=== PATIENT | male | born 1960 | race Caucasian/White ===

== ENCOUNTER 2025-04-06 17:45 | Inpatient (IN) | payer OTHER ==
--- OUTSIDE RECORDS SUMMARY | 2025-04-06 18:11 | XMS REPORT | Continuity of Care Document ---
Author Name Unknown Address [address] [facility] [address] [place] [address] [facility] Address [address] [facility] [address] [place] [address] Care Team Providers Care Inspector Wreath Name Role Phone Juan Manuel Novoa MD Primary Care Physician [phone] Corey Patterson Attending Clinician Unavailable BENNETT OSEI Attending Clinician Unavailable TOMMY PHAM Attending Clinician UnavailBennett Dozier Attending Clinician [phone] Juan Manuel Novoa MD Attending Clinician [phone] Doctor Unassigned, [place] Attending Clinician U Ilda Chi MD Attending Clinician [phone] ILDA BERNARD Attending Clinician Unavailable Lab, Lcc Attending Clinician Unavailable 2, Adc Lab Attending Clinician Unavailable Lab, Ang - Db Attending Clinician Unavailable HOLGER DOSS Attending Clinician Unavailable Leisa Gandhi RN A Attending Clinician UnaCRISTHIAN Dhillon Attending Clinician Unavailable Camacho Ayoub MD Attending Clinician + [phone] Presley ROBLES, Camacho Attending Clinician [phone] Emmy ROBLES, Patricia Saha Attending Clinician + [phone] Ruy Helms MD Attending Clinician [phone] Cristhian Chavez MD Attending Clinician [phone] RHODA GEIGER Attending Clinician Unavailab RHODA Marie Attending Clinician Unavailab Rhoda Marie DO Attending Clinician [phone] Debi ROBLES, Mohinder Attending Clinician [phone] Vero ROBLES, Tommy K.H. Attending Clinician [phone] MOHINDER JARRETT Attending Clinician Unavailable JUAN MANUEL NOVOA Attending Clinician Unavailable EMMA FITZGERALD Attending Clinician Unavailable MICHAEL RUIZ Attending Clinician UnavailMichaela Gar Attending Clinician [phone] Sue Thapa Attending Clinician Unavailable SANTO VALDIVIA Attending Clinician Unavabeulah glynn Radiology Attending Clinician Unavailable RADIOLOGY Attending Clinician Unavailable Santo Valdivia MD Attending Clinician [phone] Vero ROBLES, Tommy K.H. Attending Clinician [phone] Juan Manuel Novoa MD Attending Clinician [phone] Brian Rincon MD Attending Clinician [phone] LINNEA DORMAN Attending Clinician UnaLiss Liu Attending Clinician [phone] Michael Ruiz MD Attending Clinician [phone] Lab, Ang - Db Attending Clinician Unavailable Linnea Dorman DPM Attending Clinician Bennett Cox Attending Clinician [phone] Doctor Unassigned, [place] Attending Clinician U fabricio Jarrett MD, Mohinder Attending Clinician [phone] Celia Christian RN Attending Clinician Unavailable Tyra Barragan Attending Clinician [phone] TYRA ROBERTO Attending Clinician Unavailab Adenike Mon MD Attending Clinician LISS CHIANG Attending Clinician Unavailable ELSA VASQUEZ Attending Clinician Unavailable ELSA VASQUEZ Attending Clinician Unavailable ADENIKE SWARTZ Attending Clinician Tasha kaylailaLigia Chavez MD Attending Clinician [phone] LIGIA NGUYEN Attending Clinician Unavailabl LINO Ruelas Attending Clinician Unavailable Call, [facility] Phone Attending Clinician Unavail able THIERRY RUST Attending Clinician Unavailable THIERRY RUST Attending Clinician Unavailable RUBY JONES Attending Clinician Unavailabl RUBY Velasquez Attending Clinician Unavailabl e Heather PT, Ireniroxa Robert Attending Clinician Unavailable Ruby Jones MD Attending Clinician [phone] Emma Diop Attending Clinician [phone] Lab, [facility] Attending Clinician Unavailable 2, Adc Lab Attending Clinician Unavailable Bijal Cho Attending Clinician [phone] BIJAL GENTILE Attending Clinician Unavailable Ton Martínez R Attending Clinician [phone] TIM GUY Attending Clinician Unavailable Tim Guy DO Attending Clinician [phone] Joelle Vilchis NP Attending Clinician [phone] JOSE MARTIN STOKES Attending Clinician Unavaila Kylah Marquez Attending Clinician [phone] Peter Barakat MD Attending Clinician [phone] [facility] Lab Main Attending Clinician UnavailKYLAH Banuelos Attending Clinician Unavailable RO LOPEZ Attending Clinician Unavailable Ro Wilde Attending Clinician + [phone] PETER BARAKAT Attending Clinician Unavailable Andrei Ervin MD Attending Clinician [phone] DAWOOD LEMUS Attending Clinician Unavailable DAWOOD LEMUS Attending Clinician Unavailable NEVAEH_Ginny Attending Clinician UnavailSue Horowitz Attending Clinician [phone] Michele Munoz MD Attending Clinician Unavaila KRISTEN Porras Attending Clinician Unavailab le Only, Ang Db Test Attending Clinician Unavailsalma Rosas HEAVY DUTY DIESEL MECHANIC, Jonn Attending Clinician [phone] JONN ROSAS Attending Clinician Unavailsalma Mujica PHD, Kristen De La Torre Attending Clinician BRIAN RINCON Attending Clinician Unavailable Dory Londono Attending Clinician +[phone] , [facility] Surg Spec Procedure Attending Clinician Unavailable MICHELE MUNOZ Attending Clinician Unavailable Nolvia Flynn DO Attending Clinician [phone] TAVO KRAMER Attending Clinician Unavail able Nurse, [facility] Pob Immunization Attending Clinician Unavailable Tavo Kramer DO Attending Clinician [phone] NOLVIA FLYNN Attending Clinician Unavailable NOLVIA FLYNN Attending Clinician Unavailable Gramm HEAVY DUTY DIESEL MECHANIC, Aretha A Attending Clinician [phone] GRAMM, ARETHA A Attending Clinician Unavailable Lab, Adc Fam Pob I Attending Clinician Unavailab JAMARI Schaeffer Attending Clinician Unavailable Ren Pride MD Attending Clinician [phone] Tomi Hung MD Attending Clinician [phone] Gabriela Marion MD Attending Clinician [phone] Viri Snyder S Attending Clinician [phone] ARCHANA JOHN Attending Clinician Unavailab Michaela Bailey Attending Clinician [phone] Archana John MD Attending Clinician [phone] TATY DELGADO Attending Clinician Unavailable TATY DELGADO Attending Clinician Unavailable [facility] Sleep Lab Attending Clinician Unavaila Darci Streeter MD Attending Clinician + [phone] DARCI RAMIREZ Attending Clinician Unavaila DARCI Streeter Attending Clinician Unavaila leida Rowe, Polly Test Attending Clinician Unavailable Charlie Castillo MD Attending Clinician [phone] Juan Manuel Rodriguez MD Attending Clinician [phone] Timi Burleson MD Attending Clinician [phone] TIMI BURLESON Attending Clinician Unavailab Juan Manuel Lara Admitting Clinician UnavailILDA Candelaria Admitting Clinician Unavailable CRISTHIAN CHAVEZ Admitting Clinician Unavailable Cristhian Chavez MD Admitting Clinician [phone] Sue Thapa Admitting Clinician Unavailable JUAN MANUEL NOVOA Admitting Clinician Unavailable BENNETT OSEI Admitting Clinician Unavailable MOHINDER JARRETT Admitting Clinician Unavailable Mohinder Jarrett MD Admitting Clinician [phone] Ligia Nguyen MD Admitting Clinician [phone] LIGIA NGUYEN Admitting Clinician UnavailLINO Herrera Admitting Clinician Unavailable MARV HUSTON Admitting Clinician Unavailable TOMMY PHAM.HOrquidea Admitting Clinician Unavaila leida HERRING_Mary Anne_Sue_ Admitting Clinician Unavailabl e UNKNOWN Admitting Clinician Unavailable Doni ROBLES, Gabriela Admitting Clinician [phone] Payers Payer Name Policy Type Policy Number Effective Date Expirati on Date Source [facility] [id number] 00:00:00 [facility] P[facility] [id number] 2021 00:00:00 Problems Condition Name Condition Details Condition Category Status Onset Date Resolution Date Last Treatment Date Treating Clinician Comments Source Abdominal pain, unspecifie d abdominal location Abdominal pain, unspecifie d abdominal location Disease Active - 00:00: 00 [facility] Rectal bleeding Rectal bleeding Disease Active 8-11 00:00: 00 [facility] Submandibu lar abscess Submandibu lar abscess Disease Active 5-06 00:00: 00 [facility] Bariatric surgery status Bariatric surgery status Disease Active 3-11 00:00: 00 [facility] [place] (obstructi ve sleep apnea) [place] (obstructi ve sleep apnea) Disease Active 1-15 00:00: 00 [facility] NAFLD (nonalcoho lic fatty liver disease) NAFLD (nonalcoho lic fatty liver disease) Disease Active 15 00:00: 00 [facility] Gastroesop hageal reflux disease, unspecifie d whether esophagiti s present Gastroesop hageal reflux disease, unspecifie d whether esophagiti s present Disease Active 2022-07 018 00:00: 00 [facility] Type 2 diabetes mellitus with hyperglyce maria esther, without long-term current use of insulin Type 2 diabetes mellitus with hyperglyce maria esther, without long-term current use of insulin Disease Active 01-03 00:00: 00 [facility] Hypothyroi dism, unspecifie d type Hypothyroi dism, unspecifie d type Disease Active 01-03 00:00: 00 [facility] Type 2 diabetes mellitus with hyperglyce maria esther, without long-term current use of insulin Type 2 diabetes mellitus with hyperglyce maria esther, without long-term current use of insulin Disease Active 01-03 00:00: 00 [facility] Varicose veins of right lower extremity with pain Varicose veins of right lower extremity with pain Disease Active 07-27 00:00: 00 Overview: Formattin g of this note might be different from the original. 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 Interverte bral Disc Disorder of Cervical Region with Myelopathy Problem Active 2020-07 00:00: 00 [facility] Neck pain Neck Pain Problem Active 2020-07 00:00: 00 [facility] Cervical radiculopa thy Cervical Radiculopa thy Problem Active 2020-07 00:00: 00 [facility] Low back pain Low Back Pain Problem Active 2020-07 00:00: 00 [facility] Lumbar radiculopa thy Lumbar Radiculopa thy Problem Active 2020-07 00:00: 00 [facility] Accidental fall Accidental Fall Problem Active 2020-07 00:00: 00 [facility] Evaluation procedure Evaluation Procedure Problem Active 2020-07 00:00: 00 [facility] Right foot drop Right Foot Drop Problem Active 2020-07 00:00: 00 [facility] Cervical myelopathy Cervical Myelopathy Problem Active 2020-07 00:00: 00 [facility] Syncope and collapse Syncope and collapse Disease Active 10-26 00:00: 00 [facility] Morbid obesity with body mass index of 40.0-49.9 Morbid obesity with body mass index of 40.0-49.9 Disease Active 10-26 00:00: 00 [facility] Pre-diabet es Pre-diabet es Disease Active 10-10 00:00: 00 [facility] Lumbar sprain Lumbar sprain Disease Active 2017-07 00:00: 00 [facility] Bilateral carotid bruits Bilateral carotid bruits Disease Active 10-08 00:00: 00 [facility] Polycythem ia Polycythem ia Disease Active 10-08 00:00: 00 [facility] Elevated BP Elevated BP Disease Active 10-08 00:00: 00 [facility] Insomnia Insomnia Disease Active 08-04 00:00: 00 [facility] Hyperlipid emia with target LDL less than 100 Hyperlipid emia with target LDL less than 100 Disease Active 08-04 00:00: 00 [facility] Allergies, Adverse Reactions, Alerts Allergy Name Allergy Type Status Severity Reaction(s) Onset Date Inactive Date Treating Clinician Comments Source hydrocod one DA Active SV NAUSEA VOMITING 09-27 00:00: 00 [facility] [place] No Known Allergie s DA Active U 04-15 00:00: 00 [facility] [place] No Known Allergie s DA Active U 04-15 00:00: 00 [facility] [place] Benadryl Allergy Deconges tant Propensi ty to adverse reaction s Active Unknown - See comments 02-25 00:00: 00 1 isolated incident several years ago [facility] Hydrocod one Propensi ty to adverse reaction s Active Nausea and/or Vomiting 02-25 00:00: 00 [facility] BENADRYL ALLERGY DECONGES TANT DRUG Active Unknown-Cmnt 02-25 00:00: 00 [facility] HYDROCOD ONE DRUG INGREDI Active N/V 02-25 00:00: 00 [facility] DIPHENHY DRAMINE DRUG INGREDI Active Other-Cmnt 02-25 00:00: 00 [facility] Diphenhy dramine Propensi ty to adverse reaction s Active Other - See comments 02-25 00:00: 00 1 isolated incident several years ago [facility] Social History Social Habit Start Date Stop Date Quantity Comments Source History SDOH Alcohol Frequency [facility] History SDOH Alcohol Std Drinks [facility] History SDOH Alcohol Binge [facility] Gender identity [facility] Alcoholic beverage intake 2025-03-29 00:00:00 2025-03-29 00:00:00 Ex-drinker (finding) [facility] Tobacco use and exposure 2025-03-01 00:00:00 2025-03-01 00:00:00 Former smokeless tobacco user [facility] History of Social function 2024-10-29 00:00:00 2024-10-29 00:00:00 [facility] Alcohol intake 2023-10-17 00:00:00 2023-10-17 00:00:00 Current drinker of alcohol (finding) [facility] Exposure to SARS-CoV-2 (event) 2022-12-17 00:00:00 2022-12-27 16:18:00 Not sure [facility] History of tobacco use 2022-12-12 00:00:00 Snuff User [facility] Alcohol Comment 2016-05-31 00:00:00 2016-05-31 00:00:00 seldom [facility] Sex assigned at 1960 00:00:00 1960 00:00:00 [facility] Smoking Status Start Date Stop Date Source Occasional tobacco smoker 2025-03-01 00:00:00 [facility] Never smoked tobacco [facility] Medications Ordered Medication Name Filled Medication Name Start Date Stop Date Current Medication? Ordering Clinician Indication Dosage Frequency Signature (SIG) Comments Components Source tiZANidine 6 mg capsule 04-06 00:00: 00 Yes [id number] TAKE 1 CAPSULE BY MOUTH THREE TIMES DAILY NEEDED FOR MUSCLE SPASM [facility] Vitamin A Palmitate 3,000 mcg (10,000 unit) Tab 04-06 00:00: 00 Yes [id number] Take 10,000 units by mouth in the morning. [facility] iopamidol (ISOVUE 370-500 mL) injection 85 mL 03-12 21:30: 00 03-12 21:39 :00 No [id number] 85mL 85 mL, Intravenou s, ONCE, 1 dose, On Sat03/12/25 at 1645, Routine [facility] simethicone (GAS RELIEF (SIMETHICON E)) 40 mg/0.6 mL drops 03-09 14:46: 00 03-09 16:00 :52 No PRN, Starting on Sat03/09/25 at 0946, Until Sat03/09/25 at 1100, Routine, Intra-op [facility] lactated ringers IV infusion 1,000 mL 03-09 13:45: 00 03-09 13:58 :00 No 1000mL at 42 mL/hr, 1,000 mL, IV Infusion, ONCE, 1 dose, On Sat03/09/25 at 0845, Routine, DSU Pre-op [facility] TIZANIDINE 6 mg capsule 8-11 00:00: 00 04-06 00:00 :00 No [id number] TAKE 1 CAPSULE BY MOUTH THREE TIMES DAILY NEEDED FOR MUSCLE SPASM [facility] sodium,pota ssium,mag sulfates 17.5-3.13-1 .6 gram 8-11 00:00: 00 03-02 04:59 :00 No [id number] 177mL Take 177 mL by mouth once now for 1 dose. Please follow directions given in office [facility] clotrimazol e-betametha sone cream 8-06 00:00: 00 03-09 00:00 :00 No [id number] Apply to area(s) 2 times daily. [facility] TIZANIDINE 6 mg capsule 7-07 00:00: 00 03-01 00:00 :00 No [id number] TAKE 1 CAPSULE BY MOUTH THREE TIMES DAILY NEEDED FOR MUSCLE SPASM [facility] TIZANIDINE 6 mg capsule 6-04 00:00: 00 01-25 00:00 :00 No [id number] TAKE 1 CAPSULE BY MOUTH THREE TIMES DAILY NEEDED FOR MUSCLE SPASM [facility] amoxicillin -pot clavulanate (AUGMENTIN) 875-125 mg per tablet 1 tablet amoxicillin -pot clavulanate (AUGMENTIN) 875-125 mg per tablet 1 tablet 5-08 14:45: 00 12-04 14:44 :00 No 1{tbl} 1 tablet, Oral, Q12H ABX, 16 doses, First dose on Sat11/26/24 at 0945, Last dose on Sat12/03/24 at 2145, Routine, Reason for Anti-Infec tive: Documented Infection, Documented Infection Site: HEENT, Duration of therapy: 7 days [facility] acetaminoph en-codeine (TYLENOL #3) 300-30 mg tablet 1 tablet 11-26 14:06: 41 11-26 21:48 :57 No 1{tbl} 1 tablet, Oral, Q4HPRN, Starting on Sat11/26/24 at 0906, Until Sat11/26/24 at 1648, Routine, Pain (scale 4-6) [facility] morpHINE injection 4 mg morpHINE injection 4 mg 11-26 02:08: 55 11-26 21:48 :57 No 4mg 4 mg, Slow IV Push, Q6HPRN, Starting on Sat11/25/24 at 2108, Until Sat11/26/24 at 1648, Routine, Pain (scale 7-10) [facility] amoxicillin -pot clavulanate 875-125 mg per tablet amoxicillin -pot clavulanate 875-125 mg per tablet 11-26 00:00: 00 12-05 04:59 :00 No [id number] 1{tbl} Take 1 tablet by mouth in the morning and 1 tablet in the evening. Do all this for 8 days. [facility] polyethylen e glycol 3350 powder 17 g polyethylen e glycol 3350 powder 17 g 11-25 14:00: 00 11-26 21:48 :57 No 17g 17 g, Oral, DAILY, First dose on Sat11/25/24 at 0900, Until Discontinu ed, Routine [facility] sennosides (SENOKOT) tablet 8.6 mg sennosides (SENOKOT) tablet 8.6 mg 11-25 14:00: 00 11-26 21:48 :57 No 8.6mg 8.6 mg, Oral, DAILY, First dose on Sat11/25/24 at 0900, Until Discontinu ed, Routine [facility] enoxaparin (LOVENOX) injection 40 mg enoxaparin (LOVENOX) injection 40 mg 11-25 14:00: 00 11-26 21:48 :57 No 40mg 40 mg, Subcutaneo us, DAILY, First dose on Sat11/25/24 at 0900, Until Discontinu ed, Routine [facility] ampicillin- sulbactam (UNASYN) 3 g in NaCl 0.9% (NS) 100 mL MINI-BAG ampicillin- sulbactam (UNASYN) 3 g in NaCl 0.9% (NS) 100 mL MINI-BAG 11-25 03:00: 00 11-26 13:35 :36 No 3g 3 g, IV Piggyback, Q6H ABX, 20 doses, First dose on Sat11/24/24 at 2200, Last dose on Sat11/29/24 at 1600, Administer over 30 Minutes, 100 mL, Reason for Anti-Infec tive: Empiric Therapy for Suspected Infection, Empiric Therapy Site: Skin / Soft tissue, Duration of therapy: As Defined in Treatment / Therapy Plan [facility] divalproex (DEPAKOTE) delayed release tablet 1,000 mg divalproex (DEPAKOTE) delayed release tablet 1,000 mg 11-25 02:00: 00 11-26 21:48 :57 No 1000mg 1,000 mg, Oral, QHS, First dose on Sat11/24/24 at 2100, Until Discontinu ed, Routine [facility] morpHINE injection 4 mg morpHINE injection 4 mg 11-25 01:45: 09 11-26 01:44 :09 No 4mg 4 mg, Slow IV Push, Q4HPRN, Starting on Sat11/24/24 at 2044, Until Sat11/25/24 at 2043, Routine, Pain (scale 7-10) [facility] acetaminoph en (TYLENOL) tablet 650 mg 11-25 01:45: 01 11-26 21:48 :57 No 650mg [facility] clonazePAM (KLONOPIN) tablet 1 mg 11-25 01:40: 32 11-26 21:48 :57 No 1mg [facility] TIZANIDINE 6 mg capsule 11-25 00:00: 00 12-23 00:00 :00 No [id number] TAKE 1 CAPSULE BY MOUTH THREE TIMES DAILY NEEDED FOR MUSCLE SPASM [facility] ampicillin- sulbactam (UNASYN) 3 g in NaCl 0.9% (NS) 100 mL MINI-BAG ampicillin- sulbactam (UNASYN) 3 g in NaCl 0.9% (NS) 100 mL MINI-BAG 11-24 23:15: 00 11-25 00:08 :00 No 3g 3 g, IV Piggyback, ONCE, 1 dose, On Sat11/24/24 at 1815, Administer over 30 Minutes, 100 mL, Reason for Anti-Infec tive: Documented Infection, Documented Infection Site: HEENT, Duration of therapy: Once (ED) [facility] FENTanyl (PF) (SUBLIMAZE) injection 50 mcg FENTanyl (PF) (SUBLIMAZE) injection 50 mcg 11-24 20:30: 00 11-24 22:00 :00 No 50ug 50 mcg, Slow IV Push, ONCE, 1 dose, On Sat11/24/24 at 1530, Routine [facility] iopamidol (ISOVUE 370-500 mL) injection 85 mL 11-24 17:15: 00 11-24 17:15 :00 No [id number] 85mL 85 mL, Intravenou s, ONCE, 1 dose, On Sat11/24/24 at 1215, Routine [facility] FENTanyl (PF) (SUBLIMAZE) injection 50 mcg 11-24 16:45: 00 11-24 16:53 :00 No 50ug 50 mcg, Slow IV Push, ONCE, 1 dose, On Sat11/24/24 at 1145, Routine [facility] clindamycin in 5 % dextrose (CLEOCIN) 900 mg/50 mL IV piggyback RTU 900 mg 11-24 16:45: 00 11-24 17:27 :00 No 900mg 900 mg, IV Piggyback, ONCE, 1 dose, On Sat11/24/24 at 1145, Administer over 30 Minutes, 50 mL, Reason for Anti-Infec tive: Documented Infection, Documented Infection Site: HEENT, Duration of therapy: Once (ED), Restricted use approved by: After Hours (for ADC, CLC, LCC ONLY) [facility] TIZAN[facility]INE 6 mg capsule 4-07 00:00: 00 11-25 00:00 :00 No [id number] TAKE 1 CAPSULE BY MOUTH THREE TIMES DAILY NEEDED FOR MUSCLE SPASM [facility] TIZANIDINE 6 mg capsule 3-03 00:00: 00 10-26 00:00 :00 No [id number] TAKE 1 CAPSULE BY MOUTH THREE TIMES DAILY NEEDED FOR MUSCLE SPASM [facility] TIZANIDINE 6 mg capsule - 00:00: 00 09-21 00:00 :00 No [id number] TAKE 1 CAPSULE BY MOUTH THREE TIMES DAILY NEEDED FOR MUSCLE SPASM [facility] TIZANIDINE 6 mg capsule 1- 00:00: 00 08-21 00:00 :00 No [id number] TAKE 1 CAPSULE BY MOUTH THREE TIMES DAILY NEEDED FOR MUSCLE SPASM [facility] TIZANIDINE 6 mg capsule 2023-07 2-05 00:00: 00 07-27 00:00 :00 No [id number] TAKE 1 CAPSULE BY MOUTH THREE TIMES DAILY NEEDED FOR MUSCLE SPASM [facility] TIZANIDINE 6 mg capsule 2023-07 1- 00:00: 00 06-25 00:00 :00 No [id number] TAKE 1 CAPSULE BY MOUTH THREE TIMES DAILY NEEDED FOR MUSCLE SPASM [facility] sildenafiL (VIAGRA) 100 mg tablet 04-20 00:00: 00 03-09 00:00 :00 No [id number] 100mg Take 1 tablet by mouth once daily as needed for Other (Sexual activity). [facility] tiZANidine 6 mg capsule 04-20 00:00: 00 05-25 00:00 :00 No [id number] TAKE 1 CAPSULE BY MOUTH THREE TIMES DAILY NEEDED FOR MUSCLE SPASM [facility] furosemide 20 mg tablet 04-09 00:00: 11-24 00:00 :00 No [id number] 20mg Take 1 tablet by mouth as needed (Leg edema). [facility] TIZANIDINE 6 mg capsule 9-11 00:00: 00 04-20 00:00 :00 No [id number] TAKE 1 CAPSULE BY MOUTH THREE TIMES DAILY NEEDED FOR MUSCLE SPASM [facility] triamcinolo ne acetonide 0.1 % cream 02-19 00:00: 00 Yes [id number] Apply to area(s) 2 (two) times daily. [facility] methylPREDN ISolone (MEDROL, MEY,) 4 mg tablets 02-19 00:00: 00 11-24 00:00 :00 No [id number] Take by mouth SEE-INSTRU CTIONS. follow package directions [facility] POTASSIUM CHLORIDE 10 mEq CR tablet 617 00:00: 00 11-24 00:00 :00 No [id number] 10meq TAKE 1 TABLET BY MOUTH IN THE MORNING [facility] clonazePAM 1 mg tablet 11-18 00:00: 00 Yes [id number] 1mg Take 1 tablet by mouth 3 (three) times daily as needed for Other (anxiety). [facility] atorvastati n 20 mg tablet 11-18 00:00: 00 11-24 00:00 :00 No [id number] 20mg Take 1 tablet by mouth at bedtime. [facility] sildenafiL (VIAGRA) 100 mg tablet 11-18 00:00: 04-20 00:00 :00 No [id number] 100mg Take 1 tablet by mouth once daily as needed for Other (Sexual activity). [facility] tiZANidine 6 mg capsule 30 00:00: 00 04-01 00:00 :00 No [id number] TAKE 1 CAPSULE BY MOUTH THREE TIMES DAILY NEEDED FOR MUSCLE SPASM [facility] tiZANidine 6 mg capsule 4-15 00:00: 00 11-18 00:00 :00 No [id number] TAKE 1 CAPSULE BY MOUTH THREE TIMES DAILY NEEDED FOR MUSCLE SPASM [facility] levothyroxi ne 75 mcg tablet 4-10 00:00: 00 11-24 00:00 :00 No [id number] 75ug TAKE 1 TABLET BY MOUTH ONCE DAILY IN THE MORNING [facility] clotrimazol e-betametha sone cream 10-16 00:00: 00 02-19 00:00 :00 No [id number] Apply to area(s) 2 (two) times daily. [facility] TIZANIDINE 6 mg capsule 10-03 00:00: 00 11-03 00:00 :00 No [id number] TAKE 1 CAPSULE BY MOUTH THREE TIMES DAILY NEEDED FOR MUSCLE SPASM [facility] methocarbam oL 500 mg tablet - 00:00: 00 10-29 00:00 :00 No [id number] 500mg Take 1 tablet by mouth 4 (four) times daily. [facility] furosemide 20 mg tablet 09-29 00:00: 00 04-09 00:00 :00 No [id number] 20mg Take 1 tablet by mouth in the morning. [facility] potassium chloride 10 mEq CR tablet 09-29 00:00: 00 01-05 00:00 :00 No [id number] 10meq Take 1 tablet by mouth in the morning. [facility] atorvastati n 20 mg tablet 10:00: 57 Yes 20mg Take 1 tablet by mouth at bedtime. [facility] divalproex 500 mg EC tablet 10:00: 57 Yes TAKE 2 TABLETS BY MOUTH EVERY DAY AT BEDTIME [facility] iopamidol (ISOVUE 370-500 mL) injection 85 mL 09-10 19:00: 00 09-10 18:13 :00 No [id number] 85mL 85 mL, Intravenou s, ONCE, 1 dose, On Sat09/10/23 at 1300, Routine [facility] furosemide 20 mg tablet 09-10 00:00: 00 09-29 00:00 :00 No [id number] 20mg Take 1 tablet by mouth in the morning. [facility] AMMONIUM LACTATE 12 % lotion 09-09 00:00: 00 11-24 00:00 :00 No [id number] APPLY LOTION TOPICALLY TO AFFECTED AREA NEEDED FOR DRY SKIN [facility] cyclobenzap rine 10 mg tablet 09-09 00:00: 00 10-09 04:59 :00 No [id number] 10mg Take 1 tablet by mouth every 12 (twelve) hours for 30 days. [facility] TIZANIDINE 6 mg capsule 09-09 00:00: 00 10-03 00:00 :00 No [id number] TAKE 1 CAPSULE BY MOUTH THREE TIMES DAILY NEEDED FOR MUSCLE SPASM [facility] divalproex 500 mg EC tablet 09-05 14:14: 04 Yes TAKE 2 TABLETS BY MOUTH EVERY DAY AT BEDTIME [facility] atorvastati n 20 mg tablet 09-05 14:14: 04 Yes 20mg Take 1 tablet by mouth at bedtime. [facility] methocarbam oL 500 mg tablet 09-05 00:00: 00 09-29 00:00 :00 No [id number] 500mg Take 1 tablet by mouth 4 (four) times daily. [facility] ketorolac (TORADOL) injection 15 mg 09-04 13:45: 00 09-04 14:49 :00 No 15mg 15 mg, Slow IV Push, ONCE, 1 dose, On Sat09/04/23 at 0745, Routine [facility] methocarbam oL (ROBAXIN) injection 500 mg 09-04 04:00: 00 Yes 500mg 500 mg, Slow IV Push, Q8H, First dose (after last modificati on) on Sat09/03/23 at 2200, Until Discontinu ed, Administer over 3-5 Minutes [facility] enoxaparin (LOVENOX) injection 40 mg 09-03 23:15: 00 Yes 40mg 40 mg, Subcutaneo us, Q24H, First dose on Sat09/03/23 at 1715, Until Discontinu ed, Routine [facility] divalproex (DEPAKOTE) EC tablet 1,000 mg 09-03 23:00: 00 Yes 1000mg 1,000 mg, Oral, QPM, First dose on Sat09/03/23 at 1700, Until Discontinu ed, Routine [facility] alum-mag hydroxide-s imeth (MAG-AL PLUS) 200-200-20 mg/5 mL suspension 15 mL 09-03 22:30: 00 09-03 21:53 :00 No 15mL 15 mL, Oral, ONCE, 1 dose, On Sat09/03/23 at 1630, Routine [facility] NaCl 0.9% (NS) IV infusion 1,000 mL 09-03 16:30: 00 Yes 1000mL at 100 mL/hr, IV Infusion, CONTINUOUS , Starting on Sat09/03/23 at 1030, Until Discontinu ed, Routine [facility] fosaprepita nt (EMEND (FOSAPREPIT ANT)) 150 mg in NaCl 0.9% (NS) 150 mL IV piggyback 09-03 16:15: 00 09-03 18:59 :00 No 150mg 150 mg, IV Piggyback, ONCE, 1 dose, On Sat09/03/23 at 1015, Administer over 30 Minutes, 150 mL
Inpa tient indication ? Post-opera tive nausea/vom iting (PONV)
Has another antiemetic medication been administer ed? Yes
Dillon s the patient have 3 or more risk factors for postoperat keri nausea/vom iting (PONV)? No
This medication should NOT be administer ed. override - Per Dr. 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 [facility] pantoprazol e (PROTONIX) injection 40 mg 09-03 15:00: 00 Yes 40mg 40 mg, Slow IV Push, DAILY, First dose on Sat09/03/23 at 0900, Until Discontinu ed [facility] methocarbam oL (ROBAXIN) tablet 500 mg 09-03 14:00: 00 Yes 500mg 500 mg, Oral, QID, First dose on Sat09/03/23 at 0800, Until Discontinu ed, Routine [facility] Lidocaine (LIDOCARE) 4 % patch 1 Patch 09-03 13:45: 00 09-04 06:12 :00 No 1{patch } 1 Patch, Topical, Administer over 12 Hours, ONCE, 1 dose, On Sat09/03/23 at 0745, Routine [facility] levothyroxi ne (SYNTHROID) tablet 75 mcg 09-03 12:00: 00 Yes 75ug 75 mcg, Oral, QAM-0600, First dose on Sat09/03/23 at 0600, Until Discontinu ed, Routine [facility] acetaminoph en (TYLENOL) 160 mg/5 mL oral liquid 975 mg 09-03 04:00: 00 Yes 975mg 975 mg, Oral, Q8H, First dose on Sat09/02/23 at 2200, Until Discontinu ed, Routine [facility] Sliding Scale Insulin-Reg ular 09-03 02:00: 00 Yes Subcutaneo us, Q6HA, First dose on Sat09/02/23 at 2000, Until Discontinu ed, Routine [facility] metoclopram maggie HCl (REGLAN) injection 10 mg 09-03 00:00: 00 Yes 10mg 10 mg, Slow IV Push, Q6H, First dose on Sat09/02/23 at 1800, Until Discontinu ed, [facility] M-P[facility] 160 mg/5 mL liquid 09-03 00:00: 00 11-24 00:00 :00 No TAKE 30.5 ML BY MOUTH EVERY 8 HOURS FOR 3 DAYS [facility] lactated ringers IV infusion 1,000 mL 09-02 23:45: 00 09-03 15:21 :49 No 1000mL at 125 mL/hr, 1,000 mL, IV Infusion, CONTINUOUS , Starting on Sat09/02/23 at 1745, Until Sat09/03/23 at 0921, Routine [facility] HYDROmorpho ne (DILAUDID) injection 0.2 mg 09-02 22:46: 33 09-03 02:37 :06 No .2mg 0.2 mg, Slow IV Push, Q5MIN PRN, 10 doses, Starting on Sat09/02/23 at 1646, Until Sat09/02/23 at 203, Routine, Pain (scale 7-10), PACU
Us e approved by (Faculty): PACU USE -ANESTHESI A SERVICE-HY DROMORPHON E INJECTIONS [facility] oxyCODONE (ROXYCONE) 5 mg/5 mL solution 5 mg 09-02 22:39: 10 Yes 5mg 5 mg, Oral, Q6HPRN, Starting on Sat09/02/23 at 1639, Until Discontinu ed, Routine, Pain (scale 7-10)
F aculty member approving Restricted medication : MOHINDER JARRETT [facility] ondansetron (ZOFRAN (PF)) injection 4 mg 09-02 22:39: 10 Yes 4mg 4 mg, Slow IV Push, Q6HPRN, Starting on Sat09/02/23 at 1639, Until Discontinu ed, Routine, Nausea and Vomiting (N/V) [facility] glucagon (GLUCAGEN DIAGNOSTIC KIT) injection 1 mg 09-02 22:38: 36 Yes 1mg 1 mg, Intramuscu lar, PRN, Starting on Sat09/02/23 at 1638, Until Discontinu ed, GAURAV, Blood Glucose < or = 70 mg/dL and patient is NPO, unable to swallow or has mental changes. [facility] dextrose 50 % in water (D50W) injection 25 mL 09-02 22:38: 36 Yes 25mL 25 mL, Slow IV Push, PRN, Starting on Sat09/02/23 at 1638, Until Discontinu ed, GAURAV, Blood Glucose < or = 70 mg/dL and patient is NPO, unable to swallow or has mental status changes. [facility] bupivacaine (preserv free) (SENSORCAIN E MPF) 0.25 % (2.5 mg/mL) 30 mL, lidocaine 0.5% 5 mg/mL (0.5 %) 20 mL 09-02 19:43: 00 09-02 23:04 :29 No PRN, Starting on Sat09/02/23 at 1343, Intra-op [facility] divalproex 500 mg EC tablet 09-02 16:49: 39 Yes TAKE 2 TABLETS BY MOUTH EVERY DAY AT BEDTIME [facility] atorvastati n 20 mg tablet 09-02 16:49: 39 Yes 20mg Take 1 tablet by mouth at bedtime. [facility] clonazePAM 1 mg tablet 09-02 16:42: 44 09-02 00:00 :00 No [facility] tadalafiL 5 mg tablet 09-02 16:42: 44 09-02 00:00 :00 No 5mg Take 1 tablet by mouth in the morning. [facility] heparin (porcine) injection 5,000 Units 09-02 15:00: 00 09-02 16:43 :00 No [id number] 5,000 Units, Subcutaneo us, ONCE, 1 dose, On Sat09/02/23 at 0900, Routine [facility] traMADoL 50 mg tablet 09-02 00:00: 00 Yes [id number] 50mg Take 1 tablet by mouth every 6 (six) hours as needed for Pain (scale 7-10). Indication s: acute pain [facility] ondansetron 4 mg disintegrat ing tablet 09-02 00:00: 00 03-09 00:00 :00 No [id number] 4mg Take 1 tablet by mouth every 8 (eight) hours as needed for Nausea and Vomiting (N/V). [facility] acetaminoph en 160 mg/5 mL oral liquid 2-12 00:00: 00 09-06 05:59 :00 No [id number] 975mg Take 30.5 mL by mouth every 8 (eight) hours for 3 days. [facility] clonazePAM 1 mg tablet 08-26 10:28: 33 Yes [facility] tadalafiL 5 mg tablet 08-26 10:28: 33 Yes 5mg Take 1 tablet by mouth in the morning. [facility] TIZANIDINE 6 mg capsule 08-01 00:00: 00 09-09 00:00 :00 No [id number] TAKE 1 CAPSULE BY MOUTH THREE TIMES DAILY NEEDED FOR MUSCLE SPASM [facility] levothyroxi ne (EUTHYROX) 50 mcg tablet 07-31 17:20: 22 07-31 00:00 :00 No 50ug Take 1 tablet by mouth every morning. [facility] furosemide (LASIX) 20 mg tablet 07-31 00:00: 00 Yes [id number] 20mg Take 1 tablet by mouth in the morning. [facility] mupirocin 2 % ointment 07-31 00:00: 00 03-09 00:00 :00 No [id number] Apply to area(s) 3 (three) times daily. [facility] levothyroxi ne 75 mcg tablet 07-31 00:00: 00 10-29 00:00 :00 No [id number] 75ug Take 1 tablet by mouth every morning. [facility] ammonium lactate 12 % lotion 07-31 00:00: 00 09-09 00:00 :00 No [id number] Apply to area(s) as needed for Dry skin. [facility] levothyroxi ne 75 mcg tablet 07-25 09:39: 45 07-25 00:00 :00 No 75ug Take 1 tablet by mouth every morning. [facility] escitalopra m oxalate 10 mg tablet 07-25 09:39: 36 07-25 00:00 :00 No 10mg Take 1 tablet by mouth in the morning. [facility] tiZANidine 4 mg capsule 07-25 09:38: 45 07-25 00:00 :00 No Take 1 tablet by mouth every eight hours as needed As needed for muscle spasms [facility] Testosteron e (ANDRODERM) 4 mg/24 hr patch 07-25 09:38: 26 07-25 00:00 :00 No APPLY 1 PATCH TOPICALLY TO SKIN ONCE DAILY [facility] semaglutide (OZEMPIC) 1 mg/dose (4 mg/3 mL) Ij 07-25 09:38: 13 07-25 00:00 :00 No INJECT 1 MG SUBCUTANEO USLY ONCE A WEEK [facility] semaglutide (OZEMPIC) 0.25 mg or 0.5 mg(2 mg/1.5 mL) [facility] 07-25 09:38: 04 07-25 00:00 :00 No INJECT 1/2 (ONE HALF) MG SUBCUTANEO USLY ONCE A WEEK [facility] QUEtiapine 300 mg tablet 07-25 09:37: 48 07-25 00:00 :00 No 300mg Take 1 tablet by mouth at bedtime. [facility] QUEtiapine (SEROQUEL) 100 mg tablet 07-25 09:37: 39 07-25 00:00 :00 No [facility] losartan-hy drochloroth iazide 100-25 mg per tablet 07-25 09:37: 03 07-25 00:00 :00 No TAKE 1 TABLET BY MOUTH ONCE DAILY FOR 30 DAYS [facility] losartan 50 mg tablet 07-25 09:36: 57 07-25 00:00 :00 No 50mg Take 1 tablet by mouth in the morning. [facility] LORazepam 1 mg tablet 07-25 09:36: 31 07-25 00:00 :00 No 1mg Take 1 tablet by mouth 3 (three) times daily as needed. [facility] levothyroxi ne (EUTHYROX) 100 mcg tablet 07-25 09:36: 09 07-25 00:00 :00 No 100ug Take 1 tablet by mouth every morning. [facility] KCL 20 mEq tablet 07-25 09:35: 46 07-25 00:00 :00 No [facility] gabapentin 600 mg tablet 07-25 09:35: 37 07-25 00:00 :00 No Take by mouth 3 (three) times daily. [facility] furosemide 40 mg tablet 07-25 09:35: 31 07-25 00:00 :00 No 40mg Take 1 tablet by mouth every morning and evening. [facility] FLUoxetine 20 mg tablet 07-25 09:35: 16 07-25 00:00 :00 No [facility] FLUoxetine 20 mg capsule 07-25 09:35: 06 07-25 00:00 :00 No TAKE 3 CAPSULES BY MOUTH ONCE DAILY [facility] cyclobenzap rine 10 mg tablet 07-25 09:34: 41 07-25 00:00 :00 No 10mg Take 1 tablet by mouth every 12 (twelve) hours as needed. [facility] divalproex 500 mg EC tablet 07-25 09:12: 23 Yes TAKE 2 TABLETS BY MOUTH EVERY DAY AT BEDTIME [facility] tadalafiL 5 mg tablet 07-25 09:12: 23 Yes 5mg Take 1 tablet by mouth in the morning. [facility] clonazePAM 1 mg tablet 2022-07 09:53: 38 Yes [facility] FLUoxetine 20 mg tablet 2022-07 09:53: 38 Yes [facility] FLUoxetine 20 mg capsule 2022-07 09:53: 38 Yes TAKE 3 CAPSULES BY MOUTH ONCE DAILY [facility] gabapentin 600 mg tablet 2022-07 09:53: 38 Yes Take by mouth 3 (three) times daily. [facility] furosemide 40 mg tablet 2022-07 09:53: 38 Yes 40mg Take 1 tablet by mouth every morning and evening. [facility] losartan 50 mg tablet 2022-07 09:53: 38 Yes 50mg Take 1 tablet by mouth in the morning. [facility] losartan-hy drochloroth iazide 100-25 mg per tablet 2022-07 09:53: 38 Yes TAKE 1 TABLET BY MOUTH ONCE DAILY FOR 30 DAYS [facility] KCL 20 mEq tablet 2022-07 09:53: 38 Yes [facility] semaglutide (OZEMPIC) 0.25 mg or 0.5 mg(2 mg/1.5 mL) [facility] 2022-07 09:53: 38 Yes INJECT 1/2 (ONE HALF) MG SUBCUTANEO USLY ONCE A WEEK [facility] semaglutide (OZEMPIC) 1 mg/dose (4 mg/3 mL) [facility] 2022-07 09:53: 38 Yes INJECT 1 MG SUBCUTANEO USLY ONCE A WEEK [facility] Testosteron e (ANDRODERM) 4 mg/24 hr patch 2022-07 09:53: 38 Yes APPLY 1 PATCH TOPICALLY TO SKIN ONCE DAILY [facility] tadalafiL 5 mg tablet 2022-07 09:53: 38 Yes 5mg Take 1 tablet by mouth in the morning. [facility] levothyroxi ne (EUTHYROX) 100 mcg tablet 2022-07 09:53: 38 Yes 100ug Take 1 tablet by mouth every morning. [facility] levothyroxi ne (EUTHYROX) 50 mcg tablet 2022-07 09:53: 38 Yes 50ug Take 1 tablet by mouth every morning. [facility] levothyroxi ne 75 mcg tablet 2022-07 09:53: 38 Yes 75ug Take 1 tablet by mouth every morning. [facility] LORazepam 1 mg tablet 2022-07 09:53: 38 Yes 1mg Take 1 tablet by mouth 3 (three) times daily as needed. [facility] QUEtiapine 300 mg tablet 2022-07 09:53: 38 Yes 300mg Take 1 tablet by mouth at bedtime. [facility] atorvastati n 20 mg tablet 2022-07 09:53: 38 11-18 00:00 :00 No 20mg Take 1 tablet by mouth at bedtime. [facility] QUEtiapine (SEROQUEL) 100 mg tablet 2022-07 09:45: 47 Yes [facility] divalproex 500 mg EC tablet 2022-07 09:45: 46 Yes TAKE 2 TABLETS BY MOUTH EVERY DAY AT BEDTIME [facility] escitalopra m oxalate 10 mg tablet 2022-07 09:45: 46 Yes 10mg Take 1 tablet by mouth in the morning. [facility] diclofenac 75 mg EC tablet 2022-07 14:58: 26 05-09 00:00 :00 No diclofenac sodium 75 mg tablet,del ayed release [facility] diclofenac 75 mg EC tablet 2022-07 13:23: 14 Yes diclofenac sodium 75 mg tablet,del ayed release [facility] prazosin (MINIPRESS) 5 mg capsule 2022-07 13:22: 22 05-07 00:00 :00 No BEDTIME. [facility] tiZANidine 6 mg capsule 2022-07 00:00: 00 08-01 00:00 :00 No [id number] 6mg Take 1 capsule by mouth 3 (three) times daily as needed for Muscle Spasms. [facility] empaglifloz in (JARDIANCE) 10 mg 2022-07 00:00: 00 05-09 00:00 :00 No [id number] 10mg Take 1 tablet by mouth in the morning. [facility] doxycycline hyclate 100 mg tablet 2022-07 00:00: 00 05-09 00:00 :00 No [id number] 100mg Take 1 tablet by mouth in the morning and 1 tablet in the evening. Do all this for 7 days. [facility] prazosin (MINIPRESS) 5 mg capsule 04-02 14:08: 36 Yes BEDTIME. [facility] diclofenac 75 mg EC tablet 04-02 14:08: 35 Yes diclofenac sodium 75 mg tablet,del ayed release [facility] tirzepatide (MOUNJARO) 12.5 mg/0.5 mL PnIj 04-02 00:00: 00 04-14 00:00 :00 No [id number] 12.5mg inject 12.5 mg under the skin weekly. [facility] barium sulfate (E-Z-HD BARIUM) 98 % oral suspension 135 mL 03-18 21:00: 00 03-18 20:20 :00 No [id number] 135mL 135 mL, Oral, ONCE, 1 dose, On Sat03/18/23 at 1600, Routine [facility] barium sulfate (LIQUID E-Z PAQUE) 60 % (w/v) oral suspension 355 mL 03-18 21:00: 00 03-18 20:20 :00 No [id number] 355mL 355 mL, Oral, ONCE, 1 dose, On Sat03/18/23 at 1600, Routine [facility] sod bicarb-citr ic ac-simeth (E-Z-GAS II) 2.21-1.53 gram/4 gram packet 1 Packet 03-18 21:00: 00 03-18 20:20 :00 No [id number] 1{packe t} 1 Packet, Oral, ONCE, 1 dose, On Sat03/18/23 at 1600, Routine [facility] QUEtiapine (SEROQUEL) 300 mg tablet 03-08 09:27: 23 03-08 00:00 :00 No BEDTIME. [facility] QUEtiapine (SEROQUEL) 25 mg tablet 03-08 09:27: 17 03-08 00:00 :00 No TWICE DAILY. as needed for ANXIETY [facility] divalproex 500 mg EC tablet 03-08 09:26: 45 03-08 00:00 :00 No 1000mg Take 2 tablets by mouth in the morning. [facility] ALPRAZolam 1 mg tablet 03-08 09:25: 53 03-08 00:00 :00 No [facility] diclofenac 75 mg EC tablet 03-08 09:23: 52 03-08 00:00 :[address] 75 mg tbec [facility] atorvastati n (LIPITOR) 20 mg tablet 03-08 09:23: 30 03-08 00:00 :00 No DAILY. [facility] diclofenac 75 mg EC tablet 03-08 09:12: 00 Yes diclofenac sodium 75 mg tablet,del ayed release [facility] prazosin (MINIPRESS) 5 mg capsule 03-08 09:12: 00 Yes BEDTIME. [facility] levothyroxi ne (SYNTHROID) 50 mcg tablet 03-08 09:12: 00 Yes DAILY. [facility] levothyroxi ne 88 mcg tablet 03-08 00:00: 00 04-04 00:00 :00 No [id number] 88ug Take 1 tablet by mouth every morning. [facility] triamcinolo ne acetonide (KENALOG) injection 40 mg 03-07 21:30: 00 03-07 20:40 :36 No [id number] 40mg [facility] lidocaine 1% (XYLOCAINE) 10 mg/mL (1 %) injection 4 mL 03-07 21:30: 00 02-25 20:37 :00 No [id number] 4mL [facility] FLUoxetine 20 mg capsule 02-28 00:00: 00 03-08 00:00 :00 No [facility] lidocaine 1% (XYLOCAINE) 10 mg/mL (1 %) injection 4 mL 02-25 22:45: 00 02-26 10:44 :00 No [id number] 4mL [facility] triamcinolo ne acetonide (KENALOG) injection 40 mg 02-25 22:45: 00 02-25 18:23 :00 No [id number] 40mg 40 mg, Intramuscu lar, ONCE, 1 dose, On Sat02/25/23 at 1745, Routine [facility] methylPREDN ISolone (MEDROL, MEY,) 4 mg tablets 02-21 00:00: 00 03-08 00:00 :00 No [id number] 84mg Take 21 tablets by mouth SEE-INSTRU CTIONS. follow package directions [facility] tiZANidine 6 mg capsule 02-04 00:00: 00 05-07 00:00 :00 No [id number] 6mg Take 1 capsule by mouth 3 (three) times daily as needed for Muscle Spasms. [facility] tirzepatide (MOUNJARO) 10 mg/0.5 mL PnIj 02-04 00:00: 00 04-02 00:00 :00 No [id number] 10mg inject 10 mg under the skin weekly. [facility] tirzepatide (MOUNJARO) 7.5 mg/0.5 mL PnIj 01-23 00:00: 00 02-04 00:00 :00 No [id number] 7.5mg inject 7.5 mg under the skin weekly. [facility] testosteron e cypionate 200 mg/mL injection 6-14 00:00: 00 11-24 00:00 :00 No [id number] 100mg 0.5 mL by Intramuscu lar route weekly. [facility] atorvastati n 10 mg tablet 10 00:00: 00 07-25 00:00 :00 No [id number] 10mg Take 1 tablet by mouth at bedtime. [facility] divalproex 500 mg EC tablet 12-28 09:45: 51 Yes 1000mg Take 1,000 mg by mouth in the morning. [facility] lancets (ONE TOUCH DELICA) 33 gauge [facility] [place]-28 00:00: 00 Yes [id number] Use to check blood sugar 1X daily. DX:E11.65 [facility] lancets (ONE TOUCH DELICA) 33 gauge [facility] [place]-28 00:00: 00 11-24 00:00 :00 No [id number] Use to check blood sugar 1X daily. DX:E11.65 [facility] blood sugar diagnostic (ONETOUCH VERIO TEST STRIPS) strip 12-28 00:00: 00 05-09 00:00 :00 No [id number] Use to check blood sugar 1X daily. DX:E11.65 [facility] levothyroxi ne 100 mcg tablet 12-28 00:00: 00 03-08 00:00 :00 No [id number] 100ug Take 1 tablet by mouth every morning. [facility] tirzepatide (MOUNJARO) 5 mg/0.5 mL PnIj 12-28 00:00: 00 01-23 00:00 :00 No [id number] 5mg inject 5 mg under the skin weekly. [facility] ondansetron (ZOFRAN (PF)) injection 4 mg 12-13 04:45: 00 12-13 03:51 :00 No 4mg 4 mg, Slow IV Push, ONCE, 1 dose, On Sat12/12/22 at 2345, Routine [facility] morpHINE (4 mg/mL) injection 4 mg 12-13 04:45: 00 12-13 03:52 :00 No 4mg 4 mg, Slow IV Push, ONCE, 1 dose, On Sat12/12/22 at 2345, STAT [facility] furosemide (LASIX) injection 40 mg 12-13 03:45: 00 12-13 03:48 :00 No 40mg 40 mg, IV Push, ONCE, 1 dose, On Sat12/12/22 at 2245, GAURAV [facility] cefTRIAXone (ROCEPHIN) 1,000 mg in NaCl 0.9% (NS) 100 mL MINI-BAG 12-12 21:30: 00 12-12 22:29 :00 No 1000mg 1,000 mg, IV Piggyback, ONCE, 1 dose, On Sat12/12/22 at 1630, Administer over 30 Minutes, 100 mL
Reas on for Anti-Infec tive: Documented Infection< br>Documen alexis Infection Site: Skin / Soft Tissue
Duration of Therapy: Other (see Comments) [facility] morpHINE (4 mg/mL) injection 4 mg 12-12 20:15: 00 12-12 20:15 :00 No 4mg 4 mg, Slow IV Push, ONCE, 1 dose, On Sat12/12/22 at 1515, STAT [facility] cephALEXin 500 mg capsule 12-12 00:00: 00 12-20 04:59 :00 No [id number] 500mg Take 1 capsule by mouth 4 (four) times daily for 7 days. [facility] LORazepam 1 mg tablet 11-29 00:00: 00 11-18 00:00 :00 No 1mg Take 1 tablet by mouth 3 (three) times daily as needed. [facility] tadalafiL (CIALIS) 20 mg tablet 11-22 00:00: 00 Yes [id number] 20mg Take 1 tablet by mouth as needed for Erectile dysfunctio n. [facility] hydrocortis one 2.5 % cream 11-22 00:00: 00 05-09 00:00 :00 No [id number] Apply to area(s) 2 (two) times daily. [facility] tiZANidine 4 mg tablet 11-22 00:00: 00 02-04 00:00 :00 No [id number] 4mg Take 1 tablet by mouth every 8 (eight) hours as needed for Pain (scale 4-6). [facility] testosteron e cypionate 200 mg/mL injection 11-22 00:00: 00 01-02 00:00 :00 No [id number] 100mg 0.5 mL by Intramuscu lar route once every month. [facility] semaglutide (OZEMPIC) 2 mg/dose (8 mg/3 mL) PnIj 11-22 00:00: 00 12-28 00:00 :00 No [id number] 2mg inject 2 mg under the skin weekly. [facility] empaglifloz in (JARDIANCE) 25 mg Tab 08-22 00:00: 00 Yes [id number] 25mg Take 1 tablet by mouth in the morning. [facility] levothyroxi ne 100 mcg tablet 08-22 00:00: 00 12-28 00:00 :00 No [id number] 100ug Take 1 tablet by mouth every morning. [facility] atorvastati n 20 mg tablet 08-09 00:00: 00 12-29 00:00 :00 No [id number] 20mg Take 1 tablet by mouth at bedtime. [facility] tiZANidine 4 mg tablet 08-09 00:00: 00 11-22 00:00 :00 No [id number] 4mg Take 1 tablet by mouth every 8 (eight) hours as needed for Pain (scale 4-6). [facility] varenicline (CHANTIX STARTING MONTH BOX) 0.5 mg (11)- 1 mg (42) tablet 08-09 00:00: 00 09-06 00:00 :00 No [id number] Take one 0.5mg tab by mouth once daily for 3 days, then one 0.5mg tab twice daily for 4 days, then one 1mg tab twice daily. [facility] divalproex 500 mg EC tablet 08-07 21:18: 30 Yes 1000mg Take 1,000 mg by mouth in the morning. [facility] acetaminoph en-codeine (TYLENOL #3) 300-30 mg tablet 1 tablet 08-07 17:43: 37 Yes 1{tbl} 1 tablet, Oral, PRN, 1 dose, Starting on Sat08/07/22 at 1143, Until Discontinu ed, Routine, Pain (scale 1-3), PACU [facility] HYDROmorphO ne (DILAUDID) injection 0.2 mg 08-07 16:53: 56 Yes .2mg 0.2 mg, Slow IV Push, Q5MIN PRN, 10 doses, Starting on Sat08/07/22 at 1053, Until Discontinu ed, Routine, Pain (scale 7-10), PACU
Us e approved by (Faculty): PACU USE -ANESTHESI A SERVICE-HY DROMORPHON E INJECTIONS [facility] ondansetron (ZOFRAN (PF)) injection 4 mg 08-07 16:53: 56 Yes 4mg 4 mg, Slow IV Push, PRN, 1 dose, Starting on Sat08/07/22 at 1053, Until Discontinu ed, Routine, Nausea and Vomiting (N/V), PACU [facility] acetaminoph en ADULT (OFIRMEV) injection 1,000 mg 08-07 16:53: 56 08-08 16:52 :56 No 1000mg 1,000 mg, IV Infusion, at 400 mL/hr Administer over 15 Minutes, PRN, Starting on Sat08/07/22 at 1053, Until Sat08/08/22 at 1052, Routine, Pain (scale 1-3), PACU
In dication: Perioperat keri Patient [facility] FENTanyl PF (SUBLIMAZE (PF)) injection 25 mcg 08-07 16:53: 56 08-07 18:15 :00 No 25ug 25 mcg, Slow IV Push, Q5MIN PRN, 4 doses, Starting on Sat08/07/22 at 1053, Until Discontinu ed, Routine, Pain (scale 4-6), PACU [facility] heparin 10,000 units in NS 1000 mL for vascular 08-07 16:01: 00 08-07 17:42 :45 No PRN, Starting on Sat08/07/22 at 1001, Intra-op [facility] EPINEPHrine 1:1,000 (1 mg/mL) (ADRENALIN) 2 mL, lidocaine 2% (XYLOCAINE) 40 mL, sodium bicarbonate 1 mEq/mL (8.4 %) 10 mL in NaCl 0.9% (NS) 1,000 mL OR irrigation 08-07 16:00: 00 08-07 17:42 :45 No PRN, Starting on Sat08/07/22 at 1000, Intra-op [facility] testosteron e cypionate 200 mg/mL injection 08-05 00:00: 00 11-22 00:00 :00 No [id number] 100mg 0.5 mL by Intramuscu lar route once every month. [facility] divalproex 500 mg EC tablet 08-03 09:48: 45 Yes 1000mg Take 1,000 mg by mouth in the morning. [facility] divalproex 500 mg EC tablet 07-31 11:53: 56 Yes 1000mg Take 1,000 mg by mouth in the morning. [facility] spironolact one 25 mg tablet 07-24 00:00: 00 03-08 00:00 :00 No [id number] 25mg Take 1 tablet by mouth in the morning. [facility] bumetanide 1 mg tablet 07-24 00:00: 00 03-08 00:00 :00 No [id number] 3mg Take 3 tablets by mouth every morning and evening. [facility] iopamidol (ISOVUE 370-500 mL) injection 100 mL 07-22 21:55: 00 07-22 22:00 :00 No [id number] 100mL 100 mL, Intravenou s, ONCE, 1 dose, On Sat07/22/22 at 1615, Routine [facility] testosteron e cypionate 200 mg/mL injection 2022-1 2-06 00:00: 00 08-05 00:00 :00 No [id number] 100mg 0.5 mL by Intramuscu lar route weekly. [facility] spironolact one (ALDACTONE) 25 mg tablet 2021-07 00:00: 00 07-21 05:59 :00 No [id number] 02 25mg Take 1 tablet by mouth in the morning for 30 days. Please do labs in 10 days [facility] semaglutide (OZEMPIC) 2 mg/dose (8 mg/3 mL) Ij 2021-07 00:00: 00 11-22 00:00 :00 No [id number] 2mg inject 2 mg under the skin weekly. [facility] tiZANidine 4 mg tablet 2021-07 00:00: 00 08-09 00:00 :00 No [id number] 4mg Take 1 tablet by mouth every 8 (eight) hours as needed for Pain (scale 4-6). [facility] semaglutide (OZEMPIC) 1 mg/dose (4 mg/3 mL) Ij 2021-07 0-24 00:00: 00 08-07 00:00 :00 No [id number] 1mg inject 1 mg under the skin weekly. [facility] KCL 20 mEq tablet 2021-07 011 00:00: 00 03-08 00:00 :00 No [id number] 02 20meq Take 1 tablet by mouth in the morning. [facility] furosemide 40 mg tablet 2021-07 0-11 00:00: 00 07-24 00:00 :00 No [id number] 02 80mg Take 2 tablets by mouth every morning and evening. [facility] furosemide 40 mg tablet 04-12 00:00: 00 05-01 00:00 :00 No [id number] 40mg Take 1 tablet by mouth every morning and evening. [facility] furosemide (LASIX) injection 40 mg 04-05 17:30: 00 04-05 18:47 :00 No 40mg 40 mg, IV Push, ONCE, 1 dose, On Le[place] 04/05/22 at 1230, GAURAV [facility] iopamidol (ISOVUE 370-500 mL) injection 89 mL 04-05 15:30: 00 04-05 14:41 :00 No [id number] 89mL 89 mL, Intravenou s, ONCE, 1 dose, On [place] 04/05/22 at 1030, Routine [facility] divalproex 500 mg EC tablet 03-22 16:05: 25 Yes 1000mg Take 1,000 mg by mouth in the morning. [facility] KCL 20 mEq tablet 03-22 00:00: 00 04-22 04:59 :00 No [id number] 20meq Take 1 tablet by mouth in the morning for 30 days. [facility] furosemide 40 mg tablet 03-22 00:00: 00 04-12 00:00 :00 No [id number] 40mg Take 1 tablet by mouth in the morning for 30 days. [facility] QUEtiapine 400 mg tablet 03-15 00:00: 00 03-08 00:00 :00 No 500mg Take 500 mg by mouth. [facility] tiZANidine 4 mg tablet 03-12 00:00: 00 03-08 00:00 :00 No 4mg Take 1 tablet by mouth. [facility] levothyroxi ne (EUTHYROX) 100 mcg tablet 02-09 00:00: 00 Yes 100ug Take 1 tablet by mouth. [facility] Syringe with Needle, Disp, (SYRINGE 3CC/21GX1") 3 mL 21 gauge x 1" Syrg 01-15 00:00: 00 Yes [id number] Use as directed [facility] Syringe with Needle, Disp, (SYRINGE 3CC/21GX1") 3 mL 21 gauge x 1" Syrg 27 00:00: 00 11-24 00:00 :00 No [id number] Use as directed [facility] testosteron e cypionate 200 mg/mL injection 6-27 00:00: 00 06-26 00:00 :00 No [id number] 100mg 0.5 mL by Intramuscu lar route every 2 (two) weeks. [facility] levothyroxi ne 100 mcg tablet 5-31 00:00: 00 08-22 00:00 :00 No [id number] 100ug Take 1 tablet by mouth every morning. [facility] atorvastati n 20 mg tablet 5-25 00:00: 00 08-09 00:00 :00 No [id number] 20mg Take 1 tablet by mouth at bedtime. [facility] semaglutide (OZEMPIC) 1 mg/dose (4 mg/3 mL) PnIj 2020-07 1-22 00:00: 00 11-22 00:00 :00 No [id number] 1mg inject 1 mg under the skin weekly. [facility] escitalopra m oxalate (LEXAPRO) 10 mg tablet 7-14 00:00: 00 05-14 00:00 :00 No [id number] 10mg Take 1 tablet by mouth daily. [facility] lancets (ONE TOUCH DELICA) 33 gauge [facility] [place] 00:00: 00 12-28 00:00 :00 No Use to check blood sugar 1X daily. DX:E11.65 [facility] Blood-Gluco se Meter (ONETOUCH VERIO FLEX METER) [facility] [place]07 00:00: 00 Yes Use to check blood sugar 1X daily. DX:E11.65 [facility] Blood-Gluco se Meter (ONETOUCH VERIO FLEX METER) [facility] [place] 00:00: 00 05-09 00:00 :00 No Use to check blood sugar 1X daily. DX:E11.65 [facility] blood sugar diagnostic (ONETOUCH VERIO TEST STRIPS) strip 12-07 00:00: 00 12-28 00:00 :00 No Use to check blood sugar 1X daily. DX:E11.65 [facility] Mobic 15 mg tablet Take 1 Tab PO QD PRN Pain Work Comp Mobic 15 mg tablet Take 1 Tab PO QD PRN Pain Work Comp 5-03 00:00: 00 No Mobic 15 mg tablet Take 1 Tab PO QD PRN Pain Work Comp [facility] Insulin [place], Disposable, (BD DELIA 2ND GEN PEN NEEDLE) 32 gauge x 5/32" Ndle 2019-07 009 00:00: 00 05-14 00:00 :00 No Use to inject Saxenda daily. [facility] Blood Pressure Monitor Kit 8 00:00: 00 Yes Use Daily. Dx E66.01 [facility] Blood Pressure Monitor Kit 03-09 00:00: 00 05-09 00:00 :00 No Use Daily. Dx E66.01 [facility] prazosin 2 mg capsule 01-05 00:00: 00 Yes TAKE 3 CAPSULES BY MOUTH AT BEDTIME FOR NIGHT TERRORS [facility] QUEtiapine 300 mg tablet 01-05 00:00: 00 11-24 00:00 :00 No TAKE 1 TABLET BY MOUTH EVERY DAY AT BEDTIME [facility] cyclobenzap rine 5 mg tablet Take 1 tablet every 8 hours by oral route. cyclobenzap rine 5 mg tablet Take 1 tablet every 8 hours by oral route. No 1 Q8H cyclobenza sera 5 mg tablet Take 1 tablet every 8 hours by oral route. [facility] Euthyrox 100 mcg tablet TAKE 1 TABLET BY MOUTH ONCE DAILY IN THE MORNING Euthyrox 100 mcg tablet TAKE 1 TABLET BY MOUTH ONCE DAILY IN THE MORNING No Euthyrox 100 mcg tablet TAKE 1 TABLET BY MOUTH ONCE DAILY IN THE MORNING [facility] Euthyrox 50 mcg tablet TAKE 1 TABLET BY MOUTH ONCE DAILY IN THE MORNING Euthyrox 50 mcg tablet TAKE 1 TABLET BY MOUTH ONCE DAILY IN THE MORNING No Euthyrox 50 mcg tablet TAKE 1 TABLET BY MOUTH ONCE DAILY IN THE MORNING [facility] OneTouch Delica Plus Lancet 33 gauge USE A LANCET TO CHECK GLUCOSE ONCE DAILY OneTouch Delica Plus Lancet 33 gauge USE A LANCET TO CHECK GLUCOSE ONCE DAILY No OneTouch Delica Plus Lancet 33 gauge USE A LANCET TO CHECK GLUCOSE ONCE DAILY [facility] OneTouch Verio Flex Meter USE DIRECTED TO CHECK BLOOD SUGAR ONCE DAILY OneTouch Verio Flex Meter USE DIRECTED TO CHECK BLOOD SUGAR ONCE DAILY No OneTouch Verio Flex Meter USE DIRECTED TO CHECK BLOOD SUGAR ONCE DAILY [facility] OneTouch Verio test strips USE ONE STRIP TO TEST BLOOD SUGAR ONCE A DAY OneTouch Verio test strips USE ONE STRIP TO TEST BLOOD SUGAR ONCE A DAY No OneTouch Verio test strips USE ONE STRIP TO TEST BLOOD SUGAR ONCE A DAY [facility] Seroquel 100 mg tablet Seroquel 100 mg tablet No Seroquel 100 mg tablet [facility] clonazepam 1 mg disintegrat ing tablet DISSOLVE 1 TABLET IN MOUTH THREE TIMES DAILY NEEDED FOR ANXIETY AND PANIC clonazepam 1 mg disintegrat ing tablet DISSOLVE 1 TABLET IN MOUTH THREE TIMES DAILY NEEDED FOR ANXIETY AND PANIC No clonazepam 1 mg disintegra ting tablet DISSOLVE 1 TABLET IN MOUTH THREE TIMES DAILY NEEDED FOR ANXIETY AND PANIC [facility] levothyroxi ne 112 mcg tablet TAKE 1 TABLET BY MOUTH ONCE DAILY IN THE MORNING levothyroxi ne 112 mcg tablet TAKE 1 TABLET BY MOUTH ONCE DAILY IN THE MORNING No levothyrox ine 112 mcg tablet TAKE 1 TABLET BY MOUTH ONCE DAILY IN THE MORNING [facility] methylpredn isolone 4 mg tablets in a dose pack TAKE BY MOUTH DIRECTED ON INSIDE OF PACKAGE methylpredn isolone 4 mg tablets in a dose pack TAKE BY MOUTH DIRECTED ON INSIDE OF PACKAGE No methylpred nisolone 4 mg tablets in a dose pack TAKE BY MOUTH DIRECTED ON INSIDE OF PACKAGE [facility] olanzapine 10 mg disintegrat ing tablet DISSOLVE 1 TABLET ON TONGUE AT BEDTIME olanzapine 10 mg disintegrat ing tablet DISSOLVE 1 TABLET ON TONGUE AT BEDTIME No olanzapine 10 mg disintegra ting tablet DISSOLVE 1 TABLET ON TONGUE AT BEDTIME [facility] omeprazole 40 mg capsule,del ayed release TAKE 1 CAPSULE BY MOUTH IN THE MORNING omeprazole 40 mg capsule,del ayed release TAKE 1 CAPSULE BY MOUTH IN THE MORNING No omeprazole 40 mg capsule,de layed release TAKE 1 CAPSULE BY MOUTH IN THE MORNING [facility] oxycodone 5 mg tablet TAKE 1 TABLET BY MOUTH EVERY 6 HOURS NEEDED FOR PAIN oxycodone 5 mg tablet TAKE 1 TABLET BY MOUTH EVERY 6 HOURS NEEDED FOR PAIN No oxycodone 5 mg tablet TAKE 1 TABLET BY MOUTH EVERY 6 HOURS NEEDED FOR PAIN [facility] sulfamethox azole 800 mg-trimetho prim 160 mg tablet TAKE 1 TABLET BY MOUTH IN THE MORNING AND 1 IN THE EVENING FOR 5 DAYS sulfamethox azole 800 mg-trimetho prim 160 mg tablet TAKE 1 TABLET BY MOUTH IN THE MORNING AND 1 IN THE EVENING FOR 5 DAYS No sulfametho xazole 800 mg-trimeth oprim 160 mg tablet TAKE 1 TABLET BY MOUTH IN THE MORNING AND 1 IN THE EVENING FOR 5 DAYS [facility] varenicline 1 mg tablet TAKE 1 TABLET BY MOUTH IN THE MORNING AND 1 IN THE EVENING varenicline 1 mg tablet TAKE 1 TABLET BY MOUTH IN THE MORNING AND 1 IN THE EVENING No vareniclin e 1 mg tablet TAKE 1 TABLET BY MOUTH IN THE MORNING AND 1 IN THE EVENING [facility] docusate sodium 100 mg capsule Take 1 capsule by mouth twice a day docusate sodium 100 mg capsule Take 1 capsule by mouth twice a day No docusate sodium 100 mg capsule Take 1 capsule by mouth twice a day [facility] oxycodone-a cetaminophe n 10 mg-325 mg tablet Take 1 tablet by mouth every 6-8 hours oxycodone-a cetaminophe n 10 mg-325 mg tablet Take 1 tablet by mouth every 6-8 hours No oxycodone- acetaminop hen 10 mg-325 mg tablet Take 1 tablet by mouth every 6-8 hours [facility] BinaxNOW COVID-19 Ag Self Test kit TEST DIRECTED TODAY BinaxNOW COVID-19 Ag Self Test kit TEST DIRECTED TODAY No BinaxNOW COVID-19 Ag Self Test kit TEST DIRECTED TODAY [facility] Immunizations Ordered Immunization Name Filled Immunization Name Date Status Comments Source Influenza Virus Vaccine Quad IM, Preserv and ABX Free 6 MO-64 YRS (FLUCELVAX) 2024-04-06 00:00:00 Completed [facility] Influenza Virus Vaccine Quad IM, Preserv and ABX Free 6 MO-64 YRS (FLUCELVAX) 2024-04-06 00:00:00 Completed [facility] Influenza Virus Vaccine Quad IM, Preserv and ABX Free 6 MO-64 YRS (FLUCELVAX) 2024-04-06 00:00:00 Completed [facility] Influenza Virus Vaccine Quad IM, Preserv and ABX Free 6 MO-64 YRS (FLUCELVAX) 2022-05-01 00:00:00 Completed [facility] Influenza Virus Vaccine Quad IM, Preserv and ABX Free 6 MO-64 YRS (FLUCELVAX) 2022-05-01 00:00:00 Completed [facility] Influenza Virus Vaccine Quad IM, Preserv and ABX Free 6 MO-64 YRS (FLUCELVAX) 2022-05-01 00:00:00 Completed [facility] Influenza Virus Vaccine Quad IM, Preserv and ABX Free 6 MO-64 YRS 2022-05-01 00:00:00 Completed [facility] Influenza Virus Vaccine Quad IM, Preserv and ABX Free 6 MO-64 YRS 2022-05-01 00:00:00 Completed [facility] Influenza Virus Vaccine Quad IM, Preserv and ABX Free 6 MO-64 YRS 2022-05-01 00:00:00 Completed [facility] Influenza Virus Vaccine Quad IM, Preserv and ABX Free 6 MO-64 YRS 2022-05-01 00:00:00 Completed [facility] Influenza Virus Vaccine Quad IM, Preserv and ABX Free 6 MO-64 YRS 2022-05-01 00:00:00 Completed [facility] Influenza Virus Vaccine Quad IM, Preserv and ABX Free 6 MO-64 YRS 2022-05-01 00:00:00 Completed [facility] Influenza Virus Vaccine Quad IM, Preserv and ABX Free 6 MO-64 YRS 2022-05-01 00:00:00 Completed [facility] Influenza Virus Vaccine Quad IM, Preserv and ABX Free 6 MO-64 YRS 2022-05-01 00:00:00 Completed [facility] Influenza Virus Vaccine Quad IM, Preserv and ABX Free 6 MO-64 YRS 2022-05-01 00:00:00 Completed [facility] Influenza Virus Vaccine Quad IM, Preserv and ABX Free 6 MO-64 YRS 2022-05-01 00:00:00 Completed [facility] Influenza Virus Vaccine Quad IM, Preserv and ABX Free 6 MO-64 YRS 2022-05-01 00:00:00 Completed [facility] Influenza Virus Vaccine Quad IM, Preserv and ABX Free 6 MO-64 YRS 2022-05-01 00:00:00 Completed [facility] Influenza Virus Vaccine Quad IM, Preserv and ABX Free 6 MO-64 YRS 2022-05-01 00:00:00 Completed [facility] Influenza Virus Vaccine Quad IM, Preserv and ABX Free 6 MO-64 YRS 2022-05-01 00:00:00 Completed [facility] Influenza Virus Vaccine Quad IM, Preserv and ABX Free 6 MO-64 YRS 2022-05-01 00:00:00 Completed [facility] Influenza Virus Vaccine Quad IM, Preserv and ABX Free 6 MO-64 YRS 2022-05-01 00:00:00 Completed [facility] Influenza Virus Vaccine Quad IM, Preserv and ABX Free 6 MO-64 YRS 2022-05-01 00:00:00 Completed [facility] Influenza Virus Vaccine Quad IM, Preserv and ABX Free 6 MO-64 YRS 2022-05-01 00:00:00 Completed [facility] Influenza Virus Vaccine Quad IM, Preserv and ABX Free 6 MO-64 YRS 2022-05-01 00:00:00 Completed [facility] Influenza Virus Vaccine Quad IM, Preserv and ABX Free 6 MO-64 YRS 2022-05-01 00:00:00 Completed [facility] Influenza Virus Vaccine Quad IM, Preserv and ABX Free 6 MO-64 YRS 2022-05-01 00:00:00 Completed [facility] Influenza Virus Vaccine Quad IM, Preserv and ABX Free 6 MO-64 YRS 2022-05-01 00:00:00 Completed [facility] Influenza Virus Vaccine Quad IM, Preserv and ABX Free 6 MO-64 YRS 2022-05-01 00:00:00 Completed [facility] Influenza Virus Vaccine Quad IM, Preserv and ABX Free 6 MO-64 YRS 2022-05-01 00:00:00 Completed [facility] Influenza Virus Vaccine Quad IM, Preserv and ABX Free 6 MO-64 YRS 2022-05-01 00:00:00 Completed [facility] Influenza Virus Vaccine Quad IM, Preserv and ABX Free 6 MO-64 YRS 2022-05-01 00:00:00 Completed [facility] Influenza Virus Vaccine Quad IM, Preserv and ABX Free 6 MO-64 YRS 2022-05-01 00:00:00 Completed [facility] Influenza Virus Vaccine Quad IM, Preserv and ABX Free 6 MO-64 YRS 2022-05-01 00:00:00 Completed [facility] Influenza Virus Vaccine Quad IM, Preserv and ABX Free 6 MO-64 YRS 2022-05-01 00:00:00 Completed [facility] Influenza Virus Vaccine Quad IM, Preserv and ABX Free 6 MO-64 YRS 2022-05-01 00:00:00 Completed [facility] Influenza Virus Vaccine Quad IM, Preserv and ABX Free 6 MO-64 YRS 2022-05-01 00:00:00 Completed [facility] Influenza Virus Vaccine Quad IM, Preserv and ABX Free 6 MO-64 YRS 2022-05-01 00:00:00 Completed [facility] Influenza Virus Vaccine Quad IM, Preserv and ABX Free 6 MO-64 YRS 2022-05-01 00:00:00 Completed [facility] Influenza Virus Vaccine Quad IM, Preserv and ABX Free 6 MO-64 YRS 2022-05-01 00:00:00 Completed [facility] Influenza Virus Vaccine Quad IM, Preserv and ABX Free 6 MO-64 YRS 2022-05-01 00:00:00 Completed [facility] Influenza Virus Vaccine Quad IM, Preserv and ABX Free 6 MO-64 YRS 2022-05-01 00:00:00 Completed [facility] Influenza Virus Vaccine Quad IM, Preserv and ABX Free 6 MO-64 YRS 2022-05-01 00:00:00 Completed [facility] Influenza Virus Vaccine Quad IM, Preserv and ABX Free 6 MO-64 YRS 2022-05-01 00:00:00 Completed [facility] Influenza Virus Vaccine Quad IM, Preserv and ABX Free 6 MO-64 YRS 2022-05-01 00:00:00 Completed [facility] Influenza Virus Vaccine Quad IM, Preserv and ABX Free 6 MO-64 YRS 2022-05-01 00:00:00 Completed [facility] Influenza Virus Vaccine Quad IM, Preserv and ABX Free 6 MO-64 YRS 2022-05-01 00:00:00 Completed [facility] Influenza Virus Vaccine Quad IM, Preserv and ABX Free 6 MO-64 YRS 2022-05-01 00:00:00 Completed [facility] Influenza Virus Vaccine Quad IM, Preserv and ABX Free 6 MO-64 YRS 2022-05-01 00:00:00 Completed [facility] Influenza Virus Vaccine Quad IM, Preserv and ABX Free 6 MO-64 YRS 2022-05-01 00:00:00 Completed [facility] Influenza Virus Vaccine Quad IM, Preserv and ABX Free 6 MO-64 YRS 2022-05-01 00:00:00 Completed [facility] Influenza Virus Vaccine Quad IM, Preserv and ABX Free 6 MO-64 YRS 2022-05-01 00:00:00 Completed [facility] Influenza Virus Vaccine Quad IM, Preserv and ABX Free 6 MO-64 YRS 2022-05-01 00:00:00 Completed [facility] Influenza Virus Vaccine Quad IM, Preserv and ABX Free 6 MO-64 YRS 2022-05-01 00:00:00 Completed [facility] Influenza Virus Vaccine Quad IM, Preserv and ABX Free 6 MO-64 YRS 2022-05-01 00:00:00 Completed [facility] Influenza Virus Vaccine Quad IM, Preserv and ABX Free 6 MO-64 YRS 2022-05-01 00:00:00 Completed [facility] Influenza Virus Vaccine Quad IM, Preserv and ABX Free 6 MO-64 YRS 2022-05-01 00:00:00 Completed [facility] Influenza Virus Vaccine Quad IM, Preserv and ABX Free 6 MO-64 YRS 2022-05-01 00:00:00 Completed [facility] Influenza Virus Vaccine Quad IM, Preserv and ABX Free 6 MO-64 YRS 2022-05-01 00:00:00 Completed [facility] Influenza Virus Vaccine Quad IM, Preserv and ABX Free 6 MO-64 YRS 2022-05-01 00:00:00 Completed [facility] Influenza Virus Vaccine Quad IM, Preserv and ABX Free 6 MO-64 YRS 2022-05-01 00:00:00 Completed [facility] Influenza Virus Vaccine Quad IM, Preserv and ABX Free 6 MO-64 YRS 2022-05-01 00:00:00 Completed [facility] Influenza Virus Vaccine Quad IM, Preserv and ABX Free 6 MO-64 YRS 2022-05-01 00:00:00 Completed [facility] Influenza Virus Vaccine Quad IM, Preserv and ABX Free 6 MO-64 YRS 2022-05-01 00:00:00 Completed [facility] Influenza Virus Vaccine Quad IM, Preserv and ABX Free 6 MO-64 YRS 2022-05-01 00:00:00 Completed [facility] Influenza Virus Vaccine Quad IM, Preserv and ABX Free 6 MO-64 YRS 2022-05-01 00:00:00 Completed [facility] Influenza Virus Vaccine Quad IM, Preserv and ABX Free 6 MO-64 YRS 2022-05-01 00:00:00 Completed [facility] Influenza Virus Vaccine Quad IM, Preserv and ABX Free 6 MO-64 YRS 2022-05-01 00:00:00 Completed [facility] Influenza Virus Vaccine Quad IM, Preserv and ABX Free 6 MO-64 YRS (FLUCELVAX) 2022-05-01 00:00:00 Completed [facility] Influenza Virus Vaccine Quad IM, Preserv and ABX Free 6 MO-64 YRS (FLUCELVAX) 2022-05-01 00:00:00 Completed [facility] TDAP 2021-12-02 00:00:00 Completed [facility] 2021-12-02 00:00:00 Completed [facility] 2021-12-02 00:00:00 Completed [facility] 2021-12-02 00:00:00 Completed [facility] TDAP 2021-12-02 00:00:00 Completed [facility] TDAP 2021-12-02 00:00:00 Completed [facility] TDAP 2021-12-02 00:00:00 Completed [facility] TDAP 2021-12-02 00:00:00 Completed [facility]AP 2021-12-02 00:00:00 Completed [facility] TDAP 2021-12-02 00:00:00 Completed [facility]AP 2021-12-02 00:00:00 Completed [facility]AP 2021-12-02 00:00:00 Completed [facility]AP 2021-12-02 00:00:00 Completed [facility]AP 2021-12-02 00:00:00 Completed [facility]AP 2021-12-02 00:00:00 Completed [facility]AP 2021-12-02 00:00:00 Completed [facility]AP 2021-12-02 00:00:00 Completed [facility]AP 2021-12-02 00:00:00 Completed [facility]AP 2021-12-02 00:00:00 Completed [facility]AP 2021-12-02 00:00:00 Completed [facility]AP 2021-12-02 00:00:00 Completed [facility] TDAP 2021-12-02 00:00:00 Completed [facility] TDAP 2021-12-02 00:00:00 Completed [facility] TDAP 2021-12-02 00:00:00 Completed [facility] TDAP 2021-12-02 00:00:00 Completed [facility] TDAP 2021-12-02 00:00:00 Completed [facility] TDAP 2021-12-02 00:00:00 Completed [facility] TDAP 2021-12-02 00:00:00 Completed [facility] TDAP 2021-12-02 00:00:00 Completed [facility] TDAP 2021-12-02 00:00:00 Completed [facility] TDAP 2021-12-02 00:00:00 Completed [facility] TDAP 2021-12-02 00:00:00 Completed [facility]AP 2021-12-02 00:00:00 Completed [facility] TDAP 2021-12-02 00:00:00 Completed [facility] TDAP 2021-12-02 00:00:00 Completed [facility] TDAP 2021-12-02 00:00:00 Completed [facility] TDAP 2021-12-02 00:00:00 Completed [facility] TDAP 2021-12-02 00:00:00 Completed [facility] TDAP 2021-12-02 00:00:00 Completed [facility] TDAP 2021-12-02 00:00:00 Completed [facility] TDAP 2021-12-02 00:00:00 Completed [facility] Influenza Virus Vaccine Quad IM, Preserv and ABX Free 6 MO-64 YRS (FLUCELVAX) 2021-07-25 00:00:00 Completed [facility] TDAP 2021-07-25 00:00:00 Completed Influenza Virus Vaccine Quad IM, Preserv and ABX Free 6 MO-64 YRS (FLUCELVAX) 2021-07-25 00:00:00 Completed [facility] TDAP 2021-07-25 00:00:00 Completed Influenza Virus Vaccine Quad IM, Preserv and ABX Free 6 MO-64 YRS (FLUCELVAX) 2021-07-25 00:00:00 Completed [facility] TDAP 2021-07-25 00:00:00 Completed Influenza Virus Vaccine Quad IM, Preserv and ABX Free 6 MO-64 YRS 2021-07-25 00:00:00 Completed [facility] TDAP 2021-07-25 00:00:00 Completed [facility] Influenza Virus Vaccine Quad IM, Preserv and ABX Free 6 MO-64 YRS 2021-07-25 00:00:00 Completed [facility] TDAP 2021-07-25 00:00:00 [facility] [facility] Virus Vaccine Quad IM, Preserv and ABX Free 6 MO-64 YRS 2021-07-25 00:00:00 Completed [facility] TDAP 2021-07-25 00:00:00 Completed [facility] Influenza Virus Vaccine Quad IM, Preserv and ABX Free 6 MO-64 YRS 2021-07-25 00:00:00 Completed [facility] TDAP 2021-07-25 00:00:00 Completed [facility] Influenza Virus Vaccine Quad IM, Preserv and ABX Free 6 MO-64 YRS 2021-07-25 00:00:00 Completed [facility] TDAP 2021-07-25 00:00:00 Completed [facility] Influenza Virus Vaccine Quad IM, Preserv and ABX Free 6 MO-64 YRS 2021-07-25 00:00:00 Completed [facility] TDAP 2021-07-25 00:00:00 Completed [facility] Influenza Virus Vaccine Quad IM, Preserv and ABX Free 6 MO-64 YRS 2021-07-25 00:00:00 Completed [facility] TDAP 2021-07-25 00:00:00 Completed [facility] Influenza Virus Vaccine Quad IM, Preserv and ABX Free 6 MO-64 YRS 2021-07-25 00:00:00 Completed [facility] TDAP 2021-07-25 00:00:00 Completed [facility] Influenza Virus Vaccine Quad IM, Preserv and ABX Free 6 MO-64 YRS 2021-07-25 00:00:00 Completed [facility] TDAP 2021-07-25 00:00:00 Completed [facility] Influenza Virus Vaccine Quad IM, Preserv and ABX Free 6 MO-64 YRS 2021-07-25 00:00:00 Completed [facility] TDAP 2021-07-25 00:00:00 Completed [facility] Influenza Virus Vaccine Quad IM, Preserv and ABX Free 6 MO-64 YRS 2021-07-25 00:00:00 Completed [facility] TDAP 2021-07-25 00:00:00 Completed [facility] Influenza Virus Vaccine Quad IM, Preserv and ABX Free 6 MO-64 YRS 2021-07-25 00:00:00 Completed [facility] TDAP 2021-07-25 00:00:00 Completed [facility] Influenza Virus Vaccine Quad IM, Preserv and ABX Free 6 MO-64 YRS 2021-07-25 00:00:00 Completed [facility] TDAP 2021-07-25 00:00:00 Completed [facility] Influenza Virus Vaccine Quad IM, Preserv and ABX Free 6 MO-64 YRS 2021-07-25 00:00:00 Completed [facility] TDAP 2021-07-25 00:00:00 Completed [facility] Influenza Virus Vaccine Quad IM, Preserv and ABX Free 6 MO-64 YRS 2021-07-25 00:00:00 Completed [facility] TDAP 2021-07-25 00:00:00 Completed [facility] Influenza Virus Vaccine Quad IM, Preserv and ABX Free 6 MO-64 YRS 2021-07-25 00:00:00 Completed [facility] TDAP 2021-07-25 00:00:00 Completed [facility] Influenza Virus Vaccine Quad IM, Preserv and ABX Free 6 MO-64 YRS 2021-07-25 00:00:00 Completed [facility] TDAP 2021-07-25 00:00:00 Completed [facility] Influenza Virus Vaccine Quad IM, Preserv and ABX Free 6 MO-64 YRS 2021-07-25 00:00:00 Completed [facility] TDAP 2021-07-25 00:00:00 Completed [facility] Influenza Virus Vaccine Quad IM, Preserv and ABX Free 6 MO-64 YRS 2021-07-25 00:00:00 Completed [facility] TDAP 2021-07-25 00:00:00 Completed [facility] Influenza Virus Vaccine Quad IM, Preserv and ABX Free 6 MO-64 YRS 2021-07-25 00:00:00 Completed [facility] TDAP 2021-07-25 00:00:00 Completed [facility] Influenza Virus Vaccine Quad IM, Preserv and ABX Free 6 MO-64 YRS 2021-07-25 00:00:00 Completed [facility] TDAP 2021-07-25 00:00:00 Completed [facility] Influenza Virus Vaccine Quad IM, Preserv and ABX Free 6 MO-64 YRS 2021-07-25 00:00:00 Completed [facility] TDAP 2021-07-25 00:00:00 Completed [facility] Influenza Virus Vaccine Quad IM, Preserv and ABX Free 6 MO-64 YRS 2021-07-25 00:00:00 Completed [facility] TDAP 2021-07-25 00:00:00 Completed [facility] Influenza Virus Vaccine Quad IM, Preserv and ABX Free 6 MO-64 YRS 2021-07-25 00:00:00 Completed [facility] TDAP 2021-07-25 00:00:00 Completed [facility] Influenza Virus Vaccine Quad IM, Preserv and ABX Free 6 MO-64 YRS 2021-07-25 00:00:00 Completed [facility] TDAP 2021-07-25 00:00:00 Completed [facility] Influenza Virus Vaccine Quad IM, Preserv and ABX Free 6 MO-64 YRS 2021-07-25 00:00:00 Completed [facility] TDAP 2021-07-25 00:00:00 Completed [facility] Influenza Virus Vaccine Quad IM, Preserv and ABX Free 6 MO-64 YRS 2021-07-25 00:00:00 Completed [facility] TDAP 2021-07-25 00:00:00 Completed [facility] Influenza Virus Vaccine Quad IM, Preserv and ABX Free 6 MO-64 YRS 2021-07-25 00:00:00 Completed [facility] TDAP 2021-07-25 00:00:00 Completed [facility] Influenza Virus Vaccine Quad IM, Preserv and ABX Free 6 MO-64 YRS 2021-07-25 00:00:00 Completed [facility] TDAP 2021-07-25 00:00:00 Completed [facility] Influenza Virus Vaccine Quad IM, Preserv and ABX Free 6 MO-64 YRS 2021-07-25 00:00:00 Completed [facility] TDAP 2021-07-25 00:00:00 Completed [facility] Influenza Virus Vaccine Quad IM, Preserv and ABX Free 6 MO-64 YRS 2021-07-25 00:00:00 Completed [facility] TDAP 2021-07-25 00:00:00 Completed [facility] Influenza Virus Vaccine Quad IM, Preserv and ABX Free 6 MO-64 YRS 2021-07-25 00:00:00 Completed [facility] TDAP 2021-07-25 00:00:00 Completed [facility] Influenza Virus Vaccine Quad IM, Preserv and ABX Free 6 MO-64 YRS 2021-07-25 00:00:00 Completed [facility] TDAP 2021-07-25 00:00:00 Completed [facility] Influenza Virus Vaccine Quad IM, Preserv and ABX Free 6 MO-64 YRS 2021-07-25 00:00:00 Completed [facility] TDAP 2021-07-25 00:00:00 Completed [facility] Influenza Virus Vaccine Quad IM, Preserv and ABX Free 6 MO-64 YRS 2021-07-25 00:00:00 Completed [facility] TDAP 2021-07-25 00:00:00 Completed [facility] Influenza Virus Vaccine Quad IM, Preserv and ABX Free 6 MO-64 YRS 2021-07-25 00:00:00 Completed [facility] TDAP 2021-07-25 00:00:00 Completed [facility] Influenza Virus Vaccine Quad IM, Preserv and ABX Free 6 MO-64 YRS 2021-07-25 00:00:00 Completed [facility] TDAP 2021-07-25 00:00:00 Completed [facility] Influenza Virus Vaccine Quad IM, Preserv and ABX Free 6 MO-64 YRS 2021-07-25 00:00:00 Completed [facility] TDAP 2021-07-25 00:00:00 Completed [facility] Influenza Virus Vaccine Quad IM, Preserv and ABX Free 6 MO-64 YRS 2021-07-25 00:00:00 Completed [facility] TDAP 2021-07-25 00:00:00 Completed [facility] Influenza Virus Vaccine Quad IM, Preserv and ABX Free 6 MO-64 YRS 2021-07-25 00:00:00 Completed [facility] TDAP 2021-07-25 00:00:00 Completed [facility] Influenza Virus Vaccine Quad IM, Preserv and ABX Free 6 MO-64 2021-07-04 00:00:00 Completed [facility] TDAP 2021-07-25 00:00:00 Completed [facility] Influenza Virus Vaccine Quad IM, Preserv and ABX Free 6 MO-64 YRS 2021-07-25 00:00:00 Completed [facility] TDAP 2021-07-25 00:00:00 Completed [facility] Influenza Virus Vaccine Quad IM, Preserv and ABX Free 6 MO-64 YRS 2021-07-25 00:00:00 Completed [facility] TDAP 2021-07-25 00:00:00 Completed [facility] Influenza Virus Vaccine Quad IM, Preserv and ABX Free 6 MO-64 YRS 2021-07-25 00:00:00 Completed [facility] TDAP 2021-07-25 00:00:00 Completed [facility] Influenza Virus Vaccine Quad IM, Preserv and ABX Free 6 MO-64 YRS 2021-07-25 00:00:00 Completed [facility] TDAP 2021-07-25 00:00:00 Completed [facility] Influenza Virus Vaccine Quad IM, Preserv and ABX Free 6 MO-64 YRS 2021-07-25 00:00:00 Completed [facility] TDAP 2021-07-25 00:00:00 Completed [facility] Influenza Virus Vaccine Quad IM, Preserv and ABX Free 6 MO-64 YRS 2021-07-25 00:00:00 Completed [facility] TDAP 2021-07-25 00:00:00 Completed [facility] Influenza Virus Vaccine Quad IM, Preserv and ABX Free 6 MO-64 YRS 2021-07-25 00:00:00 Completed [facility] TDAP 2021-07-25 00:00:00 Completed [facility] Influenza Virus Vaccine Quad IM, Preserv and ABX Free 6 MO-64 YRS 2021-07-25 00:00:00 Completed [facility] TDAP 2021-07-25 00:00:00 Completed [facility] Influenza Virus Vaccine Quad IM, Preserv and ABX Free 6 MO-64 YRS 2021-07-25 00:00:00 Completed [facility] TDAP 2021-07-25 00:00:00 Completed [facility] Influenza Virus Vaccine Quad IM, Preserv and ABX Free 6 MO-64 YRS 2021-07-25 00:00:00 Completed [facility] TDAP 2021-07-25 00:00:00 Completed [facility] Influenza Virus Vaccine Quad IM, Preserv and ABX Free 6 MO-64 YRS 2021-07-25 00:00:00 Completed [facility] TDAP 2021-07-25 00:00:00 Completed [facility] Influenza Virus Vaccine Quad IM, Preserv and ABX Free 6 MO-64 YRS 2021-07-25 00:00:00 Completed [facility] TDAP 2021-07-25 00:00:00 Completed [facility] Influenza Virus Vaccine Quad IM, Preserv and ABX Free 6 MO-64 YRS 2021-07-25 00:00:00 Completed [facility] TDAP 2021-07-25 00:00:00 Completed [facility] Influenza Virus Vaccine Quad IM, Preserv and ABX Free 6 MO-64 YRS 2021-07-25 00:00:00 Completed [facility] TDAP 2021-07-25 00:00:00 Completed [facility] Influenza Virus Vaccine Quad IM, Preserv and ABX Free 6 MO-64 YRS 2021-07-25 00:00:00 Completed [facility] TDAP 2021-07-25 00:00:00 Completed [facility] Influenza Virus Vaccine Quad IM, Preserv and ABX Free 6 MO-64 YRS 2021-07-25 00:00:00 Completed [facility] TDAP 2021-07-25 00:00:00 Completed [facility] Influenza Virus Vaccine Quad IM, Preserv and ABX Free 6 MO-64 YRS 2021-07-25 00:00:00 Completed [facility] TDAP 2021-07-25 00:00:00 Completed [facility] Influenza Virus Vaccine Quad IM, Preserv and ABX Free 6 MO-64 YRS 2021-07-25 00:00:00 Completed [facility] TDAP 2021-07-25 00:00:00 Completed [facility] Influenza Virus Vaccine Quad IM, Preserv and ABX Free 6 MO-64 YRS 2021-07-25 00:00:00 Completed [facility] TDAP 2021-07-25 00:00:00 Completed [facility] Influenza Virus Vaccine Quad IM, Preserv and ABX Free 6 MO-64 YRS 2021-07-25 00:00:00 Completed [facility] TDAP 2021-07-25 00:00:00 Completed [facility] Influenza Virus Vaccine Quad IM, Preserv and ABX Free 6 MO-64 YRS 2021-07-25 00:00:00 Completed [facility] TDAP 2021-07-25 00:00:00 Completed [facility] Influenza Virus Vaccine Quad IM, Preserv and ABX Free 6 MO-64 YRS 2021-07-25 00:00:00 Completed [facility] TDAP 2021-07-25 00:00:00 Completed [facility] Influenza Virus Vaccine Quad IM, Preserv and ABX Free 6 MO-64 YRS 2021-07-25 00:00:00 Completed [facility] TDAP 2021-07-25 00:00:00 Completed [facility] Influenza Virus Vaccine Quad IM, Preserv and ABX Free 6 MO-64 YRS 2021-07-25 00:00:00 Completed [facility] TDAP 2021-07-25 00:00:00 Completed [facility] Influenza Virus Vaccine Quad IM, Preserv and ABX Free 6 MO-64 YRS 2021-07-25 00:00:00 Completed [facility] TDAP 2021-07-25 00:00:00 Completed [facility] Influenza Virus Vaccine Quad IM, Preserv and ABX Free 6 MO-64 YRS 2021-07-25 00:00:00 Completed [facility] TDAP 2021-07-25 00:00:00 Completed [facility] Influenza Virus Vaccine Quad IM, Preserv and ABX Free 6 MO-64 YRS 2021-07-25 00:00:00 Completed [facility] TDAP 2021-07-25 00:00:00 Completed [facility] Influenza Virus Vaccine Quad IM, Preserv and ABX Free 6 MO-64 YRS 2021-07-25 00:00:00 Completed [facility] TDAP 2021-07-25 00:00:00 Completed [facility] Influenza Virus Vaccine Quad IM, Preserv and ABX Free 6 MO-64 YRS 2021-07-25 00:00:00 Completed [facility] TDAP 2021-07-25 00:00:00 Completed [facility] Influenza Virus Vaccine Quad IM, Preserv and ABX Free 6 MO-64 YRS 2021-07-25 00:00:00 Completed [facility] TDAP 2021-07-25 00:00:00 Completed [facility] Influenza Virus Vaccine Quad IM, Preserv and ABX Free 6 MO-64 YRS (FLUCELVAX) 2021-07-25 00:00:00 Completed [facility] TDAP 2021-07-25 00:00:00 Completed [facility] Influenza Virus Vaccine Quad IM, Preserv and ABX Free 6 MO-64 YRS (FLUCELVAX) 2021-07-25 00:00:00 Completed [facility] TDAP 2021-07-25 00:00:00 Completed [facility] SARS-COV-2 COVID-19 PFIZER VACCINE 2021-05-05 00:00:00 Completed [facility] SARS-COV-2 COVID-19 PFIZER VACCINE 2021-05-05 00:00:00 Completed [facility] SARS-COV-2 COVID-19 PFIZER VACCINE 2021-05-05 00:00:00 Completed [facility] SARS-COV-2 COVID-19 PFIZER VACCINE 2021-05-05 00:00:00 Completed [facility] SARS-COV-2 COVID-19 PFIZER VACCINE 2021-05-05 00:00:00 Completed [facility] SARS-COV-2 COVID-19 PFIZER VACCINE 2021-05-05 00:00:00 Completed [facility] SARS-COV-2 COVID-19 PFIZER VACCINE 2021-05-05 00:00:00 Completed [facility] SARS-COV-2 COVID-19 PFIZER VACCINE 2021-05-05 00:00:00 Completed [facility] SARS-COV-2 COVID-19 PFIZER VACCINE 2021-05-05 00:00:00 Completed [facility] SARS-COV-2 COVID-19 PFIZER VACCINE 2021-05-05 00:00:00 Completed [facility] SARS-COV-2 COVID-19 PFIZER VACCINE 2021-05-05 00:00:00 Completed [facility] SARS-COV-2 COVID-19 PFIZER VACCINE 2021-05-05 00:00:00 Completed [facility] SARS-COV-2 COVID-19 PFIZER VACCINE 2021-05-05 00:00:00 Completed [facility] SARS-COV-2 COVID-19 PFIZER VACCINE 2021-05-05 00:00:00 Completed [facility] SARS-COV-2 COVID-19 PFIZER VACCINE 2021-05-05 00:00:00 Completed [facility] SARS-COV-2 COVID-19 PFIZER VACCINE 2021-05-05 00:00:00 Completed [facility] SARS-COV-2 COVID-19 PFIZER VACCINE 2021-05-05 00:00:00 Completed [facility] SARS-COV-2 COVID-19 PFIZER VACCINE 2021-05-05 00:00:00 Completed [facility] SARS-COV-2 COVID-19 PFIZER VACCINE 2021-05-05 00:00:00 Completed [facility] SARS-COV-2 COVID-19 PFIZER VACCINE 2021-05-05 00:00:00 Completed [facility] SARS-COV-2 COVID-19 PFIZER VACCINE 2021-05-05 00:00:00 Completed [facility] SARS-COV-2 COVID-19 PFIZER VACCINE 2021-05-05 00:00:00 Completed [facility] SARS-COV-2 COVID-19 PFIZER VACCINE 2021-05-05 00:00:00 Completed [facility] SARS-COV-2 COVID-19 PFIZER VACCINE 2021-05-05 00:00:00 Completed [facility] SARS-COV-2 COVID-19 PFIZER VACCINE 2021-05-05 00:00:00 Completed [facility] SARS-COV-2 COVID-19 PFIZER VACCINE 2021-05-05 00:00:00 Completed [facility] SARS-COV-2 COVID-19 PFIZER VACCINE 2021-05-05 00:00:00 Completed [facility] SARS-COV-2 COVID-19 PFIZER VACCINE 2021-05-05 00:00:00 Completed [facility] SARS-COV-2 COVID-19 PFIZER VACCINE 2021-05-05 00:00:00 Completed [facility] SARS-COV-2 COVID-19 PFIZER VACCINE 2021-05-05 00:00:00 Completed [facility] SARS-COV-2 COVID-19 PFIZER VACCINE 2021-05-05 00:00:00 Completed [facility] SARS-COV-2 COVID-19 PFIZER VACCINE 2021-05-05 00:00:00 Completed [facility] SARS-COV-2 COVID-19 PFIZER VACCINE 2021-05-05 00:00:00 Completed [facility] SARS-COV-2 COVID-19 PFIZER VACCINE 2021-05-05 00:00:00 Completed [facility] SARS-COV-2 COVID-19 PFIZER VACCINE 2021-05-05 00:00:00 Completed [facility] SARS-COV-2 COVID-19 PFIZER VACCINE 2021-05-05 00:00:00 Completed [facility] SARS-COV-2 COVID-19 PFIZER VACCINE 2021-05-05 00:00:00 Completed [facility] SARS-COV-2 COVID-19 PFIZER VACCINE 2021-05-05 00:00:00 Completed [facility] SARS-COV-2 COVID-19 PFIZER VACCINE 2021-05-05 00:00:00 Completed [facility] SARS-COV-2 COVID-19 PFIZER VACCINE 2021-05-05 00:00:00 Completed [facility] SARS-COV-2 COVID-19 PFIZER VACCINE 2021-05-05 00:00:00 Completed [facility] SARS-COV-2 COVID-19 PFIZER VACCINE 2021-05-05 00:00:00 Completed [facility] SARS-COV-2 COVID-19 PFIZER VACCINE 2021-05-05 00:00:00 Completed [facility] SARS-COV-2 COVID-19 PFIZER VACCINE 2021-05-05 00:00:00 Completed [facility] SARS-COV-2 COVID-19 PFIZER VACCINE 2021-05-05 00:00:00 Completed [facility] SARS-COV-2 COVID-19 PFIZER VACCINE 2021-05-05 00:00:00 Completed [facility] SARS-COV-2 COVID-19 PFIZER VACCINE 2021-05-05 00:00:00 Completed [facility] SARS-COV-2 COVID-19 PFIZER VACCINE 2021-05-05 00:00:00 Completed [facility] SARS-COV-2 COVID-19 PFIZER VACCINE 2021-05-05 00:00:00 Completed [facility] SARS-COV-2 COVID-19 PFIZER VACCINE 2021-05-05 00:00:00 Completed [facility] SARS-COV-2 COVID-19 PFIZER VACCINE 2021-05-05 00:00:00 Completed [facility] SARS-COV-2 COVID-19 PFIZER VACCINE 2021-05-05 00:00:00 Completed [facility] SARS-COV-2 COVID-19 PFIZER VACCINE 2021-05-05 00:00:00 Completed [facility] SARS-COV-2 COVID-19 PFIZER VACCINE 2021-05-05 00:00:00 Completed [facility] SARS-COV-2 COVID-19 PFIZER VACCINE 2021-05-05 00:00:00 Completed [facility] SARS-COV-2 COVID-19 PFIZER VACCINE 2021-05-05 00:00:00 Completed [facility] SARS-COV-2 COVID-19 PFIZER VACCINE 2021-05-05 00:00:00 Completed [facility] SARS-COV-2 COVID-19 PFIZER VACCINE 2021-05-05 00:00:00 Completed [facility] SARS-COV-2 COVID-19 PFIZER VACCINE 2021-05-05 00:00:00 Completed [facility] SARS-COV-2 COVID-19 PFIZER VACCINE 2021-05-05 00:00:00 Completed [facility] SARS-COV-2 COVID-19 PFIZER VACCINE 2021-05-05 00:00:00 Completed [facility] SARS-COV-2 COVID-19 PFIZER VACCINE 2021-05-05 00:00:00 Completed [facility] SARS-COV-2 COVID-19 PFIZER VACCINE 2021-05-05 00:00:00 Completed [facility] SARS-COV-2 COVID-19 PFIZER VACCINE 2021-05-05 00:00:00 Completed [facility] SARS-COV-2 COVID-19 PFIZER VACCINE 2021-05-05 00:00:00 Completed [facility] SARS-COV-2 COVID-19 PFIZER VACCINE 2021-05-05 00:00:00 Completed [facility] SARS-COV-2 COVID-19 PFIZER VACCINE 2021-05-05 00:00:00 Completed [facility] SARS-COV-2 COVID-19 PFIZER VACCINE 2021-05-05 00:00:00 Completed [facility] SARS-COV-2 COVID-19 PFIZER VACCINE 2021-05-05 00:00:00 Completed [facility] SARS-COV-2 COVID-19 PFIZER VACCINE 2021-05-05 00:00:00 Completed [facility] SARS-COV-2 COVID-19 PFIZER VACCINE 2021-05-05 00:00:00 Completed [facility] SARS-COV-2 COVID-19 PFIZER VACCINE 2021-05-05 00:00:00 Completed [facility] SARS-COV-2 COVID-19 PFIZER VACCINE 2021-05-05 00:00:00 Completed [facility] SARS-COV-2 COVID-19 PFIZER VACCINE 2021-05-05 00:00:00 Completed [facility] SARS-COV-2 COVID-19 PFIZER VACCINE 2021-05-05 00:00:00 Completed [facility] SARS-COV-2 COVID-19 PFIZER VACCINE 2021-05-05 00:00:00 Completed [facility] SARS-COV-2 COVID-19 PFIZER VACCINE 2020-11-01 00:00:00 Completed SARS-COV-2 COVID-19 PFIZER VACCINE 2020-11-01 00:00:00 Completed SARS-COV-2 COVID-19 PFIZER VACCINE 2020-11-01 00:00:00 Completed SARS-COV-2 COVID-19 PFIZER VACCINE 2020-11-01 00:00:00 Completed [facility] SARS-COV-2 COVID-19 PFIZER VACCINE 2020-11-01 00:00:00 Completed [facility] SARS-COV-2 COVID-19 PFIZER VACCINE 2020-11-01 00:00:00 Completed [facility] SARS-COV-2 COVID-19 PFIZER VACCINE 2020-11-01 00:00:00 Completed [facility] SARS-COV-2 COVID-19 PFIZER VACCINE 2020-11-01 00:00:00 Completed [facility] SARS-COV-2 COVID-19 PFIZER VACCINE 2020-11-01 00:00:00 Completed [facility] SARS-COV-2 COVID-19 PFIZER VACCINE 2020-11-01 00:00:00 Completed [facility] SARS-COV-2 COVID-19 PFIZER VACCINE 2020-11-01 00:00:00 Completed [facility] SARS-COV-2 COVID-19 PFIZER VACCINE 2020-11-01 00:00:00 Completed [facility] SARS-COV-2 COVID-19 PFIZER VACCINE 2020-11-01 00:00:00 Completed [facility] SARS-COV-2 COVID-19 PFIZER VACCINE 2020-11-01 00:00:00 Completed [facility] SARS-COV-2 COVID-19 PFIZER VACCINE 2020-11-01 00:00:00 Completed [facility] SARS-COV-2 COVID-19 PFIZER VACCINE 2020-11-01 00:00:00 Completed [facility] SARS-COV-2 COVID-19 PFIZER VACCINE 2020-11-01 00:00:00 Completed [facility] SARS-COV-2 COVID-19 PFIZER VACCINE 2020-11-01 00:00:00 Completed [facility] SARS-COV-2 COVID-19 PFIZER VACCINE 2020-11-01 00:00:00 Completed [facility] SARS-COV-2 COVID-19 PFIZER VACCINE 2020-11-01 00:00:00 Completed [facility] SARS-COV-2 COVID-19 PFIZER VACCINE 2020-11-01 00:00:00 Completed [facility] SARS-COV-2 COVID-19 PFIZER VACCINE 2020-11-01 00:00:00 Completed [facility] SARS-COV-2 COVID-19 PFIZER VACCINE 2020-11-01 00:00:00 Completed [facility] SARS-COV-2 COVID-19 PFIZER VACCINE 2020-11-01 00:00:00 Completed [facility] SARS-COV-2 COVID-19 PFIZER VACCINE 2020-11-01 00:00:00 Completed [facility] SARS-COV-2 COVID-19 PFIZER VACCINE 2020-11-01 00:00:00 Completed [facility] SARS-COV-2 COVID-19 PFIZER VACCINE 2020-11-01 00:00:00 Completed [facility] SARS-COV-2 COVID-19 PFIZER VACCINE 2020-11-01 00:00:00 Completed [facility] SARS-COV-2 COVID-19 PFIZER VACCINE 2020-11-01 00:00:00 Completed [facility] SARS-COV-2 COVID-19 PFIZER VACCINE 2020-11-01 00:00:00 Completed [facility] SARS-COV-2 COVID-19 PFIZER VACCINE 2020-11-01 00:00:00 Completed [facility] SARS-COV-2 COVID-19 PFIZER VACCINE 2020-11-01 00:00:00 Completed [facility] SARS-COV-2 COVID-19 PFIZER VACCINE 2020-11-01 00:00:00 Completed [facility] SARS-COV-2 COVID-19 PFIZER VACCINE 2020-11-01 00:00:00 Completed [facility] SARS-COV-2 COVID-19 PFIZER VACCINE 2020-11-01 00:00:00 Completed [facility] SARS-COV-2 COVID-19 PFIZER VACCINE 2020-11-01 00:00:00 Completed [facility] SARS-COV-2 COVID-19 PFIZER VACCINE 2020-11-01 00:00:00 Completed [facility] SARS-COV-2 COVID-19 PFIZER VACCINE 2020-11-01 00:00:00 Completed [facility] SARS-COV-2 COVID-19 PFIZER VACCINE 2020-11-01 00:00:00 Completed [facility] SARS-COV-2 COVID-19 PFIZER VACCINE 2020-11-01 00:00:00 Completed [facility] SARS-COV-2 COVID-19 PFIZER VACCINE 2020-11-01 00:00:00 Completed [facility] SARS-COV-2 COVID-19 PFIZER VACCINE 2020-11-01 00:00:00 Completed [facility] SARS-COV-2 COVID-19 PFIZER VACCINE 2020-11-01 00:00:00 Completed [facility] SARS-COV-2 COVID-19 PFIZER VACCINE 2020-11-01 00:00:00 Completed [facility] SARS-COV-2 COVID-19 PFIZER VACCINE 2020-11-01 00:00:00 Completed [facility] SARS-COV-2 COVID-19 PFIZER VACCINE 2020-11-01 00:00:00 Completed [facility] SARS-COV-2 COVID-19 PFIZER VACCINE 2020-11-01 00:00:00 Completed [facility] SARS-COV-2 COVID-19 PFIZER VACCINE 2020-11-01 00:00:00 Completed [facility] SARS-COV-2 COVID-19 PFIZER VACCINE 2020-11-01 00:00:00 Completed [facility] SARS-COV-2 COVID-19 PFIZER VACCINE 2020-11-01 00:00:00 Completed [facility] SARS-COV-2 COVID-19 PFIZER VACCINE 2020-11-01 00:00:00 Completed [facility] SARS-COV-2 COVID-19 PFIZER VACCINE 2020-11-01 00:00:00 Completed [facility] SARS-COV-2 COVID-19 PFIZER VACCINE 2020-11-01 00:00:00 Completed [facility] SARS-COV-2 COVID-19 PFIZER VACCINE 2020-11-01 00:00:00 Completed [facility] SARS-COV-2 COVID-19 PFIZER VACCINE 2020-11-01 00:00:00 Completed [facility] SARS-COV-2 COVID-19 PFIZER VACCINE 2020-11-01 00:00:00 Completed [facility] SARS-COV-2 COVID-19 PFIZER VACCINE 2020-11-01 00:00:00 Completed [facility] SARS-COV-2 COVID-19 PFIZER VACCINE 2020-11-01 00:00:00 Completed [facility] SARS-COV-2 COVID-19 PFIZER VACCINE 2020-11-01 00:00:00 Completed [facility] SARS-COV-2 COVID-19 PFIZER VACCINE 2020-11-01 00:00:00 Completed [facility] SARS-COV-2 COVID-19 PFIZER VACCINE 2020-11-01 00:00:00 Completed [facility] SARS-COV-2 COVID-19 PFIZER VACCINE 2020-11-01 00:00:00 Completed [facility] SARS-COV-2 COVID-19 PFIZER VACCINE 2020-11-01 00:00:00 Completed [facility] SARS-COV-2 COVID-19 PFIZER VACCINE 2020-11-01 00:00:00 Completed [facility] SARS-COV-2 COVID-19 PFIZER VACCINE 2020-11-01 00:00:00 Completed [facility] SARS-COV-2 COVID-19 PFIZER VACCINE 2020-11-01 00:00:00 Completed [facility] SARS-COV-2 COVID-19 PFIZER VACCINE 2020-11-01 00:00:00 Completed [facility] SARS-COV-2 COVID-19 PFIZER VACCINE 2020-11-01 00:00:00 Completed [facility] SARS-COV-2 COVID-19 PFIZER VACCINE 2020-11-01 00:00:00 Completed [facility] SARS-COV-2 COVID-19 PFIZER VACCINE 2020-11-01 00:00:00 Completed [facility] SARS-COV-2 COVID-19 PFIZER VACCINE 2020-11-01 00:00:00 Completed [facility] SARS-COV-2 COVID-19 PFIZER VACCINE 2020-11-01 00:00:00 Completed [facility] SARS-COV-2 COVID-19 PFIZER VACCINE 2020-11-01 00:00:00 Completed [facility] SARS-COV-2 COVID-19 PFIZER VACCINE 2020-11-01 00:00:00 Completed [facility] SARS-COV-2 COVID-19 PFIZER VACCINE 2020-11-01 00:00:00 Completed [facility] SARS-COV-2 COVID-19 PFIZER VACCINE 2020-11-01 00:00:00 Completed [facility] SARS-COV-2 COVID-19 PFIZER VACCINE 2020-10-11 00:00:00 Completed [facility] SARS-COV-2 COVID-19 PFIZER VACCINE 2020-10-11 00:00:00 Completed [facility] SARS-COV-2 COVID-19 PFIZER VACCINE 2020-10-11 00:00:00 Completed [facility] SARS-COV-2 COVID-19 PFIZER VACCINE 2020-10-11 00:00:00 Completed [facility] SARS-COV-2 COVID-19 PFIZER VACCINE 2020-10-11 00:00:00 Completed [facility] SARS-COV-2 COVID-19 PFIZER VACCINE 2020-10-11 00:00:00 Completed [facility] SARS-COV-2 COVID-19 PFIZER VACCINE 2020-10-11 00:00:00 Completed [facility] SARS-COV-2 COVID-19 PFIZER VACCINE 2020-10-11 00:00:00 Completed [facility] SARS-COV-2 COVID-19 PFIZER VACCINE 2020-10-11 00:00:00 Completed [facility] SARS-COV-2 COVID-19 PFIZER VACCINE 2020-10-11 00:00:00 Completed [facility] SARS-COV-2 COVID-19 PFIZER VACCINE 2020-10-11 00:00:00 Completed [facility] SARS-COV-2 COVID-19 PFIZER VACCINE 2020-10-11 00:00:00 Completed [facility] SARS-COV-2 COVID-19 PFIZER VACCINE 2020-10-11 00:00:00 Completed [facility] SARS-COV-2 COVID-19 PFIZER VACCINE 2020-10-11 00:00:00 Completed [facility] SARS-COV-2 COVID-19 PFIZER VACCINE 2020-10-11 00:00:00 Completed [facility] SARS-COV-2 COVID-19 PFIZER VACCINE 2020-10-11 00:00:00 Completed [facility] SARS-COV-2 COVID-19 PFIZER VACCINE 2020-10-11 00:00:00 Completed [facility] SARS-COV-2 COVID-19 PFIZER VACCINE 2020-10-11 00:00:00 Completed [facility] SARS-COV-2 COVID-19 PFIZER VACCINE 2020-10-11 00:00:00 Completed [facility] SARS-COV-2 COVID-19 PFIZER VACCINE 2020-10-11 00:00:00 Completed [facility] SARS-COV-2 COVID-19 PFIZER VACCINE 2020-10-11 00:00:00 Completed [facility] SARS-COV-2 COVID-19 PFIZER VACCINE 2020-10-11 00:00:00 Completed [facility] SARS-COV-2 COVID-19 PFIZER VACCINE 2020-10-11 00:00:00 Completed [facility] SARS-COV-2 COVID-19 PFIZER VACCINE 2020-10-11 00:00:00 Completed [facility] SARS-COV-2 COVID-19 PFIZER VACCINE 2020-10-11 00:00:00 Completed [facility] SARS-COV-2 COVID-19 PFIZER VACCINE 2020-10-11 00:00:00 Completed [facility] SARS-COV-2 COVID-19 PFIZER VACCINE 2020-10-11 00:00:00 Completed [facility] SARS-COV-2 COVID-19 PFIZER VACCINE 2020-10-11 00:00:00 Completed [facility] SARS-COV-2 COVID-19 PFIZER VACCINE 2020-10-11 00:00:00 Completed [facility] SARS-COV-2 COVID-19 PFIZER VACCINE 2020-10-11 00:00:00 Completed [facility] SARS-COV-2 COVID-19 PFIZER VACCINE 2020-10-11 00:00:00 Completed [facility] SARS-COV-2 COVID-19 PFIZER VACCINE 2020-10-11 00:00:00 Completed [facility] SARS-COV-2 COVID-19 PFIZER VACCINE 2020-10-11 00:00:00 Completed [facility] SARS-COV-2 COVID-19 PFIZER VACCINE 2020-10-11 00:00:00 Completed [facility] SARS-COV-2 COVID-19 PFIZER VACCINE 2020-10-11 00:00:00 Completed [facility] SARS-COV-2 COVID-19 PFIZER VACCINE 2020-10-11 00:00:00 Completed [facility] SARS-COV-2 COVID-19 PFIZER VACCINE 2020-10-11 00:00:00 Completed [facility] SARS-COV-2 COVID-19 PFIZER VACCINE 2020-10-11 00:00:00 Completed [facility] SARS-COV-2 COVID-19 PFIZER VACCINE 2020-10-11 00:00:00 Completed [facility] SARS-COV-2 COVID-19 PFIZER VACCINE 2020-10-11 00:00:00 Completed [facility] SARS-COV-2 COVID-19 PFIZER VACCINE 2020-10-11 00:00:00 Completed [facility] SARS-COV-2 COVID-19 PFIZER VACCINE 2020-10-11 00:00:00 Completed [facility] SARS-COV-2 COVID-19 PFIZER VACCINE 2020-10-11 00:00:00 Completed [facility] SARS-COV-2 COVID-19 PFIZER VACCINE 2020-10-11 00:00:00 Completed [facility] SARS-COV-2 COVID-19 PFIZER VACCINE 2020-10-11 00:00:00 Completed [facility] SARS-COV-2 COVID-19 PFIZER VACCINE 2020-10-11 00:00:00 Completed [facility] SARS-COV-2 COVID-19 PFIZER VACCINE 2020-10-11 00:00:00 Completed [facility] SARS-COV-2 COVID-19 PFIZER VACCINE 2020-10-11 00:00:00 Completed [facility] SARS-COV-2 COVID-19 PFIZER VACCINE 2020-10-11 00:00:00 Completed [facility] SARS-COV-2 COVID-19 PFIZER VACCINE 2020-10-11 00:00:00 Completed [facility] SARS-COV-2 COVID-19 PFIZER VACCINE 2020-10-11 00:00:00 Completed [facility] SARS-COV-2 COVID-19 PFIZER VACCINE 2020-10-11 00:00:00 Completed [facility] SARS-COV-2 COVID-19 PFIZER VACCINE 2020-10-11 00:00:00 Completed [facility] SARS-COV-2 COVID-19 PFIZER VACCINE 2020-10-11 00:00:00 Completed [facility] SARS-COV-2 COVID-19 PFIZER VACCINE 2020-10-11 00:00:00 Completed [facility] SARS-COV-2 COVID-19 PFIZER VACCINE 2020-10-11 00:00:00 Completed [facility] SARS-COV-2 COVID-19 PFIZER VACCINE 2020-10-11 00:00:00 Completed [facility] SARS-COV-2 COVID-19 PFIZER VACCINE 2020-10-11 00:00:00 Completed [facility] SARS-COV-2 COVID-19 PFIZER VACCINE 2020-10-11 00:00:00 Completed [facility] SARS-COV-2 COVID-19 PFIZER VACCINE 2020-10-11 00:00:00 Completed [facility] SARS-COV-2 COVID-19 PFIZER VACCINE 2020-10-11 00:00:00 Completed [facility] SARS-COV-2 COVID-19 PFIZER VACCINE 2020-10-11 00:00:00 Completed [facility] SARS-COV-2 COVID-19 PFIZER VACCINE 2020-10-11 00:00:00 Completed [facility] SARS-COV-2 COVID-19 PFIZER VACCINE 2020-10-11 00:00:00 Completed [facility] SARS-COV-2 COVID-19 PFIZER VACCINE 2020-10-11 00:00:00 Completed [facility] SARS-COV-2 COVID-19 PFIZER VACCINE 2020-10-11 00:00:00 Completed [facility] SARS-COV-2 COVID-19 PFIZER VACCINE 2020-10-11 00:00:00 Completed [facility] SARS-COV-2 COVID-19 PFIZER VACCINE 2020-10-11 00:00:00 Completed [facility] SARS-COV-2 COVID-19 PFIZER VACCINE 2020-10-11 00:00:00 Completed [facility] SARS-COV-2 COVID-19 PFIZER VACCINE 2020-10-11 00:00:00 Completed [facility] SARS-COV-2 COVID-19 PFIZER VACCINE 2020-10-11 00:00:00 Completed [facility] SARS-COV-2 COVID-19 PFIZER VACCINE 2020-10-11 00:00:00 Completed [facility] SARS-COV-2 COVID-19 PFIZER VACCINE 2020-10-11 00:00:00 Completed [facility] SARS-COV-2 COVID-19 PFIZER VACCINE 2020-10-11 00:00:00 Completed [facility] SARS-COV-2 COVID-19 PFIZER VACCINE 2020-10-11 00:00:00 Completed [facility] SARS-COV-2 COVID-19 PFIZER VACCINE 2020-10-11 00:00:00 Completed [facility] Influenza Virus Vaccine Quad .5 mL IM 6+ MO (FLUZONE/FLULAVAL/F LUARIX) 2020-06-06 00:00:00 Completed [facility] Influenza Virus Vaccine Quad .5 mL IM 6+ MO (FLUZONE/FLULAVAL/F LUARIX) 2020-06-06 00:00:00 Completed [facility] Influenza Virus Vaccine Quad .5 mL IM 6+ MO (FLUZONE/FLULAVAL/F LUARIX) 2020-06-06 00:00:00 Completed [facility] Influenza Virus Vaccine Quad .5 mL IM 6+ MO 2020-06-06 00:00:00 Completed [facility] Influenza Virus Vaccine Quad .5 mL IM 6+ MO 2020-06-06 00:00:00 Completed [facility] Influenza Virus Vaccine Quad .5 mL IM 6+ MO 2020-06-06 00:00:00 Completed [facility] Influenza Virus Vaccine Quad .5 mL IM 6+ MO 2020-06-06 00:00:00 Completed [facility] Influenza Virus Vaccine Quad .5 mL IM 6+ MO 2020-06-06 00:00:00 Completed [facility] Influenza Virus Vaccine Quad .5 mL IM 6+ MO 2020-06-06 00:00:00 Completed [facility] Influenza Virus Vaccine Quad .5 mL IM 6+ MO 2020-06-06 00:00:00 Completed [facility] Influenza Virus Vaccine Quad .5 mL IM 6+ MO 2020-06-06 00:00:00 Completed [facility] Influenza Virus Vaccine Quad .5 mL IM 6+ MO 2020-06-06 00:00:00 Completed [facility] Influenza Virus Vaccine Quad .5 mL IM 6+ MO 2020-06-06 00:00:00 Completed [facility] Influenza Virus Vaccine Quad .5 mL IM 6+ MO 2020-06-06 00:00:00 Completed [facility] Influenza Virus Vaccine Quad .5 mL IM 6+ MO 2020-06-06 00:00:00 Completed [facility] Influenza Virus Vaccine Quad .5 mL IM 6+ MO 2020-06-06 00:00:00 Completed [facility] Influenza Virus Vaccine Quad .5 mL IM 6+ MO 2020-06-06 00:00:00 Completed [facility] Influenza Virus Vaccine Quad .5 mL IM 6+ MO 2020-06-06 00:00:00 Completed [facility] Influenza Virus Vaccine Quad .5 mL IM 6+ MO 2020-06-06 00:00:00 Completed [facility] Influenza Virus Vaccine Quad .5 mL IM 6+ MO 2020-06-06 00:00:00 Completed [facility] Influenza Virus Vaccine Quad .5 mL IM 6+ MO 2020-06-06 00:00:00 Completed [facility] Influenza Virus Vaccine Quad .5 mL IM 6+ MO 2020-06-06 00:00:00 Completed [facility] Influenza Virus Vaccine Quad .5 mL IM 6+ MO 2020-06-06 00:00:00 Completed [facility] Influenza Virus Vaccine Quad .5 mL IM 6+ MO 2020-06-06 00:00:00 Completed [facility] Influenza Virus Vaccine Quad .5 mL IM 6+ MO 2020-06-06 00:00:00 Completed [facility] Influenza Virus Vaccine Quad .5 mL IM 6+ MO 2020-06-06 00:00:00 Completed [facility] Influenza Virus Vaccine Quad .5 mL IM 6+ MO 2020-06-06 00:00:00 Completed [facility] Influenza Virus Vaccine Quad .5 mL IM 6+ MO 2020-06-06 00:00:00 Completed [facility] Influenza Virus Vaccine Quad .5 mL IM 6+ MO 2020-06-06 00:00:00 Completed [facility] Influenza Virus Vaccine Quad .5 mL IM 6+ MO 2020-06-06 00:00:00 Completed [facility] Influenza Virus Vaccine Quad .5 mL IM 6+ MO 2020-06-06 00:00:00 Completed [facility] Influenza Virus Vaccine Quad .5 mL IM 6+ MO 2020-06-06 00:00:00 Completed [facility] Influenza Virus Vaccine Quad .5 mL IM 6+ MO 2020-06-06 00:00:00 Completed [facility] Influenza Virus Vaccine Quad .5 mL IM 6+ MO 2020-06-06 00:00:00 Completed [facility] Influenza Virus Vaccine Quad .5 mL IM 6+ MO 2020-06-06 00:00:00 Completed [facility] Influenza Virus Vaccine Quad .5 mL IM 6+ MO 2020-06-06 00:00:00 Completed [facility] Influenza Virus Vaccine Quad .5 mL IM 6+ MO 2020-06-06 00:00:00 Completed [facility] Influenza Virus Vaccine Quad .5 mL IM 6+ MO 2020-06-06 00:00:00 Completed [facility] Influenza Virus Vaccine Quad .5 mL IM 6+ MO 2020-06-06 00:00:00 Completed [facility] Influenza Virus Vaccine Quad .5 mL IM 6+ MO 2020-06-06 00:00:00 Completed [facility] Influenza Virus Vaccine Quad .5 mL IM 6+ MO 2020-06-06 00:00:00 Completed [facility] Influenza Virus Vaccine Quad .5 mL IM 6+ MO 2020-06-06 00:00:00 Completed [facility] Influenza Virus Vaccine Quad .5 mL IM 6+ MO 2020-06-06 00:00:00 Completed [facility] Influenza Virus Vaccine Quad .5 mL IM 6+ MO 2020-06-06 00:00:00 Completed [facility] Influenza Virus Vaccine Quad .5 mL IM 6+ MO 2020-06-06 00:00:00 Completed [facility] Influenza Virus Vaccine Quad .5 mL IM 6+ MO 2020-06-06 00:00:00 Completed [facility] Influenza Virus Vaccine Quad .5 mL IM 6+ MO 2020-06-06 00:00:00 Completed [facility] Influenza Virus Vaccine Quad .5 mL IM 6+ MO 2020-06-06 00:00:00 Completed [facility] Influenza Virus Vaccine Quad .5 mL IM 6+ MO 2020-06-06 00:00:00 Completed [facility] Influenza Virus Vaccine Quad .5 mL IM 6+ MO 2020-06-06 00:00:00 Completed [facility] Influenza Virus Vaccine Quad .5 mL IM 6+ MO 2020-06-06 00:00:00 Completed [facility] Influenza Virus Vaccine Quad .5 mL IM 6+ MO 2020-06-06 00:00:00 Completed [facility] Influenza Virus Vaccine Quad .5 mL IM 6+ MO 2020-06-06 00:00:00 Completed [facility] Influenza Virus Vaccine Quad .5 mL IM 6+ MO 2020-06-06 00:00:00 Completed [facility] Influenza Virus Vaccine Quad .5 mL IM 6+ MO 2020-06-06 00:00:00 Completed [facility] Influenza Virus Vaccine Quad .5 mL IM 6+ MO 2020-06-06 00:00:00 Completed [facility] Influenza Virus Vaccine Quad .5 mL IM 6+ MO 2020-06-06 00:00:00 Completed [facility] Influenza Virus Vaccine Quad .5 mL IM 6+ MO 2020-06-06 00:00:00 Completed [facility] Influenza Virus Vaccine Quad .5 mL IM 6+ MO 2020-06-06 00:00:00 Completed [facility] Influenza Virus Vaccine Quad .5 mL IM 6+ MO 2020-06-06 00:00:00 Completed [facility] Influenza Virus Vaccine Quad .5 mL IM 6+ MO 2020-06-06 00:00:00 Completed [facility] Influenza Virus Vaccine Quad .5 mL IM 6+ MO 2020-06-06 00:00:00 Completed [facility] Influenza Virus Vaccine Quad .5 mL IM 6+ MO 2020-06-06 00:00:00 Completed [facility] Influenza Virus Vaccine Quad .5 mL IM 6+ MO 2020-06-06 00:00:00 Completed [facility] Influenza Virus Vaccine Quad .5 mL IM 6+ MO 2020-06-06 00:00:00 Completed [facility] Influenza Virus Vaccine Quad .5 mL IM 6+ MO 2020-06-06 00:00:00 Completed [facility] Influenza Virus Vaccine Quad .5 mL IM 6+ MO 2020-06-06 00:00:00 Completed [facility] Influenza Virus Vaccine Quad .5 mL IM 6+ MO 2020-06-06 00:00:00 Completed [facility] Influenza Virus Vaccine Quad .5 mL IM 6+ MO 2020-06-06 00:00:00 Completed [facility] Influenza Virus Vaccine Quad .5 mL IM 6+ MO 2020-06-06 00:00:00 Completed [facility] Influenza Virus Vaccine Quad .5 mL IM 6+ MO 2020-06-06 00:00:00 Completed [facility] Influenza Virus Vaccine Quad .5 mL IM 6+ MO 2020-06-06 00:00:00 Completed [facility] Influenza Virus Vaccine Quad .5 mL IM 6+ MO 2020-06-06 00:00:00 Completed [facility] Influenza Virus Vaccine Quad .5 mL IM 6+ MO 2020-06-06 00:00:00 Completed [facility] Influenza Virus Vaccine Quad .5 mL IM 6+ MO (FLUZONE/FLULAVAL/F LUARIX) 2020-06-06 00:00:00 Completed [facility] Influenza Virus Vaccine Quad .5 mL IM 6+ MO (FLUZONE/FLULAVAL/F LUARIX) 2020-06-06 00:00:00 Completed [facility] Hep B, Adol or Pedi Dosage 2017-12-06 00:00:00 Completed [facility] Polio (IPV/OPV) 2017-12-06 00:00:00 Completed Hep B, Adol or Pedi Dosage 2017-12-06 00:00:00 Completed [facility] Polio (IPV/OPV) 2017-12-06 00:00:00 Completed Hep B, Adol or Pedi Dosage 2017-12-06 00:00:00 Completed [facility] Polio (IPV/OPV) 2017-12-06 00:00:00 Completed Hep B, Adol or Pedi Dosage 2017-12-06 00:00:00 Completed [facility] Polio (IPV/OPV) 2017-12-06 00:00:00 Completed [facility] Hep B, Adol or Pedi Dosage 2017-12-06 00:00:00 Completed [facility] Polio (IPV/OPV) 2017-12-06 00:00:00 Completed [facility] Hep B, Adol or Pedi Dosage 2017-12-06 00:00:00 Completed [facility] Polio (IPV/OPV) 2017-12-06 00:00:00 Completed [facility] Hep B, Adol or Pedi Dosage 2017-12-06 00:00:00 Completed [facility] Polio (IPV/OPV) 2017-12-06 00:00:00 Completed [facility] Hep B, Adol or Pedi Dosage 2017-12-06 00:00:00 Completed [facility] Polio (IPV/OPV) 2017-12-06 00:00:00 Completed [facility] Hep B, Adol or Pedi Dosage 2017-12-06 00:00:00 Completed [facility] Polio (IPV/OPV) 2017-12-06 00:00:00 Completed [facility] Hep B, Adol or Pedi Dosage 2017-12-06 00:00:00 Completed [facility] Polio (IPV/OPV) 2017-12-06 00:00:00 Completed [facility] Hep B, Adol or Pedi Dosage 2017-12-06 00:00:00 Completed [facility] Polio (IPV/OPV) 2017-12-06 00:00:00 Completed [facility] Hep B, Adol or Pedi Dosage 2017-12-06 00:00:00 Completed [facility] Polio (IPV/OPV) 2017-12-06 00:00:00 Completed [facility] Hep B, Adol or Pedi Dosage 2017-12-06 00:00:00 Completed [facility] Polio (IPV/OPV) 2017-12-06 00:00:00 Completed [facility] Hep B, Adol or Pedi Dosage 2017-12-06 00:00:00 Completed [facility] Polio (IPV/OPV) 2017-12-06 00:00:00 Completed [facility] Hep B, Adol or Pedi Dosage 2017-12-06 00:00:00 Completed [facility] Polio (IPV/OPV) 2017-12-06 00:00:00 Completed [facility] Hep B, Adol or Pedi Dosage 2017-12-06 00:00:00 Completed [facility] Polio (IPV/OPV) 2017-12-06 00:00:00 Completed [facility] Hep B, Adol or Pedi Dosage 2017-12-06 00:00:00 Completed [facility] Polio (IPV/OPV) 2017-12-06 00:00:00 Completed [facility] Hep B, Adol or Pedi Dosage 2017-12-06 00:00:00 Completed [facility] Polio (IPV/OPV) 2017-12-06 00:00:00 Completed [facility] Hep B, Adol or Pedi Dosage 2017-12-06 00:00:00 Completed [facility] Polio (IPV/OPV) 2017-12-06 00:00:00 Completed [facility] Hep B, Adol or Pedi Dosage 2017-12-06 00:00:00 Completed [facility] Polio (IPV/OPV) 2017-12-06 00:00:00 Completed [facility] Hep B, Adol or Pedi Dosage 2017-12-06 00:00:00 Completed [facility] Polio (IPV/OPV) 2017-12-06 00:00:00 Completed [facility] Hep B, Adol or Pedi Dosage 2017-12-06 00:00:00 Completed [facility] Polio (IPV/OPV) 2017-12-06 00:00:00 Completed [facility] Hep B, Adol or Pedi Dosage 2017-12-06 00:00:00 Completed [facility] Polio (IPV/OPV) 2017-12-06 00:00:00 Completed [facility] Hep B, Adol or Pedi Dosage 2017-12-06 00:00:00 Completed [facility] Polio (IPV/OPV) 2017-12-06 00:00:00 Completed [facility] Hep B, Adol or Pedi Dosage 2017-12-06 00:00:00 Completed [facility] Polio (IPV/OPV) 2017-12-06 00:00:00 Completed [facility] Hep B, Adol or Pedi Dosage 2017-12-06 00:00:00 Completed [facility] Polio (IPV/OPV) 2017-12-06 00:00:00 Completed [facility] Hep B, Adol or Pedi Dosage 2017-12-06 00:00:00 Completed [facility] Polio (IPV/OPV) 2017-12-06 00:00:00 Completed [facility] Hep B, Adol or Pedi Dosage 2017-12-06 00:00:00 Completed [facility] Polio (IPV/OPV) 2017-12-06 00:00:00 Completed [facility] Hep B, Adol or Pedi Dosage 2017-12-06 00:00:00 Completed [facility] Polio (IPV/OPV) 2017-12-06 00:00:00 Completed [facility] Hep B, Adol or Pedi Dosage 2017-12-06 00:00:00 Completed [facility] Polio (IPV/OPV) 2017-12-06 00:00:00 Completed [facility] Hep B, Adol or Pedi Dosage 2017-12-06 00:00:00 Completed [facility] Polio (IPV/OPV) 2017-12-06 00:00:00 Completed [facility] Hep B, Adol or Pedi Dosage 2017-12-06 00:00:00 Completed [facility] Polio (IPV/OPV) 2017-12-06 00:00:00 Completed [facility] Hep B, Adol or Pedi Dosage 2017-12-06 00:00:00 Completed [facility] Polio (IPV/OPV) 2017-12-06 00:00:00 Completed [facility] Hep B, Adol or Pedi Dosage 2017-12-06 00:00:00 Completed [facility] Polio (IPV/OPV) 2017-12-06 00:00:00 Completed [facility] Hep B, Adol or Pedi Dosage 2017-12-06 00:00:00 Completed [facility] Polio (IPV/OPV) 2017-12-06 00:00:00 Completed [facility] Hep B, Adol or Pedi Dosage 2017-12-06 00:00:00 Completed [facility] Polio (IPV/OPV) 2017-12-06 00:00:00 Completed [facility] Hep B, Adol or Pedi Dosage 2017-12-06 00:00:00 Completed [facility] Polio (IPV/OPV) 2017-12-06 00:00:00 Completed [facility] Hep B, Adol or Pedi Dosage 2017-12-06 00:00:00 Completed [facility] Polio (IPV/OPV) 2017-12-06 00:00:00 Completed [facility] Hep B, Adol or Pedi Dosage 2017-12-06 00:00:00 Completed [facility] Polio (IPV/OPV) 2017-12-06 00:00:00 Completed [facility] Hep B, Adol or Pedi Dosage 2017-12-06 00:00:00 [facility] [facility] ([facility]/OPV) 2017-12-06 00:00:00 Completed [facility] Hep B, Adol or Pedi Dosage 2017-12-06 00:00:00 Completed [facility] Polio (IPV/OPV) 2017-12-06 00:00:00 Completed [facility] Hep B, Adol or Pedi Dosage 2017-12-06 00:00:00 Completed [facility] Polio (IPV/OPV) 2017-12-06 00:00:00 Completed [facility] Hep B, Adol or Pedi Dosage 2017-12-06 00:00:00 Completed [facility] Polio (IPV/OPV) 2017-12-06 00:00:00 Completed [facility] Hep B, Adol or Pedi Dosage 2017-12-06 00:00:00 Completed [facility] Polio (IPV/OPV) 2017-12-06 00:00:00 Completed [facility] Hep B, Adol or Pedi Dosage 2017-12-06 00:00:00 Completed [facility] Polio (IPV/OPV) 2017-12-06 00:00:00 Completed [facility] Hep B, Adol or Pedi Dosage 2017-12-06 00:00:00 Completed [facility] Polio (IPV/OPV) 2017-12-06 00:00:00 Completed [facility] Hep B, Adol or Pedi Dosage 2017-12-06 00:00:00 Completed [facility] Polio (IPV/OPV) 2017-12-06 00:00:00 Completed [facility] Hep B, Adol or Pedi Dosage 2017-12-06 00:00:00 Completed [facility] Polio (IPV/OPV) 2017-12-06 00:00:00 Completed [facility] Hep B, Adol or Pedi Dosage 2017-12-06 00:00:00 Completed [facility] Polio (IPV/OPV) 2017-12-06 00:00:00 Completed [facility] Hep B, Adol or Pedi Dosage 2017-12-06 00:00:00 Completed [facility] Polio (IPV/OPV) 2017-12-06 00:00:00 Completed [facility] Hep B, Adol or Pedi Dosage 2017-12-06 00:00:00 Completed [facility] Polio (IPV/OPV) 2017-12-06 00:00:00 Completed [facility] Hep B, Adol or Pedi Dosage 2017-12-06 00:00:00 Completed [facility] Polio (IPV/OPV) 2017-12-06 00:00:00 Completed [facility] Hep B, Adol or Pedi Dosage 2017-12-06 00:00:00 Completed [facility] Polio (IPV/OPV) 2017-12-06 00:00:00 Completed [facility] Hep B, Adol or Pedi Dosage 2017-12-06 00:00:00 Completed [facility] Polio (IPV/OPV) 2017-12-06 00:00:00 Completed [facility] Hep B, Adol or Pedi Dosage 2017-12-06 00:00:00 Completed [facility] Polio (IPV/OPV) 2017-12-06 00:00:00 Completed [facility] Hep B, Adol or Pedi Dosage 2017-12-06 00:00:00 Completed [facility] Polio (IPV/OPV) 2017-12-06 00:00:00 Completed [facility] Hep B, Adol or Pedi Dosage 2017-12-06 00:00:00 Completed [facility] Polio (IPV/OPV) 2017-12-06 00:00:00 Completed [facility] Hep B, Adol or Pedi Dosage 2017-12-06 00:00:00 Completed [facility] Polio (IPV/OPV) 2017-12-06 00:00:00 Completed [facility] Hep B, Adol or Pedi Dosage 2017-12-06 00:00:00 Completed [facility] Polio (IPV/OPV) 2017-12-06 00:00:00 Completed [facility] Hep B, Adol or Pedi Dosage 2017-12-06 00:00:00 Completed [facility] Polio (IPV/OPV) 2017-12-06 00:00:00 Completed [facility] Hep B, Adol or Pedi Dosage 2017-12-06 00:00:00 Completed [facility] Polio (IPV/OPV) 2017-12-06 00:00:00 Completed [facility] Hep B, Adol or Pedi Dosage 2017-12-06 00:00:00 Completed [facility] Polio (IPV/OPV) 2017-12-06 00:00:00 Completed [facility] Hep B, Adol or Pedi Dosage 2017-12-06 00:00:00 Completed [facility] Polio (IPV/OPV) 2017-12-06 00:00:00 Completed [facility] Hep B, Adol or Pedi Dosage 2017-12-06 00:00:00 Completed [facility] Polio (IPV/OPV) 2017-12-06 00:00:00 Completed [facility] Hep B, Adol or Pedi Dosage 2017-12-06 00:00:00 Completed [facility] Polio (IPV/OPV) 2017-12-06 00:00:00 Completed [facility] Hep B, Adol or Pedi Dosage 2017-12-06 00:00:00 Completed [facility] Polio (IPV/OPV) 2017-12-06 00:00:00 Completed [facility] Hep B, Adol or Pedi Dosage 2017-12-06 00:00:00 Completed [facility] Polio (IPV/OPV) 2017-12-06 00:00:00 Completed [facility] Hep B, Adol or Pedi Dosage 2017-12-06 00:00:00 Completed [facility] Polio (IPV/OPV) 2017-12-06 00:00:00 Completed [facility] Hep B, Adol or Pedi Dosage 2017-12-06 00:00:00 Completed [facility] Polio (IPV/OPV) 2017-12-06 00:00:00 Completed [facility] Hep B, Adol or Pedi Dosage 2017-12-06 00:00:00 Completed [facility] Polio (IPV/OPV) 2017-12-06 00:00:00 Completed [facility] Hep B, Adol or Pedi Dosage 2017-12-06 00:00:00 Completed [facility] Polio (IPV/OPV) 2017-12-06 00:00:00 Completed [facility] Hep B, Adol or Pedi Dosage 2017-12-06 00:00:00 Completed [facility] Polio (IPV/OPV) 2017-12-06 00:00:00 Completed [facility] Hep B, Adol or Pedi Dosage 2017-12-06 00:00:00 Completed [facility] Polio (IPV/OPV) 2017-12-06 00:00:00 Completed [facility] Hep B, Adol or Pedi Dosage 2017-12-06 00:00:00 Completed [facility] Polio (IPV/OPV) 2017-12-06 00:00:00 Completed [facility] Hep B, Adol or Pedi Dosage 2017-12-06 00:00:00 Completed [facility] Polio (IPV/OPV) 2017-12-06 00:00:00 Completed [facility] Hep B, Adol or Pedi Dosage 2017-12-06 00:00:00 Completed [facility] Polio (IPV/OPV) 2017-12-06 00:00:00 Completed [facility] PPD (TB) 2017-12-02 00:00:00 Completed Typhoid, Unspecified Formulation 2017-12-02 00:00:00 Completed PPD (TB) 2017-12-02 00:00:00 Completed Typhoid, Unspecified Formulation 2017-12-02 00:00:00 Completed PPD (TB) 2017-12-02 00:00:00 Completed Typhoid, Unspecified Formulation 2017-12-02 00:00:00 Completed PPD (TB) 2017-12-02 00:00:00 Completed [facility] Typhoid, Unspecified Formulation 2017-12-02 00:00:00 Completed [facility] PPD (TB) 2017-12-02 00:00:00 Completed [facility] Typhoid, Unspecified Formulation 2017-12-02 00:00:00 Completed [facility] PPD (TB) 2017-12-02 00:00:00 Completed [facility] Typhoid, Unspecified Formulation 2017-12-02 00:00:00 Completed [facility] PPD (TB) 2017-12-02 00:00:00 Completed [facility] Typhoid, Unspecified Formulation 2017-12-02 00:00:00 Completed [facility] PPD (TB) 2017-12-02 00:00:00 Completed [facility] Typhoid, Unspecified Formulation 2017-12-02 00:00:00 Completed [facility] PPD (TB) 2017-12-02 00:00:00 Completed [facility] Typhoid, Unspecified Formulation 2017-12-02 00:00:00 Completed [facility] PPD (TB) 2017-12-02 00:00:00 Completed [facility] Typhoid, Unspecified Formulation 2017-12-02 00:00:00 Completed [facility] PPD (TB) 2017-12-02 00:00:00 Completed [facility] Typhoid, Unspecified Formulation 2017-12-02 00:00:00 Completed [facility] PPD (TB) 2017-12-02 00:00:00 Completed [facility] Typhoid, Unspecified Formulation 2017-12-02 00:00:00 Completed [facility] PPD (TB) 2017-12-02 00:00:00 Completed [facility] Typhoid, Unspecified Formulation 2017-12-02 00:00:00 Completed [facility] PPD (TB) 2017-12-02 00:00:00 Completed [facility] Typhoid, Unspecified Formulation 2017-12-02 00:00:00 Completed [facility] PPD (TB) 2017-12-02 00:00:00 Completed [facility] Typhoid, Unspecified Formulation 2017-12-02 00:00:00 Completed [facility] PPD (TB) 2017-12-02 00:00:00 Completed [facility] Typhoid, Unspecified Formulation 2017-12-02 00:00:00 Completed [facility] PPD (TB) 2017-12-02 00:00:00 Completed [facility] Typhoid, Unspecified Formulation 2017-12-02 00:00:00 Completed [facility] PPD (TB) 2017-12-02 00:00:00 Completed [facility] Typhoid, Unspecified Formulation 2017-12-02 00:00:00 Completed [facility] PPD (TB) 2017-12-02 00:00:00 Completed [facility] Typhoid, Unspecified Formulation 2017-12-02 00:00:00 Completed [facility] PPD (TB) 2017-12-02 00:00:00 Completed [facility] Typhoid, Unspecified Formulation 2017-12-02 00:00:00 Completed [facility] PPD (TB) 2017-12-02 00:00:00 Completed [facility] Typhoid, Unspecified Formulation 2017-12-02 00:00:00 Completed [facility] PPD (TB) 2017-12-02 00:00:00 Completed [facility] Typhoid, Unspecified Formulation 2017-12-02 00:00:00 Completed [facility] PPD (TB) 2017-12-02 00:00:00 Completed [facility] Typhoid, Unspecified Formulation 2017-12-02 00:00:00 Completed [facility] PPD (TB) 2017-12-02 00:00:00 Completed [facility] Typhoid, Unspecified Formulation 2017-12-02 00:00:00 Completed [facility] PPD (TB) 2017-12-02 00:00:00 Completed [facility] Typhoid, Unspecified Formulation 2017-12-02 00:00:00 Completed [facility] PPD (TB) 2017-12-02 00:00:00 Completed [facility] Typhoid, Unspecified Formulation 2017-12-02 00:00:00 Completed [facility] PPD (TB) 2017-12-02 00:00:00 Completed [facility] Typhoid, Unspecified Formulation 2017-12-02 00:00:00 Completed [facility] PPD (TB) 2017-12-02 00:00:00 Completed [facility] Typhoid, Unspecified Formulation 2017-12-02 00:00:00 Completed [facility] PPD (TB) 2017-12-02 00:00:00 Completed [facility] Typhoid, Unspecified Formulation 2017-12-02 00:00:00 Completed [facility] PPD (TB) 2017-12-02 00:00:00 Completed [facility] Typhoid, Unspecified Formulation 2017-12-02 00:00:00 Completed [facility] PPD (TB) 2017-12-02 00:00:00 Completed [facility] Typhoid, Unspecified Formulation 2017-12-02 00:00:00 Completed [facility] PPD (TB) 2017-12-02 00:00:00 Completed [facility] Typhoid, Unspecified Formulation 2017-12-02 00:00:00 Completed [facility] PPD (TB) 2017-12-02 00:00:00 Completed [facility] Typhoid, Unspecified Formulation 2017-12-02 00:00:00 Completed [facility] PPD (TB) 2017-12-02 00:00:00 Completed [facility] Typhoid, Unspecified Formulation 2017-12-02 00:00:00 Completed [facility] PPD (TB) 2017-12-02 00:00:00 Completed [facility] Typhoid, Unspecified Formulation 2017-12-02 00:00:00 Completed [facility] PPD (TB) 2017-12-02 00:00:00 Completed [facility] Typhoid, Unspecified Formulation 2017-12-02 00:00:00 Completed [facility] PPD (TB) 2017-12-02 00:00:00 Completed [facility] Typhoid, Unspecified Formulation 2017-12-02 00:00:00 Completed [facility] PPD (TB) 2017-12-02 00:00:00 Completed [facility] Typhoid, Unspecified Formulation 2017-12-02 00:00:00 Completed [facility] PPD (TB) 2017-12-02 00:00:00 Completed [facility] Typhoid, Unspecified Formulation 2017-12-02 00:00:00 Completed [facility] PPD (TB) 2017-12-02 00:00:00 Completed [facility] Typhoid, Unspecified Formulation 2017-12-02 00:00:00 Completed [facility] PPD (TB) 2017-12-02 00:00:00 Completed [facility] Typhoid, Unspecified Formulation 2017-12-02 00:00:00 Completed [facility] PPD (TB) 2017-12-02 00:00:00 Completed [facility] Typhoid, Unspecified Formulation 2017-12-02 00:00:00 Completed [facility] PPD (TB) 2017-12-02 00:00:00 Completed [facility] Typhoid, Unspecified Formulation 2017-12-02 00:00:00 Completed [facility] PPD (TB) 2017-12-02 00:00:00 Completed [facility] Typhoid, Unspecified Formulation 2017-12-02 00:00:00 Completed [facility] PPD (TB) 2017-12-02 00:00:00 Completed [facility] Typhoid, Unspecified Formulation 2017-12-02 00:00:00 Completed [facility] PPD (TB) 2017-12-02 00:00:00 Completed [facility] Typhoid, Unspecified Formulation 2017-12-02 00:00:00 Completed [facility] PPD (TB) 2017-12-02 00:00:00 Completed [facility] Typhoid, Unspecified Formulation 2017-12-02 00:00:00 Completed [facility] PPD (TB) 2017-12-02 00:00:00 Completed [facility] Typhoid, Unspecified Formulation 2017-12-02 00:00:00 Completed [facility] PPD (TB) 2017-12-02 00:00:00 Completed [facility] Typhoid, Unspecified Formulation 2017-12-02 00:00:00 Completed [facility] PPD (TB) 2017-12-02 00:00:00 Completed [facility] Typhoid, Unspecified Formulation 2017-12-02 00:00:00 Completed [facility] PPD (TB) 2017-12-02 00:00:00 Completed [facility] Typhoid, Unspecified Formulation 2017-12-02 00:00:00 Completed [facility] PPD (TB) 2017-12-02 00:00:00 Completed [facility] Typhoid, Unspecified Formulation 2017-12-02 00:00:00 Completed [facility] PPD (TB) 2017-12-02 00:00:00 Completed [facility] Typhoid, Unspecified Formulation 2017-12-02 00:00:00 Completed [facility] PPD (TB) 2017-12-02 00:00:00 Completed [facility] Typhoid, Unspecified Formulation 2017-12-02 00:00:00 Completed [facility] PPD (TB) 2017-12-02 00:00:00 Completed [facility] Typhoid, Unspecified Formulation 2017-12-02 00:00:00 Completed [facility] PPD (TB) 2017-12-02 00:00:00 Completed [facility] Typhoid, Unspecified Formulation 2017-12-02 00:00:00 Completed [facility] PPD (TB) 2017-12-02 00:00:00 Completed [facility] Typhoid, Unspecified Formulation 2017-12-02 00:00:00 Completed [facility] PPD (TB) 2017-12-02 00:00:00 Completed [facility] Typhoid, Unspecified Formulation 2017-12-02 00:00:00 Completed [facility] PPD (TB) 2017-12-02 00:00:00 Completed [facility] Typhoid, Unspecified Formulation 2017-12-02 00:00:00 Completed [facility] PPD (TB) 2017-12-02 00:00:00 Completed [facility] Typhoid, Unspecified Formulation 2017-12-02 00:00:00 Completed [facility] PPD (TB) 2017-12-02 00:00:00 Completed [facility] Typhoid, Unspecified Formulation 2017-12-02 00:00:00 Completed [facility] PPD (TB) 2017-12-02 00:00:00 Completed [facility] Typhoid, Unspecified Formulation 2017-12-02 00:00:00 Completed [facility] PPD (TB) 2017-12-02 00:00:00 Completed [facility] Typhoid, Unspecified Formulation 2017-12-02 00:00:00 Completed [facility] PPD (TB) 2017-12-02 00:00:00 Completed [facility] Typhoid, Unspecified Formulation 2017-12-02 00:00:00 Completed [facility] PPD (TB) 2017-12-02 00:00:00 Completed [facility] Typhoid, Unspecified Formulation 2017-12-02 00:00:00 Completed [facility] PPD (TB) 2017-12-02 00:00:00 Completed [facility] Typhoid, Unspecified Formulation 2017-12-02 00:00:00 Completed [facility] PPD (TB) 2017-12-02 00:00:00 Completed [facility] Typhoid, Unspecified Formulation 2017-12-02 00:00:00 Completed [facility] PPD (TB) 2017-12-02 00:00:00 Completed [facility] Typhoid, Unspecified Formulation 2017-12-02 00:00:00 Completed [facility] PPD (TB) 2017-12-02 00:00:00 Completed [facility] Typhoid, Unspecified Formulation 2017-12-02 00:00:00 Completed [facility] PPD (TB) 2017-12-02 00:00:00 Completed [facility] Typhoid, Unspecified Formulation 2017-12-02 00:00:00 Completed [facility] PPD (TB) 2017-12-02 00:00:00 Completed [facility] Typhoid, Unspecified Formulation 2017-12-02 00:00:00 Completed [facility] PPD (TB) 2017-12-02 00:00:00 Completed [facility] Typhoid, Unspecified Formulation 2017-12-02 00:00:00 Completed [facility] PPD (TB) 2017-12-02 00:00:00 Completed [facility] Typhoid, Unspecified Formulation 2017-12-02 00:00:00 Completed [facility] PPD (TB) 2017-12-02 00:00:00 Completed [facility] Typhoid, Unspecified Formulation 2017-12-02 00:00:00 Completed [facility] PPD (TB) 2017-12-02 00:00:00 Completed [facility] Typhoid, Unspecified Formulation 2017-12-02 00:00:00 Completed [facility] PPD (TB) 2017-12-02 00:00:00 Completed [facility] Typhoid, Unspecified Formulation 2017-12-02 00:00:00 Completed [facility] TDAP 2011-08-06 00:00:00 Completed TDAP 2011-08-06 00:00:00 Completed TDAP 2011-08-06 00:00:00 Completed TDAP 2011-08-06 00:00:00 Completed [facility] TDAP 2011-08-06 00:00:00 Completed [facility] TDAP 2011-08-06 00:00:00 Completed [facility] TDAP 2011-08-06 00:00:00 Completed [facility] TDAP 2011-08-06 00:00:00 Completed [facility] TDAP 2011-08-06 00:00:00 Completed [facility] TDAP 2011-08-06 00:00:00 Completed [facility] TDAP 2011-08-06 00:00:00 Completed [facility] TDAP 2011-08-06 00:00:00 Completed [facility] TDAP 2011-08-06 00:00:00 Completed [facility] TDAP 2011-08-06 00:00:00 Completed [facility] TDAP 2011-08-06 00:00:00 Completed [facility] TDAP 2011-08-06 00:00:00 Completed [facility] TDAP 2011-08-06 00:00:00 Completed [facility] TDAP 2011-08-06 00:00:00 Completed [facility] TDAP 2011-08-06 00:00:00 Completed [facility] TDAP 2011-08-06 00:00:00 Completed [facility] TDAP 2011-08-06 00:00:00 Completed [facility] TDAP 2011-08-06 00:00:00 Completed [facility] TDAP 2011-08-06 00:00:00 Completed [facility] TDAP 2011-08-06 00:00:00 Completed [facility] TDAP 2011-08-06 00:00:00 Completed [facility] TDAP 2011-08-06 00:00:00 Completed [facility] TDAP 2011-08-06 00:00:00 Completed [facility] TDAP 2011-08-06 00:00:00 Completed [facility] TDAP 2011-08-06 00:00:00 Completed [facility] TDAP 2011-08-06 00:00:00 Completed [facility] TDAP 2011-08-06 00:00:00 Completed [facility] TDAP 2011-08-06 00:00:00 Completed [facility] TDAP 2011-08-06 00:00:00 Completed [facility] TDAP 2011-08-06 00:00:00 Completed [facility] TDAP 2011-08-06 00:00:00 Completed [facility] TDAP 2011-08-06 00:00:00 Completed [facility] TDAP 2011-08-06 00:00:00 Completed [facility] TDAP 2011-08-06 00:00:00 Completed [facility] TDAP 2011-08-06 00:00:00 Completed [facility] TDAP 2011-08-06 00:00:00 Completed [facility] TDAP 2011-08-06 00:00:00 Completed [facility] TDAP 2011-08-06 00:00:00 Completed [facility] TDAP 2011-08-06 00:00:00 Completed [facility] TDAP 2011-08-06 00:00:00 Completed [facility] TDAP 2011-08-06 00:00:00 Completed [facility] TDAP 2011-08-06 00:00:00 Completed [facility] TDAP 2011-08-06 00:00:00 Completed [facility] TDAP 2011-08-06 00:00:00 Completed [facility] TDAP 2011-08-06 00:00:00 Completed [facility] TDAP 2011-08-06 00:00:00 Completed [facility] TDAP 2011-08-06 00:00:00 Completed [facility] TDAP 2011-08-06 00:00:00 Completed [facility] TDAP 2011-08-06 00:00:00 Completed [facility] TDAP 2011-08-06 00:00:00 Completed [facility] TDAP 2011-08-06 00:00:00 Completed [facility] TDAP 2011-08-06 00:00:00 Completed [facility] TDAP 2011-08-06 00:00:00 Completed [facility] TDAP 2011-08-06 00:00:00 Completed [facility] TDAP 2011-08-06 00:00:00 Completed [facility] TDAP 2011-08-06 00:00:00 Completed [facility] TDAP 2011-08-06 00:00:00 Completed [facility] TDAP 2011-08-06 00:00:00 Completed [facility] TDAP 2011-08-06 00:00:00 Completed [facility] TDAP 2011-08-06 00:00:00 Completed [facility] TDAP 2011-08-06 00:00:00 Completed [facility] TDAP 2011-08-06 00:00:00 Completed [facility] TDAP 2011-08-06 00:00:00 Completed [facility] TDAP 2011-08-06 00:00:00 Completed [facility] TDAP 2011-08-06 00:00:00 Completed [facility] TDAP 2011-08-06 00:00:00 Completed [facility] TDAP 2011-08-06 00:00:00 Completed [facility] TDAP 2011-08-06 00:00:00 Completed [facility] TDAP 2011-08-06 00:00:00 Completed [facility] TDAP 2011-08-06 00:00:00 Completed [facility] TDAP 2011-08-06 00:00:00 Completed [facility] TDAP 2011-08-06 00:00:00 Completed [facility] Hep B, Adol or Pedi Dosage Unknown Completed [facility] Polio (IPV/OPV) Unknown Completed [facility] PPD (TB) Unknown Completed [facility] TDAP Unknown Completed [facility] Typhoid, Unspecified Formulation Unknown Completed [facility] Influenza Virus Vaccine Quad .5 mL IM 6+ MO (FLUZONE/FLULAVAL/F LUARIX) Unknown Completed [facility] SARS-COV-2 COVID-19 PFIZER VACCINE Unknown Completed [facility] Influenza Virus Vaccine Quad IM, Preserv and ABX Free 6 MO-64 YRS (FLUCELVAX) Unknown Completed [facility] Hep B, Adol or Pedi Dosage Unknown Completed [facility] Polio (IPV/OPV) Unknown Completed [facility] PPD (TB) Unknown Completed [facility] TDAP Unknown Completed [facility] Typhoid, Unspecified Formulation Unknown Completed [facility] Influenza Virus Vaccine Quad .5 mL IM 6+ MO (FLUZONE/FLULAVAL/F LUARIX) Unknown Completed [facility] SARS-COV-2 COVID-19 PFIZER VACCINE Unknown Completed [facility] Influenza Virus Vaccine Quad IM, Preserv and ABX Free 6 MO-64 YRS (FLUCELVAX) Unknown Completed [facility] Hep B, Adol or Pedi Dosage Unknown Completed [facility] Polio (IPV/OPV) Unknown Completed [facility] PPD (TB) Unknown Completed [facility] TDAP Unknown Completed [facility] Typhoid, Unspecified Formulation Unknown Completed [facility] Influenza Virus Vaccine Quad .5 mL IM 6+ MO (FLUZONE/FLULAVAL/F LUARIX) Unknown Completed [facility] SARS-COV-2 COVID-19 PFIZER VACCINE Unknown Completed [facility] Influenza Virus Vaccine Quad IM, Preserv and ABX Free 6 MO-64 YRS (FLUCELVAX) Unknown Completed [facility] Hep B, Adol or Pedi Dosage Unknown Completed [facility] Polio (IPV/OPV) Unknown Completed [facility] PPD (TB) Unknown Completed [facility] TDAP Unknown Completed [facility] Typhoid, Unspecified Formulation Unknown Completed [facility] Influenza Virus Vaccine Quad .5 mL IM 6+ MO (FLUZONE/FLULAVAL/F LUARIX) Unknown Completed [facility] SARS-COV-2 COVID-19 PFIZER VACCINE Unknown Completed [facility] Influenza Virus Vaccine Quad IM, Preserv and ABX Free 6 MO-64 YRS (FLUCELVAX) Unknown Completed [facility] Hep B, Adol or Pedi Dosage Unknown Completed [facility] Polio (IPV/OPV) Unknown Completed [facility] PPD (TB) Unknown Completed [facility] TDAP Unknown Completed [facility] Typhoid, Unspecified Formulation Unknown Completed [facility] Influenza Virus Vaccine Quad .5 mL IM 6+ MO (FLUZONE/FLULAVAL/F LUARIX) Unknown Completed [facility] SARS-COV-2 COVID-19 PFIZER VACCINE Unknown Completed [facility] Influenza Virus Vaccine Quad IM, Preserv and ABX Free 6 MO-64 YRS (FLUCELVAX) Unknown Completed [facility] Hep B, Adol or Pedi Dosage Unknown Completed [facility] Polio (IPV/OPV) Unknown Completed [facility] PPD (TB) Unknown Completed [facility] TDAP Unknown Completed [facility] Typhoid, Unspecified Formulation Unknown Completed [facility] Influenza Virus Vaccine Quad .5 mL IM 6+ MO (FLUZONE/FLULAVAL/F LUARIX) Unknown Completed [facility] SARS-COV-2 COVID-19 PFIZER VACCINE Unknown Completed [facility] Influenza Virus Vaccine Quad IM, Preserv and ABX Free 6 MO-64 YRS (FLUCELVAX) Unknown Completed [facility] Hep B, Adol or Pedi Dosage Unknown Completed [facility] Polio (IPV/OPV) Unknown Completed [facility] PPD (TB) Unknown Completed [facility] TDAP Unknown Completed [facility] Typhoid, Unspecified Formulation Unknown Completed [facility] Influenza Virus Vaccine Quad .5 mL IM 6+ MO (FLUZONE/FLULAVAL/F LUARIX) Unknown Completed [facility] SARS-COV-2 COVID-19 PFIZER VACCINE Unknown Completed [facility] Influenza Virus Vaccine Quad IM, Preserv and ABX Free 6 MO-64 YRS (FLUCELVAX) Unknown Completed [facility] Hep B, Adol or Pedi Dosage Unknown Completed [facility] Polio (IPV/OPV) Unknown Completed [facility] PPD (TB) Unknown Completed [facility] TDAP Unknown Completed [facility] Typhoid, Unspecified Formulation Unknown Completed [facility] Influenza Virus Vaccine Quad .5 mL IM 6+ MO (FLUZONE/FLULAVAL/F LUARIX) Unknown Completed [facility] SARS-COV-2 COVID-19 PFIZER VACCINE Unknown Completed [facility] Influenza Virus Vaccine Quad IM, Preserv and ABX Free 6 MO-64 YRS (FLUCELVAX) Unknown Completed [facility] Hep B, Adol or Pedi Dosage Unknown Completed [facility] Polio (IPV/OPV) Unknown Completed [facility] PPD (TB) Unknown Completed [facility] TDAP Unknown Completed [facility] Typhoid, Unspecified Formulation Unknown Completed [facility] Influenza Virus Vaccine Quad .5 mL IM 6+ MO (FLUZONE/FLULAVAL/F LUARIX) Unknown Completed [facility] SARS-COV-2 COVID-19 PFIZER VACCINE Unknown Completed [facility] Influenza Virus Vaccine Quad IM, Preserv and ABX Free 6 MO-64 YRS (FLUCELVAX) Unknown Completed [facility] Hep B, Adol or Pedi Dosage Unknown Completed [facility] Polio (IPV/OPV) Unknown Completed [facility] PPD (TB) Unknown Completed [facility] TDAP Unknown Completed [facility] Typhoid, Unspecified Formulation Unknown Completed [facility] Influenza Virus Vaccine Quad .5 mL IM 6+ MO (FLUZONE/FLULAVAL/F LUARIX) Unknown Completed [facility] SARS-COV-2 COVID-19 PFIZER VACCINE Unknown Completed [facility] Influenza Virus Vaccine Quad IM, Preserv and ABX Free 6 MO-64 YRS (FLUCELVAX) Unknown Completed [facility] Hep B, Adol or Pedi Dosage Unknown Completed [facility] Polio (IPV/OPV) Unknown Completed [facility] PPD (TB) Unknown Completed [facility] Typhoid, Unspecified Formulation Unknown Completed [facility] Influenza Virus Vaccine Quad .5 mL IM 6+ MO (FLUZONE/FLULAVAL/F LUARIX) Unknown Completed [facility] TDAP Unknown Completed [facility] SARS-COV-2 COVID-19 PFIZER VACCINE Unknown Completed [facility] Influenza Virus Vaccine Quad IM, Preserv and ABX Free 6 MO-64 YRS (FLUCELVAX) Unknown Completed [facility] Hep B, Adol or Pedi Dosage Unknown Completed [facility] Polio (IPV/OPV) Unknown Completed [facility] PPD (TB) Unknown Completed [facility] TDAP Unknown Completed [facility] Typhoid, Unspecified Formulation Unknown Completed [facility] Influenza Virus Vaccine Quad .5 mL IM 6+ MO (FLUZONE/FLULAVAL/F LUARIX) Unknown Completed [facility] SARS-COV-2 COVID-19 PFIZER VACCINE Unknown Completed [facility] Influenza Virus Vaccine Quad IM, Preserv and ABX Free 6 MO-64 YRS (FLUCELVAX) Unknown Completed [facility] Hep B, Adol or Pedi Dosage Unknown Completed [facility] Polio (IPV/OPV) Unknown Completed [facility] PPD (TB) Unknown Completed [facility] TDAP Unknown Completed [facility] Typhoid, Unspecified Formulation Unknown Completed [facility] Influenza Virus Vaccine Quad .5 mL IM 6+ MO (FLUZONE/FLULAVAL/F LUARIX) Unknown Completed [facility] SARS-COV-2 COVID-19 PFIZER VACCINE Unknown Completed [facility] Influenza Virus Vaccine Quad IM, Preserv and ABX Free 6 MO-64 YRS (FLUCELVAX) Unknown Completed [facility] Hep B, Adol or Pedi Dosage Unknown Completed [facility] Polio (IPV/OPV) Unknown Completed [facility] PPD (TB) Unknown Completed [facility] TDAP Unknown Completed [facility] Typhoid, Unspecified Formulation Unknown Completed [facility] Influenza Virus Vaccine Quad .5 mL IM 6+ MO (FLUZONE/FLULAVAL/F LUARIX) Unknown Completed [facility] SARS-COV-2 COVID-19 PFIZER VACCINE Unknown Completed [facility] Influenza Virus Vaccine Quad IM, Preserv and ABX Free 6 MO-64 YRS (FLUCELVAX) Unknown Completed [facility] Hep B, Adol or Pedi Dosage Unknown Completed [facility] Polio (IPV/OPV) Unknown Completed [facility] PPD (TB) Unknown Completed [facility] Typhoid, Unspecified Formulation Unknown Completed [facility] Influenza Virus Vaccine Quad .5 mL IM 6+ MO (FLUZONE/FLULAVAL/F LUARIX) Unknown Completed [facility] TDAP Unknown Completed [facility] SARS-COV-2 COVID-19 PFIZER VACCINE Unknown Completed [facility] Influenza Virus Vaccine Quad IM, Preserv and ABX Free 6 MO-64 YRS (FLUCELVAX) Unknown Completed [facility] Hep B, Adol or Pedi Dosage Unknown Completed [facility] Polio (IPV/OPV) Unknown Completed [facility] PPD (TB) Unknown Completed [facility] TDAP Unknown Completed [facility] Typhoid, Unspecified Formulation Unknown Completed [facility] Influenza Virus Vaccine Quad .5 mL IM 6+ MO (FLUZONE/FLULAVAL/F LUARIX) Unknown Completed [facility] SARS-COV-2 COVID-19 PFIZER VACCINE Unknown Completed [facility] Influenza Virus Vaccine Quad IM, Preserv and ABX Free 6 MO-64 YRS (FLUCELVAX) Unknown Completed [facility] Hep B, Adol or Pedi Dosage Unknown Completed [facility] Polio (IPV/OPV) Unknown Completed [facility] PPD (TB) Unknown Completed [facility] TDAP Unknown Completed [facility] Typhoid, Unspecified Formulation Unknown Completed [facility] Influenza Virus Vaccine Quad .5 mL IM 6+ MO (FLUZONE/FLULAVAL/F LUARIX) Unknown Completed [facility] SARS-COV-2 COVID-19 PFIZER VACCINE Unknown Completed [facility] Influenza Virus Vaccine Quad IM, Preserv and ABX Free 6 MO-64 YRS (FLUCELVAX) Unknown Completed [facility] Hep B, Adol or Pedi Dosage Unknown Completed [facility] Polio (IPV/OPV) Unknown Completed [facility] PPD (TB) Unknown Completed [facility] Typhoid, Unspecified Formulation Unknown Completed [facility] Influenza Virus Vaccine Quad .5 mL IM 6+ MO (FLUZONE/FLULAVAL/F LUARIX) Unknown Completed [facility] TDAP Unknown Completed [facility] SARS-COV-2 COVID-19 PFIZER VACCINE Unknown Completed [facility] Influenza Virus Vaccine Quad IM, Preserv and ABX Free 6 MO-64 YRS (FLUCELVAX) Unknown Completed [facility] Hep B, Adol or Pedi Dosage Unknown Completed [facility] Polio (IPV/OPV) Unknown Completed [facility] PPD (TB) Unknown Completed [facility] TDAP Unknown Completed [facility] Typhoid, Unspecified Formulation Unknown Completed [facility] Influenza Virus Vaccine Quad .5 mL IM 6+ MO (FLUZONE/FLULAVAL/F LUARIX) Unknown Completed [facility] SARS-COV-2 COVID-19 PFIZER VACCINE Unknown Completed [facility] Influenza Virus Vaccine Quad IM, Preserv and ABX Free 6 MO-64 YRS (FLUCELVAX) Unknown Completed [facility] Hep B, Adol or Pedi Dosage Unknown Completed [facility] Polio (IPV/OPV) Unknown Completed [facility] PPD (TB) Unknown Completed [facility] TDAP Unknown Completed [facility] Typhoid, Unspecified Formulation Unknown Completed [facility] Influenza Virus Vaccine Quad .5 mL IM 6+ MO (FLUZONE/FLULAVAL/F LUARIX) Unknown Completed [facility] SARS-COV-2 COVID-19 PFIZER VACCINE Unknown Completed [facility] Influenza Virus Vaccine Quad IM, Preserv and ABX Free 6 MO-64 YRS (FLUCELVAX) Unknown Completed [facility] Hep B, Adol or Pedi Dosage Unknown Completed [facility] Polio (IPV/OPV) Unknown Completed [facility] PPD (TB) Unknown Completed [facility] TDAP Unknown Completed [facility] Typhoid, Unspecified Formulation Unknown Completed [facility] Influenza Virus Vaccine Quad .5 mL IM 6+ MO (FLUZONE/FLULAVAL/F LUARIX) Unknown Completed [facility] SARS-COV-2 COVID-19 PFIZER VACCINE Unknown Completed [facility] Influenza Virus Vaccine Quad IM, Preserv and ABX Free 6 MO-64 YRS (FLUCELVAX) Unknown Completed [facility] Hep B, Adol or Pedi Dosage Unknown Completed [facility] Polio (IPV/OPV) Unknown Completed [facility] PPD (TB) Unknown Completed [facility] Typhoid, Unspecified Formulation Unknown Completed [facility] Influenza Virus Vaccine Quad .5 mL IM 6+ MO (FLUZONE/FLULAVAL/F LUARIX) Unknown Completed [facility] TDAP Unknown Completed [facility] SARS-COV-2 COVID-19 PFIZER VACCINE Unknown Completed [facility] Influenza Virus Vaccine Quad IM, Preserv and ABX Free 6 MO-64 YRS (FLUCELVAX) Unknown Completed [facility] Hep B, Adol or Pedi Dosage Unknown Completed [facility] Polio (IPV/OPV) Unknown Completed [facility] PPD (TB) Unknown Completed [facility] TDAP Unknown Completed [facility] Typhoid, Unspecified Formulation Unknown Completed [facility] Influenza Virus Vaccine Quad .5 mL IM 6+ MO (FLUZONE/FLULAVAL/F LUARIX) Unknown Completed [facility] SARS-COV-2 COVID-19 PFIZER VACCINE Unknown Completed [facility] Influenza Virus Vaccine Quad IM, Preserv and ABX Free 6 MO-64 YRS (FLUCELVAX) Unknown Completed [facility] Hep B, Adol or Pedi Dosage Unknown Completed [facility] Polio (IPV/OPV) Unknown Completed [facility] PPD (TB) Unknown Completed [facility] TDAP Unknown Completed [facility] Typhoid, Unspecified Formulation Unknown Completed [facility] Influenza Virus Vaccine Quad .5 mL IM 6+ MO (FLUZONE/FLULAVAL/F LUARIX) Unknown Completed [facility] SARS-COV-2 COVID-19 PFIZER VACCINE Unknown Completed [facility] Influenza Virus Vaccine Quad IM, Preserv and ABX Free 6 MO-64 YRS (FLUCELVAX) Unknown Completed [facility] Hep B, Adol or Pedi Dosage Unknown Completed [facility] Polio (IPV/OPV) Unknown Completed [facility] PPD (TB) Unknown Completed [facility] TDAP Unknown Completed [facility] Typhoid, Unspecified Formulation Unknown Completed [facility] Influenza Virus Vaccine Quad .5 mL IM 6+ MO (FLUZONE/FLULAVAL/F LUARIX) Unknown Completed [facility] SARS-COV-2 COVID-19 PFIZER VACCINE Unknown Completed [facility] Influenza Virus Vaccine Quad IM, Preserv and ABX Free 6 MO-64 YRS (FLUCELVAX) Unknown Completed [facility] Hep B, Adol or Pedi Dosage Unknown Completed [facility] Polio (IPV/OPV) Unknown Completed [facility] PPD (TB) Unknown Completed [facility] TDAP Unknown Completed [facility] Typhoid, Unspecified Formulation Unknown Completed [facility] Influenza Virus Vaccine Quad .5 mL IM 6+ MO (FLUZONE/FLULAVAL/F LUARIX) Unknown Completed [facility] SARS-COV-2 COVID-19 PFIZER VACCINE Unknown Completed [facility] Influenza Virus Vaccine Quad IM, Preserv and ABX Free 6 MO-64 YRS (FLUCELVAX) Unknown Completed [facility] Hep B, Adol or Pedi Dosage Unknown Completed [facility] Polio (IPV/OPV) Unknown Completed [facility] PPD (TB) Unknown Completed [facility] TDAP Unknown Completed [facility] Typhoid, Unspecified Formulation Unknown Completed [facility] Influenza Virus Vaccine Quad .5 mL IM 6+ MO (FLUZONE/FLULAVAL/F LUARIX) Unknown Completed [facility] SARS-COV-2 COVID-19 PFIZER VACCINE Unknown Completed [facility] Influenza Virus Vaccine Quad IM, Preserv and ABX Free 6 MO-64 YRS (FLUCELVAX) Unknown Completed [facility] Hep B, Adol or Pedi Dosage Unknown Completed [facility] Polio (IPV/OPV) Unknown Completed [facility] PPD (TB) Unknown Completed [facility] Typhoid, Unspecified Formulation Unknown Completed [facility] Influenza Virus Vaccine Quad .5 mL IM 6+ MO (FLUZONE/FLULAVAL/F LUARIX) Unknown Completed [facility] Hep B, Adol or Pedi Dosage Unknown Completed [facility] Polio (IPV/OPV) Unknown Completed [facility] PPD (TB) Unknown Completed [facility] TDAP Unknown Completed [facility] Typhoid, Unspecified Formulation Unknown Completed [facility] Influenza Virus Vaccine Quad .5 mL IM 6+ MO (FLUZONE/FLULAVAL/F LUARIX) Unknown Completed [facility] SARS-COV-2 COVID-19 PFIZER VACCINE Unknown Completed [facility] Influenza Virus Vaccine Quad IM, Preserv and ABX Free 6 MO-64 YRS (FLUCELVAX) Unknown Completed [facility] TDAP Unknown Completed [facility] SARS-COV-2 COVID-19 PFIZER VACCINE Unknown Completed [facility] Influenza Virus Vaccine Quad IM, Preserv and ABX Free 6 MO-64 YRS (FLUCELVAX) Unknown Completed [facility] Hep B, Adol or Pedi Dosage Unknown Completed [facility] Polio (IPV/OPV) Unknown Completed [facility] PPD (TB) Unknown Completed [facility] TDAP Unknown Completed [facility] Typhoid, Unspecified Formulation Unknown Completed [facility] Influenza Virus Vaccine Quad .5 mL IM 6+ MO (FLUZONE/FLULAVAL/F LUARIX) Unknown Completed [facility] SARS-COV-2 COVID-19 PFIZER VACCINE Unknown Completed [facility] Influenza Virus Vaccine Quad IM, Preserv and ABX Free 6 MO-64 YRS (FLUCELVAX) Unknown Completed [facility] Hep B, Adol or Pedi Dosage Unknown Completed [facility] Polio (IPV/OPV) Unknown Completed [facility] PPD (TB) Unknown Completed [facility] TDAP Unknown Completed [facility] Typhoid, Unspecified Formulation Unknown Completed [facility] Influenza Virus Vaccine Quad .5 mL IM 6+ MO (FLUZONE/FLULAVAL/F LUARIX) Unknown Completed [facility] SARS-COV-2 COVID-19 PFIZER VACCINE Unknown Completed [facility] Influenza Virus Vaccine Quad IM, Preserv and ABX Free 6 MO-64 YRS (FLUCELVAX) Unknown Completed [facility] Hep B, Adol or Pedi Dosage Unknown Completed [facility] Polio (IPV/OPV) Unknown Completed [facility] PPD (TB) Unknown Completed [facility] TDAP Unknown Completed [facility] Typhoid, Unspecified Formulation Unknown Completed [facility] Influenza Virus Vaccine Quad .5 mL IM 6+ MO (FLUZONE/FLULAVAL/F LUARIX) Unknown Completed [facility] SARS-COV-2 COVID-19 PFIZER VACCINE Unknown Completed [facility] Influenza Virus Vaccine Quad IM, Preserv and ABX Free 6 MO-64 YRS (FLUCELVAX) Unknown Completed [facility] Hep B, Adol or Pedi Dosage Unknown Completed [facility] Polio (IPV/OPV) Unknown Completed [facility] PPD (TB) Unknown Completed [facility] Typhoid, Unspecified Formulation Unknown Completed [facility] Influenza Virus Vaccine Quad .5 mL IM 6+ MO (FLUZONE/FLULAVAL/F LUARIX) Unknown Completed [facility] TDAP Unknown Completed [facility] SARS-COV-2 COVID-19 PFIZER VACCINE Unknown Completed [facility] Influenza Virus Vaccine Quad IM, Preserv and ABX Free 6 MO-64 YRS (FLUCELVAX) Unknown Completed [facility] Hep B, Adol or Pedi Dosage Unknown Completed [facility] Polio (IPV/OPV) Unknown Completed [facility] PPD (TB) Unknown Completed [facility] TDAP Unknown Completed [facility] Typhoid, Unspecified Formulation Unknown Completed [facility] Influenza Virus Vaccine Quad .5 mL IM 6+ MO (FLUZONE/FLULAVAL/F LUARIX) Unknown Completed [facility] SARS-COV-2 COVID-19 PFIZER VACCINE Unknown Completed [facility] Influenza Virus Vaccine Quad IM, Preserv and ABX Free 6 MO-64 YRS (FLUCELVAX) Unknown Completed [facility] Hep B, Adol or Pedi Dosage Unknown Completed [facility] Polio (IPV/OPV) Unknown Completed [facility] PPD (TB) Unknown Completed [facility] TDAP Unknown Completed [facility] Typhoid, Unspecified Formulation Unknown Completed [facility] Influenza Virus Vaccine Quad .5 mL IM 6+ MO (FLUZONE/FLULAVAL/F LUARIX) Unknown Completed [facility] SARS-COV-2 COVID-19 PFIZER VACCINE Unknown Completed [facility] Influenza Virus Vaccine Quad IM, Preserv and ABX Free 6 MO-64 YRS (FLUCELVAX) Unknown Completed [facility] Hep B, Adol or Pedi Dosage Unknown Completed [facility] Polio (IPV/OPV) Unknown Completed [facility] PPD (TB) Unknown Completed [facility] TDAP Unknown Completed [facility] Typhoid, Unspecified Formulation Unknown Completed [facility] Influenza Virus Vaccine Quad .5 mL IM 6+ MO (FLUZONE/FLULAVAL/F LUARIX) Unknown Completed [facility] SARS-COV-2 COVID-19 PFIZER VACCINE Unknown Completed [facility] Influenza Virus Vaccine Quad IM, Preserv and ABX Free 6 MO-64 YRS (FLUCELVAX) Unknown Completed [facility] Hep B, Adol or Pedi Dosage Unknown Completed [facility] Polio (IPV/OPV) Unknown Completed [facility] PPD (TB) Unknown Completed [facility] Typhoid, Unspecified Formulation Unknown Completed [facility] Influenza Virus Vaccine Quad .5 mL IM 6+ MO (FLUZONE/FLULAVAL/F LUARIX) Unknown Completed [facility] TDAP Unknown Completed [facility] SARS-COV-2 COVID-19 PFIZER VACCINE Unknown Completed [facility] Influenza Virus Vaccine Quad IM, Preserv and ABX Free 6 MO-64 YRS (FLUCELVAX) Unknown Completed [facility] Hep B, Adol or Pedi Dosage Unknown Completed [facility] Polio (IPV/OPV) Unknown Completed [facility] PPD (TB) Unknown Completed [facility] TDAP Unknown Completed [facility] Typhoid, Unspecified Formulation Unknown Completed [facility] Influenza Virus Vaccine Quad .5 mL IM 6+ MO (FLUZONE/FLULAVAL/F LUARIX) Unknown Completed [facility] SARS-COV-2 COVID-19 PFIZER VACCINE Unknown Completed [facility] Influenza Virus Vaccine Quad IM, Preserv and ABX Free 6 MO-64 YRS (FLUCELVAX) Unknown Completed [facility] Hep B, Adol or Pedi Dosage Unknown Completed [facility] Polio (IPV/OPV) Unknown Completed [facility] PPD (TB) Unknown Completed [facility] TDAP Unknown Completed [facility] Typhoid, Unspecified Formulation Unknown Completed [facility] Influenza Virus Vaccine Quad .5 mL IM 6+ MO (FLUZONE/FLULAVAL/F LUARIX) Unknown Completed [facility] SARS-COV-2 COVID-19 PFIZER VACCINE Unknown Completed [facility] Influenza Virus Vaccine Quad IM, Preserv and ABX Free 6 MO-64 YRS (FLUCELVAX) Unknown Completed [facility] Hep B, Adol or Pedi Dosage Unknown Completed [facility] Polio (IPV/OPV) Unknown Completed [facility] PPD (TB) Unknown Completed [facility] TDAP Unknown Completed [facility] Typhoid, Unspecified Formulation Unknown Completed [facility] Influenza Virus Vaccine Quad .5 mL IM 6+ MO (FLUZONE/FLULAVAL/F LUARIX) Unknown Completed [facility] SARS-COV-2 COVID-19 PFIZER VACCINE Unknown Completed [facility] Influenza Virus Vaccine Quad IM, Preserv and ABX Free 6 MO-64 YRS (FLUCELVAX) Unknown Completed [facility] Hep B, Adol or Pedi Dosage Unknown Completed [facility] Polio (IPV/OPV) Unknown Completed [facility] PPD (TB) Unknown Completed [facility] Typhoid, Unspecified Formulation Unknown Completed [facility] Influenza Virus Vaccine Quad .5 mL IM 6+ MO (FLUZONE/FLULAVAL/F LUARIX) Unknown Completed [facility] TDAP Unknown Completed [facility] SARS-COV-2 COVID-19 PFIZER VACCINE Unknown Completed [facility] Influenza Virus Vaccine Quad IM, Preserv and ABX Free 6 MO-64 YRS (FLUCELVAX) Unknown Completed [facility] Hep B, Adol or Pedi Dosage Unknown Completed [facility] Polio (IPV/OPV) Unknown Completed [facility] PPD (TB) Unknown Completed [facility] Typhoid, Unspecified Formulation Unknown Completed [facility] Influenza Virus Vaccine Quad .5 mL IM 6+ MO (FLUZONE/FLULAVAL/F LUARIX) Unknown Completed [facility] TDAP Unknown Completed [facility] SARS-COV-2 COVID-19 PFIZER VACCINE Unknown Completed [facility] Influenza Virus Vaccine Quad IM, Preserv and ABX Free 6 MO-64 YRS (FLUCELVAX) Unknown Completed [facility] Hep B, Adol or Pedi Dosage Unknown Completed [facility] Polio (IPV/OPV) Unknown Completed [facility] PPD (TB) Unknown Completed [facility] TDAP Unknown Completed [facility] Typhoid, Unspecified Formulation Unknown Completed [facility] Influenza Virus Vaccine Quad .5 mL IM 6+ MO (FLUZONE/FLULAVAL/F LUARIX) Unknown Completed [facility] SARS-COV-2 COVID-19 PFIZER VACCINE Unknown Completed [facility] Influenza Virus Vaccine Quad IM, Preserv and ABX Free 6 MO-64 YRS (FLUCELVAX) Unknown Completed [facility] Hep B, Adol or Pedi Dosage Unknown Completed [facility] Polio (IPV/OPV) Unknown Completed [facility] PPD (TB) Unknown Completed [facility] Typhoid, Unspecified Formulation Unknown Completed [facility] Influenza Virus Vaccine Quad .5 mL IM 6+ MO (FLUZONE/FLULAVAL/F LUARIX) Unknown Completed [facility] TDAP Unknown Completed [facility] SARS-COV-2 COVID-19 PFIZER VACCINE Unknown Completed [facility] Influenza Virus Vaccine Quad IM, Preserv and ABX Free 6 MO-64 YRS (FLUCELVAX) Unknown Completed [facility] Hep B, Adol or Pedi Dosage Unknown Completed [facility] Polio (IPV/OPV) Unknown Completed [facility] PPD (TB) Unknown Completed [facility] TDAP Unknown Completed [facility] Typhoid, Unspecified Formulation Unknown Completed [facility] Influenza Virus Vaccine Quad .5 mL IM 6+ MO (FLUZONE/FLULAVAL/F LUARIX) Unknown Completed [facility] SARS-COV-2 COVID-19 PFIZER VACCINE Unknown Completed [facility] Influenza Virus Vaccine Quad IM, Preserv and ABX Free 6 MO-64 YRS (FLUCELVAX) Unknown Completed [facility] Hep B, Adol or Pedi Dosage Unknown Completed [facility] Polio (IPV/OPV) Unknown Completed [facility] PPD (TB) Unknown Completed [facility] TDAP Unknown Completed [facility] Typhoid, Unspecified Formulation Unknown Completed [facility] Influenza Virus Vaccine Quad .5 mL IM 6+ MO (FLUZONE/FLULAVAL/F LUARIX) Unknown Completed [facility] SARS-COV-2 COVID-19 PFIZER VACCINE Unknown Completed [facility] Influenza Virus Vaccine Quad IM, Preserv and ABX Free 6 MO-64 YRS (FLUCELVAX) Unknown Completed [facility] Hep B, Adol or Pedi Dosage Unknown Completed [facility] Polio (IPV/OPV) Unknown Completed [facility] PPD (TB) Unknown Completed [facility] TDAP Unknown Completed [facility] Typhoid, Unspecified Formulation Unknown Completed [facility] Influenza Virus Vaccine Quad .5 mL IM 6+ MO (FLUZONE/FLULAVAL/F LUARIX) Unknown Completed [facility] SARS-COV-2 COVID-19 PFIZER VACCINE Unknown Completed [facility] Influenza Virus Vaccine Quad IM, Preserv and ABX Free 6 MO-64 YRS (FLUCELVAX) Unknown Completed [facility] Hep B, Adol or Pedi Dosage Unknown Completed [facility] Polio (IPV/OPV) Unknown Completed [facility] PPD (TB) Unknown Completed [facility] TDAP Unknown Completed [facility] Typhoid, Unspecified Formulation Unknown Completed [facility] Influenza Virus Vaccine Quad .5 mL IM 6+ MO (FLUZONE/FLULAVAL/F LUARIX) Unknown Completed [facility] SARS-COV-2 COVID-19 PFIZER VACCINE Unknown Completed [facility] Influenza Virus Vaccine Quad IM, Preserv and ABX Free 6 MO-64 YRS (FLUCELVAX) Unknown Completed [facility] Hep B, Adol or Pedi Dosage Unknown Completed [facility] Polio (IPV/OPV) Unknown Completed [facility] PPD (TB) Unknown Completed [facility] Typhoid, Unspecified Formulation Unknown Completed [facility] Influenza Virus Vaccine Quad .5 mL IM 6+ MO (FLUZONE/FLULAVAL/F LUARIX) Unknown Completed [facility] TDAP Unknown Completed [facility] SARS-COV-2 COVID-19 PFIZER VACCINE Unknown Completed [facility] Influenza Virus Vaccine Quad IM, Preserv and ABX Free 6 MO-64 YRS (FLUCELVAX) Unknown Completed [facility] Hep B, Adol or Pedi Dosage Unknown Completed [facility] Polio (IPV/OPV) Unknown Completed [facility] PPD (TB) Unknown Completed [facility] TDAP Unknown Completed [facility] Typhoid, Unspecified Formulation Unknown Completed [facility] Influenza Virus Vaccine Quad .5 mL IM 6+ MO (FLUZONE/FLULAVAL/F LUARIX) Unknown Completed [facility] SARS-COV-2 COVID-19 PFIZER VACCINE Unknown Completed [facility] Influenza Virus Vaccine Quad IM, Preserv and ABX Free 6 MO-64 YRS (FLUCELVAX) Unknown Completed [facility] Hep B, Adol or Pedi Dosage Unknown Completed [facility] Polio (IPV/OPV) Unknown Completed [facility] PPD (TB) Unknown Completed [facility] TDAP Unknown Completed [facility] Typhoid, Unspecified Formulation Unknown Completed [facility] Influenza Virus Vaccine Quad .5 mL IM 6+ MO (FLUZONE/FLULAVAL/F LUARIX) Unknown Completed [facility] SARS-COV-2 COVID-19 PFIZER VACCINE Unknown Completed [facility] Influenza Virus Vaccine Quad IM, Preserv and ABX Free 6 MO-64 YRS (FLUCELVAX) Unknown Completed [facility] Hep B, Adol or Pedi Dosage Unknown Completed [facility] Polio (IPV/OPV) Unknown Completed [facility] PPD (TB) Unknown Completed [facility] TDAP Unknown Completed [facility] Typhoid, Unspecified Formulation Unknown Completed [facility] Influenza Virus Vaccine Quad .5 mL IM 6+ MO (FLUZONE/FLULAVAL/F LUARIX) Unknown Completed [facility] SARS-COV-2 COVID-19 PFIZER VACCINE Unknown Completed [facility] Influenza Virus Vaccine Quad IM, Preserv and ABX Free 6 MO-64 YRS (FLUCELVAX) Unknown Completed [facility] Hep B, Adol or Pedi Dosage Unknown Completed [facility] Polio (IPV/OPV) Unknown Completed [facility] PPD (TB) Unknown Completed [facility] TDAP Unknown Completed [facility] Typhoid, Unspecified Formulation Unknown Completed [facility] Influenza Virus Vaccine Quad .5 mL IM 6+ MO (FLUZONE/FLULAVAL/F LUARIX) Unknown Completed [facility] SARS-COV-2 COVID-19 PFIZER VACCINE Unknown Completed [facility] Influenza Virus Vaccine Quad IM, Preserv and ABX Free 6 MO-64 YRS (FLUCELVAX) Unknown Completed [facility] Hep B, Adol or Pedi Dosage Unknown Completed [facility] Polio (IPV/OPV) Unknown Completed [facility] PPD (TB) Unknown Completed [facility] Typhoid, Unspecified Formulation Unknown Completed [facility] Influenza Virus Vaccine Quad .5 mL IM 6+ MO (FLUZONE/FLULAVAL/F LUARIX) Unknown Completed [facility] TDAP Unknown Completed [facility] SARS-COV-2 COVID-19 PFIZER VACCINE Unknown Completed [facility] Influenza Virus Vaccine Quad IM, Preserv and ABX Free 6 MO-64 YRS (FLUCELVAX) Unknown Completed [facility] Hep B, Adol or Pedi Dosage Unknown Completed [facility] Polio (IPV/OPV) Unknown Completed [facility] PPD (TB) Unknown Completed [facility] TDAP Unknown Completed [facility] Typhoid, Unspecified Formulation Unknown Completed [facility] Influenza Virus Vaccine Quad .5 mL IM 6+ MO (FLUZONE/FLULAVAL/F LUARIX) Unknown Completed [facility] SARS-COV-2 COVID-19 PFIZER VACCINE Unknown Completed [facility] Influenza Virus Vaccine Quad IM, Preserv and ABX Free 6 MO-64 YRS (FLUCELVAX) Unknown Completed [facility] Hep B, Adol or Pedi Dosage Unknown Completed [facility] Polio (IPV/OPV) Unknown Completed [facility] PPD (TB) Unknown Completed [facility] TDAP Unknown Completed [facility] Typhoid, Unspecified Formulation Unknown Completed [facility] Influenza Virus Vaccine Quad .5 mL IM 6+ MO (FLUZONE/FLULAVAL/F LUARIX) Unknown Completed [facility] SARS-COV-2 COVID-19 PFIZER VACCINE Unknown Completed [facility] Influenza Virus Vaccine Quad IM, Preserv and ABX Free 6 MO-64 YRS (FLUCELVAX) Unknown Completed [facility] Hep B, Adol or Pedi Dosage Unknown Completed [facility] Polio (IPV/OPV) Unknown Completed [facility] PPD (TB) Unknown Completed [facility] TDAP Unknown Completed [facility] Typhoid, Unspecified Formulation Unknown Completed [facility] Influenza Virus Vaccine Quad .5 mL IM 6+ MO (FLUZONE/FLULAVAL/F LUARIX) Unknown Completed [facility] SARS-COV-2 COVID-19 PFIZER VACCINE Unknown Completed [facility] Influenza Virus Vaccine Quad IM, Preserv and ABX Free 6 MO-64 YRS (FLUCELVAX) Unknown Completed [facility] Hep B, Adol or Pedi Dosage Unknown Completed [facility] Polio (IPV/OPV) Unknown Completed [facility] PPD (TB) Unknown Completed [facility] TDAP Unknown Completed [facility] Typhoid, Unspecified Formulation Unknown Completed [facility] Influenza Virus Vaccine Quad .5 mL IM 6+ MO (FLUZONE/FLULAVAL/F LUARIX) Unknown Completed [facility] SARS-COV-2 COVID-19 PFIZER VACCINE Unknown Completed [facility] Influenza Virus Vaccine Quad IM, Preserv and ABX Free 6 MO-64 YRS (FLUCELVAX) Unknown Completed [facility] Hep B, Adol or Pedi Dosage Unknown Completed [facility] Polio (IPV/OPV) Unknown Completed [facility] PPD (TB) Unknown Completed [facility] TDAP Unknown Completed [facility] Typhoid, Unspecified Formulation Unknown Completed [facility] Influenza Virus Vaccine Quad .5 mL IM 6+ MO (FLUZONE/FLULAVAL/F LUARIX) Unknown Completed [facility] SARS-COV-2 COVID-19 PFIZER VACCINE Unknown Completed [facility] Influenza Virus Vaccine Quad IM, Preserv and ABX Free 6 MO-64 YRS (FLUCELVAX) Unknown Completed [facility] Hep B, Adol or Pedi Dosage Unknown Completed [facility] Polio (IPV/OPV) Unknown Completed [facility] PPD (TB) Unknown Completed [facility] TDAP Unknown Completed [facility] Typhoid, Unspecified Formulation Unknown Completed [facility] Influenza Virus Vaccine Quad .5 mL IM 6+ MO (FLUZONE/FLULAVAL/F LUARIX) Unknown Completed [facility] SARS-COV-2 COVID-19 PFIZER VACCINE Unknown Completed [facility] Influenza Virus Vaccine Quad IM, Preserv and ABX Free 6 MO-64 YRS (FLUCELVAX) Unknown Completed [facility] Hep B, Adol or Pedi Dosage Unknown Completed [facility] Polio (IPV/OPV) Unknown Completed [facility] PPD (TB) Unknown Completed [facility] TDAP Unknown Completed [facility] Typhoid, Unspecified Formulation Unknown Completed [facility] Influenza Virus Vaccine Quad .5 mL IM 6+ MO (FLUZONE/FLULAVAL/F LUARIX) Unknown Completed [facility] SARS-COV-2 COVID-19 PFIZER VACCINE Unknown Completed [facility] Influenza Virus Vaccine Quad IM, Preserv and ABX Free 6 MO-64 YRS (FLUCELVAX) Unknown Completed [facility] Hep B, Adol or Pedi Dosage Unknown Completed [facility] Polio (IPV/OPV) Unknown Completed [facility] PPD (TB) Unknown Completed [facility] TDAP Unknown Completed [facility] Typhoid, Unspecified Formulation Unknown Completed [facility] Influenza Virus Vaccine Quad .5 mL IM 6+ MO (FLUZONE/FLULAVAL/F LUARIX) Unknown Completed [facility] SARS-COV-2 COVID-19 PFIZER VACCINE Unknown Completed [facility] Influenza Virus Vaccine Quad IM, Preserv and ABX Free 6 MO-64 YRS (FLUCELVAX) Unknown Completed [facility] Hep B, Adol or Pedi Dosage Unknown Completed [facility] Polio (IPV/OPV) Unknown Completed [facility] PPD (TB) Unknown Completed [facility] TDAP Unknown Completed [facility] Typhoid, Unspecified Formulation Unknown Completed [facility] Influenza Virus Vaccine Quad .5 mL IM 6+ MO (FLUZONE/FLULAVAL/F LUARIX) Unknown Completed [facility] SARS-COV-2 COVID-19 PFIZER VACCINE Unknown Completed [facility] Influenza Virus Vaccine Quad IM, Preserv and ABX Free 6 MO-64 YRS (FLUCELVAX) Unknown Completed [facility] Hep B, Adol or Pedi Dosage Unknown Completed [facility] Polio (IPV/OPV) Unknown Completed [facility] PPD (TB) Unknown Completed [facility] TDAP Unknown Completed [facility] Typhoid, Unspecified Formulation Unknown Completed [facility] Influenza Virus Vaccine Quad .5 mL IM 6+ MO (FLUZONE/FLULAVAL/F LUARIX) Unknown Completed [facility] SARS-COV-2 COVID-19 PFIZER VACCINE Unknown Completed [facility] Influenza Virus Vaccine Quad IM, Preserv and ABX Free 6 MO-64 YRS (FLUCELVAX) Unknown Completed [facility] Hep B, Adol or Pedi Dosage Unknown Completed [facility] Polio (IPV/OPV) Unknown Completed [facility] PPD (TB) Unknown Completed [facility] TDAP Unknown Completed [facility] Typhoid, Unspecified Formulation Unknown Completed [facility] Influenza Virus Vaccine Quad .5 mL IM 6+ MO (FLUZONE/FLULAVAL/F LUARIX) Unknown Completed [facility] SARS-COV-2 COVID-19 PFIZER VACCINE Unknown Completed [facility] Influenza Virus Vaccine Quad IM, Preserv and ABX Free 6 MO-64 YRS (FLUCELVAX) Unknown Completed [facility] Hep B, Adol or Pedi Dosage Unknown Completed [facility] Polio (IPV/OPV) Unknown Completed [facility] PPD (TB) Unknown Completed [facility] TDAP Unknown Completed [facility] Typhoid, Unspecified Formulation Unknown Completed [facility] Influenza Virus Vaccine Quad .5 mL IM 6+ MO (FLUZONE/FLULAVAL/F LUARIX) Unknown Completed [facility] SARS-COV-2 COVID-19 PFIZER VACCINE Unknown Completed [facility] Influenza Virus Vaccine Quad IM, Preserv and ABX Free 6 MO-64 YRS (FLUCELVAX) Unknown Completed [facility] Hep B, Adol or Pedi Dosage Unknown Completed [facility] Polio (IPV/OPV) Unknown Completed [facility] PPD (TB) Unknown Completed [facility] TDAP Unknown Completed [facility] Typhoid, Unspecified Formulation Unknown Completed [facility] Influenza Virus Vaccine Quad .5 mL IM 6+ MO (FLUZONE/FLULAVAL/F LUARIX) Unknown Completed [facility] SARS-COV-2 COVID-19 PFIZER VACCINE Unknown Completed [facility] Influenza Virus Vaccine Quad IM, Preserv and ABX Free 6 MO-64 YRS (FLUCELVAX) Unknown Completed [facility] Hep B, Adol or Pedi Dosage Unknown Completed [facility] Polio (IPV/OPV) Unknown Completed [facility] PPD (TB) Unknown Completed [facility] TDAP Unknown Completed [facility] Typhoid, Unspecified Formulation Unknown Completed [facility] Influenza Virus Vaccine Quad .5 mL IM 6+ MO (FLUZONE/FLULAVAL/F LUARIX) Unknown Completed [facility] SARS-COV-2 COVID-19 PFIZER VACCINE Unknown Completed [facility] Influenza Virus Vaccine Quad IM, Preserv and ABX Free 6 MO-64 YRS (FLUCELVAX) Unknown Completed [facility] Hep B, Adol or Pedi Dosage Unknown Completed [facility] Polio (IPV/OPV) Unknown Completed [facility] PPD (TB) Unknown Completed [facility] TDAP Unknown Completed [facility] Typhoid, Unspecified Formulation Unknown Completed [facility] Influenza Virus Vaccine Quad .5 mL IM 6+ MO (FLUZONE/FLULAVAL/F LUARIX) Unknown Completed [facility] SARS-COV-2 COVID-19 PFIZER VACCINE Unknown Completed [facility] Influenza Virus Vaccine Quad IM, Preserv and ABX Free 6 MO-64 YRS (FLUCELVAX) Unknown Completed [facility] Hep B, Adol or Pedi Dosage Unknown Completed [facility] Polio (IPV/OPV) Unknown Completed [facility] PPD (TB) Unknown Completed [facility] TDAP Unknown Completed [facility] Typhoid, Unspecified Formulation Unknown Completed [facility] Influenza Virus Vaccine Quad .5 mL IM 6+ MO (FLUZONE/FLULAVAL/F LUARIX) Unknown Completed [facility] SARS-COV-2 COVID-19 PFIZER VACCINE Unknown Completed [facility] Influenza Virus Vaccine Quad IM, Preserv and ABX Free 6 MO-64 YRS (FLUCELVAX) Unknown Completed [facility] Hep B, Adol or Pedi Dosage Unknown Completed [facility] Polio (IPV/OPV) Unknown Completed [facility] PPD (TB) Unknown Completed [facility] TDAP Unknown Completed [facility] Typhoid, Unspecified Formulation Unknown Completed [facility] Influenza Virus Vaccine Quad .5 mL IM 6+ MO (FLUZONE/FLULAVAL/F LUARIX) Unknown Completed [facility] SARS-COV-2 COVID-19 PFIZER VACCINE Unknown Completed [facility] Influenza Virus Vaccine Quad IM, Preserv and ABX Free 6 MO-64 YRS (FLUCELVAX) Unknown Completed [facility] Hep B, Adol or Pedi Dosage Unknown Completed [facility] Polio (IPV/OPV) Unknown Completed [facility] PPD (TB) Unknown Completed [facility] TDAP Unknown Completed [facility] Typhoid, Unspecified Formulation Unknown Completed [facility] Influenza Virus Vaccine Quad .5 mL IM 6+ MO (FLUZONE/FLULAVAL/F LUARIX) Unknown Completed [facility] SARS-COV-2 COVID-19 PFIZER VACCINE Unknown Completed [facility] Influenza Virus Vaccine Quad IM, Preserv and ABX Free 6 MO-64 YRS (FLUCELVAX) Unknown Completed [facility] Hep B, Adol or Pedi Dosage Unknown Completed [facility] Polio (IPV/OPV) Unknown Completed [facility] PPD (TB) Unknown Completed [facility] TDAP Unknown Completed [facility] Typhoid, Unspecified Formulation Unknown Completed [facility] Influenza Virus Vaccine Quad .5 mL IM 6+ MO (FLUZONE/FLULAVAL/F LUARIX) Unknown Completed [facility] SARS-COV-2 COVID-19 PFIZER VACCINE Unknown Completed [facility] Influenza Virus Vaccine Quad IM, Preserv and ABX Free 6 MO-64 YRS (FLUCELVAX) Unknown Completed [facility] Hep B, Adol or Pedi Dosage Unknown Completed [facility] Polio (IPV/OPV) Unknown Completed [facility] PPD (TB) Unknown Completed [facility] TDAP Unknown Completed [facility] Typhoid, Unspecified Formulation Unknown Completed [facility] Influenza Virus Vaccine Quad .5 mL IM 6+ MO (FLUZONE/FLULAVAL/F LUARIX) Unknown Completed [facility] SARS-COV-2 COVID-19 PFIZER VACCINE Unknown Completed [facility] Influenza Virus Vaccine Quad IM, Preserv and ABX Free 6 MO-64 YRS (FLUCELVAX) Unknown Completed [facility] Vital Signs Vital Name Observation Time Observation Value Comments S ource Systolic blood pressure 2025-03-29 14:56:00 141 mm[Hg] [facility] Diastolic blood pressure 2025-03-29 14:56:00 75 mm[Hg] [facility] Heart rate 2025-03-29 14:56:00 59 /min [facility] Body temperature 2025-03-29 14:56:00 36.11 An [facility] Respiratory rate 2025-03-29 14:56:00 16 /min [facility] Body weight 2025-03-29 14:56:00 76.204 kg [facility] BMI 2025-03-29 14:56:00 24.81 kg/m2 [facility] Oxygen saturation in Arterial blood by Pulse oximetry 2025-03-29 14:56:00 97 /min [facility] Systolic blood pressure 2025-03-11 16:23:00 130 mm[Hg] [facility] Diastolic blood pressure 2025-03-11 16:23:00 71 mm[Hg] [facility] Heart rate 2025-03-11 16:21:00 65 /min [facility] Body temperature 2025-03-11 16:21:00 36.11 An [facility] Respiratory rate 2025-03-11 16:21:00 18 /min [facility] Body height 2025-03-11 16:21:00 175.3 cm [facility] Body weight 2025-03-11 16:21:00 74.571 kg [facility] BMI 2025-03-11 16:21:00 24.28 kg/m2 [facility] Oxygen saturation in Arterial blood by Pulse oximetry 2025-03-11 16:21:00 98 /min [facility] Systolic blood pressure 2025 16:55:00 122 mm[Hg] [facility] Diastolic blood pressure 2025 16:55:00 70 mm[Hg] [facility] Heart rate 2025 16:55:00 71 /min [facility] Oxygen saturation in Arterial blood by Pulse oximetry 2025 16:55:00 93 /min [facility] Respiratory rate 2025 16:50:00 19 /min [facility] Body temperature 2025 15:55:00 36.11 An [facility] Body height 2025 13:55:00 175.3 cm [facility] Body weight 2025 13:55:00 75.297 kg [facility] BMI 2025 13:55:00 24.51 kg/m2 [facility] Systolic blood pressure 2025 16:00:00 130 mm[Hg] [facility] Diastolic blood pressure 2025 16:00:00 75 mm[Hg] [facility] Heart rate 2025 16:00:00 81 /min [facility] Respiratory rate 2025 16:00:00 18 /min [facility] Oxygen saturation in Arterial blood by Pulse oximetry 2025 16:00:00 99 /min [facility] Body temperature 2025 15:55:00 36.11 An [facility] Body height 2025 13:55:00 175.3 cm [facility] Body weight 2025 13:55:00 75.297 kg [facility] BMI 2025 13:55:00 24.51 kg/m2 [facility] Systolic blood pressure 2025-03-01 14:23:00 133 mm[Hg] [facility] [facility] Di[facility] blood pressure 2025-03-01 14:23:00 74 mm[Hg] [facility] Heart rate 2025-03-01 14:23:00 78 /min [facility] Body temperature 2025-03-01 14:23:00 36.44 An [facility] Respiratory rate 2025-03-01 14:23:00 16 /min [facility] Body height 2025-03-01 14:23:00 175.3 cm [facility] Body weight 2025-03-01 14:23:00 75.615 kg [facility] BMI 2025-03-01 14:23:00 24.62 kg/m2 [facility] Oxygen saturation in Arterial blood by Pulse oximetry 2025-03-01 14:23:00 98 /min [facility] Systolic blood pressure 2025-02-24 19:50:00 137 mm[Hg] [facility] Diastolic blood pressure 2025-02-24 19:50:00 80 mm[Hg] [facility] Heart rate 2025-02-24 19:49:00 70 /min [facility] Body weight 2025-02-24 19:49:00 76.613 kg [facility] BMI 2025-02-24 19:49:00 24.94 kg/m2 [facility] Oxygen saturation in Arterial blood by Pulse oximetry 2025-02-24 19:49:00 98 /min [facility] Systolic blood pressure 2024-11-26 16:04:00 104 mm[Hg] [facility] Diastolic blood pressure 2024-11-26 16:04:00 62 mm[Hg] [facility] Heart rate 2024-11-26 16:04:00 65 /min [facility] Body temperature 2024-11-26 16:04:00 36.28 An [facility] Respiratory rate 2024-11-26 16:04:00 19 /min [facility] Oxygen saturation in Arterial blood by Pulse oximetry 2024-11-26 16:04:00 97 /min [facility] Body height 2024-11-25 05:11:00 175.3 cm [facility] Body weight 2024-11-25 05:11:00 78.019 kg [facility] BMI 2024-11-25 05:11:00 25.40 kg/m2 [facility] Systolic blood pressure 2024-11-24 17:39:00 152 mm[Hg] [facility] Diastolic blood pressure 2024-11-24 17:39:00 83 mm[Hg] [facility] Heart rate 2024-11-24 17:39:00 58 /min [facility] Body temperature 2024-11-24 17:39:00 36.78 An [facility] Respiratory rate 2024-11-24 17:39:00 14 /min [facility] Oxygen saturation in Arterial blood by Pulse oximetry 2024-11-24 17:39:00 95 /min [facility] Body height 2024-11-24 15:14:00 175.3 cm [facility] Body weight 2024-11-24 15:14:00 81.194 kg [facility] BMI 2024-11-24 15:14:00 26.43 kg/m2 [facility] Systolic blood pressure 2024-11-09 18:10:00 140 mm[Hg] [facility] Diastolic blood pressure 2024-11-09 18:10:00 77 mm[Hg] [facility] Heart rate 2024-11-09 18:10:00 67 /min [facility] Respiratory rate 2024-11-09 18:10:00 18 /min [facility] Body height 2024-11-09 18:10:00 175.3 cm [facility] Body weight 2024-11-09 18:10:00 81.557 kg [facility] BMI 2024-11-09 18:10:00 26.55 kg/m2 [facility] Oxygen saturation in Arterial blood by Pulse oximetry 2024-11-09 18:10:00 97 /min [facility] Systolic blood pressure 2024-10-29 15:07:00 161 mm[Hg] [facility] Diastolic blood pressure 2024-10-29 15:07:00 89 mm[Hg] [facility] Heart rate 2024-10-29 15:07:00 62 /min [facility] Body height 2024-10-29 15:07:00 175.3 cm [facility] Body weight 2024-10-29 15:07:00 79.878 kg [facility] BMI 2024-10-29 15:07:00 26.01 kg/m2 [facility] Oxygen saturation in Arterial blood by Pulse oximetry 2024-10-29 15:07:00 97 /min [facility] BMI (Body Mass Index) 2024-05-08 00:00:00 33.7 kg/m2 [facility] Height 2024-05-08 00:00:00 67 [in_i] [facility] Body Weight 2024-05-08 00:00:00 215 [lb_av] [facility] Systolic blood pressure 2024-04-20 18:54:00 118 mm[Hg] [facility] Diastolic blood pressure 2024-04-20 18:54:00 70 mm[Hg] [facility] Heart rate 2024-04-20 18:54:00 80 /min [facility] Body height 2024-04-20 18:54:00 170.2 cm [facility] Body weight 2024-04-20 18:54:00 91.627 kg [facility] BMI 2024-04-20 18:54:00 31.64 kg/m2 [facility] Oxygen saturation in Arterial blood by Pulse oximetry 2024-04-20 18:54:00 97 /min [facility] Systolic blood pressure 2024-04-14 13:44:00 150 mm[Hg] [facility] Diastolic blood pressure 2024-04-14 13:44:00 88 mm[Hg] [facility] Heart rate 2024-04-14 13:43:00 95 /min [facility] Body height 2024-04-14 13:43:00 175.3 cm [facility] Body weight 2024-04-14 13:43:00 92.942 kg [facility] BMI 2024-04-14 13:43:00 30.26 kg/m2 [facility] Oxygen saturation in Arterial blood by Pulse oximetry 2024-04-14 13:43:00 97 /min [facility] Systolic blood pressure 2024-04-09 15:23:00 139 mm[Hg] [facility] Diastolic blood pressure 2024-04-09 15:23:00 84 mm[Hg] [facility] Heart rate 2024-04-09 15:23:00 79 /min [facility] Respiratory rate 2024-04-09 15:23:00 18 /min [facility] Body height 2024-04-09 15:23:00 175.3 cm [facility] Body weight 2024-04-09 15:23:00 93.26 kg [facility] BMI 2024-04-09 15:23:00 30.36 kg/m2 [facility] Oxygen saturation in Arterial blood by Pulse oximetry 2024-04-09 15:23:00 97 /min [facility] BMI (Body Mass Index) 2024-04-06 00:00:00 33.7 kg/m2 [facility] Height 2024-04-06 00:00:00 67 [in_i] [facility] Body Weight 2024-04-06 00:00:00 215 [lb_av] [facility] BMI (Body Mass Index) 2024-03-18 00:00:00 33.7 kg/m2 [facility] Height 2024-03-18 00:00:00 67 [in_i] Mir[facility] Body Weight 2024-03-18 00:00:00 215 [lb_av] [facility] Systolic blood pressure 2024-02-20 16:27:00 159 mm[Hg] [facility] Diastolic blood pressure 2024-02-20 16:27:00 88 mm[Hg] [facility] Heart rate 2024-02-20 16:26:00 64 /min [facility] Body temperature 2024-02-20 16:26:00 36.5 An [facility] Body height 2024-02-20 16:26:00 175.3 cm [facility] Body weight 2024-02-20 16:26:00 101.606 kg [facility] BMI 2024-02-20 16:26:00 33.08 kg/m2 [facility] Systolic blood pressure 2024-01-06 18:04:00 135 mm[Hg] [facility] Diastolic blood pressure 2024-01-06 18:04:00 70 mm[Hg] [facility] Heart rate 2024-01-06 18:04:00 65 /min [facility] Body temperature 2024-01-06 18:04:00 36.39 An [facility] Body height 2024-01-06 18:04:00 175.3 cm [facility] Body weight 2024-01-06 18:04:00 101.016 kg [facility] BMI 2024-01-06 18:04:00 32.89 kg/m2 [facility] Oxygen saturation in Arterial blood by Pulse oximetry 2024-01-06 18:04:00 98 /min [facility] Systolic blood pressure 2023-11-19 15:34:00 132 mm[Hg] [facility] Diastolic blood pressure 2023-11-19 15:34:00 84 mm[Hg] [facility] Heart rate 2023-11-19 15:34:00 72 /min [facility] Body height 2023-11-19 15:34:00 175.3 cm [facility] Body weight 2023-11-19 15:34:00 104.872 kg [facility] BMI 2023-11-19 15:34:00 34.14 kg/m2 [facility] Oxygen saturation in Arterial blood by Pulse oximetry 2023-11-19 15:34:00 96 /min [facility] Systolic blood pressure 2023-10-25 15:05:00 138 mm[Hg] [facility] Diastolic blood pressure 2023-10-25 15:05:00 80 mm[Hg] [facility] Body weight 2023-10-25 15:05:00 108.047 kg [facility] BMI 2023-10-25 15:05:00 35.18 kg/m2 [facility] Body height 2023-10-17 19:50:00 175.3 cm [facility] Body weight 2023-10-17 19:50:00 110.678 kg [facility] BMI 2023-10-17 19:50:00 36.03 kg/m2 [facility] Systolic blood pressure 2023-10-17 16:59:00 129 mm[Hg] [facility] Diastolic blood pressure 2023-10-17 16:59:00 66 mm[Hg] [facility] Heart rate 2023-10-17 16:59:00 64 /min [facility] Body temperature 2023-10-17 16:59:00 36.06 An [facility] Respiratory rate 2023-10-17 16:59:00 18 /min [facility] Body height 2023-10-17 16:59:00 175.3 cm [facility] Body weight 2023-10-17 16:59:00 110.451 kg [facility] BMI 2023-10-17 16:59:00 35.96 kg/m2 [facility] Oxygen saturation in Arterial blood by Pulse oximetry 2023-10-17 16:59:00 96 /min [facility] Systolic blood pressure 2023-09-30 17:05:00 132 mm[Hg] [facility] Diastolic blood pressure 2023-09-30 17:05:00 82 mm[Hg] [facility] Heart rate 2023-09-30 17:05:00 69 /min [facility] Body height 2023-09-30 17:05:00 175.3 cm [facility] Body weight 2023-09-30 17:05:00 117.436 kg [facility] BMI 2023-09-30 17:05:00 [facility]23 [facility]terial blood by Pulse oximetry 2023-09-30 17:05:00 97 /min [facility] Systolic blood pressure 2023-09-19 15:57:00 128 mm[Hg] [facility] Diastolic blood pressure 2023-09-19 15:57:00 75 mm[Hg] [facility] Heart rate 2023-09-19 15:57:00 78 /min [facility] Body temperature 2023-09-19 15:57:00 35.5 An [facility] Body height 2023-09-19 15:57:00 175.3 cm [facility] Body weight 2023-09-19 15:57:00 119.568 kg [facility] BMI 2023-09-19 15:57:00 38.93 kg/m2 [facility] Oxygen saturation in Arterial blood by Pulse oximetry 2023-09-19 15:57:00 98 /min [facility] Systolic blood pressure 2023-09-09 17:10:00 149 mm[Hg] [facility] Diastolic blood pressure 2023-09-09 17:10:00 69 mm[Hg] [facility] Heart rate 2023-09-09 17:10:00 69 /min [facility] Body temperature 2023-09-09 17:10:00 37.11 An [facility] Body height 2023-09-09 17:10:00 175.3 cm [facility] Body weight 2023-09-09 17:10:00 135.489 kg [facility] BMI 2023-09-09 17:10:00 44.11 kg/m2 [facility] Oxygen saturation in Arterial blood by Pulse oximetry 2023-09-09 17:10:00 95 /min [facility] Systolic blood pressure 2023-09-05 14:21:00 137 mm[Hg] [facility] Diastolic blood pressure 2023-09-05 14:21:00 69 mm[Hg] [facility] Heart rate 2023-09-05 14:21:00 77 /min [facility] Body temperature 2023-09-05 14:21:00 36.11 [facility] Respiratory rate 2023-09-05 14:21:00 18 /min [facility] Oxygen saturation in Arterial blood by Pulse oximetry 2023-09-05 14:21:00 95 /min [facility] Body weight 2023-09-05 10:07:00 142.883 kg [facility] BMI 2023-09-05 10:07:00 46.52 kg/m2 [facility] Body height 2023-09-02 16:11:00 175.3 cm [facility] Systolic blood pressure 2023-09-02 16:11:00 159 mm[Hg] [facility] Diastolic blood pressure 2023-09-02 16:11:00 80 mm[Hg] [facility] Heart rate 2023-09-02 16:11:00 82 /min [facility] Body temperature 2023-09-02 16:11:00 36.56 An [facility] Respiratory rate 2023-09-02 16:11:00 16 /min [facility] Body height 2023-09-02 16:11:00 175.3 cm [facility] Body weight 2023-09-02 16:11:00 141.3 kg [facility] BMI 2023-09-02 16:11:00 46.00 kg/m2 [facility] Oxygen saturation in Arterial blood by Pulse oximetry 2023-09-02 16:11:00 96 /min [facility] Systolic blood pressure 2023-08-19 14:59:00 122 mm[Hg] [facility] Diastolic blood pressure 2023-08-19 14:59:00 63 mm[Hg] [facility] Heart rate 2023-08-19 14:59:00 85 /min [facility] Body temperature 2023-08-19 14:59:00 36.28 An [facility] Body height 2023-08-19 14:59:00 175.3 cm [facility] Body weight 2023-08-19 14:59:00 136.805 kg [facility] BMI 2023-08-19 14:59:00 44.54 kg/m2 [facility] Oxygen saturation in Arterial blood by Pulse oximetry 2023-08-19 14:59:00 94 /min [facility] Systolic blood pressure 2023-07-31 18:48:00 132 mm[Hg] [facility] Diastolic blood pressure 2023-07-31 18:48:00 86 mm[Hg] [facility] Heart rate 2023-07-31 18:47:00 78 /min [facility] Body temperature 2023-07-31 18:47:00 36.56 An [facility] Respiratory rate 2023-07-31 18:47:00 18 /min [facility] Body height 2023-07-31 18:47:00 175.3 cm [facility] Body weight 2023-07-31 18:47:00 137.168 kg [facility] BMI 2023-07-31 18:47:00 44.66 kg/m2 [facility] Oxygen saturation in Arterial blood by Pulse oximetry 2023-07-31 18:47:00 94 /min [facility] Systolic blood pressure 2023-07-25 15:04:00 101 mm[Hg] [facility] Diastolic blood pressure 2023-07-25 15:04:00 72 mm[Hg] [facility] Heart rate 2023-07-25 15:04:00 96 /min [facility] Body temperature 2023-07-25 15:04:00 36.33 An [facility] Respiratory rate 2023-07-25 15:04:00 18 /min [facility] Body height 2023-07-25 15:04:00 175.3 cm [facility] Body weight 2023-07-25 15:04:00 141.885 kg [facility] BMI 2023-07-25 15:04:00 46.19 kg/m2 [facility] Oxygen saturation in Arterial blood by Pulse oximetry 2023-07-25 15:04:00 93 /min [facility] Systolic blood pressure 2023-06-19 15:53:00 133 mm[Hg] [facility] Diastolic blood pressure 2023-06-19 15:53:00 71 mm[Hg] [facility] Heart rate 2023-06-19 15:53:00 100 /min [facility] Body temperature 2023-06-19 15:53:00 36.39 An [facility] Body height 2023-06-19 15:53:00 175.3 cm [facility] Body weight 2023-06-19 15:53:00 141.794 kg [facility] BMI 2023-06-19 15:53:00 46.16 kg/m2 [facility] Oxygen saturation in Arterial blood by Pulse oximetry 2023-06-19 15:53:00 94 /min [facility] Systolic blood pressure 2023-05-22 17:20:00 121 mm[Hg] [facility] Diastolic blood pressure 2023-05-22 17:20:00 69 mm[Hg] [facility] Heart rate 2023-05-22 17:20:00 88 /min [facility] Respiratory rate 2023-05-22 17:20:00 18 /min [facility] Body height 2023-05-22 17:20:00 175.3 cm [facility] Body weight 2023-05-22 17:20:00 138.075 kg [facility] BMI 2023-05-22 17:20:00 44.95 [facility] in Arterial blood by Pulse oximetry 2023-05-22 17:20:00 95 /min [facility] Heart rate 2023-05-16 13:37:00 76 /[facility] in Arterial blood by Pulse oximetry 2023-05-16 13:37:00 91 /min [facility] Systolic blood pressure 2023-05-16 13:11:00 139 mm[Hg] [facility] Diastolic blood pressure 2023-05-16 13:11:00 66 mm[Hg] [facility] Body temperature 2023-05-16 12:48:00 36.56 An [facility] Respiratory rate 2023-05-16 12:48:00 16 /min [facility] Body height 2023-05-16 11:43:00 175.3 cm [facility] Body weight 2023-05-16 11:43:00 137.7 kg [facility] BMI 2023-05-16 11:43:00 44.83 kg/m2 [facility] Systolic blood pressure 2023-05-16 11:43:00 151 mm[Hg] [facility] Diastolic blood pressure 2023-05-16 11:43:00 64 mm[Hg] [facility] Heart rate 2023-05-16 11:43:00 83 /min [facility] Body temperature 2023-05-16 11:43:00 36.28 An [facility] Respiratory rate 2023-05-16 11:43:00 18 /min [facility] Body height 2023-05-16 11:43:00 175.3 cm [facility] Body weight 2023-05-16 11:43:00 137.7 kg [facility] BMI 2023-05-16 11:43:00 44.83 kg/m2 [facility] Oxygen saturation in Arterial blood by Pulse oximetry 2023-05-16 11:43:00 94 /min [facility] Systolic blood pressure 2023-05-09 19:56:00 114 mm[Hg] [facility] Diastolic blood pressure 2023-05-09 19:56:00 65 mm[Hg] [facility] Heart rate 2023-05-09 19:56:00 87 /[facility] 2023-05-09 19:56:00 37 An [facility] Respiratory rate 2023-05-09 19:56:00 18 /min [facility] Body height 2023-05-09 19:56:00 175.3 cm [facility] Body weight 2023-05-09 19:56:00 136.079 kg [facility] BMI 2023-05-09 19:56:00 44.30 kg/m2 [facility] Oxygen saturation in Arterial blood by Pulse oximetry 2023-05-09 19:56:00 96 /min [facility] Body weight 2023-05-09 11:58:00 138.2 kg [facility] BMI 2023-05-09 11:58:00 44.99 kg/m2 [facility] Systolic blood pressure 2023-05-08 15:14:00 107 mm[Hg] [facility] Diastolic blood pressure 2023-05-08 15:14:00 66 mm[Hg] [facility] Heart rate 2023-05-08 15:14:00 73 /min [facility] Body [facility] 2023-05-08 15:14:00 36.17 An [facility] Body height 2023-05-08 15:14:00 175.3 cm [facility] Body weight 2023-05-08 15:14:00 138.166 [facility] BMI 2023-05-08 15:14:00 44.98 kg/m2 [facility] Oxygen saturation in Arterial blood by Pulse oximetry 2023-05-08 15:14:00 95 /min [facility] Systolic blood pressure 2023-05-07 18:13:00 131 mm[Hg] [facility] Diastolic blood pressure 2023-05-07 18:13:00 75 mm[Hg] [facility] Heart rate 2023-05-07 18:13:00 78 /min [facility] Respiratory rate 2023-05-07 18:13:00 20 /min [facility] Body height 2023-05-07 18:13:00 175.3 cm [facility] Body weight 2023-05-07 18:13:00 139.3 kg [facility] BMI 2023-05-07 18:13:00 45.35 kg/m2 [facility] Oxygen saturation in Arterial blood by Pulse oximetry 2023-05-07 18:13:00 96 /min [facility] Systolic blood pressure 2023-04-02 18:28:00 138 mm[Hg] [facility] Diastolic blood pressure 2023-04-02 18:28:00 88 mm[Hg] [facility] Heart rate 2023-04-02 18:28:00 87 /min [facility] Body height 2023-04-02 18:28:00 175.3 cm [facility] Body weight 2023-04-02 18:28:00 135.308 kg [facility] BMI 2023-04-02 18:28:00 44.05 kg/m2 [facility] Oxygen saturation in Arterial blood by Pulse oximetry 2023-04-02 18:28:00 94 /min [facility] Systolic blood pressure 2023-03-08 14:12:00 107 mm[Hg] [facility] Diastolic blood pressure 2023-03-08 14:12:00 70 mm[Hg] [facility] Heart rate 2023-03-08 14:12:00 88 /min [facility] Body temperature 2023-03-08 14:12:00 36.17 An [facility] Body height 2023-03-08 14:12:00 175.3 [facility] Body weight 2023-03-08 14:12:00 133.131 [facility] BMI 2023-03-08 14:12:00 43.34 kg/m2 [facility] Oxygen saturation in Arterial blood by Pulse oximetry 2023-03-08 14:12:00 97 /min [facility] Systolic blood pressure 2023-02-25 16:12:00 153 mm[Hg] [facility] Diastolic blood pressure 2023-02-25 16:12:00 85 mm[Hg] [facility] Heart rate 2023-02-25 16:12:00 75 /[facility] 2023-02-25 16:12:00 175.3 [facility] Body weight 2023-02-25 16:12:00 137.984 kg [facility] BMI 2023-02-25 16:12:00 44.92 kg/m2 [facility] height 2023-02-21 14:17:00 [facility]7 [facility] Body [facility] 2023-02-21 14:17:00 140.161 kg [facility] BMI 2023-02-21 14:17:00 46.98 kg[facility]m2 [facility] Sy[facility] 2023-02-04 17:58:00 133 mm[Hg] [facility] Diastolic blood pressure 2023-02-04 17:58:00 80 mm[Hg] [facility] Heart rate 2023-02-04 17:57:00 93 /min [facility] Respiratory rate 2023-02-04 17:57:00 18 /min [facility] Body height 2023-02-04 17:57:00 175.3 [facility] Body weight 2023-02-04 17:57:00 140.615 kg [facility] BMI 2023-02-04 17:57:00 45.78 kg/m2 [facility] Oxygen saturation in Arterial blood by Pulse oximetry 2023-02-04 17:57:00 94 /min [facility] Systolic blood pressure 2023-01-23 21:16:00 159 mm[Hg] [facility] Diastolic blood pressure 2023-01-23 21:16:00 95 mm[Hg] [facility] Heart rate 2023-01-23 21:16:00 106 /min [facility] Body height 2023-01-23 21:16:00 175.3 cm [facility] Body weight 2023-01-23 21:16:00 139.254 kg [facility] BMI 2023-01-23 21:16:00 45.34 kg/m2 [facility] Oxygen saturation in Arterial blood by Pulse oximetry 2023-01-23 21:16:00 94 /min [facility] Systolic blood pressure 2022-12-28 14:05:00 122 mm[Hg] [facility] Diastolic blood pressure 2022-12-28 14:05:00 80 mm[Hg] [facility] Body height 2022-12-28 14:05:00 175.3 cm [facility] Body weight 2022-12-28 14:05:00 136.261 kg [facility] BMI 2022-12-28 14:05:00 44.36 kg/m2 [facility] Systolic blood pressure 2022-12-13 03:59:31 143 mm[Hg] [facility] Diastolic blood pressure 2022-12-13 03:59:31 86 mm[Hg] [facility] Heart rate 2022-12-13 03:59:31 86 /min [facility] Respiratory rate 2022-12-13 03:59:31 17 /min [facility] Oxygen saturation in Arterial blood by Pulse oximetry 2022-12-13 03:59:31 96 /min [facility] Body temperature 2022-12-13 03:24:00 36.61 An [facility] Body height 2022-12-13 03:24:00 175.3 cm [facility] Body weight 2022-12-13 03:24:00 140.615 kg [facility] BMI 2022-12-13 03:24:00 45.78 kg/m2 [facility] Systolic blood pressure 2022-12-12 22:32:00 128 mm[Hg] [facility] Diastolic blood pressure 2022-12-12 22:32:00 81 mm[Hg] [facility] Heart rate 2022-12-12 22:32:00 73 /min [facility] Respiratory rate 2022-12-12 22:32:00 16 /min [facility] Oxygen saturation in Arterial blood by Pulse oximetry 2022-12-12 22:32:00 97 /min [facility] Body temperature 2022-12-12 19:26:00 36.61 An [facility] Body weight 2022-12-12 19:26:00 140.615 kg [facility] BMI 2022-12-12 19:26:00 45.78 kg/m2 [facility] Systolic blood pressure 2022-11-22 12:06:00 141 mm[Hg] [facility] Diastolic blood pressure 2022-11-22 12:06:00 82 mm[Hg] [facility] Heart rate 2022-11-22 12:05:00 80 /min [facility] Body height 2022-11-22 12:05:00 175.3 cm [facility] Body weight 2022-11-22 12:05:00 138.71 kg [facility] BMI 2022-11-22 12:05:00 45.16 kg/m2 [facility] Oxygen saturation in Arterial blood by Pulse oximetry 2022-11-22 12:05:00 96 /min [facility] Systolic blood pressure 2022-08-22 21:01:00 135 mm[Hg] [facility] Diastolic blood pressure 2022-08-22 21:01:00 85 mm[Hg] [facility] Heart rate 2022-08-22 20:48:00 83 /min [facility] Body weight 2022-08-22 20:48:00 141.749 kg [facility] BMI 2022-08-22 20:48:00 46.15 kg/m2 [facility] Oxygen saturation in Arterial blood by Pulse oximetry 2022-08-22 20:48:00 99 /min [facility] Systolic blood pressure 2022-08-09 16:05:00 139 mm[Hg] [facility] Diastolic blood pressure 2022-08-09 16:05:00 81 mm[Hg] [facility] Heart rate 2022-08-09 16:05:00 70 /min [facility] Body height 2022-08-09 16:05:00 175.3 cm [facility] Body weight 2022-08-09 16:05:00 138.347 kg [facility] BMI 2022-08-09 16:05:00 45.04 kg/m2 [facility] Oxygen saturation in Arterial blood by Pulse oximetry 2022-08-09 16:05:00 97 /min [facility] Oxygen saturation in Arterial blood by Pulse oximetry 2022-08-07 19:00:00 95 /min [facility] Systolic blood pressure 2022-08-07 18:45:00 137 mm[Hg] [facility] Diastolic blood pressure 2022-08-07 18:45:00 70 mm[Hg] [facility] Respiratory rate 2022-08-07 18:45:00 19 /min [facility] Body temperature 2022-08-07 17:19:00 36.5 An [facility] Heart rate 2022-08-07 13:11:00 85 /min [facility] Body height 2022-08-07 13:11:00 175.3 cm [facility] Body weight 2022-08-07 13:11:00 139.3 kg [facility] BMI 2022-08-07 13:11:00 45.35 kg/m2 [facility] Systolic blood pressure 2022-08-07 17:30:00 127 mm[Hg] [facility] Diastolic blood pressure 2022-08-07 17:30:00 59 mm[Hg] [facility] Respiratory rate 2022-08-07 17:30:00 20 /min [facility] Oxygen saturation in Arterial blood by Pulse oximetry 2022-08-07 17:30:00 100 /min [facility] Body temperature 2022-08-07 17:19:00 36.5 An [facility] Heart rate 2022-08-07 13:11:00 85 /min [facility] Body height 2022-08-07 13:11:00 175.3 cm [facility] Body weight 2022-08-07 13:11:00 139.3 kg [facility] BMI 2022-08-07 13:11:00 45.35 kg/m2 [facility] Systolic blood pressure 2022-08-03 15:46:00 145 mm[Hg] [facility] Diastolic blood pressure 2022-08-03 15:46:00 72 mm[Hg] [facility] Heart rate 2022-08-03 15:42:00 92 /min [facility] Body temperature 2022-08-03 15:42:00 36.39 An [facility] Respiratory rate 2022-08-03 15:42:00 20 /min [facility] Body height 2022-08-03 15:42:00 175.3 cm [facility] Body weight 2022-08-03 15:42:00 141.704 kg [facility] BMI 2022-08-03 15:42:00 46.13 kg/m2 [facility] Oxygen saturation in Arterial blood by Pulse oximetry 2022-08-03 15:42:00 94 /min [facility] Systolic blood pressure 2022-07-24 19:13:00 139 mm[Hg] [facility] Diastolic blood pressure 2022-07-24 19:13:00 72 mm[Hg] [facility] Heart rate 2022-07-24 19:13:00 86 /min [facility] Oxygen saturation in Arterial blood by Pulse oximetry 2022-07-24 19:13:00 94 /min [facility] Body temperature 2022-07-24 19:10:00 36.94 An [facility] Respiratory rate 2022-07-24 19:10:00 18 /min [facility] Body weight 2022-07-24 19:10:00 144.198 kg [facility] BMI 2022-07-24 19:10:00 46.95 kg/m2 [facility] Systolic blood pressure 2022-07-23 02:11:05 137 mm[Hg] [facility] Diastolic blood pressure 2022-07-23 02:11:05 80 mm[Hg] [facility] Heart rate 2022-07-23 02:11:05 78 /min [facility] Respiratory rate 2022-07-23 02:11:05 20 /min [facility] Oxygen saturation in Arterial blood by Pulse oximetry 2022-07-23 02:11:05 95 /min [facility] Body temperature 2022-07-22 19:20:00 36.5 An [facility] Body height 2022-07-22 19:20:00 175.3 cm [facility] Body weight 2022-07-22 19:20:00 136.079 kg [facility] BMI 2022-07-22 19:20:00 44.30 kg/m2 [facility] Systolic blood pressure 2022-06-25 16:53:00 129 mm[Hg] [facility] Diastolic blood pressure 2022-06-25 16:53:00 77 mm[Hg] [facility] Heart rate 2022-06-25 16:53:00 89 /min [facility] Body height 2022-06-25 16:53:00 175.3 cm [facility] Body weight 2022-06-25 16:53:00 135.807 kg [facility] BMI 2022-06-25 16:53:00 44.21 kg/m2 [facility] Oxygen saturation in Arterial blood by Pulse oximetry 2022-06-25 16:53:00 97 /min [facility] Systolic blood pressure 2022-06-20 20:22:00 133 mm[Hg] [facility] Diastolic blood pressure 2022-06-20 20:22:00 85 mm[Hg] [facility] Heart rate 2022-06-20 20:22:00 89 /min [facility] Body temperature 2022-06-20 20:22:00 36.83 An [facility] Body height 2022-06-20 20:22:00 175.3 cm [facility] Body weight 2022-06-20 20:22:00 137.077 kg [facility] BMI 2022-06-20 20:22:00 44.63 kg/m2 [facility] Oxygen saturation in Arterial blood by Pulse oximetry 2022-06-20 20:22:00 98 /min [facility] Systolic blood pressure 2022-06-04 19:02:00 121 mm[Hg] [facility] Diastolic blood pressure 2022-06-04 19:02:00 71 mm[Hg] [facility] Heart rate 2022-06-04 19:02:00 83 /min [facility] Body height 2022-06-04 19:02:00 175.3 cm [facility] Body weight 2022-06-04 19:02:00 138.347 kg [facility] BMI 2022-06-04 19:02:00 45.04 kg/m2 [facility] Oxygen saturation in Arterial blood by Pulse oximetry 2022-06-04 19:02:00 96 /min [facility] Systolic blood pressure 2022-05-14 18:46:00 135 mm[Hg] [facility] Diastolic blood pressure 2022-05-14 18:46:00 85 mm[Hg] [facility] Heart rate 2022-05-14 18:46:00 82 /min [facility] Body height 2022-05-14 18:46:00 175.3 cm [facility] Body weight 2022-05-14 18:46:00 135.626 kg [facility] BMI 2022-05-14 18:46:00 44.15 [facility]2 [facility] in [facility]terial blood by Pulse oximetry 2022-05-14 18:46:00 99 /min [facility] Systolic blood pressure 2022-05-01 21:11:00 134 mm[Hg] [facility] Diastolic blood pressure 2022-05-01 21:11:00 87 mm[Hg] [facility] Heart rate 2022-05-01 21:11:00 86 /min [facility] Body temperature 2022-05-01 21:10:00 36.78 An [facility] Body height 2022-05-01 21:10:00 175.3 cm [facility] Body weight 2022-05-01 21:10:00 140.161 kg [facility] BMI 2022-05-01 21:10:00 45.63 kg/m2 [facility] Oxygen saturation in Arterial blood by Pulse oximetry 2022-05-01 21:10:00 97 /min [facility] Systolic blood pressure 2022-04-05 19:02:58 172 mm[Hg] [facility] Diastolic blood pressure 2022-04-05 19:02:58 92 mm[Hg] [facility] Heart rate 2022-04-05 19:02:58 75 /min [facility] Respiratory rate 2022-04-05 19:02:58 17 /min [facility] Oxygen saturation in Arterial blood by Pulse oximetry 2022-04-05 19:02:58 98 /min [facility] Body temperature 2022-04-05 16:47:00 36.44 An [facility] Body height 2022-04-05 16:47:00 175.3 cm [facility] Body weight 2022-04-05 16:47:00 127.007 kg [facility] BMI 2022-04-05 16:47:00 41.35 kg/m2 [facility] Height 2022-03-30 00:00:00 69 [in_i] [facility] BMI (Body Mass Index) 2022-03-30 00:00:00 41.3 kg/m2 [facility] Body Weight 2022-03-30 00:00:00 280 [lb_av] [facility]za [facility] Systolic blood pressure 2022-03-22 20:32:00 147 mm[Hg] [facility] Diastolic blood pressure 2022-03-22 20:32:00 89 mm[Hg] [facility] Heart rate 2022-03-22 20:32:00 81 /min [facility] Oxygen saturation in Arterial blood by Pulse oximetry 2022-03-22 20:32:00 94 /min [facility] Respiratory rate 2022-03-22 20:29:00 17 /min [facility] Body height 2022-03-22 20:29:00 175.3 cm [facility] Body weight 2022-03-22 20:29:00 142.248 kg [facility] BMI 2022-03-22 20:29:00 46.31 kg/m2 [facility] Procedures Procedure Date / Time Performed Performing Clinician Source COLONOSCOPY (ENDO) 2025 16:08:50 Bright Juan Manuel [facility] COLONOSCOPY (ENDO) 2025 16:08:50 Bright [facility] [id number] - [place] COLONOSCOPY FLX D X W/COLLJ SPEC WHEN PFRMD 2025 14:27:00 Ilda Bernard [facility] [id number] - [place] COLONOSCOPY W/BIO PSY SINGLE/MULTIPLE 2025 14:27:00 Ilda Bernard [facility] PHOSPHORUS 2024-11-26 10:13:00 [facility] MAGNESIUM 2024-11-26 10:13:00 [facility] BASIC METABOLIC PANEL (NA, K , CL, CO2, GLUCOSE, BUN, CREATININE, CA) 2024-11-26 10:13:00 [facility] CBC WITH DIFF 2024-11-26 10:13:00 [facility] CBC WITH DIFF 2024-11-25 13:27:00 Elsy Lenz [facility] CT SOFT TISSUE NECK W CONTRAST 6 16:14:22 Rhoda Geiger [facility] COMP. METABOLIC PANEL ([id number]) 2024-11-24 15:25:00 Rhoda Geiger [facility] CBC WITH DIFF 2024-11-24 15:25:00 Rhoda Geiger [facility] RADEX SPI LUMBOSAC 2/3 VIEWS 2024-05-08 00:00:00 [facility] [id number] 2024-04-30 [id number]-04-[facility] [id number] [facility]24-04-30 00:[facility] [id number] 2024-04-30 00:00[facility]00 [facility] [id number] 2024-04-30 00:00[facility]00 [facility] [id number] 2024-04-30 00:00:00 [facility] [id number] 2024-04-30 00:00[facility]00 [facility] [id number] 2024-04-30 00[facility]00[facility]00 [facility] [id number] 2024-04-30 00:00:00 [facility] [id number] 2024-04-30 00:00:00 [facility] [id number] 2024-04-30 00[facility] [id number] 2024-04-30 00:00:00 [facility] US ABDOMEN LIMITED 2024-04-27 15:15:08 Juan Manuel Novoa [facility] XR CHEST 2 VW 2024-04-14 14:53:21 Juan Manuel Novoa [facility] TRANSTHORACIC ECHO (TTE) COMPLETE 04-09 18:54:04 Tommy Pham [facility] RADEX SPI CRV MINIMUM 4 VIEWS 2024-04-06 00:00:00 [facility] RADEX SPI LUMBOSAC 2/3 VIEWS 2024-04-06 00:00:00 [facility] MR CERVICAL SPINE WO CONTRAST 2024-04-02 20:05:57 Requisition, Paper [facility] MR LUMBAR SPINE WO CONTRAST 2024-04-02 20:05:37 Requisition, Paper [facility] RADEX SPI CRV MINIMUM 4 VIEWS 2024-03-18 00:00:00 [facility] RADEX SPI LUMBOSAC 2/3 VIEWS 2024-03-18 00:[facility]:00 [facility] HEMOGLOBIN A1C TEST 2023-10-25 15:09:00 Michael Ruiz [facility] CT ABDOMEN PELVIS W CONTRAST 2023-09-10 18:12:55 Bennett Osei [facility] POCT GLUCOSE (AUTOMATED) 2023-09-05 14:19:[address] [facility] POCT GLUCOSE (AUTOMATED) 2023-09-05 07:47:[address] [facility] POCT GLUCOSE (AUTOMATED) 2023-09-05 02:30:[address] [facility] POCT GLUCOSE (AUTOMATED) 2023-09-04 20:46:[address] [facility] POCT GLUCOSE (AUTOMATED) 2023-09-04 14:50:[address] [facility] MAGNESIUM 2023-09-04 12:34:00 Emma Ruiz [facility] BASIC METABOLIC PANEL (NA, K , CL, CO2, GLUCOSE, BUN, CREATININE, CA) 2023-09-04 12:34:00 Emma Ruiz [facility] CBC WITHOUT DIFF 2023-09-04 12:34:00 Emma Ruiz [facility] POCT GLUCOSE (AUTOMATED) 2023-09-04 08:23:[address] [facility] POCT GLUCOSE (AUTOMATED) 2023-09-04 02:49:[address] [facility] POCT GLUCOSE (AUTOMATED) 2023-09-03 22:10:[address] [facility] BASIC METABOLIC PANEL (NA, K , CL, CO2, GLUCOSE, BUN, CREATININE, CA) 2023-09-03 18:30:00 Asim Roman [facility] CBC WITH DIFF 2023-09-03 18:30:00 Asim Roman [facility] BASIC METABOLIC PANEL (NA, K , CL, CO2, GLUCOSE, BUN, CREATININE, CA) 2023-09-03 18:30:00 Asim Roman [facility] CBC WITH DIFF 2023-09-03 18:30:00 Asim Roman [facility] POCT GLUCOSE (AUTOMATED) 2023-09-03 17:00:[address] [facility] POCT GLUCOSE (AUTOMATED) 2023-09-03 17:00:[address] [facility] PHOSPHORUS 2023-09-03 11:37:00 Den [facility] MAGNESIUM 2023-09-03 11:37:00 Den [facility] BASIC METABOLIC PANEL (NA, K , CL, CO2, GLUCOSE, BUN, CREATININE, CA) 2023-09-03 11:37:00 Den, [facility] CBC WITH DIFF 2023-09-03 11:37:00 Den, [facility] PHOSPHORUS 2023-09-03 11:37:00 Den, [facility] MAGNESIUM 2023-09-03 11:37:00 Den, [facility] BASIC METABOLIC PANEL (NA, K , CL, CO2, GLUCOSE, BUN, CREATININE, CA) 2023-09-03 11:37:00 Den, [facility] CBC WITH DIFF 2023-09-03 11:37:00 Edmund [facility] POCT GLUCOSE (AUTOMATED) 2023-09-03 09:02:[address] [facility] POCT GLUCOSE (AUTOMATED) 2023-09-03 09:02:[address] [facility] POCT GLUCOSE (AUTOMATED) 2023-09-03 02:54:[address] [facility] POCT GLUCOSE (AUTOMATED) 2023-09-03 02:54:[address] [facility] LAPAROSCOPIC ROBOTIC ASSISTE D BARIATRIC GASTRIC BYPASS 2023-09-02 18:37:[address] [facility] LAPAROSCOPIC ROBOTIC ASSISTE D BARIATRIC GASTRIC BYPASS 2023-09-02 18:37:00 Mohinder Jarrett [facility] POCT GLUCOSE(AGE >30DAYS) 2023-09-02 16:43:00 Iwona Good [facility] POCT GLUCOSE(AGE >30DAYS) 2023-09-02 16:43:00 Iwona Good [facility] POCT GLUCOSE (AUTOMATED) 2023-09-02 16:36:00 Mohinder Jarrett [facility] POCT GLUCOSE (AUTOMATED) 2023-09-02 16:36:00 Mohinder Jarrett [facility] ASSIGNMENT OF BENEFITS 2023-09-02 16:01:13 Doctor Unassigned, [place] [facility] POCT NICOTINE-URINE/PLASMA 2023-07-25 15:45:[address] [facility] DISCLOSURE AND CONSENT, MEDI VENICE AND SURGICAL PROCEDURES 2023-07-25 06:01:00 Doctor Unassigned, [place] [facility] ESOPHAGOGASTRODUODENOSCOPY 2023-05-16 12:06:00 Ligia Nguyen [facility] EGD (ENDO) 2023-05-16 11:40:54 Juan Manuel Novoa [facility] EGD (ENDO) 2023-05-16 11:40:54 Juan Manuel Novoa [facility] ASSIGNMENT OF BENEFITS 2023-05-16 10:16:54 Doctor Unassigned, [place] [facility] EXTERNAL PROVIDER RECORDS 2023-04-10 05:01:00 Doctor Unassigned, [place] [facility] US LIVER 2023-03-18 18:49:49 Bennett Osei [facility] PATIENT AGREEMENTS AND CONTRACTS 2023-02 05:01:00 Doctor Unassigned, [place] [facility] XR SHOULDER <2 VW LEFT 2023-02-25 16:21:15 Bijal Gentile [facility] XR KNEE 3 VW RIGHT 2023-02-21 14:31:10 Ruby Jones [facility] EXTERNAL PROVIDER RECORDS 2023-02-19 05:01:00 Doctor Unassigned, [place] [facility] LIPID PANEL ([id number])(TOTAL CHOLESTEROL, TRIGLYCERIDES, HDL) 2022-12-28 15:43:00 Emma Fitzgerald [facility] POCT HEMOGLOBIN A1C TEST 2022-12-28 14:17:00 Emma Fitzgerald [facility] CONSENT/REFUSAL FOR DIAGNOSI S AND TREATMENT 2022-12-13 03:18:40 Doctor Unassigned, [place] [facility] ASSIGNMENT OF BENEFITS 2022-12-12 20:55:11 Doctor Unassigned, [place] [facility] DUPLEX VENOUS LEG RIGHT - BY VASCULAR LAB 2022-12-12 20:29:00 [facility] COMP. METABOLIC PANEL ([id number]) 2022-12-12 19:58:00 Mame [facility] CBC WITH DIFF 2022-12-12 19:58:00 Mame [facility] CONSENT/REFUSAL FOR DIAGNOSI S AND TREATMENT 2022-12-12 19:15:00 Doctor Unassigned, [place] [facility] ASSIGNMENT OF BENEFITS 2022-11-08 20:23:34 Doctor Unassigned, [place] [facility] FREE T4 2022-08-22 21:47:00 Elsa Vasquez [facility] THYROID STIMULATING HORMONE 2022-08-22 21:47:00 Elsa Vasquez [facility] POCT HEMOGLOBIN A1C TEST 2022-08-22 21:04:00 Elsa Vasquez [facility] RADIOFREQUENCY THERMOCOAGULA TION OF VARICOSE VEINS 2022-08-07 14:54:00 Lan Lino [facility] BASIC METABOLIC PANEL (NA, K , CL, CO2, GLUCOSE, BUN, CREATININE, CA) 2022-08-07 13:39:00 Lan Lino [facility] CBC WITH DIFF 2022-08-07 13:39:00 Lan [facility] BASIC METABOLIC PANEL (NA, K , CL, CO2, GLUCOSE, BUN, CREATININE, CA) 2022-08-07 13:39:00 Lan Lino [facility] CBC WITH DIFF 2022-08-07 13:39:00 Lan [facility] ASSIGNMENT OF BENEFITS 2022-08-07 12:44:19 Doctor Unassigned, [place] [facility] URINALYSIS 2022-07-23 01:09:00 Ro Lopez [facility] US LOWER EXTREMITY VEIN WITH COMPRESSION BILATERAL (ONLY FOR RULE OUT DVT) 2022-07-23 00:48:00 Marv Huston [facility] CT CHEST PULMONARY ANGIOGRAM 2022-07-22 22:02:50 Ro Lopez [facility] XR CHEST 2 VW 2022-07-22 20:14:55 Ro Lopez [facility] TROPONIN I 2022-07-22 20:06:00 Ro Lopez [facility] COMP. METABOLIC PANEL ([id number]) 2022-07-22 20:06:00 Ro Lopez [facility] CBC WITH DIFF 2022-07-22 20:06:00 Ro Lopez [facility] D-DIMER 2022-07-22 20:06:00 Ro Lopez [facility] N-TERMINAL PRO-BNP 2022-07-22 20:06:00 Ro Lopez [facility] CONSENT/REFUSAL FOR DIAGNOSI S AND TREATMENT 2022-07-22 19:11:48 Doctor Unassigned, [place] [facility] POCT URINALYSIS AUTO 2022-06-25 16:55:00 Peter Barakat [facility] AUTHORIZATION FOR RELEASE OF PHI 2022-04 05:01:00 Doctor Unassigned, [place] [facility] COMP. METABOLIC PANEL ([id number]) 2022-05-16 13:45:00 Juan Manuel Novoa [facility] FLU VACC (), 6 MO-6 4 YRS, .5ML, IM, QUAD (FLUCELVAX) 2022-05-01 21:09:28 Kylah Arthur [facility] TROPONIN I 2022-04-05 18:46:00 Rhoda Geiger [facility] COMP. METABOLIC PANEL ([id number]) 2022-04-05 18:46:00 Rhoda Geiger [facility] CBC WITH DIFF 2022-04-05 18:46:00 Rhoda Geiger [facility] N-TERMINAL PRO-BNP 2022-04-05 18:46:00 Rhoda Geiger [facility] COVID-19 (ID NOW RAPID TESTING) 18:46:00 Rhoda Geiger [facility] XR CHEST 1 VW 2022-04-05 17:38:51 Rhoda Geiger [facility] CONSENT/REFUSAL FOR DIAGNOSI S AND TREATMENT 2022-04-05 16:34:52 Doctor Unassigned, [place] [facility] CT ABDOMEN PELVIS W CONTRAST 2022-04-05 14:37:59 Dawood Lemus [facility] XR, cervical spine, 2 or 3 view 00:00:00 [facility] RADEX SPI LUMBOSAC 2/3 VIEWS 2022-03-30 00:00:00 [facility] Plan of Care Planned Activity Planned Date Details Comments Source Encounters Start Date/Time End Date/Time Encounter Type Admission Type Attending Clinicians Care Facility Care Department Encounter ID Source 2021-05-21 11:26:19 Emergency [facility] [id number] [facility] 2021-05-20 03:24:55 Emergency [facility] [id number] [facility] 2020-04-20 09:30:00 Inpatient Corey Patterson [facility] [id number] [facility] 2025-04-06 00:00:00 2025-04-06 16:10:30 Clinic Assessment Bennett Osei [facility] 1..840.114 350.1.13.10 4.2.7.2.686 [id number] [facility] 2025-04-06 00:00:00 2025-04-06 09:04:21 Juan Manuel Mas [facility] 1..840.114 350.1.13.10 4.2.7.2.686 [id number] [facility] 2025-02-25 00:00:00 2025-04-03 19:05:10 Patient Secure Msg Doctor Unassigned, [place] Doctor Unassigned, [place] [facility] SHIN?[facility] [id number] 350.1.13.10 4.2.7.2.686 [id number] [facility] 2025-02-25 00:00:00 2025-04-03 19:03:43 Patient Secure Msg Doctor Unassigned, [place] Doctor Unassigned, [place] [facility] SHIN?[facility] [id number] 350.1.13.10 4.2.7.2.686 [id number] [facility] 2025-02-25 00:00:00 2025-04-03 19:03:18 Patient Secure Msg Doctor Unassigned, [place] Doctor Unassigned, [place] [facility] SHIN?[facility] 1.2840.114 350.1.13.10 4.2.7.2.686 [id number] [facility] 2025-04-01 00:00:00 2025-04-01 14:26:04 Letter (Out) [facility] (NATHANIEL) [id number] 350.1.13.10 4.2.7.2.686 [id number] [facility] 2025-03-31 00:00:00 2025-03-31 09:35:17 Letter (Out) [facility] (NATHANIEL) 1.2.840.114 350.1.13.10 4.2.7.2.686 [id number] [facility] 2025-03-29 09:45:00 2025-03-29 11:25:22 Office Visit Ilda Smith [facility] 1.2.840.114 350.1.13.10 4.2.7.2.686 [id number] [facility] 2025-03-12 15:55:00 2025-03-12 23:59:00 Hospital Encounter R ILDA BERNARD [facility] 1.20.114 350.1.13.10 4.2.7.2.686 [id number] [facility] 2025-03-11 11:45:00 2025-03-11 12:00:00 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 Visit Kwaku Patel, [facility] Bennett Osei, [facility] 1.0.114 350.1.13.10 4.2.7.2.686 [id number] [facility] 2025-03-11 11:00:00 2025-03-11 11:56:35 Office Visit BENNETT BANSAL [facility] 1.0.114 350.1.13.10 4.2.7.2.686 [id number] [facility] 2025 08:43:00 2025 12:03:00 Hospital Encounter R ILDA BERNARD [facility] CLAUDIA [id number] [facility] 2025 09:49:00 2025 11:02:00 Surgery Ilda Bernard [facility] AT [facility] 1.0.114 350.1.13.10 4.2.7.2.686 [id number] [facility] 2025-03-04 00:00:00 2025-03-04 00:00:00 Outpatient R ILDA BERNARD [facility] [id number] [facility] 2025-03-02 11:45:00 2025-03-02 12:00:00 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 Visit R 2, Adc Lab Ilda Bernard 2, Adc Lab [facility] 1.840.114 350.1.13.10 4.2.7.2.686 [id number] 353 [id number] [facility] 2025-03-01 11:30:00 2025-03-01 11:30:00 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 Visit R 2, Adc Lab Ilda Bernard 2, Adc Lab [facility] BUILDING 1.2840.114 350.1.13.10 4.2.7.2.686 [id number] [facility] 2025-03-01 09:30:00 2025-03-01 10:39:26 Office Visit R Ilda Bernard [facility] BUILD[facility] 1.2.114 350.1.13.10 4.2.7.2.686 [id number] [facility] 2025-03-01 00:00:00 2025-03-01 10:22:51 Juan Manuel Mas [facility] MEDICAL OFFICE BUILDING 1.84.114 350.1.13.10 4.2.7.2.686 [id number] 044 [id number] [facility] 2025-02-24 15:15:00 2025-02-24 15:30:00 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 Visit R Jorge Ang - Juan Manuel Enrique, Ang - Yariel [facility] MEDICAL OFFICE BUILDING 1.84.114 350.1.13.10 4.2.7.2.686 [id number] [facility] 2025-02-24 14:30:00 2025-02-24 14:45:00 Office Visit Juan Manuel Andrea [facility] MEDICAL OFFICE BUILDING 1.114 350.1.13.10 4.2.7.2.686 [id number] [id number] [facility] 2025-02-08 09:00:00 2025-02-08 09:00:00 Outpatient BENNETT BANSAL [facility] [id number] [facility] 2025-01-25 00:00:00 2025-01-25 15:31:13 Lex Novoa [facility] OFF[facility] BUILD[facility] 1.20.114 350.1.13.10 4.2.7.2.686 [id number] [id number] [facility] 2024-12-23 00:00:00 2024-12-23 09:58:10 Lex Novoa [facility] hospital[facility] MEDICAL OFFICE BUILDING 1..114 350.1.13.10 4.2.7.2.686 [id number] 044 [id number] [facility] 2024-11-27 00:00:00 2024-11-30 10:11:12 Transition of Care Leisa Gandhi Christine A [facility] 1..114 350.1.13.10 4.2.7.2.686 [id number] [facility] 2024-11-24 13:48:00 2024-11-26 16:12:00 Inpatient X CRISTHIAN CHAVEZ [facility] [id number] [facility] 2024-11-24 13:48:00 2024-11-26 16:12:00 Hospital Encounter Camacho Ayoub, Camacho Booth, Patricia Helms, Cristhian Gray [facility], [facility] (TINA) 1..114 350.1.13.10 4.2.7.2.686 [id number] [facility] 2024-11-26 00:00:00 2024-11-26 13:28:00 Letter (Out) [facility], [facility] (NATHANIEL) 1.2.114 350.1.13.10 4.2.7.2.686 [id number] [facility] 2024-11-25 00:00:00 2024-11-25 06:32:42 Refill Bright Critical access hospital?[facility] 1..840.114 350.1.13.10 4.2.7.2.686 [id number] [id number] [facility] 2024-11-24 10:18:00 2024-11-24 12:48:00 Emergency X RHODA GEIGER SANDRA [facility] ERT [id number] [facility] 2024-11-24 10:18:00 2024-11-24 12:48:00 Emergency Rhoda Geiger [facility] AT [facility] 1..840.114 350.1.13.10 4.2.7.2.686 [id number] [facility] 2024-11-11 00:00:00 2024-11-11 16:14:30 Telephone Mohinder Jarrett [facility] 1..840.114 350.1.13.10 4.2.7.2.686 [id number] [facility] 2024-11-09 13:00:00 2024-11-09 13:21:45 Outpatient R TOMMY PHAM [facility] [id number] [facility] 2024-11-09 13:00:00 2024-11-09 13:21:45 Office Visit Tommy Pham [facility] NAL BUILDING 1..840.114 350.1.13.10 4.2.7.2.686 [id number] [facility] 2024-11-05 09:00:00 2024-11-05 09:00:00 Outpatient R TOMMY PHAM [facility] [id number] [facility] 2024-10-29 10:15:00 2024-10-29 10:30:00 [facility] 1.840.114 350.1.13.10 4.2.7.2.686 [id number] 044 [id number] [facility] 2024-10-29 10:15:00 2024-10-29 10:15:00 Outpatient R JUAN MANUEL NOVOA [facility] [id number] [facility] 2024-10-28 08:45:00 2024-10-28 08:45:00 Outpatient R JUAN MANUEL NOVOA [facility] [id number] [facility] 2024-10-26 00:00:00 2024-10-26 10:27:24 Refill Bright [facility] SHIN?[facility] MEDICAL OFFICE BUILDING 1..840.114 350.1.13.10 4.2.7.2.686 [id number] [id number] [facility] 2024-10-23 00:00:00 2024-10-23 14:35:25 [facility]phone [facility] MEDICAL OFFICE BUILDING 1..840.114 350.1.13.10 4.2.7.2.686 [id number] 044 [id number] [facility] 2024-09-20 00:00:00 2024-09-21 14:07:42 Refill Bright [facility] SHIN?[facility] MEDICAL OFFICE BUILDING 1..840.114 350.1.13.10 4.2.7.2.686 [id number] [id number] [facility] 2024-09-03 10:00:00 2024-09-03 10:00:00 Outpatient R SHELLI JARRETTAH [facility] [id number] [facility] 2024-08-21 00:00:00 2024-08-21 14:08:40 Refill Bright [facility] SHIN?[facility] MEDICAL OFFICE BUILDING 1.2840.114 350.1.13.10 4.2.7.2.686 [id number] [id number] [facility] 2024-07-23 00:00:00 2024-07-27 06:41:21 Refshanti [facility] OFF[facility] BUILD[facility] 1.2.840.114 350.1.13.10 4.2.7.2.686 [id number] 044 [id number] [facility] 2024-07-08 15:30:00 2024-07-08 15:30:00 Outpatient R PHAM [facility] [id number] [facility] 2024-07-07 13:00:00 2024-07-07 13:00:00 Outpatient R VERO [facility] [id number] [facility] 2024-06-25 00:00:00 2024-06-25 14:59:42 Refshanti Novoa [facility] OFF[facility] 1..840.114 350.1.13.10 4.2.7.2.686 [id number] 044 [id number] [facility] 2024-05-24 00:00:00 2024-05-25 15:23:27 Refshanti Novoa [facility] SHIN?[facility] MEDICAL OFFICE [facility] 1.2.840.114 350.1.13.10 4.2.7.2.686 [id number] [facility] 2024-05-06 00:00:00 2024-05-11 15:41:43 Telephone Michaela Lee [facility] 1.2.840.114 350.1.13.10 4.2.7.2.686 [id number] [facility] 2024-05-08 00:00:00 2024-05-08 00:00:00 Sue Thapa MD: [id number] [address], [place] [address] , [facility]. [facility] - AO_Ofc NCO_N [place] [id number] [facility] 2024-04-30 05:36:00 2024-05-06 18:00:00 Inpatient JOAQUÍN Sue Thapa [facility] [id number] [facility] are [place] 2024-04-27 09:37:38 2024-04-27 23:59:00 Outpatient JUAN MANUEL ANDREA [facility] [id number] [facility] 2024-04-27 09:30:00 2024-04-27 23:59:00 Hospital Encounter Juan Manuel Novoa [facility] AT [facility] 1.2.840.114 350.1.13.10 4.2.7.2.686 [id number] [facility] 2024-04-24 16:00:00 2024-04-24 16:00:00 Outpatient MICHAEL AMIN [facility] [id number] [facility] 2024-04-21 00:00:00 2024-04-21 00:00:00 Sue Thapa MD: [id number] [address], [place] [address] , Ph. AO [place] - Ortho [place] - AO_Ofc NCO_N [place] [id number] [facility] 2024-04-20 13:45:00 2024-04-20 14:02:32 Outpatient JUAN MANUEL ANDREA [facility] [id number] [facility] 2024-04-20 13:45:00 2024-04-20 14:02:32 Office Visit Juan Manuel Novoa [facility] 1.2.840.114 350.1.13.10 4.2.7.2.686 [id number] 044 [id number] [facility] 2024-04-16 00:00:00 2024-04-16 16:54:27 Telephone Tommy Pham [facility] BUILDING 1..840.114 350.1.13.10 4.2.7.2.686 [id number] [facility] 2024-04-14 09:21:05 2024-04-14 23:59:00 Outpatient R JUAN MANUEL NOVOA [facility] [id number] [facility] 2024-04-14 09:21:05 2024-04-14 23:59:00 Hospital Encounter Juan Manuel Novoa [facility] 1..840.114 350.1.13.10 4.2.7.2.686 [id number] [facility] 2024-04-14 13:30:00 2024-04-14 13:30:00 Outpatient SANTO CANDELARIA [facility] [id number] [facility] 2024-04-14 10:45:00 2024-04-14 11:00:00 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, Ang - Db BrightJuan Manuel Lab, Ang - [facility] MED[facility] OFF[facility] BUILDING 1..840.114 350.1.13.10 4.2.7.2.686 [id number] [facility] 2024-04-14 08:45:00 2024-04-14 09:00:00 Office Visit Juan Manuel Novoa [facility] 1..840.114 350.1.13.10 4.2.7.2.686 [id number] [id number] [facility] 2024-04-09 13:00:00 2024-04-09 23:59:00 Outpatient TOMMY AVILA [facility] [id number] [facility] 2024-04-09 13:00:00 2024-04-09 23:59:00 Hospital Encounter Tommy Pham [facility] BUILD[facility] 1..840.114 350.1.13.10 4.2.7.2.686 [id number] [facility] 2024-04-09 10:00:00 2024-04-09 11:01:10 Office Visit Tommy Pham [facility] 1.2.840.114 350.1.13.10 4.2.7.2.686 [id number] [facility] 2024-04-08 13:00:00 2024-04-08 13:00:00 Outpatient R SANTO VALDIVIA [facility] [id number] [facility] 2024-04-08 00:00:00 2024-04-08 08:48:24 Telephone Tommy Pham [facility] 1.2.840.114 350.1.13.10 4.2.7.2.686 [id number] [facility] 2024-04-06 00:00:00 2024-04-06 00:00:00 Sue Thapa MD: [id number] [facility], [address] [address], [place] [address] , Ph. [facility] - Ortho [place] - AO_Ofc [place] [id number] Ariana [facility] 2024-04-02 13:05:11 2024-04-02 23:59:00 Hospital Encounter Radiology Radiology [facility] 1.2.840.114 350.1.13.10 4.2.7.2.686 [id number] [facility] 2024-04-02 13:04:39 2024-04-02 13:04:39 Outpatient R RADIOLOGY [facility] [id number] [facility] 2024-04-02 13:04:39 2024-04-02 13:04:39 Hospital Encounter Radiology Radiology [facility] 1.0.114 350.1.13.10 4.2.7.2.686 [id number] [facility] 2024-03-29 00:00:00 2024-04-01 11:04:05 Yarielshanti NovoaJuan Manuel [facility] 1.840.114 350.1.13.10 4.2.7.2.686 [id number] 044 [id number] [facility] 2024-03-18 00:00:00 2024-03-18 00:00:00 Sue Thapa MD: [id number] [address] [address], [place] [address] , Ph. AOSM [place] - [facility] [place] - AO_Ofc NCO_N [place] [id number] [facility] 2024-03-16 00:00:00 2024-03-16 14:14:13 Telephone Bennett Osei [facility] 1.0.114 350.1.13.10 4.2.7.2.686 [id number] [facility] 2024-03-10 00:00:00 2024-03-10 15:48:59 Telephone Kamran Oseiika [facility] 1.840.114 350.1.13.10 4.2.7.2.686 [id number] [facility] 2024-03-02 10:00:00 2024-03-02 10:00:00 Outpatient R BENNETT OSEI [facility] [id number] [facility] 2024-02-20 11:15:00 2024-02-20 11:30:00 Office Visit Santo Valdivia [facility] 1.84.114 350.1.13.10 4.2.7.2.686 [id number] [facility] 2024-02-20 11:15:00 2024-02-20 11:15:00 Outpatient R SANTO VALDIVIA [facility] [id number] [facility] 2024-01-06 13:00:00 2024-01-06 13:27:47 Outpatient TOMMY AVILA [facility] [id number] [facility] 2024-01-06 13:00:00 2024-01-06 13:27:47 [facility] 1.2.840.114 350.1.13.10 4.2.7.2.686 [id number] [facility] 2024-01-04 00:00:00 2024-01-06 08:43:05 Refill Bright Critical access hospital?[facility] 1.2.840.114 350.1.13.10 4.2.7.2.686 [id number] [id number] [facility] 2023-12-31 00:00:00 2023-12-31 15:54:56 Telephone Brian Rincon [facility] JONN [place] JUAN LUIS 1.2.840.114 350.1.13.10 4.2.7.2.686 [id number] [facility] 2023-12-18 10:20:00 2023-12-18 10:20:00 Outpatient LINNEA WATSON [facility] [id number] [facility] 2023-11-19 10:15:00 2023-11-19 10:30:00 Office Visit Bright [facility] 1.2.840.114 350.1.13.10 4.2.7.2.686 [id number] 044 [id number] [facility] 2023-11-19 10:15:00 2023-11-19 10:15:00 Outpatient JUAN MANUEL ANDREA [facility] [id number] [facility] 2023-11-19 00:00:00 2023-11-19 00:00:00 Telephone Juan Manuel [facility] MED[facility] OFF[facility] BUILD[facility] 1.2.840.114 350.1.13.10 4.2.7.2.686 [id number] 044 [id number] [facility] 2023-11-11 00:00:00 2023-11-11 00:00:00 Telephone Juan Manuel Novoa [facility] OFF[facility] BUILD[facility] 1..840.114 350.1.13.10 4.2.7.2.686 [id number] 044 [id number] [facility] 2023-11-04 00:00:00 2023-11-04 00:00:00 Refill Juan Manuel Novoa [facility] SHIN?[facility] MEDICAL OFFICE BUILDING 1..840.114 350.1.13.10 4.2.7.2.686 [id number] [facility] 2023-10-30 00:00:00 2023-10-30 00:00:00 Refill Liss Chiang [facility]IN?[facility] MED[facility] OFF[facility] BUILDING 1.2.840.114 350.1.13.10 4.2.7.2.686 [id number] [facility] 2023-10-25 10:00:00 2023-10-25 12:57:28 Outpatient R MICHAEL RUIZ [facility] [id number] [facility] 2023-10-25 10:00:00 2023-10-25 12:57:28 Office Visit [facility] MED[facility] OFF[facility] BUILD[facility] 1.2.840.114 350.1.13.10 4.2.7.2.686 [id number] [facility] 2023-10-25 10:45:00 2023-10-25 11:00:00 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, Chilango Ruiz Michael Elida [facility] 1.114 350.1.13.10 4.2.7.2.686 [id number] [facility] 2023-10-17 14:50:00 2023-10-17 15:09:32 Outpatient R LINNEA DORMAN [facility] [id number] [facility] 2023-10-17 14:50:00 2023-10-17 15:09:32 Office Visit Linnea Dorman [facility] 1.114 350.1.13.10 4.2.7.2.686 [id number] [facility] 2023-10-17 11:30:00 2023-10-17 12:47:05 Office Visit Bennett Osei [facility] 1.114 350.1.13.10 4.2.7.2.686 [id number] [facility] 2023-10-10 00:00:00 2023-10-10 00:00:00 Patient Secure Msg Doctor Unassigned, [facility] 1.114 350.1.13.10 4.2.7.2.686 [id number] [facility] 2023-10-04 00:00:00 2023-10-04 00:00:00 Refill Bright [facility] 1.114 350.1.13.10 4.2.7.2.686 [id number] 044 [id number] [facility] 2023-10-01 00:00:00 2023-10-01 00:00:00 Telephone Bright [facility] MEDICAL OFFICE BUILDING 1.2.840.114 350.1.13.10 4.2.7.2.686 [id number] [id number] [facility] 2023-09-30 12:30:00 2023-09-30 12:45:00 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, Chilango - [facility]iel [facility] MEDICAL OFFICE BUILDING 1.2840.114 350.1.13.10 4.2.7.2.686 [id number] [facility] 2023-09-30 12:30:00 2023-09-30 12:30:00 Outpatient R JUAN MANUEL NOVOA [facility] [id number] [facility] 2023-09-30 12:15:00 2023-09-30 12:30:00 Office Visit Bright Critical access hospital?[facility] MEDICAL OFFICE BUILDING 1.84.114 350.1.13.10 4.2.7.2.686 [id number] [id number] [facility] 2023-09-23 14:30:00 2023-09-23 14:30:00 Outpatient R BRIGHT JUAN MANUEL [facility] [id number] [facility] 2023-09-19 10:00:00 2023-09-19 11:49:07 Outpatient R DEBI [facility] [id number] [facility] 2023-09-19 10:00:00 2023-09-19 11:49:07 Office Visit Mohinder Jarrett [facility] SPECIAL[facility]ARE [place] [facility] 1.840.114 350.1.13.10 4.2.7.2.686 [id number] [facility] 2023-09-12 00:00:00 2023-09-12 00:00:00 Telephone Bennett Osei [facility] [place] [facility] 1.840.114 350.1.13.10 4.2.7.2.686 [id number] [facility] 2023-09-10 11:41:58 2023-09-10 23:59:00 Outpatient R BENNETT OSEI [facility] [id number] [facility] 2023-09-10 11:40:00 2023-09-10 23:59:00 Hospital Encounter Cornelius Bennett [facility] 1.0.114 350.1.13.10 4.2.7.2.686 [id number] [facility] 2023-09-10 00:00:00 2023-09-10 00:00:00 Refill Debi [facility] SPECIAL[facility] CARE [place] [facility] 1..114 350.1.13.10 4.2.7.2.686 [id number] [facility] 2023-09-09 11:00:00 2023-09-09 12:56:36 Outpatient R BENNETT OSEI [facility] [id number] [facility] 2023-09-09 11:00:00 2023-09-09 12:56:36 Office Visit Cornelius [facility] AT [facility] 1..114 350.1.13.10 4.2.7.2.686 [id number] [facility] 2023-09-09 00:00:00 2023-09-09 00:00:00 Telephone Debi [facility] 1.0.114 350.1.13.10 4.2.7.2.686 [id number] [facility] 2023-09-08 00:00:00 2023-09-08 00:00:00 Refill Liss Chiang [facility] 1.84.114 350.1.13.10 4.2.7.2.686 [id number] [id number] [facility] 2023-09-07 00:00:00 2023-09-07 00:00:00 Lex AayushSanto [facility] 1.2.840.114 350.1.13.10 4.2.7.2.686 [id number] [id number] [facility] 2023-09-06 00:00:00 2023-09-06 00:00:00 Telephone Debi [facility] 1.2.840.114 350.1.13.10 4.2.7.2.686 [id number] [facility] 2023-09-06 00:00:00 2023-09-06 00:00:00 Transition of Care Gino Celia MCKNIGHT 1.2.840.114 350.1.13.10 4.2.7.2.686 [id number] [facility] 2023-09-06 00:00:00 2023-09-06 00:00:00 Case Management Debi [facility] 1.2.840.114 350.1.13.10 4.2.7.2.686 [id number] [facility] 2023-09-06 00:00:00 2023-09-06 00:00:00 Telephone Debi, [facility] [place] [facility] 1.2.840.114 350.1.13.10 4.2.7.2.686 [id number] [facility] 2023-09-02 10:10:00 2023-09-05 14:11:00 Inpatient R DEBI [facility] CLAUDIA [id number] [facility] 2023-09-02 10:10:00 2023-09-05 14:11:00 Hospital Encounter DebiMohinder rogers [facility] 1.2.840.114 350.1.13.10 4.2.7.2.686 [id number] [facility] 2023-09-02 11:41:00 2023-09-02 15:38:00 Surgery Debi Mohindercharles [facility] 1.2.840.114 350.1.13.10 4.2.7.2.686 [id number] [facility] 2023-09-02 00:00:00 2023-09-02 00:00:00 Orders Only Doctor Unassigned, [place] 1.2.840.114 350.1.13.10 4.2.7.2.686 [id number] [facility] 2023-08-19 09:30:00 2023-08-19 09:30:00 Outpatient R [facility] [id number] [facility] 2023-08-19 09:00:00 2023-08-19 09:30:00 Office Visit Tyra Roberto [facility] [place] [facility] 1.2.840.114 350.1.13.10 4.2.7.2.686 [id number] [facility] 2023-08-19 09:00:00 2023-08-19 09:00:00 Outpatient R TYRA ROBERTO [facility] [id number] [facility] 2023-08-15 00:00:00 2023-08-15 00:00:00 Letter (Out) [facility] 1.2.840.114 350.1.13.10 4.2.7.2.686 [id number] [facility] 2023-08-07 00:00:00 2023-08-07 00:00:00 Telephone Mohinder Jarrett [facility] [place] [facility] 1.2.840.114 350.1.13.10 4.2.7.2.686 [id number] [facility] 2023-08-01 00:00:00 2023-08-01 00:00:00 Refill Sheridan , Adenike Karen [facility] SHIN?[facility] 1.0.114 350.1.13.10 4.2.7.2.686 [id number] [facility] 2023-07-31 13:15:00 2023-07-31 13:30:00 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, Ang - Yariel Chiang Liss Raymond [facility] SHIN?[facility] 1.0.114 350.1.13.10 4.2.7.2.686 [id number] [facility] 2023-07-31 12:30:00 2023-07-31 13:03:32 Outpatient R LISS CHIANG [facility] [id number] [facility] 2023-07-31 12:30:00 2023-07-31 13:03:32 Office Visit Mariia Liss Andrade [facility] SHIN?[facility] 1.0.114 350.1.13.10 4.2.7.2.686 [id number] [facility] 2023-07-31 00:00:00 2023-07-31 00:00:00 Refill Sheridan , Adenike Jones [facility] 1.0.114 350.1.13.10 4.2.7.2.686 [id number] [facility] 2023-07-25 09:30:00 2023-07-25 11:42:37 Outpatient R MOHINDER JARRETT [facility] [id number] [facility] 2023-07-25 09:30:00 2023-07-25 11:42:37 Office Visit Mohinder Jarrett [facility] 1.0.114 350.1.13.10 4.2.7.2.686 [id number] [facility] 2023-07-25 00:00:00 2023-07-25 00:00:00 Orders Only Doctor Unassigned, [place] [facility] 1..840.114 350.1.13.10 4.2.7.2.686 [id number] [facility] 2023-07-18 09:15:00 2023-07-18 09:15:00 Outpatient R MOHINDER JARRETT [facility] [id number] [facility] 2023-07-12 00:00:00 2023-07-12 00:00:00 [facility] 1..840.114 350.1.13.10 4.2.7.2.686 [id number] [facility] 2023-07-10 13:30:00 2023-07-10 13:30:00 Outpatient ELSA BROWN YU [facility] [id number] [facility] 2023-06-20 00:00:00 2023-06-20 00:00:00 Case Management Debi [facility] [place] [facility] 1..840.114 350.1.13.10 4.2.7.2.686 [id number] [facility] 2023-06-19 10:30:00 2023-06-19 10:35:17 Outpatient R BENNETT OSEI [facility] [id number] [facility] 2023-06-19 10:30:00 2023-06-19 10:35:17 Office Visit Bennett Osei [facility] [place] AT [address].840.114 350.1.13.10 4.2.7.2.686 [id number] [facility] 2023-06-09 00:00:00 2023-06-09 00:00:00 [facility] 1.2.840.114 350.1.13.10 4.2.7.2.686 [id number] [facility] 2023-06-06 13:20:00 2023-06-06 13:20:00 Outpatient R ADENIKE SWARTZ [facility] [id number] [facility] 2023-05-22 13:15:00 2023-05-22 13:30:00 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, [place] - [facility] OFF[facility] 1.2.840.114 350.1.13.10 4.2.7.2.686 [id number] [facility] 2023-05-22 13:15:00 2023-05-22 13:15:00 Outpatient R [facility] [id number] [facility] 2023-05-22 12:00:00 2023-05-22 12:15:00 Office Visit Bright Critical access hospital?[facility] MED[facility] OFF[facility] BUILD[facility] 1.2.840.114 350.1.13.10 4.2.7.2.686 [id number] [id number] [facility] 2023-05-21 14:00:00 2023-05-21 14:00:00 Outpatient R ADENIKE SWARTZ [facility] [id number] [facility] 2023-05-16 05:17:00 2023-05-16 08:47:00 Hospital Encounter Ligia Nguyen [facility] ([facility]) 1.2.840.114 350.1.13.10 4.2.7.2.686 [id number] [facility] 2023-05-16 05:17:00 2023-05-16 08:47:00 Outpatient R WENDY [facility] CLAUDIA [id number] [facility] 2023-05-16 07:15:00 2023-05-16 07:45:00 Surgery Ligia Nguyen [facility] ([facility]) 1.2840.114 350.1.13.10 4.2.7.2.686 [id number] [facility] 2023-05-16 00:00:00 2023-05-16 00:00:00 Orders Only Doctor Unassigned, [place] 1.2840.114 350.1.13.10 4.2.7.2.686 [id number] [facility] 2023-05-13 11:00:00 2023-05-13 11:00:00 Outpatient ELSA BROWN [facility] [id number] [facility] 2023-05-09 15:45:00 2023-05-09 15:45:00 Office Visit Lino Montenegro [facility] 1.840.114 350.1.13.10 4.2.7.2.686 [id number] [facility] 2023-05-09 15:45:00 2023-05-09 15:24:58 Outpatient LINO ROSADO [facility] [id number] [facility] 2023-05-09 07:30:00 2023-05-09 07:35:00 Pre-Anesth esia Evaluation Call, [facility] Apac Phone [facility] ([facility]) 1.2840.114 350.1.13.10 4.2.7.2.686 [id number] [facility] 2023-05-08 10:00:00 2023-05-08 10:30:00 Office Visit Bennett Osei [facility] 1.2840.114 350.1.13.10 4.2.7.2.686 [id number] [facility] 2023-05-08 10:00:00 2023-05-08 10:00:00 Outpatient BENNETT BANSAL [facility] [id number] [facility] 2023-05-07 14:00:00 2023-05-07 14:15:00 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, Adenike Hanson Karen [facility] MEDICAL OFFICE BUILDING 1.2.840.114 350.1.13.10 4.2.7.2.686 [id number] [facility] 2023-05-07 13:20:00 2023-05-07 13:55:56 Outpatient R ADENIKE SWARTZ [facility] [id number] [facility] 2023-05-07 13:20:00 2023-05-07 13:55:56 Office Visit Adenike Swartz [facility] MED[facility] OFFICE BUILDING 1..840.114 350.1.13.10 4.2.7.2.686 [id number] [id number] [facility] 2023-05-07 00:00:00 2023-05-07 00:00:00 Juan Manuel Mas [facility] MED[facility] OFFICE BUILDING 1.2.840.114 350.1.13.10 4.2.7.2.686 [id number] [facility] 2023-04-25 09:15:00 2023-04-25 09:15:00 Outpatient R THIERRY RUST RENUKA [facility] [id number] [facility] 2023-04-10 00:00:00 2023-04-10 00:00:00 Orders Only Doctor Unassigned, [place] 1..840.114 350.1.13.10 4.2.7.2.686 [id number] [facility] 2023-04-03 13:45:00 2023-04-03 15:12:34 Outpatient R RUBY JONES CRAIG [facility] [id number] [facility] 2023-04-03 13:45:00 2023-04-03 15:12:34 Ancillary Visit Remigio Manning Craig [facility] 1.84.114 350.1.13.10 4.2.7.2.686 [id number] [facility] 2023-04-02 13:30:00 2023-04-02 14:15:15 Outpatient R ANTHONY [facility] [id number] [facility] 2023-04-02 13:30:00 2023-04-02 14:15:15 Office Visit Emma Fitzgerald [facility] SHIN?[facility] 1.84.114 350.1.13.10 4.2.7.2.686 [id number] [facility] 2023-03-18 13:18:07 2023-03-18 23:59:00 Hospital Encounter Cornelius Bennett [facility] 1.0.114 350.1.13.10 4.2.7.2.686 [id number] [facility] 2023-03-18 13:16:54 2023-03-18 13:17:00 Outpatient R BENNETT OSEI [facility] [id number] [facility] 2023-03-18 13:16:54 2023-03-18 13:17:00 Hospital Encounter Cornelius [facility] [place] 1..114 350.1.13.10 4.2.7.2.686 [id number] [facility] 2023-03-14 00:00:00 2023-03-14 00:00:00 Telephone Cornelius [facility] [place] 1.0.114 350.1.13.10 4.2.7.2.686 [id number] [facility] 2023-03-08 10:30:00 2023-03-08 10:45:00 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, Lcc Cornelius Bennett [facility] [place] [facility] 1.2.840.114 350.1.13.10 4.2.7.2.686 [id number] [facility] 2023-03-08 10:30:00 2023-03-08 10:30:00 Outpatient R CORNELIUS BENNETT [facility] [id number] [facility] 2023-03-08 09:15:00 2023-03-08 10:00:00 Office Visit Cornelius Bennett [facility] 1.840.114 350.1.13.10 4.2.7.2.686 [id number] [facility] 2023-03-08 00:00:00 2023-03-08 00:00:00 Telephone Cornelius Bennett [facility] 1.840.114 350.1.13.10 4.2.7.2.686 [id number] [facility] 2023-03-08 00:00:00 2023-03-08 00:00:00 Orders Only Doctor Unassigned, [place] 1.840.114 350.1.13.10 4.2.7.2.686 [id number] [facility] 2023-03-05 00:00:00 2023-03-05 00:00:00 Patient Secure Msg Doctor Unassigned, [place] [facility] 1.2840.114 350.1.13.10 4.2.7.2.686 [id number] [facility] 2023-03-04 14:45:00 2023-03-04 15:00:00 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 Visit 2, Adc Lab Jeannine[facility] 1..840.114 350.1.13.10 4.2.7.2.686 [id number] [facility] 2023-03-04 14:45:00 2023-03-04 14:58:26 Outpatient R ELSA VASQUEZ YU [facility] [id number] [facility] 2023-02-25 11:13:28 2023-02-25 23:59:00 [facility] 1..840.114 350.1.13.10 4.2.7.2.686 [id number] [facility] 2023-02-25 10:45:00 2023-02-25 12:58:32 Outpatient R GENTILE [facility] [id number] [facility] 2023-02-25 10:45:00 2023-02-25 12:58:32 Office Visit Matty [facility] SHIN?[facility] MED[facility] OFF[facility] BUILD[facility] 1..840.114 350.1.13.10 4.2.7.2.686 [id number] [facility] 2023-02-21 09:25:00 2023-02-21 23:59:00 Hospital Encounter Ruby Jones Britt [facility] MED[facility] OFF[facility] 1..840.114 350.1.13.10 4.2.7.2.686 [id number] [facility] 2023-02-21 09:30:00 2023-02-21 12:14:02 Outpatient R RUBY JONES [facility] [id number] [facility] 2023-02-21 09:30:00 2023-02-21 12:14:02 Office Visit Ruby Jones [facility] SHIN?[facility] MED[facility] OFF[facility] 1.2840.114 350.1.13.10 4.2.7.2.686 [id number] [facility] 2023-02-19 00:00:00 2023-02-19 00:00:00 Orders Only Doctor Unassigned, [place] 1.2840.114 350.1.13.10 4.2.7.2.686 [id number] [facility] 2023-02-12 00:00:00 2023-02-12 00:00:00 Telephone Bright Critical access hospital?[facility] MED[facility] OFF[facility]ILD[facility] 1.840.114 350.1.13.10 4.2.7.2.686 [id number] [id number] [facility] 2023-02-04 13:00:00 2023-02-04 13:15:00 Office Visit Bright [facility] 1.2840.114 350.1.13.10 4.2.7.2.686 [id number] [facility] 2023-02-04 13:00:00 2023-02-04 13:00:00 Outpatient R JUAN MANUEL NOVOA [facility] [id number] [facility] 2023-01-30 00:00:00 2023-01-30 00:00:00 Case Management Bennett Osei [facility] 1.20.114 350.1.13.10 4.2.7.2.686 [id number] [facility] 2023-01-28 00:00:00 2023-01-28 00:00:00 Patient Secure Msg Doctor Unassigned, [place] [facility] 1.2840.114 350.1.13.10 4.2.7.2.686 [id number] [facility] 2023-01-25 00:00:00 2023-01-25 00:00:00 Patient Secure Msg Doctor Unassigned, [place] [facility] 1.114 350.1.13.10 4.2.7.2.686 [id number] [facility] 2023-01-23 16:30:00 2023-01-23 17:21:54 Outpatient R ELSA VASQUEZ [facility] [id number] [facility] 2023-01-23 16:30:00 2023-01-23 17:21:54 Office Visit Elsa Vasquez [facility] MEDICAL OFFICE BUILDING 1.114 350.1.13.10 4.2.7.2.686 [id number] [facility] 2023-01-10 00:00:00 2023-01-10 00:00:00 Case Management Ton Reddy [facility] 1.114 350.1.13.10 4.2.7.2.686 [id number] [facility] 2023-01-08 00:00:00 2023-01-08 00:00:00 Telephone Emma Fitzgerald [facility] MEDICAL OFFICE BUILDING 1.114 350.1.13.10 4.2.7.2.686 [id number] [facility] 2023-01-03 00:00:00 2023-01-03 00:00:00 Patient Secure Msg Doctor Unassigned, [place] [facility] 1.114 350.1.13.10 4.2.7.2.686 [id number] [facility] 2023-01-01 00:00:00 2023-01-01 00:00:00 Telephone Juan Manuel Novoa [facility] MEDICAL OFFICE BUILDING 1.114 350.1.13.10 4.2.7.2.686 [id number] [id number] [facility] 2022-12-29 00:00:00 2022-12-29 00:00:00 Patient Secure Msg Doctor Unassigned, [place] [facility] MED[facility] OFF[facility] BUILD[facility] 1.2.840.114 350.1.13.10 4.2.7.2.686 [id number] [facility] 2022-12-28 10:15:00 2022-12-28 11:29:06 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, Ang - Db [facility] 1..840.114 350.1.13.10 4.2.7.2.686 [id number] [facility] 2022-12-28 09:00:00 2022-12-28 10:13:35 Outpatient R ANTHONY [facility] [id number] [facility] 2022-12-28 09:00:00 2022-12-28 10:13:35 Office Visit Anthony Pending sale to [facility] SHIN?[facility] MEDICAL OFFICE BUILDING 1.2.840.114 350.1.13.10 4.2.7.2.686 [id number] [facility] 2022-12-28 00:00:00 2022-12-28 00:00:00 Telephone Anthony Pending sale to [facility] SHIN?[facility] MEDICAL OFF[facility] BUILDING 1.2.840.114 350.1.13.10 4.2.7.2.686 [id number] [facility] 2022-12-24 10:30:00 2022-12-24 10:30:00 Outpatient ELSA BROWN [facility] [id number] [facility] 2022-12-20 14:00:00 2022-12-20 14:00:00 Outpatient LINO ROSADO [facility] [id number] [facility] 2022-12-12 22:29:00 2022-12-12 23:06:00 Emergency X TIM GUY [facility] ERT [id number] [facility] 2022-12-12 22:29:00 2022-12-12 23:06:00 Emergency X TIM GUY [facility] ERT [id number] [facility] 2022-12-12 22:29:00 2022-12-12 23:06:00 Emergency Tim Guy [facility] 1.2840.114 350.1.13.10 4.2.7.2.686 [id number] [facility] 2022-12-12 14:27:00 2022-12-12 17:35:00 Emergency AdrianarenerobertJoelle [facility] 1.2840.114 350.1.13.10 4.2.7.2.686 [id number] [facility] 2022-12-06 14:30:00 2022-12-06 14:45:37 Outpatient LINO ROSADO [facility] [id number] [facility] 2022-11-22 07:00:00 2022-11-22 07:15:00 [facility] MED[facility] OFF[facility] BUILD[facility] 1..840.114 350.1.13.10 4.2.7.2.686 [id number] [facility] 2022-11-22 07:00:00 2022-11-22 07:00:00 Outpatient Kwaku BRIGHT JUAN MANUEL [facility] [id number] [facility] 2022-11-22 00:00:00 2022-11-22 00:00:00 Telephone Novoa Critical access hospital?[facility] MEDICAL OFFICE BUILDING 1..840.114 350.1.13.10 4.2.7.2.686 [id number] [facility] 2022-11-09 15:44:46 2022-11-09 23:59:00 Outpatient R FORREST MONTENEGROIQ [facility] [id number] [facility] 2022-11-08 15:45:00 2022-11-08 15:59:53 Outpatient Kwaku MONTENEGRO LINO [facility] [id number] [facility] 2022-11-08 00:00:00 2022-11-08 00:00:00 Orders Only Doctor Unassigned, [place] [facility] 1.84.114 350.1.13.10 4.2.7.2.686 [id number] [facility] 2022-11-06 00:00:00 2022-11-06 00:00:00 Refill Bright Critical access hospital?[facility] MEDICAL OFFICE BUILDING 1.84.114 350.1.13.10 4.2.7.2.686 [id number] [facility] 2022-09-06 00:00:00 2022-09-06 00:00:00 Telephone Novoa Critical access hospital?[facility] MEDICAL OFFICE BUILDING 1.840.114 350.1.13.10 4.2.7.2.686 [id number] [facility] 2022-08-29 00:00:00 2022-08-29 00:00:00 Outpatient TOMMY AVILA [facility] [id number] [facility] 2022-08-26 00:00:00 2022-08-26 00:00:00 Patient Secure Msg Vasquez Black [facility] MEDICAL OFFICE BUILDING 1.84.114 350.1.13.10 4.2.7.2.686 [id number] [facility] 2022-08-23 14:30:00 2022-08-23 14:45:00 Outpatient R LINO MONTENEGRO [facility] [id number] [facility] 2022-08-22 15:45:00 2022-08-22 16:29:05 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, Chilango Saldivar Elsa Vasquez [facility] MEDICAL OFFICE BUILDING 1.2.840.114 350.1.13.10 4.2.7.2.686 [id number] [facility] 2022-08-22 15:00:00 2022-08-22 15:41:29 Outpatient R ELSA VASQUEZ YU [facility] [id number] [facility] 2022-08-22 15:00:00 2022-08-22 15:41:29 Office Visit Elsa Vasquez [facility] MED[facility] OFF[facility] BUILDING 1.840.114 350.1.13.10 4.2.7.2.686 [id number] [facility] 2022-08-09 10:15:00 2022-08-09 10:30:00 Office Visit Novoa, Juan Manuel [facility] 1.840.114 350.1.13.10 4.2.7.2.686 [id number] [facility] 2022-08-09 10:15:00 2022-08-09 10:15:00 Outpatient JUAN MANUEL ANDREA [facility] [id number] [facility] 2022-08-08 11:30:00 2022-08-08 11:30:00 Outpatient JOSE MARTIN GARZON [facility] [id number] [facility] 2022-08-08 00:00:00 2022-08-08 00:00:00 Telephone Kylah Arthur [facility] NAL BUILDING 1..840.114 350.1.13.10 4.2.7.2.686 [id number] [facility] 2022-08-07 07:02:00 2022-08-07 13:11:00 Outpatient R LINO MONTENEGRO [facility] [id number] [facility] 2022-08-07 07:02:00 2022-08-07 13:11:00 Hospital Encounter [facility] 1.2.840.114 350.1.13.10 4.2.7.2.686 [id number] [facility] 2022-08-07 09:11:00 2022-08-07 11:37:00 Surgery [facility] 1.2.840.114 350.1.13.10 4.2.7.2.686 [id number] [facility] 2022-08-07 00:00:00 2022-08-07 00:00:00 Orders Only Doctor Unassigned, [place] [facility] 1.2.840.114 350.1.13.10 4.2.7.2.686 [id number] [facility] 2022-08-05 00:00:00 2022-08-05 00:00:00 Telephone Peter Barakat [facility] 1.2840.114 350.1.13.10 4.2.7.2.686 [id number] [facility] 2022-08-03 14:30:00 2022-08-03 14:45:00 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, 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 Bennett Osei [facility] 1.2840.114 350.1.13.10 4.2.7.2.686 [id number] [facility] 2022-08-03 10:00:00 2022-08-03 10:34:48 Outpatient MOHINDER PARIKH [facility] [id number] [facility] 2022-08-03 10:00:00 2022-08-03 10:34:48 Office Visit Debi, Mohinder [facility] 1.2.840.114 350.1.13.10 4.2.7.2.686 [id number] [facility] 2022-08-03 00:00:00 2022-08-03 00:00:00 Telephone Tommy Pham [facility] BUILDING 1.2.840.114 350.1.13.10 4.2.7.2.686 [id number] [facility] 2022-08-03 00:00:00 2022-08-03 00:00:00 Telephone Juan Manuel Novoa [facility] 1.2.840.114 350.1.13.10 4.2.7.2.686 [id number] [facility] 2022-08-02 11:00:00 2022-08-02 11:15:00 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, 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 Kylah Arthur [facility] BUILDING 1.2.840.114 350.1.13.10 4.2.7.2.686 [id number] [facility] 2022-08-02 11:00:00 2022-08-02 11:00:00 Outpatient R KYLAH ARTHUR [facility] [id number] [facility] 2022-07-26 15:15:00 2022-07-26 15:47:35 Outpatient R LINO MONTENEGRO [facility] [id number] [facility] 2022-07-24 13:00:00 2022-07-24 13:52:16 Outpatient R KYLAH [facility] [id number] [facility] 2022-07-24 13:00:00 2022-07-24 13:52:16 Office Visit Kylah Arthur [facility] 1.2.840.114 350.1.13.10 4.2.7.2.686 [id number] [facility] 2022-07-24 00:00:00 2022-07-24 00:00:00 Telephone Tommy Pham [facility] 1.2.840.114 350.1.13.10 4.2.7.2.686 [id number] [facility] 2022-07-22 13:21:00 2022-07-22 20:13:00 Emergency X KARLEYCHRISTIAN RO [facility] ERT [id number] [facility] 2022-07-22 13:21:00 2022-07-22 20:13:00 Emergency Ro Lopez Terri [facility] 1.2.840.114 350.1.13.10 4.2.7.2.686 [id number] [facility] 2022-07-03 00:00:00 2022-07-03 00:00:00 Telephone Tommy Pham [facility] 1.2840.114 350.1.13.10 4.2.7.2.686 [id number] [facility] 2022-06-28 00:00:00 2022-06-28 00:00:00 Case Management [facility] 1.2.840.114 350.1.13.10 4.2.7.2.686 [id number] [facility] 2022-06-28 00:00:00 2022-06-28 00:00:00 Telephone [facility] 1.2.840.114 350.1.13.10 4.2.7.2.686 [id number] [facility] 2022-06-25 11:15:00 2022-06-25 11:30:00 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 Visit 2, [facility] 1.2.840.114 350.1.13.10 4.2.7.2.686 [id number] [facility] 2022-06-25 10:45:00 2022-06-25 11:09:03 Outpatient R JOHN [facility] [id number] [facility] 2022-06-25 10:45:00 2022-06-25 11:09:03 Office Visit [facility] 1.2.840.114 350.1.13.10 4.2.7.2.686 [id number] [facility] 2022-06-20 14:00:00 2022-06-20 14:54:31 Outpatient R TOMMY PHAM [facility] [id number] [facility] 2022-06-20 14:00:00 2022-06-20 14:54:31 Office Visit Tommy Pham [facility] 1.2.840.114 350.1.13.10 4.2.7.2.686 [id number] [facility] 2022-06-04 13:15:00 2022-06-04 13:30:00 Office Visit Juan Manuel [facility] 1.2.840.114 350.1.13.10 4.2.7.2.686 [id number] [facility] 2022-06-04 13:15:00 2022-06-04 13:15:00 Outpatient R JUAN MANUEL NOVOA [facility] [id number] [facility] 2022-05-18 00:00:00 2022-05-18 00:00:00 Orders Only Doctor Unassigned, [facility] 1.0.114 350.1.13.10 4.2.7.2.686 [id number] [facility] 2022-05-16 08:45:00 2022-05-16 08:50:55 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, [place] - Yariel Novoa Critical [facility] hospital?[facility] 1..114 350.1.13.10 4.2.7.2.686 [id number] [facility] 2022-05-16 08:45:00 2022-05-16 08:45:00 Outpatient JUAN MANUEL ANDREA [facility] [id number] [facility] 2022-05-14 13:45:00 2022-05-14 14:00:00 Office Visit [facility] 1..114 350.1.13.10 4.2.7.2.686 [id number] [facility] 2022-05-14 13:45:00 2022-05-14 13:45:00 Outpatient JUAN MANUEL [facility] [id number] [facility] [facility] 2022-05-10 00:00:00 2022-05-10 00:00:00 Telephone Kylah Arthur [facility] 1..114 350.1.13.10 4.2.7.2.686 [id number] [facility] 2022-05-10 00:00:00 2022-05-10 00:00:00 Telephone Andrei Ervin [facility] 1.84.114 350.1.13.10 4.2.7.2.686 [id number] [facility] 2022-05-06 00:00:00 2022-05-06 00:00:00 Patient Secure Andrei Shelton [facility] 1.2.840.114 350.1.13.10 4.2.7.2.686 [id number] [facility] 2022-05-03 11:30:00 2022-05-03 11:45:00 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, 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 Kylah Arthur [facility]ILD[facility] 1.2.840.114 350.1.13.10 4.2.7.2.686 [id number] [facility] 2022-05-03 11:30:00 2022-05-03 11:30:00 [facility] [id number] [facility] 2022-05-01 16:20:00 2022-05-01 16:53:31 Outpatient R KYLAH ARTHUR [facility] [id number] [facility] 2022-05-01 16:20:00 2022-05-01 16:53:31 Office Visit Kylah Arthur [facility] 1.2.840.114 350.1.13.10 4.2.7.2.686 [id number] [facility] 2022-04-27 00:00:00 2022-04-27 00:00:00 Telephone Tommy Pham [facility] 1.2.840.114 350.1.13.10 4.2.7.2.686 [id number] [facility] 2022-04-23 11:00:00 2022-04-23 23:59:00 Outpatient R TOMMY PHAM [facility] [id number] [facility] 2022-04-11 00:00:00 2022-04-11 00:00:00 Telephone Tommy Pham [facility] NAL BUILDING 1.2.840.114 350.1.13.10 4.2.7.2.686 [id number] [facility] 2022-04-10 14:00:00 2022-04-10 14:00:00 Outpatient R VERO SIMONATING [facility] [id number] [facility] 2022-04-10 14:00:00 2022-04-10 14:00:00 [facility] [id number] [facility] 2022-04-09 00:00:00 2022-04-09 00:00:00 Telephone Juan Manuel Nov[facility] 1.2.840.114 350.1.13.10 4.2.7.2.686 [id number] [facility] 2022-04-05 11:49:00 2022-04-05 14:57:00 Emergency Rhoda Geiger [facility] 1.2.840.114 350.1.13.10 4.2.7.2.686 [id number] [facility] 2022-04-05 09:12:41 2022-04-05 11:48:00 Outpatient [facility] [id number] [facility] 2022-04-05 09:12:41 2022-04-05 11:48:00 Outpatient R DAWOOD LEMUS [facility] ERT [id number] [facility] 2022-04-05 09:12:41 2022-04-05 11:48:00 Hospital Encounter Allan Dawood [facility] 1.2.840.114 350.1.13.10 4.2.7.2.686 [id number] [facility] 2022-04-05 00:00:00 2022-04-05 00:00:00 Telephone Simona Phamting JohnOrquidea [facility] 1.2.840.114 350.1.13.10 4.2.7.2.686 [id number] [facility] 2022-04-02 13:30:00 2022-04-02 13:45:00 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 AO [place] - Ortho [place]strom - AO_Ofc NCO_N [place] [id number] [facility] 2022-03-27 00:00:00 2022-03-27 00:00:00 Telephone PhamSimonating JohnOrquidea [facility] .2.840.114 350.1.13.10 4.2.7.2.686 [id number] [facility] 2022-03-23 11:52:38 2022-03-23 23:59:00 Outpatient TOMMY AVILA [facility] [id number] [facility] 2022-03-22 15:30:00 2022-03-22 16:09:00 [facility] 1..840.114 350.1.13.10 4.2.7.2.686 [id number] [facility] 2022-03-22 15:30:00 2022-03-22 16:09:00 Outpatient R VERO TOMMY [facility] [id number] [facility] 2022-03-22 15:30:00 2022-03-22 15:30:00 [facility] [id number] [facility] 2022-03-21 00:00:00 2022-03-21 00:00:00 Telephone Michele Munoz [facility] 1..840.114 350.1.13.10 4.2.7.2.686 [id number] [facility] 2022-03-12 14:30:00 2022-03-12 14:45:00 Office Visit Juan Manuel Novoa [facility] SHIN?[facility] 1..840.114 350.1.13.10 4.2.7.2.686 [id number] [facility] 2022-03-12 14:30:00 2022-03-12 14:30:00 Outpatient R JUAN MANUEL NOVOA [facility] [id number] [facility] 2022-03-12 14:30:00 2022-03-12 14:30:00 Outpatient R NOVOA JUAN MANUEL [facility] [id number] [facility] 2022-02-12 00:00:00 2022-02-12 00:00:00 Telephone [facility] SHIN[facility] 1.2.840.114 350.1.13.10 4.2.7.2.686 [id number] [facility] 2022-01-15 13:15:00 2022-01-15 13:30:00 [facility] 1.2.840.114 350.1.13.10 4.2.7.2.686 [id number] [facility] 2022-01-15 13:15:00 2022-01-15 13:15:00 Outpatient JUAN MANUEL ANDREA [facility] [id number] [facility] 2022-01-11 14:00:00 2022-01-11 14:00:00 Outpatient TOMMY AVILA [facility] [id number] [facility] 2022-01-11 14:00:00 2022-01-11 14:00:00 Outpatient TOMMY AVILA [facility] [id number] [facility] 2021-12-19 00:00:00 2021-12-19 00:00:00 [facility]ILD[facility] 1.2.840.114 350.1.13.10 4.2.7.2.686 [id number] [facility] 2021-12-15 09:15:00 2021-12-15 09:30:00 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840.114 350.1.13.10 4.2.7.2.686 [id number] [facility] 2021-12-13 14:00:00 2021-12-13 14:00:00 Outpatient JUAN MANUEL ANDREA [facility] [id number] [facility] 2021-12-06 15:00:00 2021-12-06 15:00:00 Outpatient Kw[facility] [id number] [facility] 2021-10-03 05:56:00 2021-10-04 13:45:00 [id number] 2021-09-18 09:00:00 2021-09-18 09:30:37 Outpatient Kwaku NOVOA JUAN MANUEL [facility] [id number] [facility] 2021-09-18 00:00:00 2021-09-18 00:00:00 Orders Only Doctor Unassigned, [facility] 1.840.114 350.1.13.10 4.2.7.2.686 [id number] [facility] 2021-09-11 13:30:00 2021-09-11 13:30:00 Outpatient KRISTEN MARI [facility] [id number] [facility] 2021-09-11 13:30:00 2021-09-11 13:30:00 [facility] [id number] [facility] 2021-09-11 10:00:00 2021-09-11 10:15:00 Laboratory Only Only, Ang Db Test AlisonJonn [facility] 1.840.114 350.1.13.10 4.2.7.2.686 [id number] [facility] 2021-09-11 10:00:00 2021-09-11 10:00:00 Outpatient JONN GUILLEN [facility] [id number] [facility] 2021-09-11 00:00:00 2021-09-11 00:00:00 Letter (Out) Doctor Unassigned, [facility] 1.2840.114 350.1.13.10 4.2.7.2.686 [id number] [facility] 2021-09-07 00:00:00 2021-09-07 00:00:00 Telephone [facility] MED[facility] OFFICE BUILDING 1.84.114 350.1.13.10 4.2.7.2.686 [id number] [facility] 2021-09-04 00:00:00 2021-09-04 00:00:00 Letter (Out) [facility] OFF[facility] BUILD[facility] 1..114 350.1.13.10 4.2.7.2.686 [id number] [facility] 2021-09-04 00:00:00 2021-09-04 00:00:00 Telephone [facility] SHIN?[facility] MEDICAL OFFICE BUILDING 1.2.114 350.1.13.10 4.2.7.2.686 [id number] [facility] 2021-08-30 13:30:00 2021-08-30 13:45:00 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, [place] Novoa [facility] MEDICAL OFFICE BUILDING 1.2.114 350.1.13.10 4.2.7.2.686 [id number] [facility] 2021-08-30 13:30:00 2021-08-30 13:30:00 Outpatient JUAN MANUEL ANDREA [facility] [id number] [facility] 2021-08-30 13:15:00 2021-08-30 13:30:00 Office Visit Juan Manuel Novoa [facility] 1..840.114 350.1.13.10 4.2.7.2.686 [id number] [facility] 2021-08-30 13:15:00 2021-08-30 13:15:00 Outpatient JUAN MANUEL ANDREA [facility] [id number] [facility] 2021-08-24 00:00:00 2021-08-24 00:00:00 Orders Only Doctor Unassigned, [facility] 1..840.114 350.1.13.10 4.2.7.2.686 [id number] [facility] 2021-08-21 00:00:00 2021-08-21 00:00:00 Case Management Kristen Mujica [facility] Sur[facility]bird [facility] BLDG. ..840.114 350.1.13.10 4.2.7.2.686 [id number] [facility] 2021-08-16 11:10:00 2021-08-16 11:10:00 Outpatient Sue Turcios [facility] [id number] [facility] are [facility] 2021-07-25 10:15:00 2021-07-25 10:50:33 Outpatient JUAN MANUEL ANDREA [facility] [id number] [facility] 2021-07-25 10:15:00 2021-07-25 10:50:33 Office Visit Juan Manuel Novoa [facility] 1..840.114 350.1.13.10 4.2.7.2.686 [id number] [facility] 2021-07-25 09:30:00 2021-07-25 09:30:00 Outpatient JUAN MANUEL ANDREA [facility] [id number] [facility] 2021-06-29 11:00:00 2021-06-29 11:31:32 Outpatient Kwaku RINCON BRIAN [facility] [id number] [facility] 2021-06-29 09:49:22 2021-06-29 11:31:32 Office Visit Sergey Brian [facility] 1..114 350.1.13.10 4.2.7.2.686 [id number] [facility] 2021-06-29 10:00:00 2021-06-29 11:27:35 Outpatient KRISTEN MARI [facility] [id number] [facility] 2021-06-29 10:00:00 2021-06-29 11:27:35 Ancillary Visit Dory Leal Deborah L [facility] 1.84.114 350.1.13.10 4.2.7.2.686 [id number] [facility] 2021-06-29 10:00:00 2021-06-29 10:00:00 Outpatient Kwaku RINCON BRIAN [facility] [id number] [facility] 2021-06-29 00:00:00 2021-06-29 00:00:00 Orders Only Doctor Unassigned, [facility] 1.114 350.1.13.10 4.2.7.2.686 [id number] [facility] 2021-06-28 00:00:00 2021-06-28 00:00:00 Telephone Michele Munoz [facility] SHIN[facility] 1.84.114 350.1.13.10 4.2.7.2.686 [id number] [facility] 2021-06-26 10:00:00 2021-06-26 10:34:41 Outpatient R TOMMY PHAM [facility] [id number] [facility] 2021-06-26 09:46:44 2021-06-26 10:34:41 Office Visit Tommy Pham [facility] BUILD[facility] 1.2.840.114 350.1.13.10 4.2.7.2.686 [id number] [facility] 2021-06-26 10:00:00 2021-06-26 10:00:00 Outpatient R TOMMY PHAM [facility] [id number] [facility] 2021-06-12 14:30:45 2021-06-12 16:17:53 Office Visit Peter Barakat Rm, Adc Surg Spec Procedure [facility] BUILD[facility] 1.2.840.114 350.1.13.10 4.2.7.2.686 [id number] [facility] 2021-06-12 14:30:00 2021-06-12 14:30:00 Outpatient R PETER BARAKAT [facility] [id number] [facility] 2021-06-12 10:20:51 2021-06-12 10:35:51 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, Ang - Db Danialcameliakeith [facility] 1.2.840.114 350.1.13.10 4.2.7.2.686 [id number] [facility] 2021-06-12 09:09:13 2021-06-12 10:20:59 Office Visit Alexander [facility] MEDICAL OFFICE BUILDING 1..840.114 350.1.13.10 4.2.7.2.686 [id number] [facility] 2021-06-12 09:00:00 2021-06-12 10:20:59 Outpatient R ALEXANDER [facility] [id number] [facility] 2021-06-12 09:00:00 2021-06-12 10:20:59 Outpatient R ALEXANDER [facility] [id number] [facility] 2021-06-12 00:00:00 2021-06-12 00:00:00 Orders Only Doctor Unassigned, [facility] 1.840.114 350.1.13.10 4.2.7.2.686 [id number] [facility] 2021-05-26 00:00:00 2021-05-26 00:00:00 Orders Only Doctor Unassigned, [facility] 1.840.114 350.1.13.10 4.2.7.2.686 [id number] [facility] 2021-05-25 11:00:00 2021-05-25 11:00:00 Outpatient R SERGEY [facility] [id number] [facility] 2021-05-25 11:00:00 2021-05-25 11:00:00 Outpatient R SERGEY [facility] [id number] [facility] 2021-05-25 09:54:42 2021-05-25 10:09:42 Office Visit Sergey [facility] 1..840.114 350.1.13.10 4.2.7.2.686 [id number] [facility] 2021-05-17 00:00:00 2021-05-17 00:00:00 Telephone Nolvia Flynn [facility] 1.840.114 350.1.13.10 4.2.7.2.686 [id number] [facility] 2021-05-11 09:00:00 2021-05-11 09:00:00 Outpatient R SERGEY [facility] [id number] [facility] 2021-05-05 15:30:00 2021-05-05 15:30:00 Outpatient R TAVO KRAMER [facility] [id number] [facility] 2021-05-05 15:13:00 2021-05-05 15:13:07 Imm/Inj Visit Nurse, Polly More ImmunizatiTavo Ambrose [facility] 1.84.114 350.1.13.10 4.2.7.2.686 [id number] [facility] 2021-05-05 14:44:47 2021-05-05 15:03:55 Office Visit Nolvia Flynn [facility] 1..114 350.1.13.10 4.2.7.2.686 [id number] [facility] 2021-05-05 15:00:00 2021-05-05 15:00:00 Outpatient R NOLVIA FLYNN SHIPRLicha [facility] [id number] [facility] 2021-05-03 00:00:00 2021-05-03 00:00:00 Telephone Nolvia Flynn [facility] 1..114 350.1.13.10 4.2.7.2.686 [id number] [facility] 2021-05-02 00:00:00 2021-05-02 00:00:00 Orders Only Doctor Unassigned, [facility] .114 350.1.13.10 4.2.7.2.686 [id number] [facility] 2021-05-01 15:01:07 2021-05-01 16:25:52 Office Visit Peter Barakat [facility] Building 1..114 350.1.13.10 4.2.7.2.686 [id number] [facility] 2021-05-01 15:15:00 2021-05-01 15:15:00 Outpatient PETER LICONA [facility] [id number] [facility] 2021-04-19 00:00:00 2021-04-19 00:00:00 Telephone Juan Manuel Novoa [facility] Office Building 1.2.840.114 350.1.13.10 4.2.7.2.686 [id number] [facility] 2021-04-17 08:36:42 2021-04-17 08:51:42 [facility] Office Building 1..840.114 350.1.13.10 4.2.7.2.686 [id number] [facility] 2021-04-17 08:45:00 2021-04-17 08:45:00 Outpatient R JUAN MANUEL NOVOA [facility] [id number] [facility] 2021-03-29 07:53:35 2021-03-29 23:59:00 Hospital Encounter Juan Manuel Novoa [facility] 1..840.114 350.1.13.10 4.2.7.2.686 [id number] [facility] 2021-03-29 00:00:00 2021-03-29 00:00:00 Outpatient R JUAN MANUEL NOVOA [facility] [id number] [facility] 2021-03-22 14:45:57 2021-03-22 15:34:35 Office Visit Aretha Boss [facility] Professio nal Building 1.2.840.114 350.1.13.10 4.2.7.2.686 [id number] [facility] 2021-03-22 14:30:00 2021-03-22 14:30:00 Outpatient R ARETHA BOSS [facility] [id number] [facility] 2021-03-20 14:17:00 2021-03-20 15:07:17 Office Visit Juan Manuel Novoa [facility] Office Building 1..840.114 350.1.13.10 4.2.7.2.686 [id number] [facility] 2021-03-20 14:15:00 2021-03-20 14:15:00 Outpatient R JUAN MANUEL NOVOA [facility] [id number] [facility] 2021 10:30:00 2021 10:30:00 Outpatient R NOLVIA FLYNN SHIWAN [facility] [id number] [facility] 2021 10:30:00 2021 10:30:00 Outpatient R NOLVIA FLYNN SHIWAN [facility] [id number] [facility] 2021-02-06 10:58:38 2021-02-06 11:35:01 Office Visit [facility] Building 1..840.114 350.1.13.10 4.2.7.2.686 [id number] [facility] 2021-02-06 11:00:00 2021-02-06 11:00:00 Outpatient R HERBMANSOORKEITH [facility] [id number] [facility] 2021-02-01 08:44:22 2021-02-01 09:04:22 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, Adc [facility] Office Building One 1..840.114 350.1.13.10 4.2.7.2.686 [id number] [facility] 2021-02-01 08:05:08 2021-02-01 08:35:08 Office Visit BrightJuan Manuel [facility] Office Building One 1.2.840.114 350.1.13.10 4.2.7.2.686 [id number] [facility] 2021-02-01 08:00:00 2021-02-01 08:00:00 Outpatient R JUAN MANUEL NOVOA [facility] [id number] [facility] 2021-01-14 00:00:00 2021-01-14 00:00:00 Refill Juan Manuel Novoa [facility] Building 1.2.840.114 350.1.13.10 4.2.7.2.686 [id number] [facility] 2020-12-20 00:00:00 2020-12-20 00:00:00 Orders Only Doctor Unassigned, [facility] 1.2.840.114 350.1.13.10 4.2.7.2.686 [id number] [facility] 2020-12-15 00:00:00 2020-12-15 00:00:00 Telephone Tommy Pham [facility] Building 1.2.840.114 350.1.13.10 4.2.7.2.686 [id number] [facility] 2020-12-12 10:04:52 2020-12-12 10:47:17 Office Visit Tommy Pham [facility] Building 1.2.840.114 350.1.13.10 4.2.7.2.686 [id number] [facility] 2020-12-12 10:00:00 2020-12-12 10:00:00 Outpatient R TOMMY PHAM [facility] [id number] [facility] 2020-12-12 00:00:2020-12-12 00:00:00 Orders Only Doctor Unassigned, [facility] 1.2840.114 350.1.13.10 4.2.7.2.686 [id number] [facility] 2020-12-09 00:00:00 2020-12-09 00:00:00 Telephone [facility] Building 1.2840.114 350.1.13.10 4.2.7.2.686 [id number] [facility] 2020-12-05 16:33:50 2020-12-05 16:48:50 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 Visit 2, Adc Lab [facility] Building 1.2.840.114 350.1.13.10 4.2.7.2.686 [id number] [facility] 2020-12-05 11:44:31 2020-12-05 12:27:31 Office Visit [facility] Building 1.2840.114 350.1.13.10 4.2.7.2.686 [id number] [facility] 2020-12-05 12:00:00 2020-12-05 12:00:00 Outpatient R ALEXANDER [facility] [id number] [facility] 2020-12-05 12:00:00 2020-12-05 12:00:00 Outpatient R DANIALINA [facility] [id number] [facility] 2020-12-05 00:00:00 2020-12-05 00:00:00 Telephone Juan Manuel Novoa [facility] Office Building One 1.284.114 350.1.13.10 4.2.7.2.686 [id number] [facility] 2020-12-01 00:00:00 2020-12-01 00:00:00 Refill Alexander [facility] 1.2840.114 350.1.13.10 4.2.7.2.686 [id number] [facility] 2020-11-09 00:00:00 2020-11-09 00:00:00 RefJuan Manuel Aviles [facility] Professio [facility] 1.2840.114 350.1.13.10 4.2.7.2.686 [id number] [facility] 2020-11-01 08:40:00 2020-11-01 08:40:00 Outpatient JAMARI GREEN [facility] [id number] [facility] 2020-11-01 08:40:00 2020-11-01 08:40:00 Outpatient JAMARI [facility] [id number] [facility] 2020-10-26 17:38:00 2020-10-27 19:40:00 [facility] 1.20.114 350.1.13.10 4.2.7.2.686 [id number] [facility] 2020-10-18 00:00:00 2020-10-18 00:00:00 Telephone Alexander [facility] 1.2840.114 350.1.13.10 4.2.7.2.686 [id number] [facility] 2020-10-17 00:00:00 2020-10-17 00:00:00 Telephone Alexander [facility] 1.2840.114 350.1.13.10 4.2.7.2.686 [id number] [facility] 2020-10-11 08:07:06 2020-10-11 08:22:06 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 Visit 2, [facility] Alexander [facility] 1.2.840.114 350.1.13.10 4.2.7.2.686 [id number] [facility] 2020-10-11 08:20:00 2020-10-11 08:20:00 Outpatient JAMARI GREEN [facility] [id number] [facility] 2020-10-11 08:00:00 2020-10-11 08:00:00 Outpatient R ALEXANDER MICHELE [facility] [id number] [facility] 2020-10-10 00:00:00 2020-10-10 00:00:00 Telephone Alexander [facility] 1.2.840.114 350.1.13.10 4.2.7.2.686 [id number] [facility] 2020-10-05 08:24:37 2020-10-05 08:39:37 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 Visit 2, [facility] Juan Manuel Novoa [facility] 1.2.840.114 350.1.13.10 4.2.7.2.686 [id number] [facility] 2020-10-05 08:30:00 2020-10-05 08:30:00 Outpatient R JUAN MANUEL NOVOA [facility] [id number] [facility] 2020-10-03 10:28:54 2020-10-03 10:58:54 Office Visit Alexander [facility] 1.2.840.114 350.1.13.10 4.2.7.2.686 [id number] [facility] 2020-10-03 10:00:00 2020-10-03 10:00:00 Outpatient R MICHELE MUNOZ [facility] [id number] [facility] 2020-10-03 00:00:00 2020-10-03 00:00:00 Orders Only Doctor Unassigned, [facility] 1.2.840.114 350.1.13.10 4.2.7.2.686 [id number] [facility] 2020-10-03 00:00:00 2020-10-03 00:00:00 Telephone Michele Munoz [facility] 1.2.840.114 350.1.13.10 4.2.7.2.686 [id number] [facility] 2020-09-25 00:00:00 2020-09-25 00:00:00 Refill Juan Manuel Novoa [facility] 1.2.840.114 350.1.13.10 4.2.7.2.686 [id number] [facility] 2020-09-09 11:12:25 2020-09-09 11:52:51 Office Visit Nolvia Flynn [facility] 1.2.840.114 350.1.13.10 4.2.7.2.686 [id number] [facility] [facility] 11:00:00 2020-09-09 11:00:00 Outpatient R NOLVIA FLYNN [facility] [id number] [facility] 2020-09-09 00:00:00 2020-09-09 00:00:00 Orders Only Doctor Unassigned, [facility] 1.2840.114 350.1.13.10 4.2.7.2.686 [id number] [id number] [facility] 2020-08-25 00:00:00 2020-08-25 00:00:00 Refill Juan Manuel Novoa [facility] Building 1.840.114 350.1.13.10 4.2.7.2.686 [id number] 044 [id number] [facility] 2020-08-22 00:00:00 2020-08-22 00:00:00 Telephone Juan Manuel Novoa [facility] Office Building One 1.2840.114 350.1.13.10 4.2.7.2.686 [id number] 044 [id number] [facility] 2020-08-11 00:00:00 2020-08-11 00:00:00 Orders Only Doctor Unassigned, [facility] 1.2840.114 350.1.13.10 4.2.7.2.686 [id number] 009 [id number] [facility] 2020-07-27 00:00:00 2020-07-27 00:00:00 Orders Only Doctor Unassigned, [facility] 1.2840.114 350.1.13.10 4.2.7.2.686 [id number] [id number] [facility] 2020-07-25 00:00:00 2020-07-25 00:00:00 Telephone [facility] Office Building One 1.0.114 350.1.13.10 4.2.7.2.686 [id number] 044 [id number] [facility] 2020-07-22 00:00:00 2020-07-22 00:00:00 Refill Juan Manuel Novoa [facility] Building 1.840.114 350.1.13.10 4.2.7.2.686 [id number] 044 [id number] [facility] 2020-06-20 00:00:00 2020-06-20 00:00:00 Telephone Michele Munoz [facility] 1.20.114 350.1.13.10 4.2.7.2.686 [id number] 220 [id number] [facility] 2020-06-14 00:00:00 2020-06-14 00:00:00 Telephone Michele Munoz [facility] 1.114 350.1.13.10 4.2.7.2.686 [id number] 220 [id number] [facility] 2020-06-08 00:00:00 2020-06-08 00:00:00 Juan Manuel Mas [facility] Building 1.840.114 350.1.13.10 4.2.7.2.686 [id number] 044 [id number] [facility] 2020-06-06 16:00:00 2020-06-06 16:00:00 Outpatient R HERBBIRGIT [facility] [id number] [facility] 2020-06-06 15:41:57 2020-06-06 15:56:57 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, 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 [facility] Building 1.840.114 350.1.13.10 4.2.7.2.686 [id number] [facility] 2020-06-06 14:56:45 2020-06-06 15:36:39 Office Visit [facility] Building 1.840.114 350.1.13.10 4.2.7.2.686 [id number] 220 [id number] [facility] 2020-06-06 15:00:00 2020-06-06 15:00:00 Outpatient R ALEXANDER [facility] [id number] [facility] 2020-06-06 00:00:00 2020-06-06 00:00:00 Letter (Out) Doctor Unassigned, [facility] 1.2.840.114 350.1.13.10 4.2.7.2.686 [id number] 044 [id number] [facility] 2020-06-03 09:06:31 2020-06-03 09:26:31 Office Visit Nolvia Flynn [facility] Building 1.840.114 350.1.13.10 4.2.7.2.686 [id number] 085 [id number] [facility] 2020-06-03 09:20:00 2020-06-03 09:20:00 [facility] [id number] [facility] 2020-06-03 00:00:00 2020-06-03 00:00:00 Orders Only Doctor Unassigned, [facility] 1.0.114 350.1.13.10 4.2.7.2.686 [id number] 009 [id number] [facility] 2020-06-01 07:45:00 2020-06-01 07:45:00 Outpatient R JUAN MANUEL NOVOA [facility] [id number] [facility] 2020-05-26 12:53:00 2020-05-26 15:55:00 Emergency Viri Quevedo [facility] 1.0.114 350.1.13.10 4.2.7.2.686 [id number] [id number] [facility] 2020-05-26 00:00:00 2020-05-26 00:00:00 Orders Only Doctor Unassigned, [facility] 1.840.114 350.1.13.10 4.2.7.2.686 [id number] [id number] [facility] 2020-05-26 00:00:00 2020-05-26 00:00:00 Telephone Juan Manuel Novoa [facility] Office Building One 1.0.114 350.1.13.10 4.2.7.2.686 [id number] 044 [id number] [facility] 2020-05-05 11:00:00 2020-05-05 11:00:00 Outpatient Mary AnneSue bhatti [facility] MRIII [id number] [facility] are [facility] 2020-05-04 00:00:00 2020-05-04 00:00:00 Juan Manuel Mas [facility] 1..114 350.1.13.10 4.2.7.2.686 [id number] 044 [id number] [facility] 2020-05-02 00:00:00 2020-05-02 00:00:00 Orders Only Doctor Unassigned, [facility] 1..114 350.1.13.10 4.2.7.2.686 [id number] [id number] [facility] 2020-04-29 00:00:00 2020-04-29 00:00:00 Telephone [facility] 1..114 350.1.13.10 4.2.7.2.686 [id number] 220 [id number] [facility] 2020-04-26 00:00:00 2020-04-26 00:00:00 [facility] 1..114 350.1.13.10 4.2.7.2.686 [id number] 220 [id number] [facility] 2020-04-12 11:12:46 2020-04-15 10:16:07 Office Visit Brian Rincon [facility] [address] 1.0.114 350.1.13.10 4.2.7.2.686 [id number] 2020-04-12 11:12:46 2020-04-15 10:16:07 Office Visit Sergey [facility] [address] 1.0.114 350.1.13.10 4.2.7.2.686 [id number] [facility] 2020-04-15 00:00:00 2020-04-15 00:00:00 Telephone [facility] Office Building One 1..114 350.1.13.10 4.2.7.2.686 [id number] 044 [id number] 2020-04-15 00:00:00 2020-04-15 00:00:00 Telephone [facility] Office Building One 1..114 350.1.13.10 4.2.7.2.686 [id number] 044 [id number] [facility] 2020-04-14 09:40:00 2020-04-14 09:40:00 [facility] [id number] [facility] 2020-04-13 00:00:00 2020-04-13 00:00:00 Telephone Nolvia Flynn [facility] 1..114 350.1.13.10 4.2.7.2.686 [id number] [facility] 2020-04-12 12:15:00 2020-04-12 12:15:00 Outpatient ARCHANA POWERS [facility] [id number] [facility] 2020-04-12 11:10:27 2020-04-12 11:55:27 Ancillary Visit Michaela Lee Farrah [facility] 1..114 350.1.13.10 4.2.7.2.686 [id number] [facility] 2020-04-12 00:00:00 2020-04-12 00:00:00 Orders Only Doctor Unassigned, [facility] 1.0.114 350.1.13.10 4.2.7.2.686 [id number] [id number] [facility] 2020-04-07 00:00:00 2020-04-07 00:00:00 Orders Only Doctor Unassigned, [facility] 1.2.840.114 350.1.13.10 4.2.7.2.686 [id number] [id number] [facility] 2020-04-05 00:00:00 2020-04-05 00:00:00 Telephone [facility] [place] [facility] 1.20.114 350.1.13.10 4.2.7.2.686 [id number] 220 [id number] [facility] 2020-04-04 00:00:00 2020-04-04 00:00:00 Orders Only Doctor Unassigned, [facility] 1.2840.114 350.1.13.10 4.2.7.2.686 [id number] 009 [id number] [facility] 2020-03-25 08:29:43 2020-03-25 08:44:43 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, 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 [facility] 1.20.114 350.1.13.10 4.2.7.2.686 [id number] [facility] 2020-03-25 08:30:00 2020-03-25 08:30:00 [facility] [id number] 2020-03-22 00:00:00 2020-03-22 00:00:00 Orders Only Doctor Unassigned, [facility] 1.20.114 350.1.13.10 4.2.7.2.686 [id number] [id number] 2020-03-22 00:00:00 2020-03-22 00:00:00 Telephone [facility] 1.2.840.114 350.1.13.10 4.2.7.2.686 [id number] [facility] 2020-03-22 00:00:00 2020-03-22 00:00:00 Orders Only Doctor Unassigned, [facility] 1.2840.114 350.1.13.10 4.2.7.2.686 [id number] [id number] [facility] 2020-03-15 00:00:00 2020-03-15 00:00:00 Telephone Novoa, [facility] Building One 1.0.114 350.1.13.10 4.2.7.2.686 [id number] 044 [id number] [facility] 2020-03-11 00:00:00 2020-03-11 00:00:00 [facility] 1..114 350.1.13.10 4.2.7.2.686 [id number] [facility] 2020-03-11 00:00:00 2020-03-11 00:00:00 Orders Only Doctor Unassigned, [facility] 1.20.114 350.1.13.10 4.2.7.2.686 [id number] [id number] [facility] 2020-03-10 14:30:00 2020-03-10 14:30:00 Outpatient TATY GARAY SHAWN [facility] [id number] [facility] 2020-03-08 00:00:00 2020-03-08 00:00:00 [facility] 1..114 350.1.13.10 4.2.7.2.686 [id number] 220 [id number] [facility] 2020-03-07 00:00:00 2020-03-07 00:00:00 Telephone Nolvia Flynn [facility] 1.84.114 350.1.13.10 4.2.7.2.686 [id number] [facility] 2020-03-04 08:24:48 2020-03-04 08:39:48 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, 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 [facility] 1..114 350.1.13.10 4.2.7.2.686 [id number] [facility] 2020-03-04 08:00:00 2020-03-04 08:00:00 Outpatient R [facility] [id number] [facility] 2020-02-26 13:32:23 2020-02-26 15:00:38 Office Visit [facility] AND [facility] 1..114 350.1.13.10 4.2.7.2.686 [id number] [facility] 2020-02-26 14:00:00 2020-02-26 14:00:00 Outpatient R [facility] [id number] [facility] 2020-02-25 13:57:47 2020-02-25 14:12:47 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 Visit Rula, Adc Sleep Lab Darci Ramirez [facility] 1.84.114 350.1.13.10 4.2.7.2.686 [id number] [facility] 2020-02-25 14:00:00 2020-02-25 14:00:00 Outpatient R DARCI RAMIREZ STRAMNBritt [facility] [id number] [facility] 2020-02-23 15:06:42 2020-02-23 15:27:35 Laboratory Only Only, Adc Test Charlie Castillo [facility] 1.0.114 350.1.13.10 4.2.7.2.686 [id number] [facility] 2020-02-23 15:15:00 2020-02-23 15:15:00 Outpatient R [facility] [id number] [facility] 2020-02-23 00:00:00 2020-02-23 00:00:00 Orders Only Doctor Unassigned, [facility] 1.0.114 350.1.13.10 4.2.7.2.686 [id number] [id number] [facility] 2020-02-22 00:00:00 2020-02-22 00:00:00 Telephone Michele Munoz [facility] 1.114 350.1.13.10 4.2.7.2.686 [id number] [facility] 2020-02-18 00:00:00 2020-02-18 00:00:00 Telephone [facility] Building One 1.114 350.1.13.10 4.2.7.2.686 [id number] 044 [id number] [facility] 2020-02-12 00:00:00 2020-02-12 00:00:00 Orders Only Doctor Unassigned, [facility] 1.114 350.1.13.10 4.2.7.2.686 [id number] [id number] [facility] 2020-02-11 09:55:40 2020-02-11 10:15:40 Office Visit Nolvia Flynn [facility] Building 1.114 350.1.13.10 4.2.7.2.686 [id number] [facility] 2020-02-11 10:00:00 2020-02-11 10:00:00 Outpatient R NOLVIA FLYNN [facility] [id number] [facility] 2020-02-09 09:38:04 2020-02-09 09:53:04 Office Visit Juan Manuel Rodriguez Brandon [facility] 1.114 350.1.13.10 4.2.7.2.686 [id number] [facility] 2020-02-09 09:45:00 2020-02-09 09:45:00 Outpatient TIMI ROMEO [facility] [id number] [facility] 2020-02-04 09:44:10 2020-02-04 09:59:10 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, 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13.10 4.2.7.2.686 [id number] 044 [id number] [facility] 2020-02-04 00:00:00 2020-02-04 00:00:00 Orders Only Doctor Unassigned, [facility] 1.114 350.1.13.10 4.2.7.2.686 [id number] [id number] [facility] 2020-02-03 14:15:00 2020-02-03 14:15:00 Outpatient R JUAN MANUEL NOVOA [facility] [id number] [facility] 2020-02-03 13:55:53 2020-02-03 14:10:53 Office Visit Juan Manuel Novoa [facility] Building 1.2.840.114 350.1.13.10 4.2.7.2.686 [id number] 044 [id number] [facility] 2020-01-10 00:00:00 2020-01-10 00:00:00 Orders Only Doctor Unassigned, [facility] 1.2.840.114 350.1.13.10 4.2.7.2.686 [id number] [id number] [facility] 2019-12-15 00:00:00 2019-12-15 00:00:00 [facility] 1.2.840.114 350.1.13.10 4.2.7.2.686 [id number] 044 [id number] [facility] 2019-11-03 00:00:00 2019-11-03 00:00:00 [facility] One 1.2.840.114 350.1.13.10 4.2.7.2.686 [id number] 044 [id number] [facility] 2019-10-29 10:00:00 2019-10-29 10:00:00 Outpatient Sue Thapa [facility] [id number] [address] [place] [address] are [facility] 2019-10-28 00:00:00 2019-10-28 00:00:00 Orders Only Doctor Unassigned, [facility] 1.2.840.114 350.1.13.10 4.2.7.2.686 [id number] [id number] [facility] 2019-10-20 00:00:00 2019-10-20 00:00:00 Telephone Ruby Jones [facility] kamini Nguyen 1.2.840.114 350.1.13.10 4.2.7.2.686 [id number] [facility] 2019-10-01 00:00:00 2019-10-01 00:00:00 [facility] One 1.2.840.114 350.1.13.10 4.2.7.2.686 [id number] 044 [id number] [facility] 2019-10-01 00:00:00 2019-10-01 00:00:00 Orders Only Doctor Unassigned, [facility] 1.2.840.114 350.1.13.10 4.2.7.2.686 [id number] 009 [id number] [facility] 2019-03-23 00:00:00 2019-03-23 00:00:00 Refill [facility] Office Building One 1.2.840.114 350.1.13.10 4.2.7.2.686 [id number] 044 [id number] [facility] 2019 00:00:00 2019 00:00:00 Telephone Ruby Jones [facility] Surgical Specialtianna Nguyen 1.2.840.114 350.1.13.10 4.2.7.2.686 [id number] [facility] 2019-02-19 09:04:22 2019-02-19 09:43:15 Office Visit Ruby Jones [facility] kamini Nguyen 1.2.840.114 350.1.13.10 4.2.7.2.686 [id number] [facility] 2019-02-19 00:00:00 2019-02-19 00:00:00 Orders Only Doctor Unassigned, [facility] 1.2.840.114 350.1.13.10 4.2.7.2.686 [id number] [id number] [facility] 2019-02-16 00:00:00 2019-02-16 00:00:00 Lex [facility]Juan [facility] Office Building One 1.2.840.114 350.1.13.10 4.2.7.2.686 [id number] 044 [id number] [facility] 2018-09-25 14:48:10 2018-09-26 05:59:59 Outpatient [facility] [address] Luis Amador 2018-07-31 17:02:55 2018-08-01 05:59:59 Outpatient [facility] [address] Luis britt Amador Results Test Description Test Time Test Comments Results Resul t Comments Source CT Soft tissue neck w contrast 16:24:56 EXAM: CT SOFT TISSUE NECK W CONTRAST History/Indication: swelling under right jaw/mandible Comparison: C-spine CT 10/26/2020 Technique: Axial postcontrast images were obtained from lateral ventriclesthrough the mediastinum. Findings: Visualized aspects of the brain, orbits and paranasal sinuseswere without worrisome findings. There were no definite mucosal or jazlyn lesions. Calculi associated with the right submandibular duct/gland were seenpreviously but now they are associated with abnormal enhancement and asmall abscess which I have annotated on image 45 series 2 and other slices,perhaps 1.9 x 1 cm in maximal dimension, and surrounding phlegmon alsoannotated variously. The airway is intact. [id number] 15:47:09* Test Item Value Reference Range Interpretation Comme nts WBC (test code = 6690-2) 8.39 4.20-10.70 RBC (test code = 789-8) 5.03 4.26-5.52 HGB (test code = 718-7) 16.2 g/dL 12.2-16.4 HCT (test code = 4544-3) 48 % 38.4-49.3 MCV (test code = 787-2) 95.4 fL 81.7-95.6 MCH (test code = 785-6) 32.2 pg 26.1-32.7 MCHC (test code = 786-4) 33.8 g/dL 31.2-35.0 RDW-SD (test code = 99819-3) 48.8 fL 38.5-51.6 RDW-CV (test code = 788-0) 13.8 % 12.1-15.4 PLT (test code = 777-3) 185 150-328 MPV (test code = 20674-6) 12.5 fL 9.8-13.0 NRBC/100 WBC (test code = 3106835249) 0 0.0-10.0 NRBC x10^3 (test code = 5016105319) See_Comment [Automated messa ge] The system which generated this result transmitted reference range: 10*3/?L. The reference range was not used to interpret this result as normal/abnormal. GRAN MAT (NEUT) % (test code = 770-8) 71.5 % IMM GRAN % (test code = 3507405685) 0.4 % LYMPH % (test code = 736-9) 14.3 % MONO % (test code = 5905-5) 12.4 % EOS % (test code = 713-8) 1 % BASO % (test code = 706-2) 0.4 % GRAN MAT x10^3(ANC) (test code = 1479576977) 6.01 10*3/uL 1.99-6.95 IMM GRAN x10^3 (test code = 4905825383) 0.03 10*3/uL 0.00-0.06 LYMPH x10^3 (test code = 731-0) 1.2 10*3/uL 1.09-3.23 MONO x10^3 (test code = 742-7) 1.04 10*3/uL 0.36-1.02 H EOS x10^3 (test code = 711-2) 0.08 10*3/uL 0.06-0.53 BASO x10^3 (test code = 704-7) 0.03 10*3/uL 0.01-0.09 Lab Interpretation (test code = 95211-8) Abnormal [facility] METABOLIC [id number] 10:05:00* Test Item Value Reference Range Interpretation Comme nts SODIUM (test code = NA) 141 mmol/L 136-145 N POTASSIUM (test code = K) 3.4 mmol/L 3.5-5.1 L CHLORIDE (test code = CL) 101 mmol/L 98-107 N CARBON DIOXIDE (test code = CO2) 37 mmol/L 20-31 H ANION GAP (test code = GAP) 6.4 2.0-16.0 N GLUCOSE (test code = GLU) 121 mg/dL 74-106 H BLOOD UREA NITROGEN (test code = BUN) 10 mg/dL 9-23 N GLOMERULAR FILTRATION RATE (test code = GFR) >=60 max estimate ml/min The Glomerular Filtration Rate is a calculated parameterbased on serum Creatinine, patient age and sex. GFR valuesless than 60 mL/min/1.73 square meters are indicative ofChronic Kidney Disease. Values less than 15 mL/min/1.73square meters indicate Kidney failure. The calculation forGFR is based on the CKD-EPI (2020) calculation. This formulais race indifferent and is the recommended formula for GFRby the National Kidney Foundation for Adults.The GFR will not calculate if the sex is unknown or if thepatient's age is <18 years. CREATININE (test code = CREAT) 0.8 mg/dL 0.7-1.3 N BUN/CREATININE RATIO (test code = BUN/CREA) 12.5 12.0-20.0 N CALCIUM (test code = CA) 9.3 mg/dL 8.7-10.4 N CBC W/AUTO [id number] 09:43:00* Test Item Value Reference Range Interpretation Comme nts WHITE BLOOD CELL (test code = WBC) 5.1 10 3/uL 4.5-11.0 N RED BLOOD CELL (test code = RBC) 4.59 10 6/uL 4.30-5.90 N HEMOGLOBIN (test code = HGB) 14.4 g/dL 14.0-18.0 N HEMATOCRIT (test code = HCT) 42.4 % 40.0-55.0 N MEAN CELL VOLUME (test code = MCV) 92 fL 81-102 N MEAN CELL HGB (test code = MCH) 31.4 pg 26.0-34.0 N MEAN CELL HGB CONCENTRATION (test code = MCHC) 34.0 g/dL 31.0-37.0 N RED CELL DISTRIBUTION WIDTH (test code = RDW) 14.1 % 11.6-14.4 N PLATELET COUNT (test code = PLT) 194 10 3/uL 150-400 N MEAN PLATELET VOLUME (test code = MPV) 10.7 fL 9.0-12.6 N NEUTROPHIL % (test code = NT%) 64.6 % 33.0-76.0 N IMMATURE GRANULOCYTE % (test code = IG%) 0.8 % 0.0-1.0 N LYMPHOCYTE % (test code = LY%) 17.7 % 14.0-56.4 N MONOCYTE % (test code = MO%) 9.8 % 0.0-12.9 N EOSINOPHIL % (test code = EO%) 6.7 % 0.0-7.0 N BASOPHIL % (test code = BA%) 0.4 % 0-2.0 N NUCLEATED RBC % (test code = NRBC%) 0.0 % 0-0.2 N NEUTROPHIL # (test code = NT#) 3.28 10 3/uL 1.5-7.0 N IMMATURE GRANULOCYTE # (test code = IG#) 0.040 x10 3/uL 0.000-0.100 N LYMPHOCYTE # (test code = LY#) 0.90 10 3/uL 1.50-4.00 L MONOCYTE # (test code = MO#) 0.50 10 3/uL 0.20-0.80 N EOSINOPHIL # (test code = EO#) 0.34 10 3/uL 0.0-0.5 N BASOPHIL # (test code = BA#) 0.02 10 3/uL 0.0-0.1 N NUCLEATED RBC # (test code = NRBC#) 0.000 10 3/uL 0.000-0.012 N URINALYSIS [id number] 00:56:00* Test Item Value Reference Range Interpretation Comme nts UA COLOR (test code = COLU) YELLOW YELLOW UA APPEARANCE (test code = APPU) CLEAR CLEAR UA GLUCOSE DIPSTICK (test code = DGLUU) NEGATIVE NEGATIVE UA BILIRUBIN DIPSTICK (test code = BILU) NEGATIVE NEGATIVE UA KETONE DIPSTICK (test cod e = KETU) 1+ NEGATIVE A UA SPECIFIC GRAVITY (test code = SGU) 1.014 1.005-1.025 N UA BLOOD DIPSTICK (test code = RAHUL) 1+ NEGATIVE A UA PH DIPSTICK (test code = MIRIAN) 6.0 5.0-8.0 UA PROTEIN DIPSTICK (test code = PROU) NEGATIVE NEGATIVE UA UROBILINOGEN DIPSTICK (test code = URO) NEGATIVE EU/dL 0.1-0.2 UA NITRITE DIPSTICK (test code = OLE) NEGATIVE NEGATIVE UA LEUKOCYTE ESTERASE DIPSTICK (test code = LEUU) NEGATIVE NEGATIVE UA WBC (test code = WBCU) 0-2 /hpf 0-3 UA RBC (test code = RBCU) NONE SEEN /hpf 0-3 UA BACTERIA (test code = BACU) NONE SEEN /HPF NEGATIVE UA SQUAMOUS CELLS (test code = SQU) None seen /HPF FEW UA MUCUS (test code = MUCU) OCCASIONAL /lpf [id number] 17:58:00* Test Item Value Reference Range Interpretation Comme nts AMMONIA (test code = AMM) 26 umol/L 11-32 N TSH REFLEX TO [id number] 17:58:00* Test Item Value Reference Range Interpretation Comme nts TSH REFLEX TO FT4 (test code = TSHREFLEX) 1.47 mIU/mL 0.36-3.74 N ARTERIAL BLOOD [id number] 12:39:00* Test Item Value Reference Range Interpretation Comme nts ARTERIAL BLOOD GAS PH (test code = PHA) 7.354 7.35-7.45 N ARTERIAL BLOOD GAS PCO2 (arnol t code = PCO2A) 45.6 mmHg 35.0-45.0 H ARTERIAL BLOOD GAS PO2 (test code = PO2A) 78.3 mmHg 80.0-100.0 L BICARBONATE TOTAL HCO3 (test code = HCO3) 24.8 mmol/L 22.0-26.0 N BASE EXCESS (test code = FREDDIE) -1.0 mmol/L 0.0-2.0 L ABG O2 SATURATION (test code = SATA) 95.6 % 94.0-98.0 N ABG TYPE (test code = TYPEA) Arterial ARTERIAL FIO2 (test code = FIO2A) 36.0 % ABG L/M (test code = L/M) 4.0 ABG VENT MODE (test code = MODEA) NC ABG SITE (test code = SITEA) Right Radial ALLENS TEST (test code = ALLENS) Yes TOTAL HGB (test code = THB) 14.6 g/dL 13.0-17.0 N OXYHEMOGLOBIN (test code = OOHGBT) 93.2 % 92.0-98.0 N CARBOXYHEMOGLOBIN (test code = HOHGBT) 2.2 % 0-5.0 N METHEMOGLOBIN (test code = METHGB) <0.8 % 0-1.5 N TCO2 ARTERIAL (test code = TCO2A) 26.2 mL/dL 15-23 H PaO2/[id number] 12:39:00* Test Item Value Reference Range Interpretation Comme nts PaO2/FiO2 (test code = [id number]) 217.50 >200 BASIC METABOLIC [id number] 09:38:00* Test Item Value Reference Range Interpretation Comme nts SODIUM (test code = NA) 141 mmol/L 136-145 N POTASSIUM (test code = K) 4.3 mmol/L 3.5-5.1 N CHLORIDE (test code = CL) 105 mmol/L 98-107 N CARBON DIOXIDE (test code = CO2) 32 mmol/L 20-31 H ANION GAP (test code = GAP) 8.3 2.0-16.0 N GLUCOSE (test code = GLU) 92 mg/dL 74-106 N BLOOD UREA NITROGEN (test code = BUN) 9 mg/dL 9-23 N GLOMERULAR FILTRATION RATE (test code = GFR) >=60 max estimate ml/min The Glomerular Filtration Rate is a calculated parameterbased on serum Creatinine, patient age and sex. GFR valuesless than 60 mL/min/1.73 square meters are indicative ofChronic Kidney Disease. Values less than 15 mL/min/1.73square meters indicate Kidney failure. The calculation forGFR is based on the CKD-EPI (2020) calculation. This formulais race indifferent and is the recommended formula for GFRby the National Kidney Foundation for Adults.The GFR will not calculate if the sex is unknown or if thepatient's age is <18 years. CREATININE (test code = CREAT) 1.0 mg/dL 0.7-1.3 N BUN/CREATININE RATIO (test code = BUN/CREA) 9.0 12.0-20.0 L CALCIUM (test code = CA) 9.2 mg/dL 8.7-10.4 N CBC W/AUTO [id number] 07:57:00* Test Item Value Reference Range Interpretation Comme nts WHITE BLOOD CELL (test code = WBC) 10.5 10 3/uL 4.5-11.0 N RED BLOOD CELL (test code = RBC) 4.86 10 6/uL 4.30-5.90 N HEMOGLOBIN (test code = HGB) 14.8 g/dL 14.0-18.0 N HEMATOCRIT (test code = HCT) 46.0 % 40.0-55.0 N MEAN CELL VOLUME (test code = MCV) 95 fL 81-102 N MEAN CELL HGB (test code = MCH) 30.5 pg 26.0-34.0 N MEAN CELL HGB CONCENTRATION (test code = MCHC) 32.2 g/dL 31.0-37.0 N RED CELL DISTRIBUTION WIDTH (test code = RDW) 14.4 % 11.6-14.4 N PLATELET COUNT (test code = PLT) 162 10 3/uL 150-400 N MEAN PLATELET VOLUME (test code = MPV) 12.0 fL 9.0-12.6 N NEUTROPHIL % (test code = NT%) 75.6 % 33.0-76.0 N IMMATURE GRANULOCYTE % (test code = IG%) 2.0 % 0.0-1.0 H LYMPHOCYTE % (test code = LY%) 13.6 % 14.0-56.4 L MONOCYTE % (test code = MO%) 6.4 % 0.0-12.9 N EOSINOPHIL % (test code = EO%) 2.2 % 0.0-7.0 N BASOPHIL % (test code = BA%) 0.2 % 0-2.0 N NUCLEATED RBC % (test code = NRBC%) 0.0 % 0-0.2 N NEUTROPHIL # (test code = NT#) 7.98 10 3/uL 1.5-7.0 H IMMATURE GRANULOCYTE # (test code = IG#) 0.210 x10 3/uL 0.000-0.100 H LYMPHOCYTE # (test code = LY#) 1.43 10 3/uL 1.50-4.00 L MONOCYTE # (test code = MO#) 0.67 10 3/uL 0.20-0.80 N EOSINOPHIL # (test code = EO#) 0.23 10 3/uL 0.0-0.5 N BASOPHIL # (test code = BA#) 0.02 10 3/uL 0.0-0.1 N NUCLEATED RBC # (test code = NRBC#) 0.000 10 3/uL 0.000-0.012 N BASIC METABOLIC [id number] 06:19:00* Test Item Value Reference Range Interpretation Comme nts SODIUM (test code = NA) 141 mmol/L 136-145 N POTASSIUM (test code = K) 3.6 mmol/L 3.5-5.1 N CHLORIDE (test code = CL) 107 mmol/L 98-107 N CARBON DIOXIDE (test code = CO2) 30 mmol/L 20-31 N ANION GAP (test code = GAP) 7.6 2.0-16.0 N GLUCOSE (test code = GLU) 107 mg/dL 74-106 H BLOOD UREA NITROGEN (test code = BUN) 6 mg/dL 9-23 L GLOMERULAR FILTRATION RATE (test code = GFR) >=60 max estimate ml/min The Glomerular Filtration Rate is a calculated parameterbased on serum Creatinine, patient age and sex. GFR valuesless than 60 mL/min/1.73 square meters are indicative ofChronic Kidney Disease. Values less than 15 mL/min/1.73square meters indicate Kidney failure. The calculation forGFR is based on the CKD-EPI (2020) calculation. This formulais race indifferent and is the recommended formula for GFRby the National Kidney Foundation for Adults.The GFR will not calculate if the sex is unknown or if thepatient's age is <18 years. CREATININE (test code = CREAT) 0.9 mg/dL 0.7-1.3 N BUN/CREATININE RATIO (test code = BUN/CREA) 6.7 12.0-20.0 L CALCIUM (test code = CA) 8.7 mg/dL 8.7-10.4 N CBC W/AUTO [id number] 05:58:00* Test Item Value Reference Range Interpretation Comme nts WHITE BLOOD CELL (test code = WBC) 8.9 10 3/uL 4.5-11.0 N RED BLOOD CELL (test code = RBC) 4.85 10 6/uL 4.30-5.90 N HEMOGLOBIN (test code = HGB) 14.9 g/dL 14.0-18.0 N HEMATOCRIT (test code = HCT) 46.8 % 40.0-55.0 N MEAN CELL VOLUME (test code = MCV) 97 fL 81-102 N MEAN CELL HGB (test code = MCH) 30.7 pg 26.0-34.0 N MEAN CELL HGB CONCENTRATION (test code = MCHC) 31.8 g/dL 31.0-37.0 N RED CELL DISTRIBUTION WIDTH (test code = RDW) 14.4 % 11.6-14.4 N PLATELET COUNT (test code = PLT) 156 10 3/uL 150-400 N MEAN PLATELET VOLUME (test code = MPV) 11.7 fL 9.0-12.6 N NEUTROPHIL % (test code = NT%) 78.7 % 33.0-76.0 H IMMATURE GRANULOCYTE % (test code = IG%) 0.4 % 0.0-1.0 N LYMPHOCYTE % (test code = LY%) 13.5 % 14.0-56.4 L MONOCYTE % (test code = MO%) 5.9 % 0.0-12.9 N EOSINOPHIL % (test code = EO%) 1.3 % 0.0-7.0 N BASOPHIL % (test code = BA%) 0.2 % 0-2.0 N NUCLEATED RBC % (test code = NRBC%) 0.0 % 0-0.2 N NEUTROPHIL # (test code = NT#) 7.01 10 3/uL 1.5-7.0 H IMMATURE GRANULOCYTE # (test code = IG#) 0.040 x10 3/uL 0.000-0.100 N LYMPHOCYTE # (test code = LY#) 1.21 10 3/uL 1.50-4.00 L MONOCYTE # (test code = MO#) 0.53 10 3/uL 0.20-0.80 N EOSINOPHIL # (test code = EO#) 0.12 10 3/uL 0.0-0.5 N BASOPHIL # (test code = BA#) 0.02 10 3/uL 0.0-0.1 N NUCLEATED RBC # (test code = NRBC#) 0.000 10 3/uL 0.000-0.012 N BASIC METABOLIC [id number] 07:13:00* Test Item Value Reference Range Interpretation Comme nts SODIUM (test code = NA) 141 mmol/L 136-145 N POTASSIUM (test code = K) 4.0 mmol/L 3.5-5.1 N CHLORIDE (test code = CL) 106 mmol/L 98-107 N CARBON DIOXIDE (test code = CO2) 30 mmol/L 20-31 N ANION GAP (test code = GAP) 9.0 2.0-16.0 N GLUCOSE (test code = GLU) 91 mg/dL 74-106 N BLOOD UREA NITROGEN (test code = BUN) 6 mg/dL 9-23 L GLOMERULAR FILTRATION RATE (test code = GFR) >=60 max estimate ml/min The Glomerular Filtration Rate is a calculated parameterbased on serum Creatinine, patient age and sex. GFR valuesless than 60 mL/min/1.73 square meters are indicative ofChronic Kidney Disease. Values less than 15 mL/min/1.73square meters indicate Kidney failure. The calculation forGFR is based on the CKD-EPI (202) calculation. This formulais race indifferent and is the recommended formula for GFRby the National Kidney Foundation for Adults.The GFR will not calculate if the sex is unknown or if thepatient's age is <18 years. CREATININE (test code = CREAT) 1.0 mg/dL 0.7-1.3 N BUN/CREATININE RATIO (test code = BUN/CREA) 6.0 12.0-20.0 L CALCIUM (test code = CA) 9.2 mg/dL 8.7-10.4 N CBC W/AUTO [id number] 07:04:00* Test Item Value Reference Range Interpretation Comme nts WHITE BLOOD CELL (test code = WBC) 13.4 10 3/uL 4.5-11.0 H RED BLOOD CELL (test code = RBC) 5.32 10 6/uL 4.30-5.90 N HEMOGLOBIN (test code = HGB) 16.1 g/dL 14.0-18.0 N HEMATOCRIT (test code = HCT) 50.5 % 40.0-55.0 N MEAN CELL VOLUME (test code = MCV) 95 fL 81-102 N MEAN CELL HGB (test code = MCH) 30.3 pg 26.0-34.0 N MEAN CELL HGB CONCENTRATION (test code = MCHC) 31.9 g/dL 31.0-37.0 N RED CELL DISTRIBUTION WIDTH (test code = RDW) 13.9 % 11.6-14.4 N PLATELET COUNT (test code = PLT) 187 10 3/uL 150-400 N MEAN PLATELET VOLUME (test code = MPV) 11.8 fL 9.0-12.6 N NEUTROPHIL % (test code = NT%) 86.1 % 33.0-76.0 H IMMATURE GRANULOCYTE % (test code = IG%) 0.5 % 0.0-1.0 N LYMPHOCYTE % (test code = LY%) 7.2 % 14.0-56.4 L MONOCYTE % (test code = MO%) 6.0 % 0.0-12.9 N EOSINOPHIL % (test code = EO%) 0.1 % 0.0-7.0 N BASOPHIL % (test code = BA%) 0.1 % 0-2.0 N NUCLEATED RBC % (test code = NRBC%) 0.0 % 0-0.2 N NEUTROPHIL # (test code = NT#) 11.56 10 3/uL 1.5-7.0 H IMMATURE GRANULOCYTE # (test code = IG#) 0.070 x10 3/uL 0.000-0.100 N LYMPHOCYTE # (test code = LY#) 0.97 10 3/uL 1.50-4.00 L MONOCYTE # (test code = MO#) 0.80 10 3/uL 0.20-0.80 N EOSINOPHIL # (test code = EO#) 0.02 10 3/uL 0.0-0.5 N BASOPHIL # (test code = BA#) 0.01 10 3/uL 0.0-0.1 N NUCLEATED RBC # (test code = NRBC#) 0.000 10 3/uL 0.000-0.012 N US ABDOMEN [id number] 21:20:35EXAM: US ABDOMEN LIMITED HISTORY: 64 years- old Male; Provided indication: hepatic cyst . TECHNIQUE:Survey ultrasound imaging focused on the liver, biliary tree,and spleen was performed. The main portal vein was evaluated with colorDoppler imaging. Surgical Attendant images were obtained for the record. COMPARISON: CT abdomen pelvis obtained on 09/10/2023 FINDINGS: LIVER: The liver measures 13.0 cm.Parenchyma: The liver parenchyma exhibits diffuse increased echogenicity. Observations: No focal lesion is seen.Portal vein: Patent hepatopetal flow is present.MPV diameter: The diameter is 1.3 cm. BILEDUCTS:No ductal dilatation is seen.The common duct diameter measures 0.5 cm. GALLBLADDER:Sludge or stones are seen.Mackey's sign was not demonstrated. SPLEEN:The spleen measures 10.6 cm.[facility] [id number] 19:53:32EXAM: XR CHEST 2 VW COMPARISON: CT chest and chest x-ray dated 07/22/2022 HISTORY:64 years old, Male ?with pre op . [facility]2024-[facility]-09 23:08:37* Test Item Value Reference Range Interpretation Comme nts Height (test code = 2026740787) 69 in Weight (test code = 7944849677) 205 lbs Systolic BP (test code = 4433905712) 129 mmHg Diastolic BP (test code = 7133618419) 80 mmHg Heart Rate (test code = 9595288092) 98 bpm EF(Teich) (test code = 1288801117) 58.90 % LVIDD (test code = 6634394438) 4.30 cm LVIDS (test code = 0386128295) 3.00 cm Left Ventricular End Systolic Volume by Teichholz Method (test code = 3575639) 34.1 mL Left Ventricular End Diastolic Volume by Teichholz Method (test code = 6371392) 83.1 mL IVS (test code = 7130603402) 1.30 cm LVPWD (test code = 8701754712) 1.30 cm LVOT diameter (test code = 6245963680) 2.05 cm LVOT area (test code = 8232752031) 3.30 cm2 FS (test code = 9728029100) 31 % LV GLS Endo Peak A2C () (test code = 2001705445) -20.30 % LV GLS Endo Peak A3C () (test code = 8775754132) -20.80 % LV GLS Endo Peak A4C () (test code = 5023991451) -21.00 % LV GLS Endo Peak Avg () (test code = 7564855544) -20.70 % LA size (test code = 5837180210) 4.3 cm RVOT Proximal Diameter (test code = 1723581044) 3.00 cm ACS (test code = 1807185376) 2.00 cm Ao root diam (test code = 9767778826) 3.00 cm Aortic root (test code = 6817033931) 3.0 cm Ao root annulus (test code = 4184897596) 3.0 cm PW (test code = 7965079708) 1.30 cm 0.6-1.1 EF - 2D (test code = 41006271) 58.90 % Interventricular Septum Diastolic Thickness by 2D (test code = 1018449) 1.30 cm BSA (test code = 4819292621) 2.09 m2 E wave decelartion time (test code = 2369059098) 0.26 s MV Peak E Juan Luis (test code = 7073807248) 78.6 cm/s MV Peak A Juan Luis (test code = 7902064699) 109.5 cm/s E/A ratio (test code = 1099146776) 0.72 ratio MV Prop V (test code = 7064865328) 28.10 cm/s LVOT stroke volume (test code = 3985135805) 75.60 cm3 LVOT peak juan luis (test code = 1737247649) 112.7 cm/s LVOT mn grad (test code = 8115293499) 2.4 mmHg AV LVOT peak gradient (test code = 9386413657) 5.1 mmHg LVOT peak VTI (test code = 6757904364) 22.9 cm LV V1 mean (test code = 2724710042) 70.50 cm/s Aortic valve mean velocity (test code = 0207634323) 98.3 cm/s Ao peak juan luis (test code = 4688545251) 168.1 cm/s Ao VTI (test code = 8475789408) 30.1 cm AV area by cont VTI (test code = 6655863226) 2.5 cm2 AV area peak juan luis (test code = 5416665090) 2.2 cm2 Ao max PG (test code = 6436075251) 11.30 mm[Hg] AV peak gradient (test code = 9958907681) 11.3 mmHg AV valve area (test code = 1264561515) 2.50 cm2 AV mean gradient (test code = 1769254680) 4.7 mmHg MR max PG (test code = 2644957529) 34.60 mm[Hg] MR max juan luis (test code = 7203446176) 294.10 cm/s Mr max juan luis (test code = 2082279293) 294.1 m/s GLS (test code = 2410621500) -21 % Radiology Study observation (narrative) (test code = 92328-9) TROY (test code = TROY) ?Left?Ventricle: Left ventricle size is normal. Mildly increased wall thickness. Normal wall motion. Normal wall motion. Normal systolic function with a visually estimated EF of 55 - 60%. Global longitudinal strain is normal with a value of -21%. There is impaired relaxation. ?Tricuspid?Valve: Insufficient tricuspid regurgitation jet to estimate RVSP . ?RA pressure is 0-5 mmHg. ?Left?Atrium: Left atrium size is normal. ?Right?Ventricle: Right ventricle is normal in size and function. ?Pericardium: No pericardial effusion. 3.8 X 4.7 cm Liver cyst noted. ?Aorta: Borderline enlarged ascending aorta 3.1cm. Left VentricleLeft ventricle size is normal. Mildly increased wall thickness. Normal wall motion. Normal systolic function with a visually estimated EF of 55 - 60%. Global longitudinal strain is normal with a value of -21%. There is impaired relaxation.Right VentricleRight ventricle is normal in size and function.Left AtriumLeft atrium size is normal.Right AtriumRight atrium size is normal.Mitral ValveMitral valve structure is grossly normal. Trace transvalvular regurgitation.Tricuspi d ValveTricuspid valve structure is grossly normal. Insufficient tricuspid regurgitation jet to estimate RVSP . RA pressure is 0-5 mmHg.Aortic ValveAortic valve opens well. Mildly calcified cusps.Pulmonic ValveNot well visualized.Ascending AortaBorderline enlarged ascending aorta 3.1cm.PericardiumNo pericardial effusion. 3.8 X 4.7 cm Liver cyst noted.Study DetailsStudy quality was adequate. A complete echocardiogram was performed using 2D, color flow Doppler, spectral Doppler and strain. The apical, parasternal, subcostal and suprasternal views were obtained. [facility] [id number] 21:30:40 EXAMINATION: ?MR LUMBAR SPINE WO CONTRAST HISTORY: Chronic low back pain. TECHNIQUE: Routine MRI ofthe lumbar spine without contrast. COMPARISON: CT lumbar spine dated 10/26/2020. FINDINGS: LUMBAR SPINE: FINDINGS: The lumbar curvature is normal. The vertebral bodies are normal in heightand alignment. The conus medullaris terminates at the level of L1. Thecauda equina nerve roots are unremarkable. The background marrow signal is unremarkable. L1-L2: Disc bulge, bilateral facet arthrosis and ligamentum flavumthickening result in mild spinal canal stenosis and mild bilateral neuralforaminal narrowing. L2-L3: Disc bulge, bilateral facet arthrosis and ligamentum flavumthickening result in mild spinal canal stenosis and moderate bilateralneural foraminal narrowing. L3-L4: Discs bulge, bilateral facet arthrosis and ligamentum flavumthickening result in mild spinal canal stenosis and moderate bilateralneural foraminal narrowing. L4-L5: Disc bulge, bilateral facet arthrosis and ligamentum flavumthickening result in mild spinal canal stenosis, severe right and moderateleft neural foraminal narr owing. L5-S1: Bilateral facet arthrosis result in mild bilateral neural foraminalnarrowing. No significant spinal canal stenosis. The paraspinal soft tissues are unremarkable.[facility]MR [facility] WO [id number] 20:58:42EXAM: MR CERVICAL SPINE WO CONTRAST HISTORY: Cervicalgia TECHNIQUE: MRI of cervical spine was performed on 1.5 Leona withoutintravenous contrast. COMPARISON: None. FINDINGS: Posterior fusion wires noted at C6-C7. There is straightening of cervical lordosis. The vertebral bodies arenormal in height and alignment. The background bone marrow signal is unremarkable. The cervical spinal cord is normalin morphology and signal intensity. Disc desiccation noted at C2-C5. At C2-C3, mild disc bulge with bilateral facet arthrosis result in mildbilateral neural foraminal narrowing. No high-grade spinal canal stenosis. At C3-C4, posterior disc osteophyte complex with uncovertebral and leftworse than right facet arthrosis result in severe left and moderate rightneural foraminal narrowing and mild spinal canal stenosis. At C4-C5, severe left and moderate right facet arthrosis result inmoderate, left worse than right neural foraminal narrowing. No high- gradespinal canal stenosis. At C5-C6, no high-grade spinal canal stenosis or significant neuralforaminal narrowing. At C6-C7, fusion segment. No high-grade spinal canal stenosis orsignificant neural foraminal narrowing. At C7-T1, no high-grade spinal canal stenosis or significant neuralforaminal narrowing. The prevertebral soft tissues are unremarkable.[facility] POCT Hemoglobin A1C [id number] 15:11:00* Test Item Value Reference Range Interpretation Comme [facility] POCT HBA1C (test code = 4548-4) 6.0 % 4-6 [facility] Hemoglobin A1C [id number] 15:11:00* Test Item Value Reference Range Interpretation Comme [facility] POCT HBA1C (test code = 4548-4) 6.0 % 4-6 [facility] W [id number] 20:30:29CT ABDOMEN PELVIS W CONTRAST HISTORY: 63 years-old; Male; Abdominal pain, post-op Abdomen incision drainage COMPARISON: CT abdomen pelvis dated 04/05/2022. TECHNIQUE AND FINDINGS: Contiguous axial imaging from the level of the lungbases through the pubic symphysis was performed after the uncomplicate dadministration of intravenous Omnipaque contrast. Coronal and sagittalreconstructions were obtained. ?Auto mA and/or iterative reconstructionwere used to reduce radiation dose. FINDINGS: LOWER THORAX: Linear parenchymal band is seen at the left lung base. Smallcalcified granuloma seen at the rightlower lobe. No cardiomegaly. LIVER: No focal hepatic lesions. Normal contour. Diffuse hepatichypoattenuation. GALLBLADDER AND BILIARY TREE: No intra or extrahepatic biliary ductaldilation. SPLEEN: Unremarkable. PANCREAS: No ductal dilatation or masses ADRENAL GLANDS: No adrenal lesions. KIDNEYS: No hydronephrosis, stones, or masses. Homogeneous and symmetricalenhancement. GI TRACT: No dilation orbowel wall thickening. 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 PERITONEUM AND RETROPERITONEUM: No free air or fluid collection. LYMPH NODES: No intra-abdominal or pelvic lymph node enlargement. PELVIS/BLADDER: Bladder is fully distended with no wall thickening. VESSELS: Mild scattered atherosclerotic calcification of the aorta. BONES AND SOFT TISSUES: No suspicious lytic or sclerotic bony lesions.Small fat- containing umbilical hernia is noted. Multilevel degenerativechanges are seen. No abdominal wall fluid collections identified.[facility] GLUCOSE (AUTOMATED)2023-09-05 15:08:15* Test Item Value Reference Range Interpretation Comme nts POCT GLU (test code = 3883201593) 109 mg/dL 70-110 Lab Interpretation (test cod e = 64270-4) Normal [facility] GLUCOSE (AUTOMATED)2023-09-05 07:57:08* Test Item Value Reference Range Interpretation Comme nts POCT GLU (test code = 7228993167) 101 mg/dL 70-110 Lab Interpretation (test cod e = 46088-0) Normal [facility] GLUCOSE (AUTOMATED)2023-09-05 03:20:38* Test Item Value Reference Range Interpretation Comme nts POCT GLU (test code = 3407535029) 97 mg/dL 70-110 Notified Provide r Lab Interpretation (test code = 92765-3) Normal [facility] GLUCOSE (AUTOMATED)2023-09-04 20:56:45* Test Item Value Reference Range Interpretation Comme nts POCT GLU (test code = 2094914796) 117 mg/dL 70-110 H Lab Interpretation (test cod e = 68754-2) Abnormal [facility] GLUCOSE (AUTOMATED)2023-09-04 14:55:14* Test Item Value Reference Range Interpretation Comme nts POCT GLU (test code = 0642855918) 126 mg/dL 70-110 H Lab Interpretation (test cod e = 98730-6) Abnormal [facility] Metabolic Panel (NA, K, CL, CO2, GLUCOSE, BUN, CREATININE, CA)2023-09-04 13:15:18* Test Item Value Reference Range Interpretation Comme nts NA (test code = 3485011371) 136 mmol/L 135-145 K (test code = 9151331331) 4.4 mmol/L 3.5-5.0 CL (test code = 9370815104) 100 mmol/L 98-108 CO2 TOTAL (test code = 1731788131) 31 mmol/L 23-31 AGAP (test code = 8355857651) 5 2-16 BUN (test code = 3797875069) 17 mg/dL 7-23 GLUCOSE (test code = 2849554117) 116 mg/dL 70-110 H CREATININE (test code = 2160-0) 0.85 mg/dL 0.60-1.25 CALCIUM (test code = 8056083928) 8.3 mg/dL 8.6-10.6 L eGFR (test code = 13271-7) 98.9 mL/min/1.73m2 CKD-EPI eGFR (2020). Assuming creatinine has been stable day-to-day for at least three months, the eGFR indicates Category G1 (>= 90 mL/min/1.73 m2) Lab Interpretation (test code = 01107-7) Abnormal [facility]Magnesium2024-[facility] 13:15:18* Test Item Value Reference Range Interpretation Comme nts MAGNESIUM (test code = 7686952229) 1.8 mg/dL 1.7-2.4 Lab Interpretation (test cod e = 53382-9) Normal [facility] without [id number] 13:02:19* Test Item Value Reference Range Interpretation Comme nts WBC (test code = 6690-2) 6.98 4.20-10.70 RBC (test code = 789-8) 4.67 4.26-5.52 HGB (test code = 718-7) 13.9 g/dL 12.2-16.4 HCT (test code = 4544-3) 42.1 % 38.4-49.3 MCH (test code = 785-6) 29.8 pg 26.1-32.7 MCV (test code = 787-2) 90.1 fL 81.7-95.6 MCHC (test code = 786-4) 33.0 g/dL 31.2-35.0 PLT (test code = 777-3) 117 150-328 L MPV (test code = 10544-0) 10.7 fL 9.8-13.0 RDW-CV (test code = 788-0) 15.4 % 12.1-15.4 RDW-SD (test code = 36939-1) 50.4 fL 38.5-51.6 NRBC x10^3 (test code = 3104040968) See_Comment [Automated [employer]] The system which generated this result transmitted reference range: 10*3/?L. The reference range was not used to interpret this result as normal/abnormal. NRBC/100 WBC (test code = 4681295687) 0.0 0.0-10.0 IPF % (test code = 5477483883) 6.1 % 1.2-10.7 Platelet count measured by fluorescence method. Lab Interpretation (test code = 46435-9) Abnormal [facility] GLUCOSE (AUTOMATED)2023-09-04 08:36:03* Test Item Value Reference Range Interpretation Comme nts POCT GLU (test code = 2530919009) 125 mg/dL 70-110 H Notified Provide r Lab Interpretation (test code = 06478-7) Abnormal [facility] GLUCOSE (AUTOMATED)2023-09-04 02:52:09* Test Item Value Reference Range Interpretation Comme nts POCT GLU (test code = 9887735270) 116 mg/dL 70-110 H Notified Provide r Lab Interpretation (test code = 61897-1) Abnormal [facility] GLUCOSE (AUTOMATED)2023-09-03 22:11:55* Test Item Value Reference Range Interpretation Comme nts POCT GLU (test code = 6012301570) 144 mg/dL 70-110 H Lab Interpretation (test cod e = 38501-7) Abnormal [facility] with [id number] 19:22:09* Test Item Value Reference Range Interpretation Comme nts WBC (test code = 6690-2) 8.26 4.20-10.70 RBC (test code = 789-8) 4.71 4.26-5.52 HGB (test code = 718-7) 14.4 g/dL 12.2-16.4 HCT (test code = 4544-3) 42.5 % 38.4-49.3 MCV (test code = 787-2) 90.2 fL 81.7-95.6 MCH (test code = 785-6) 30.6 pg 26.1-32.7 MCHC (test code = 786-4) 33.9 g/dL 31.2-35.0 RDW-SD (test code = 52441-4) 51.4 fL 38.5-51.6 RDW-CV (test code = 788-0) 15.4 % 12.1-15.4 PLT (test code = 777-3) 121 150-328 L MPV (test code = 97226-2) 11.0 fL 9.8-13.0 IPF % (test code = 8686221850) 5.8 % 1.2-10.7 Platelet count measured by fluorescence method. NRBC/100 WBC (test code = 8179983294) 0.0 0.0-10.0 NRBC x10^3 (test code = 1374142594) See_Comment [Automated message] The system which generated this result transmitted reference range: 10*3/?L. The reference range was not used to interpret this result as normal/abnormal. GRAN MAT (NEUT) % (test code = 770-8) 73.8 % IMM GRAN % (test code = 7897856885) 0.70 % LYMPH % (test code = 736-9) 10.8 % MONO % (test code = 5905-5) 14.5 % EOS % (test code = 713-8) 0.0 % BASO % (test code = 706-2) 0.2 % GRAN MAT x10^3(ANC) (test code = 6797368370) 6.09 10*3/uL 1.99-6.95 IMM GRAN x10^3 (test code = 6055240143) 0.06 10*3/uL 0.00-0.06 LYMPH x10^3 (test code = 731-0) 0.89 10*3/uL 1.09-3.23 L MONO x10^3 (test code = 742-7) 1.20 10*3/uL 0.36-1.02 H EOS x10^3 (test code = 711-2) 0.06-0.53 L BASO x10^3 (test code = 704-7) 0.01-0.09 BANDS (test code = 9425067657) MARKED INCREASED A Lab Interpretation (test code = 55234-1) Abnormal [facility] with [id number] 19:22:09* Test Item Value Reference Range Interpretation Comme nts WBC (test code = 6690-2) 8.26 4.20-10.70 RBC (test code = 789-8) 4.71 4.26-5.52 HGB (test code = 718-7) 14.4 g/dL 12.2-16.4 HCT (test code = 4544-3) 42.5 % 38.4-49.3 MCV (test code = 787-2) 90.2 fL 81.7-95.6 MCH (test code = 785-6) 30.6 pg 26.1-32.7 MCHC (test code = 786-4) 33.9 g/dL 31.2-35.0 RDW-SD (test code = 87391-4) 51.4 fL 38.5-51.6 RDW-CV (test code = 788-0) 15.4 % 12.1-15.4 PLT (test code = 777-3) 121 150-328 L MPV (test code = 98110-6) 11.0 fL 9.8-13.0 IPF % (test code = 0686788282) 5.8 % 1.2-10.7 Platelet count measured by fluorescence method. NRBC/100 WBC (test code = 5548095783) 0.0 0.0-10.0 NRBC x10^3 (test code = 4811852543) See_Comment [Automated message] The system which generated this result transmitted reference range: 10*3/?L. The reference range was not used to interpret this result as normal/abnormal. GRAN MAT (NEUT) % (test code = 770-8) 73.8 % IMM GRAN % (test code = 1111793298) 0.70 % LYMPH % (test code = 736-9) 10.8 % MONO % (test code = 5905-5) 14.5 % EOS % (test code = 713-8) 0.0 % BASO % (test code = 706-2) 0.2 % GRAN MAT x10^3(ANC) (test code = 3854151116) 6.09 10*3/uL 1.99-6.95 IMM GRAN x10^3 (test code = 6763612734) 0.06 10*3/uL 0.00-0.06 LYMPH x10^3 (test code = 731-0) 0.89 10*3/uL 1.09-3.23 L MONO x10^3 (test code = 742-7) 1.20 10*3/uL 0.36-1.02 H EOS x10^3 (test code = 711-2) 0.06-0.53 L BASO x10^3 (test code = 704-7) 0.01-0.09 BANDS (test code = 4497889210) MARKED INCREASED A Lab Interpretation (test code = 78543-0) Abnormal [facility] Metabolic Panel (NA, K, CL, CO2, GLUCOSE, BUN, CREATININE, CA)2023-09-03 18:56:41* Test Item Value Reference Range Interpretation Comme nts NA (test code = 2785518741) 134 mmol/L 135-145 L K (test code = 6781757124) 4.5 mmol/L 3.5-5.0 Slight hemolysis CL (test code = 7205346466) 101 mmol/L 98-108 CO2 TOTAL (test code = 3458372543) 31 mmol/L 23-31 AGAP (test code = 7087931703) 2 2-16 BUN (test code = 0766166444) 15 mg/dL 7-23 Slight hemolysis GLUCOSE (test code = 4237801576) 126 mg/dL 70-110 H CREATININE (test code = 2160-0) 0.82 mg/dL 0.60-1.25 CALCIUM (test code = 8549027890) 8.7 mg/dL 8.6-10.6 eGFR (test code = 03517-8) 99.9 mL/min/1.73m2 CKD-EPI eGFR (2020). Assuming creatinine has been stable day-to-day for at least three months, the eGFR indicates Category G1 (>= 90 mL/min/1.73 m2) Lab Interpretation (test code = 99442-5) Abnormal [facility] Metabolic Panel (NA, K, CL, CO2, GLUCOSE, BUN, CREATININE, CA)2023-09-03 18:56:41* Test Item Value Reference Range Interpretation Comme nts NA (test code = 0177668456) 134 mmol/L 135-145 L K (test code = 8084906953) 4.5 mmol/L 3.5-5.0 Slight hemolysis CL (test code = 0098175680) 101 mmol/L 98-108 CO2 TOTAL (test code = 3917799982) 31 mmol/L 23-31 AGAP (test code = 3640812417) 2 2-16 BUN (test code = 3922501592) 15 mg/dL 7-23 Slight hemolysis GLUCOSE (test code = 3841763546) 126 mg/dL 70-110 H CREATININE (test code = 2160-0) 0.82 mg/dL 0.60-1.25 CALCIUM (test code = 2348180121) 8.7 mg/dL 8.6-10.6 eGFR (test code = 70566-3) 99.9 mL/min/1.73m2 CKD-EPI eGFR (2020). Assuming creatinine has been stable day-to-day for at least three months, the eGFR indicates Category G1 (>= 90 mL/min/1.73 m2) Lab Interpretation (test code = 38711-3) Abnormal [facility] GLUCOSE (AUTOMATED)2023-09-03 17:01:48* Test Item Value Reference Range Interpretation Comme [facility] POCT GLU (test code = 5655973284) 116 mg/dL 70-110 H Lab Interpretation (test cod e = 15463-0) Abnormal [facility] GLUCOSE (AUTOMATED)2023-09-03 17:01:48* Test Item Value Reference Range Interpretation Comme [facility] POCT GLU (test code = 1907403186) 116 mg/dL 70-110 H Lab Interpretation (test cod e = 03134-7) Abnormal [facility] Metabolic Panel (NA, K, CL, CO2, Glucose, BUN, Creatinine, CA)2023-09-03 12:42:43* Test Item Value Reference Range Interpretation Comme nts NA (test code = 6853727208) 138 mmol/L 135-145 K (test code = 4552310898) 5.3 mmol/L 3.5-5.0 H CL (test code = 9234540222) 102 mmol/L 98-108 CO2 TOTAL (test code = 2093320702) 30 mmol/L 23-31 AGAP (test code = 3118705763) 6 2-16 BUN (test code = 3246403525) 15 mg/dL 7-23 GLUCOSE (test code = 2107206339) 123 mg/dL 70-110 H CREATININE (test code = 2160-0) 0.91 mg/dL 0.60-1.25 CALCIUM (test code = 7449057682) 8.8 mg/dL 8.6-10.6 eGFR (test code = 13265-4) 95.9 mL/min/1.73m2 CKD-EPI eGFR (2020). Assuming creatinine has been stable day-to-day for at least three months, the eGFR indicates Category G1 (>= 90 mL/min/1.73 m2) Lab Interpretation (test code = 82002-6) [facility] Bsgsb4952[facility]61-45 12:42:43* Test Item Value Reference Range Interpretation Comme nts MAGNESIUM (test code = 3176166407) 1.8 mg/dL 1.7-2.4 Lab Interpretation (test cod e = 25201-1) [facility] Qvpck3811-25-28 12:42:43* Test Item Value Reference Range Interpretation Comme nts PHOSPHORUS (test code = 4244457907) 3.0 mg/dL 2.5-5.0 Lab Interpretation (test cod e = 26196-7) Normal [facility] Metabolic Panel (NA, K, CL, CO2, Glucose, BUN, Creatinine, CA)2023-09-03 12:42:43* Test Item Value Reference Range Interpretation Comme nts NA (test code = 3539008228) 138 mmol/L 135-145 K (test code = 3843707003) 5.3 mmol/L 3.5-5.0 H CL (test code = 9302890751) 102 mmol/L 98-108 CO2 TOTAL (test code = 8099663741) 30 mmol/L 23-31 AGAP (test code = 5432272232) 6 2-16 BUN (test code = 3420618278) 15 mg/dL 7-23 GLUCOSE (test code = 3215459560) 123 mg/dL 70-110 H CREATININE (test code = 2160-0) 0.91 mg/dL 0.60-1.25 CALCIUM (test code = 4181095282) 8.8 mg/dL 8.6-10.6 eGFR (test code = 69094-6) 95.9 mL/min/1.73m2 CKD-EPI eGFR (2020). Assuming creatinine has been stable day-to-day for at least three months, the eGFR indicates Category G1 (>= 90 mL/min/1.73 m2) Lab Interpretation (test code = 42720-5) [facility] Qgdst9995-72-98 12:42:43* Test Item Value Reference Range Interpretation Comme nts MAGNESIUM (test code = 8732144259) 1.8 mg/dL 1.7-2.4 Lab Interpretation (test cod e = 73080-9) [facility] Rcoez2905-51-30 12:42:43* Test Item Value Reference Range Interpretation Comme nts PHOSPHORUS (test code = 4886613735) 3.0 mg/dL 2.5-5.0 Lab Interpretation (test cod e = 69395-9) [facility] Dyfaaavtchzb2193-70-67 12:18:21* Test Item Value Reference Range Interpretation Comme nts WBC (test code = 6690-2) 8.95 4.20-10.70 RBC (test code = 789-8) 5.03 4.26-5.52 HGB (test code = 718-7) 14.8 g/dL 12.2-16.4 HCT (test code = 4544-3) 45.3 % 38.4-49.3 MCV (test code = 787-2) 90.1 fL 81.7-95.6 MCH (test code = 785-6) 29.4 pg 26.1-32.7 MCHC (test code = 786-4) 32.7 g/dL 31.2-35.0 RDW-SD (test code = 56912-1) 50.6 fL 38.5-51.6 RDW-CV (test code = 788-0) 15.4 % 12.1-15.4 PLT (test code = 777-3) 137 150-328 L MPV (test code = 14839-9) 10.6 fL 9.8-13.0 NRBC/100 WBC (test code = 8584889106) 0.0 0.0-10.0 NRBC x10^3 (test code = 9405095468) See_Comment [Automated messa ge] The system which generated this result transmitted reference range: 10*3/?L. The reference range was not used to interpret this result as normal/abnormal. GRAN MAT (NEUT) % (test code = 770-8) 80.2 % IMM GRAN % (test code = 3601124422) 0.70 % LYMPH % (test code = 736-9) 5.9 % MONO % (test code = 5905-5) 13.0 % EOS % (test code = 713-8) 0.0 % BASO % (test code = 706-2) 0.2 % GRAN MAT x10^3(ANC) (test code = 6627806110) 7.18 10*3/uL 1.99-6.95 H IMM GRAN x10^3 (test code = 3131072219) 0.06 10*3/uL 0.00-0.06 LYMPH x10^3 (test code = 731-0) 0.53 10*3/uL 1.09-3.23 L MONO x10^3 (test code = 742-7) 1.16 10*3/uL 0.36-1.02 H EOS x10^3 (test code = 711-2) 0.06-0.53 L BASO x10^3 (test code = 704-7) 0.01-0.09 Lab Interpretation (test code = 15965-3) [facility] with Fprzkemfquia1946-03-46 12:18:21* Test Item Value Reference Range Interpretation Comme nts WBC (test code = 6690-2) 8.95 4.20-10.70 RBC (test code = 789-8) 5.03 4.26-5.52 HGB (test code = 718-7) 14.8 g/dL 12.2-16.4 HCT (test code = 4544-3) 45.3 % 38.4-49.3 MCV (test code = 787-2) 90.1 fL 81.7-95.6 MCH (test code = 785-6) 29.4 pg 26.1-32.7 MCHC (test code = 786-4) 32.7 g/dL 31.2-35.0 RDW-SD (test code = 87577-6) 50.6 fL 38.5-51.6 RDW-CV (test code = 788-0) 15.4 % 12.1-15.4 PLT (test code = 777-3) 137 150-328 L MPV (test code = 80889-7) 10.6 fL 9.8-13.0 NRBC/100 WBC (test code = 2743757089) 0.0 0.0-10.0 NRBC x10^3 (test code = 4404699078) See_Comment [Automated messa ge] The system which generated this result transmitted reference range: 10*3/?L. The reference range was not used to interpret this result as normal/abnormal. GRAN MAT (NEUT) % (test code = 770-8) 80.2 % IMM GRAN % (test code = 1027908268) 0.70 % LYMPH % (test code = 736-9) 5.9 % MONO % (test code = 5905-5) 13.0 % EOS % (test code = 713-8) 0.0 % BASO % (test code = 706-2) 0.2 % GRAN MAT x10^3(ANC) (test code = 9481086727) 7.18 10*3/uL 1.99-6.95 H IMM GRAN x10^3 (test code = 0212175619) 0.06 10*3/uL 0.00-0.06 LYMPH x10^3 (test code = 731-0) 0.53 10*3/uL 1.09-3.23 L MONO x10^3 (test code = 742-7) 1.16 10*3/uL 0.36-1.02 H EOS x10^3 (test code = 711-2) 0.06-0.53 L BASO x10^3 (test code = 704-7) 0.01-0.09 Lab Interpretation (test code = 03361-1) Abnormal [facility] GLUCOSE (AUTOMATED)2023-09-03 09:05:25* Test Item Value Reference Range Interpretation Comme nts POCT GLU (test code = 3588218558) 134 mg/dL 70-110 H Notified Provide r Lab Interpretation (test code = 26992-0) Abnormal [facility] GLUCOSE (AUTOMATED)2023-09-03 09:05:25* Test Item Value Reference Range Interpretation Comme nts POCT GLU (test code = 3966915573) 134 mg/dL 70-110 H Notified Provide r Lab Interpretation (test code = 26637-8) Abnormal [facility] GLUCOSE (AUTOMATED)2023-09-03 02:58:39* Test Item Value Reference Range Interpretation Comme nts POCT GLU (test code = 4671450330) 207 mg/dL 70-110 H Notified Provide r Lab Interpretation (test code = 01888-6) Abnormal [facility] GLUCOSE (AUTOMATED)2023-09-03 02:58:39* Test Item Value Reference Range Interpretation Comme nts POCT GLU (test code = 2879747231) 207 mg/dL 70-110 H Notified Provide r Lab Interpretation (test code = 00944-7) Abnormal [facility] Cscpiaz7877-34-92 16:43:00* Test Item Value Reference Range Interpretation Comme nts POCT Glu (age>30days) (test code = 3342) 132 mg/dL 70-110 A Lab Interpretation (test cod e = 44299-2) Abnormal [facility] Pnrcdeu5175-86-46 16:43:00* Test Item Value Reference Range Interpretation Comme nts POCT Glu (age>30days) (test code = 3342) 132 mg/dL 70-110 A Lab Interpretation (test cod e = 91930-6) Abnormal [facility] GLUCOSE (AUTOMATED)2023-09-02 16:37:19* Test Item Value Reference Range Interpretation Comme nts POCT GLU (test code = 6765525332) 132 mg/dL 70-110 H Lab Interpretation (test cod e = 03198-3) Abnormal [facility] GLUCOSE (AUTOMATED)2023-09-02 16:37:19* Test Item Value Reference Range Interpretation Comme nts POCT GLU (test code = 2259678558) 132 mg/dL 70-110 H Lab Interpretation (test cod e = 96391-0) Abnormal [facility] Nicotine-Urine/Vitdnx9799-16-66 16:00:00 * Test Item Value Reference Range Interpretation Comme nts POCT NICOTINE URINE/PLASMA ( test code = 4026) Negative Positive - Negative Lab Interpretation (test cod e = 83112-5) Normal [facility] Nicotine-Urine/Qobzyu6886-12-74 16:00:00 * Test Item Value Reference Range Interpretation Comme nts POCT NICOTINE URINE/PLASMA ( test code = 4026) Negative Positive - Negative Lab Interpretation (test cod e = 20530-4) [facility] ([facility])(TOTAL CHOLESTEROL, TRIGLYCERIDES, HDL)2022-12-28 20:27:17* Test Item Value Reference Range Interpretation Comme nts CHOL (test code = 6275313519) 104 mg/dL 120-200 L HDL (test code = 6605670707) 21 mg/dL >=40 L HDLC RATIO (test code = 5215533758) 5.0 <=5.0 TRIG (test code = 6055142893) 106 mg/dL 30-170 LDL CHOL (test code = 45663-5) 62 mg/dL <=160 VLDL (test code = 4271279255) 21 mg/dL 5-60 Lab Interpretation (test cod e = 15869-9) Abnormal [facility] HEMOGLOBIN A1C [id number] 14:18:00* Test Item Value Reference Range Interpretation Comme [facility] POCT HBA1C (test code = 4548-4) 6.5 % 4-6 A Lab Interpretation (test cod e = 35709-6) Abnormal [facility] HEMOGLOBIN A1C [id number] 14:18:00* Test Item Value Reference Range Interpretation Comme nts POCT HBA1C (test code = 4548-4) 6.5 % 4-6 A Lab Interpretation (test cod e = 18202-5) Abnormal [facility] HEMOGLOBIN A1C [id number] 14:18:00* Test Item Value Reference Range Interpretation Comme nts POCT HBA1C (test code = 4548-4) 6.5 % 4-6 A Lab Interpretation (test cod e = 58154-6) Abnormal [facility] HEMOGLOBIN A1C [id number] 14:18:00* Test Item Value Reference Range Interpretation Comme nts POCT HBA1C (test code = 4548-4) 6.5 % 4-6 A Lab Interpretation (test cod e = 81865-6) Abnormal [facility] METABOLIC PANEL (03143)2022-12-12 21:18:07* Test Item Value Reference Range Interpretation Comme nts NA (test code = 8179379553) 133 mmol/L 135-145 L K (test code = 3309341387) 4.8 mmol/L 3.5-5.0 CL (test code = 7250878294) 95 mmol/L 98-108 L CO2 TOTAL (test code = 3200540983) 31 mmol/L 23-31 AGAP (test code = 7822885015) 7 2-16 BUN (test code = 9321578631) 11 mg/dL 7-23 GLUCOSE (test code = 8827283840) 116 mg/dL 70-110 H CREATININE (test code = 6388477493) 1.01 mg/dL 0.60-1.25 TOTAL BILI (test code = 2683456232) 0.6 mg/dL 0.1-1.1 CALCIUM (test code = 6266463505) 8.4 mg/dL 8.6-10.6 L T PROTEIN (test code = 7536222331) 6.6 g/dL 6.3-8.2 ALBUMIN (test code = 9354705985) 3.6 g/dL 3.5-5.0 ALK PHOS (test code = 8061776516) 56 U/L 34-122 ALTv (test code = 1742-6) 22 U/L 5-50 AST(SGOT) (test code = 9579817856) 22 U/L 13-40 eGFR (test code = 9333463533) 75.4 mL/min/1.73m2 TROY (test code = TROY) Association of Glomerular Filtration Rate (GFR) and Staging of Kidney Disease* + --+ --+ ------+| GFR (mL/min/1.73 m2) ?| With Kidney Damage ?| ?Without Kidney Damage+ --------+ --------+ +| ?>90 ?| ?Stage one ?| ? Normal ?+ ---+ ---+ -------+| ?60-89 ?| ?Stage two ?| ? Decreased GFR ? + --+ --+ ------+| ?30-59 ?| ?Stage three ?| ? Stage three ? + --+ --+ ------+| ?15-29 ?| ?Stage four ? | ? Stage four ?+ ---+ ---+ -------+| ?<15 (or dialysis) ? ?| ?Stage five ? | ? Stage five ?+ ---+ ---+ -------+ *Each stage assumes the associated GFR level has been in effect for at least three months. ?Stages 1 to 5, with or without kidney disease, indicate chronic kidney disease. Notes: Determination of stages one and two (with eGFR >59mL/min/1.73 m2) requires estimation of kidney damage for at least three months as defined by structural or functional abnormalities of the kidney, manifested by either:Pathological abnormalities or Markers of kidney damage (including abnormalities in the composition of the blood or urine or abnormalities in imaging tests). Lab Interpretation (test code = 98518-7) Abnormal [facility] WITH [id number] 20:42:18* Test Item Value Reference Range Interpretation Comme nts WBC (test code = 6690-2) 7.13 See_Comment [Automated LaunchSide] The system which generated this result transmitted reference range: 4.20 - 10.70 10*3/?L. The reference range was not used to interpret this result as normal/abnormal. RBC (test code = 789-8) 6.03 See_Comment H [Automated [employer]Side] The system which generated this result transmitted reference range: 4.26 - 5.52 10*6/?L. The reference range was not used to interpret this result as normal/abnormal. HGB (test code = 718-7) 15.8 g/dL 12.2-16.4 HCT (test code = 4544-3) 50.2 % 38.4-49.3 H MCV (test code = 787-2) 83.3 fL 81.7-95.6 MCH (test code = 785-6) 26.2 pg 26.1-32.7 MCHC (test code = 786-4) 31.5 g/dL 31.2-35.0 RDW-SD (test code = 71544-9) 52.8 fL 38.5-51.6 H RDW-CV (test code = 788-0) 18.3 % 12.1-15.4 H PLT (test code = 777-3) 184 See_Comment [Automated [employer]Side] The system which generated this result transmitted reference range: 150 - 328 10*3/?L. The reference range was not used to interpret this result as normal/abnormal. MPV (test code = 25902-7) 10.8 fL 9.8-13.0 NRBC/100 WBC (test code = 4285074876) 0.0 See_Comment [Automated me ssage] The system which generated this result transmitted reference range: 0.0 - 10.0 /100 WBCs. The reference range was not used to interpret this result as normal/abnormal. NRBC x10^3 (test code = 0749331423) See_Comment [Automated messa ge] The system which generated this result transmitted reference range: 10*3/?L. The reference range was not used to interpret this result as normal/abnormal. GRAN MAT (NEUT) % (test code = 770-8) 68.0 % IMM GRAN % (test code = 0035170630) 0.80 % LYMPH % (test code = 736-9) 19.4 % MONO % (test code = 5905-5) 9.4 % EOS % (test code = 713-8) 1.8 % BASO % (test code = 706-2) 0.6 % GRAN MAT x10^3(ANC) (test code = 2904327846) 4.85 10*3/uL 1.99-6.95 IMM GRAN x10^3 (test code = 8163525677) 0.06 10*3/uL 0.00-0.06 LYMPH x10^3 (test code = 731-0) 1.38 10*3/uL 1.09-3.23 MONO x10^3 (test code = 742-7) 0.67 10*3/uL 0.36-1.02 EOS x10^3 (test code = 711-2) 0.13 10*3/uL 0.06-0.53 BASO x10^3 (test code = 704-7) 0.04 10*3/uL 0.01-0.09 Lab Interpretation (test code = 10363-6) [facility] [id number] 05:40:19 * Test Item Value Reference Range Interpretation Comme nts TSH (test code = 4723495766) 3.76 See_Comment [Automated messa ge] The system which generated this result transmitted reference range: 0.45 - 4.70 mIU/L. The reference range was not used to interpret this result as normal/abnormal. Lab Interpretation (test code = 37220-8) Normal [facility] [id number] 05:26:18* Test Item Value Reference Range Interpretation Comme [facility] FREE T4 (test code = 3782997317) 1.15 See_Comment [Automated messa ge] The system which generated this result transmitted reference range: 0.78 - 2.20 ng/dL:. The reference range was not used to interpret this result as normal/abnormal. Lab Interpretation (test code = 48946-4) Normal [facility] HEMOGLOBIN A1C [id number] 21:05:00* Test Item Value Reference Range Interpretation Comme [facility] POCT HBA1C (test code = 4548-4) 8.0 % 4-6 A Lab Interpretation (test cod e = 86072-4) Abnormal [facility] HEMOGLOBIN A1C [id number] 21:05:00* Test Item Value Reference Range Interpretation Comme [facility] POCT HBA1C (test code = 4548-4) 8.0 % 4-6 A Lab Interpretation (test cod e = 74002-5) Abnormal [facility] METABOLIC PANEL (NA, K, CL, CO2, GLUCOSE, BUN, CREATININE, CA)2022-08-07 14:03:01* Test Item Value Reference Range Interpretation Comme [facility] NA (test code = 7883396673) 138 mmol/L 135-145 K (test code = 2210204070) 4.0 mmol/L 3.5-5.0 CL (test code = 4682153338) 98 mmol/L 98-108 CO2 TOTAL (test code = 7280492320) 30 mmol/L 23-31 AGAP (test code = 3098290536) 2-16 BUN (test code = 7734994980) 14 mg/dL 7-23 GLUCOSE (test code = 4150527266) 138 mg/dL 70-110 H CREATININE (test code = 1942012838) 1.09 mg/dL 0.60-1.25 CALCIUM (test code = 9885272885) 8.7 mg/dL 8.6-10.6 eGFR (test code = 0043823090) mL/min/1.73m2 TROY (test code = TROY) Association of Glomerular Filtration Rate (GFR) and Staging of Kidney Disease* + --+ --+ ------+| GFR (mL/min/1.73 m2) ?| With Kidney Damage ?| ?Without Kidney Damage+ --------+ --------+ +| ?>90 ?| ?Stage one ?| ? Normal ?+ ---+ ---+ -------+| ?60-89 ?| ?Stage two ?| ? Decreased GFR ? + --+ --+ ------+| ?30-59 ?| ?Stage three ?| ? Stage three ? + --+ --+ ------+| ?15-29 ?| ?Stage four ? | ? Stage four ?+ ---+ ---+ -------+| ?<15 (or dialysis) ? ?| ?Stage five ? | ? Stage five ?+ ---+ ---+ -------+ *Each stage assumes the associated GFR level has been in effect for at least three months. ?Stages 1 to 5, with or without kidney disease, indicate chronic kidney disease. Notes: Determination of stages one and two (with eGFR >59mL/min/1.73 m2) requires estimation of kidney damage for at least three months as defined by structural or functional abnormalities of the kidney, manifested by either:Pathological abnormalities or Markers of kidney damage (including abnormalities in the composition of the blood or urine or abnormalities in imaging tests). Lab Interpretation (test code = 74341-8) [facility] (NA, K, CL, CO2, GLUCOSE, BUN, CREATININE, CA)2022-08-07 14:03:01* Test Item Value Reference Range Interpretation Comme nts NA (test code = 6412751725) 138 mmol/L 135-145 K (test code = 8606900637) 4.0 mmol/L 3.5-5.0 CL (test code = 9008683380) 98 mmol/L 98-108 CO2 TOTAL (test code = 0473068280) 30 mmol/L 23-31 AGAP (test code = 8565841262) 2-16 BUN (test code = 1121770288) 14 mg/dL 7-23 GLUCOSE (test code = 0074412251) 138 mg/dL 70-110 H CREATININE (test code = 5088659476) 1.09 mg/dL 0.60-1.25 CALCIUM (test code = 9246965169) 8.7 mg/dL 8.6-10.6 eGFR (test code = 5176517174) mL/min/1.73m2 TROY (test code = TROY) Association of Glomerular Filtration Rate (GFR) and Staging of Kidney Disease* + --+ --+ ------+| GFR (mL/min/1.73 m2) ?| With Kidney Damage ?| ?Without Kidney Damage+ --------+ --------+ +| ?>90 ?| ?Stage one ?| ? Normal ?+ ---+ ---+ -------+| ?60-89 ?| ?Stage two ?| ? Decreased GFR ? + --+ --+ ------+| ?30-59 ?| ?Stage three ?| ? Stage three ? + --+ --+ ------+| ?15-29 ?| ?Stage four ? | ? Stage four ?+ ---+ ---+ -------+| ?<15 (or dialysis) ? ?| ?Stage five ? | ? Stage five ?+ ---+ ---+ -------+ *Each stage assumes the associated GFR level has been in effect for at least three months. ?Stages 1 to 5, with or without kidney disease, indicate chronic kidney disease. Notes: Determination of stages one and two (with eGFR >59mL/min/1.73 m2) requires estimation of kidney damage for at least three months as defined by structural or functional abnormalities of the kidney, manifested by either:Pathological abnormalities or Markers of kidney damage (including abnormalities in the composition of the blood or urine or abnormalities in imaging tests). Lab Interpretation (test code = 98576-0) Abnormal [facility] WITH [id number] 13:49:21* Test Item Value Reference Range Interpretation Comme nts WBC (test code = 6690-2) See_Comment [Automated [employer]Side] The system which generated this result transmitted reference range: 4.20 - 10.70 10*3/?L. The reference range was not used to interpret this result as normal/abnormal. RBC (test code = 789-8) See_Comment [Automated [employer]Side] The system which generated this result transmitted reference range: 4.26 - 5.52 10*6/?L. The reference range was not used to interpret this result as normal/abnormal. HGB (test code = 718-7) 14.9 g/dL 12.2-16.4 HCT (test code = 4544-3) 44.4 % 38.4-49.3 MCV (test code = 787-2) 87.1 fL 81.7-95.6 MCH (test code = 785-6) 29.2 pg 26.1-32.7 MCHC (test code = 786-4) 33.6 g/dL 31.2-35.0 RDW-SD (test code = 60098-9) 47.8 fL 38.5-51.6 RDW-CV (test code = 788-0) 15.0 % 12.1-15.4 PLT (test code = 777-3) See_Comment [Automated messa ge] The system which generated this result transmitted reference range: 150 - 328 10*3/?L. The reference range was not used to interpret this result as normal/abnormal. MPV (test code = 23449-9) 10.1 fL 9.8-13.0 NRBC/100 WBC (test code = [id number]) See_Comment [Automated [employer] ssage] The system which generated this result transmitted reference range: 0.0 - 10.0 /100 WBCs. The reference range was not used to interpret this result as normal/abnormal. NRBC x10^3 (test code = [id number]) See_Comment [Automated messa ge] The system which generated this result transmitted reference range: 10*3/?L. The reference range was not used to interpret this result as normal/abnormal. GRAN MAT (NEUT) % (test code = 770-8) 67.7 % IMM GRAN % (test code = [id number]) 1.20 % LYMPH % (test code = 736-9) 19.8 % MONO % (test code = 5905-5) 9.6 % EOS % (test code = 713-8) 1.2 % BASO % (test code = 706-2) 0.5 % GRAN MAT x10^3(ANC) (test code = 5891273301) 5.77 10*3/uL 1.99-6.95 IMM GRAN x10^3 (test code = [id number]) 0.10 10*3/uL 0.00-0.06 H LYMPH x10^3 (test code = 731-0) 1.69 10*3/uL 1.09-3.23 MONO x10^3 (test code = 742-7) 0.82 10*3/uL 0.36-1.02 EOS x10^3 (test code = 711-2) 0.10 10*3/uL 0.06-0.53 BASO x10^3 (test code = 704-7) 0.04 10*3/uL 0.01-0.09 Lab Interpretation (test code = 46148-8) Abnormal [facility] WITH [id number] 13:49:21* Test Item Value Reference Range Interpretation Comme nts WBC (test code = 6690-2) See_Comment [Automated messa ge] The system which generated this result transmitted reference range: 4.20 - 10.70 10*3/?L. The reference range was not used to interpret this result as normal/abnormal. RBC (test code = 789-8) See_Comment [Automated messa ge] The system which generated this result transmitted reference range: 4.26 - 5.52 10*6/?L. The reference range was not used to interpret this result as normal/abnormal. HGB (test code = 718-7) 14.9 g/dL 12.2-16.4 HCT (test code = 4544-3) 44.4 % 38.4-49.3 MCV (test code = 787-2) 87.1 fL 81.7-95.6 MCH (test code = 785-6) 29.2 pg 26.1-32.7 MCHC (test code = 786-4) 33.6 g/dL 31.2-35.0 RDW-SD (test code = 63178-5) 47.8 fL 38.5-51.6 RDW-CV (test code = 788-0) 15.0 % 12.1-15.4 PLT (test code = 777-3) See_Comment [Automated messa ge] The system which generated this result transmitted reference range: 150 - 328 10*3/?L. The reference range was not used to interpret this result as normal/abnormal. MPV (test code = 15390-8) 10.1 fL 9.8-13.0 NRBC/100 WBC (test code = 2279505256) See_Comment [Automated [employer] ssage] The system which generated this result transmitted reference range: 0.0 - 10.0 /100 WBCs. The reference range was not used to interpret this result as normal/abnormal. NRBC x10^3 (test code = 3846611529) See_Comment [Automated messa ge] The system which generated this result transmitted reference range: 10*3/?L. The reference range was not used to interpret this result as normal/abnormal. GRAN MAT (NEUT) % (test code = 770-8) 67.7 % IMM GRAN % (test code = 6804775842) 1.20 % LYMPH % (test code = 736-9) 19.8 % MONO % (test code = 5905-5) 9.6 % EOS % (test code = 713-8) 1.2 % BASO % (test code = 706-2) 0.5 % GRAN MAT x10^3(ANC) (test code = 2808635835) 5.77 10*3/uL 1.99-6.95 IMM GRAN x10^3 (test code = 0812806430) 0.10 10*3/uL 0.00-0.06 H LYMPH x10^3 (test code = 731-0) 1.69 10*3/uL 1.09-3.23 MONO x10^3 (test code = 742-7) 0.82 10*3/uL 0.36-1.02 EOS x10^3 (test code = 711-2) 0.10 10*3/uL 0.06-0.53 BASO x10^3 (test code = 704-7) 0.04 10*3/uL 0.01-0.09 Lab Interpretation (test code = 58333-8) Abnormal [facility] WITH [id number] 21:43:18* Test Item Value Reference Range Interpretation Comme nts WBC (test code = 6690-2) See_Comment [Automated messa ge] The system which generated this result transmitted reference range: 4.20 - 10.70 10*3/?L. The reference range was not used to interpret this result as normal/abnormal. RBC (test code = 789-8) See_Comment [Automated messa ge] The system which generated this result transmitted reference range: 4.26 - 5.52 10*6/?L. The reference range was not used to interpret this result as normal/abnormal. HGB (test code = 718-7) 14.9 g/dL 12.2-16.4 HCT (test code = 4544-3) 44.5 % 38.4-49.3 MCV (test code = 787-2) 89.5 fL 81.7-95.6 MCH (test code = 785-6) 30.0 pg 26.1-32.7 MCHC (test code = 786-4) 33.5 g/dL 31.2-35.0 RDW-SD (test code = 23376-3) 50.2 fL 38.5-51.6 RDW-CV (test code = 788-0) 15.6 % 12.1-15.4 H PLT (test code = 777-3) See_Comment [Automated [employer]] The system which generated this result transmitted reference range: 150 - 328 10*3/?L. The reference range was not used to interpret this result as normal/abnormal. MPV (test code = 55907-3) 10.4 fL 9.8-13.0 NRBC/100 WBC (test code = 8716887242) See_Comment [Automated [employer] ssage] The system which generated this result transmitted reference range: 0.0 - 10.0 /100 WBCs. The reference range was not used to interpret this result as normal/abnormal. NRBC x10^3 (test code = 0272193897) See_Comment [Automated messa ge] The system which generated this result transmitted reference range: 10*3/?L. The reference range was not used to interpret this result as normal/abnormal. GRAN MAT (NEUT) % (test code = 770-8) 65.7 % IMM GRAN % (test code = 8767199699) 2.30 % LYMPH % (test code = 736-9) 18.9 % MONO % (test code = 5905-5) 10.1 % EOS % (test code = 713-8) 2.3 % BASO % (test code = 706-2) 0.7 % GRAN MAT x10^3(ANC) (test code = 2097106162) 4.05 10*3/uL 1.99-6.95 IMM GRAN x10^3 (test code = 7649626637) 0.14 10*3/uL 0.00-0.06 H LYMPH x10^3 (test code = 731-0) 1.16 10*3/uL 1.09-3.23 MONO x10^3 (test code = 742-7) 0.62 10*3/uL 0.36-1.02 EOS x10^3 (test code = 711-2) 0.14 10*3/uL 0.06-0.53 BASO x10^3 (test code = 704-7) 0.04 10*3/uL 0.01-0.09 Lab Interpretation (test code = 54176-9) [id number] 21:31:54* Test Item Value Reference Range Interpretation Comments TROPONIN I (test code = 9416767785) 0.009 ng/mL See_Comment [Automated message] The system which generated this result transmitted reference range: <=0.034. The reference range was not used to interpret this result as normal/abnormal. TROY (test code = TROY) Reference (Normal) Range (defined by the 99th percentile reference limit): <= 0.034 ng/mL Note: Cardiac troponin begins to rise 3-4 hours after the onset of ischemia. Repeat in 4-6 hours if the sample was drawn within 3-4 hours of the onset of the symptom and found normal. Diagnosis of myocardial injury is made with acute changes in cTn concentrations with at least one serial sample above the 99th percentile upper reference limit (URL), taken together with the patient's clinical presentation. Biotin has been reported to cause a negative bias, interpret results relative to patient's use of biotin. Lab Interpretation (test code = 40249-8) [id number] 21:28:34* Test Item Value Reference Range Interpretation Comme nts NT-proBNP (test code = 2068554057) 30 pg/mL See_Comment [Automated message] The system which generated this result transmitted reference range: <=125. The reference range was not used to interpret this result as normal/abnormal. TROY (test code = TROY) Biotin has been reported to cause a negative bias, interpret results relative to patient's use of biotin. Lab Interpretation (test code = 25119-8) Normal [facility]. METABOLIC PANEL ([id number])2022-07-22 21:21:12* Test Item Value Reference Range Interpretation Comme nts NA (test code = 1748274597) 134 mmol/L 135-145 L K (test code = 8353773470) 4.6 mmol/L 3.5-5.0 CL (test code = 1912037455) 96 mmol/L 98-108 L CO2 TOTAL (test code = 4153624044) 33 mmol/L 23-31 H AGAP (test code = 4276449328) 2-16 BUN (test code = 1438366659) 17 mg/dL 7-23 GLUCOSE (test code = 3791267926) 213 mg/dL 70-110 H CREATININE (test code = 6924098724) 1.07 mg/dL 0.60-1.25 TOTAL BILI (test code = 4502560305) 0.5 mg/dL 0.1-1.1 CALCIUM (test code = 7381962480) 8.6 mg/dL 8.6-10.6 T PROTEIN (test code = 4881990556) 6.8 g/dL 6.3-8.2 ALBUMIN (test code = 0511719390) 3.8 g/dL 3.5-5.0 ALK PHOS (test code = 8787060473) 75 U/L 34-122 ALTv (test code = 1742-6) 20 U/L 5-50 AST(SGOT) (test code = 5312437169) 21 U/L 13-40 eGFR (test code = 9583682152) mL/min/1.73m2 TROY (test code = TROY) Association of Glomerular Filtration Rate (GFR) and Staging of Kidney Disease* + --+ --+ ------+| GFR (mL/min/1.73 m2) ?| With Kidney Damage ?| ?Without Kidney Damage+ --------+ --------+ +| ?>90 ?| ?Stage one ?| ? Normal ?+ ---+ ---+ -------+| ?60-89 ?| ?Stage two ?| ? Decreased GFR ? + --+ --+ ------+| ?30-59 ?| ?Stage three ?| ? Stage three ? + --+ --+ ------+| ?15-29 ?| ?Stage four ? | ? Stage four ?+ ---+ ---+ -------+| ?<15 (or dialysis) ? ?| ?Stage five ? | ? Stage five ?+ ---+ ---+ -------+ *Each stage assumes the associated GFR level has been in effect for at least three months. ?Stages 1 to 5, with or without kidney disease, indicate chronic kidney disease. Notes: Determination of stages one and two (with eGFR >59mL/min/1.73 m2) requires estimation of kidney damage for at least three months as defined by structural or functional abnormalities of the kidney, manifested by either:Pathological abnormalities or Markers of kidney damage (including abnormalities in the composition of the blood or urine or abnormalities in imaging tests). Lab Interpretation (test code = 37870-0) [id number] 21:15:52* Test Item Value Reference Range Interpretation Comments D-DIMER (test code = 9384333999) See_Comment H [Automated message] The system which generated this result transmitted reference range: <0.41 ?g/mL (FEU). The reference range was not used to interpret this result as normal/abnormal. TROY (test code = TROY) This test may be used in conjunction with a clinical pretest probability (PTP) assessment model to exclude venous thromboembolism (VTE) in patients suspected of deep venous thrombosis (DVT) and pulmonary embolism (PE) A D-Dimer value less than 0.50 ?g/ml (FEU) has a negative predicative value of 96 to 100% (95% CI)and 97 to 100% (95% CI) as an aid in the diagnosis of deep vein thrombosis (DVT) and pulmonary embolism when there is low or moderate pretest probability of PE or DVT. D-Dimer values are expressed in initial fibrinogen equivalent units (FEU)" The assay results should be used with other information, including the clinical context, in forming a diagnosis. Lab Interpretation (test code = 89803-3) Abnormal [facility] URINALYSIS, [id number] 16:57:00 * Test Item Value Reference Range Interpretation Comme nts POCT U SP GRAV (test code = 3255) 1.020 mg/dl 1.005-1.025 POCT PH U (test code = 3254) 6.0 mg/dl 5-8 POCT U LEUK EST (test code = 3263) Negative Negative - Negative POCT U NIT (test code = 3262) Negative Negative - Negati ve POCT U PROT (test code = 3259) Negative Negative - Negative POCT U GLU (test code = 3256) Negative Negative - Negati ve POCT U KETONE (test code = 3258) Negative Negative - Negative POCT U UROBILI (test code = 3260) 1.0 mg/dl 0.2-1 POCT U BILI (test code = 3261) Negative Negative - Negative POCT U BLD (test code = 3257) trace Negative - Negati ve POCT U COLOR (test code = 3266) yellow POCT U APPEAR (test code = 3267) clear [facility] URINALYSIS, [id number] 16:57:00 * Test Item Value Reference Range Interpretation Comme nts POCT U SP GRAV (test code = 3255) 1.020 mg/dl 1.005-1.025 POCT PH U (test code = 3254) 6.0 mg/dl 5-8 POCT U LEUK EST (test code = 3263) Negative Negative - Negative POCT U NIT (test code = 3262) Negative Negative - Negati ve POCT U PROT (test code = 3259) Negative Negative - Negative POCT U GLU (test code = 3256) Negative Negative - Negati ve POCT U KETONE (test code = 3258) Negative Negative - Negative POCT U UROBILI (test code = 3260) 1.0 mg/dl 0.2-1 POCT U BILI (test code = 3261) Negative Negative - Negative POCT U BLD (test code = 3257) trace Negative - Negati ve POCT U COLOR (test code = 3266) yellow POCT U APPEAR (test code = 3267) clear [facility] URINALYSIS, [id number] 16:57:00 * Test Item Value Reference Range Interpretation Comme nts POCT U SP GRAV (test code = 3255) 1.020 mg/dl 1.005-1.025 POCT PH U (test code = 3254) 6.0 mg/dl 5-8 POCT U LEUK EST (test code = 3263) Negative Negative - Negative POCT U NIT (test code = 3262) Negative Negative - Negati ve POCT U PROT (test code = 3259) Negative Negative - Negative POCT U GLU (test code = 3256) Negative Negative - Negati ve POCT U KETONE (test code = 3258) Negative Negative - Negative POCT U UROBILI (test code = 3260) 1.0 mg/dl 0.2-1 POCT U BILI (test code = 3261) Negative Negative - Negative POCT U BLD (test code = 3257) trace Negative - Negati ve POCT U COLOR (test code = 3266) yellow POCT U APPEAR (test code = 3267) clear [facility]. METABOLIC PANEL (97983)2022-05-16 19:01:22* Test Item Value Reference Range Interpretation Comme nts NA (test code = 2040243394) 139 mmol/L 135-145 K (test code = 6710219923) 4.8 mmol/L 3.5-5.0 CL (test code = 3662762061) 95 mmol/L 98-108 L CO2 TOTAL (test code = 3159601430) 36 mmol/L 23-31 H AGAP (test code = 4455975983) 2-16 BUN (test code = 1580643817) 16 mg/dL 7-23 GLUCOSE (test code = 4150442193) 152 mg/dL 70-110 H CREATININE (test code = 6231809130) 1.30 mg/dL 0.60-1.25 H TOTAL BILI (test code = 8414438928) 0.3 mg/dL 0.1-1.1 CALCIUM (test code = 1617432719) 9.1 mg/dL 8.6-10.6 T PROTEIN (test code = 3988329569) 6.4 g/dL 6.3-8.2 ALBUMIN (test code = 0816221367) 3.7 g/dL 3.5-5.0 ALK PHOS (test code = 8685278532) 65 U/L 34-122 ALTv (test code = 1742-6) 18 U/L 5-50 AST(SGOT) (test code = 1352567506) 19 U/L 13-40 eGFR (test code = 9143123175) mL/min/1.73m2 TROY (test code = TROY) Association of Glomerular Filtration Rate (GFR) and Staging of Kidney Disease* + --+ --+ ------+| GFR (mL/min/1.73 m2) ?| With Kidney Damage ?| ?Without Kidney Damage+ --------+ --------+ +| ?>90 ?| ?Stage one ?| ? Normal ?+ ---+ ---+ -------+| ?60-89 ?| ?Stage two ?| ? Decreased GFR ? + --+ --+ ------+| ?30-59 ?| ?Stage three ?| ? Stage three ? + --+ --+ ------+| ?15-29 ?| ?Stage four ? | ? Stage four ?+ ---+ ---+ -------+| ?<15 (or dialysis) ? ?| ?Stage five ? | ? Stage five ?+ ---+ ---+ -------+ *Each stage assumes the associated GFR level has been in effect for at least three months. ?Stages 1 to 5, with or without kidney disease, indicate chronic kidney disease. Notes: Determination of stages one and two (with eGFR >59mL/min/1.73 m2) requires estimation of kidney damage for at least three months as defined by structural or functional abnormalities of the kidney, manifested by either:Pathological abnormalities or Markers of kidney damage (including abnormalities in the composition of the blood or urine or abnormalities in imaging tests). Lab Interpretation (test code = 99314-7) [facility] [id number] 07:19:00* Test Item Value Reference Range Interpretation Comme nts SODIUM (test code = NA) 139 mmol/L 135-145 N POTASSIUM (test code = K) 4.1 mmol/L 3.5-5.1 N CHLORIDE (test code = CL) 106 mmol/L 98-107 N CARBON DIOXIDE (test code = CO2) 28 mmol/L 21-32 N ANION GAP (test code = GAP) 9.1 2.0-16.0 N GLUCOSE (test code = GLU) 158 mg/dL 65-99 H BLOOD UREA NITROGEN (test code = BUN) 11 mg/dL 4-23 N GLOMERULAR FILTRATION RATE (test code = GFR) 60 ml/min The estimated glomerular filtration rate is computed usingpatient race, age (>18), sex, and serum creatinine. If anyof the needed data elements are missing the Laboratory cannot compute an estimation of the glomerular filtration rate. CREATININE (test code = CREAT) 1.3 mg/dL 0.6-1.5 N BUN/CREATININE RATIO (test code = BUN/CREA) 8.5 12.0-20.0 L TOTAL PROTEIN (test code = PROT) 6.7 g/dL 6.4-8.2 N ALBUMIN (test code = ALB) 3.2 g/dL 3.4-5.0 L CALCIUM (test code = CA) 8.9 mg/dL 8.5-10.1 N BILIRUBIN TOTAL (test code = BILT) 0.2 mg/dL 0.2-1.2 N Use of this a ssay is not recommended for patients undergoingtreatment with Eltrombopag due to the potential for falselyelevated results. SGOT/AST (test code = AST) 14 U/L 15-37 L SGPT/ALT (test code = ALT) 17 U/L 6-50 N ALKALINE PHOSPHATASE (test code = ALKP) 54 U/L 45-117 N CBC W/AUTO [id number] 06:50:00* Test Item Value Reference Range Interpretation Comme nts WHITE BLOOD CELL (test code = WBC) 13.6 10 3/uL 4.5-11.0 H RED BLOOD CELL (test code = RBC) 4.70 10 6/uL 4.30-5.90 N HEMOGLOBIN (test code = HGB) 13.7 g/dL 14.0-18.0 L HEMATOCRIT (test code = HCT) 42.9 % 40.0-55.0 N MEAN CELL VOLUME (test code = MCV) 91 fL 81-102 N MEAN CELL HGB (test code = MCH) 29.1 pg 26.0-34.0 N MEAN CELL HGB CONCENTRATION (test code = MCHC) 31.9 g/dL 31.0-37.0 N RED CELL DISTRIBUTION WIDTH (test code = RDW) 13.3 % 11.6-14.4 N PLATELET COUNT (test code = PLT) 193 10 3/uL 150-400 N MEAN PLATELET VOLUME (test code = MPV) 10.9 fL 9.0-12.6 N NEUTROPHIL % (test code = NT%) 82.0 % 33.0-76.0 H IMMATURE GRANULOCYTE % (test code = IG%) 0.3 % 0.0-1.0 N LYMPHOCYTE % (test code = LY%) 8.8 % 14.0-56.4 L MONOCYTE % (test code = MO%) 8.7 % 0.0-12.9 N EOSINOPHIL % (test code = EO%) 0.1 % 0.0-7.0 N BASOPHIL % (test code = BA%) 0.1 % 0-2.0 N NUCLEATED RBC % (test code = NRBC%) 0.0 % 0-0.2 N NEUTROPHIL # (test code = NT#) 11.12 10 3/uL 1.5-7.0 H IMMATURE GRANULOCYTE # (test code = IG#) 0.040 x10 3/uL 0.000-0.100 N LYMPHOCYTE # (test code = LY#) 1.19 10 3/uL 1.50-4.00 L MONOCYTE # (test code = MO#) 1.18 10 3/uL 0.20-0.80 H EOSINOPHIL # (test code = EO#) 0.01 10 3/uL 0.0-0.5 N BASOPHIL # (test code = BA#) 0.02 10 3/uL 0.0-0.1 N - XR C-SPINE 2-3 [id number] 14:35:00 [facility] : 1960 Sex: MPatient Name: BILLY RICHARDS Unit No: [id number] EXAMS: CPT CODE: [id number] XR C-SPINE 2-3 VIEWS 86650 Fluoroscopy 6 views intraoperative 10/03/2021 2:35 PM CLINICAL HISTORY: Instrument localization COMPARISON: None available LOCATION: W1 IMPRESSION: Please correlate imaging report findingswith the procedure note prepared by Dr. Thapa, as an intra-procedure imaging consultation was not req uested. Reported fluoroscopy time: 58.5 seconds. at 1435 Reported and signed by: John Saul CC: DOES_NOT KNOW; Sue Thapa MD Technologist: Javy Abdalla Fluoro Time: DAP (Gy m2): Air Kerma (mGy): Trscr Dt/Tm: 10/03/2021 (1435) by:[email or web address] Electronic Signature Date/Time: 10/03/2021 (1435)Orig Print D/T: S: 10/03/2021 (1438) Name: BILLY RICHARDS [facility] Phys: [place] [address] : 1960 Age: 61 Sex: [place] [id number] Loc: [place].4108 1 Exam Date: 10/03/2021tatus: ADM IN PH: FAX: PAGE 1 Signed ReportISTAT-[id number] 06:34:00* Test Item Value Reference Range Interpretation Comme nts HEMOGLOBIN POC (test code = HBP) 15.6 g/dL 12-17 N HEMATOCRIT POC (test code = HCTP) 46.0 % 38-51 N SODIUM POC (test code = NAP) 139 mmol/L 138-146 N POTASSIUM POC (test code = KP) 3.8 mmol/L 3.5-4.9 N CHLORIDE POC (test code = CLP) 100 mmol/L 98-109 N CO2 POC (test code = CO2P) 28 mmol/L 24-29 N IONIZED CALCIUM POC (test co de = CAIP) 1.21 mmol/L 1.12-1.32 N GLUCOSE POC (test code = GLUP) 98 mg/dL 70-105 N BUN POC (test code = BUNP) 12 mg/dL 8-26 N CREATININE POC (test code = CREATP) 1.1 mg/dL 0.6-1.3 N GLOMERULAR FILTRATION RATE P OC (test code = GFRP) 69 mL/min 60-115 N - MRI C-SPINE W/O [id number] 15:07:00 [facility] : 1960 Sex: MPatient Name: BILLY RICHARDS Unit No: [id number] EXAMS: CPT CODE: [id number] MRI C-SPINE W/O CONT 10650 EXAM: MRI Cervical spine without contrast. Location: A1 History: NECK PAIN, cervical region radiculopathy, COMPARISON: Correlation with CT from 05/14/2019 TECHNIQUE: Sagittal T1, T2, STIR and axialT1 and T2 and right and left sagittal oblique T2 weighted images of the cervical spine were obtained. FINDINGS: There is straightening of normal cervical lordosis. The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 pharmacy (04/20/2024 2:01 PM CDT) Recent Visits Date Type Provider Dept 04/20/24 Office Visit Juan Manuel Novoa MD [facility] 04/14/24 Office Visit Juan Manuel Novoa MD [facility] 02/20/24 Office Visit Santo Validvia MD [facility] 11/19/23 Office Visit Juan Manuel Novoa MD [facility] 09/30/23 Office Visit Juan Manuel Novoa MD [facility] 07/31/23 Office Visit Liss Chiang PA [facility] 05/22/23 Office Visit Juan Manuel Novoa MD [facility] 02/04/23 Office Visit Juan Manuel Novoa MD [facility] Showing recent visits within past 540 days with a meds authorizing provider and meeting all other requirements Future Appointments No visits were found meeting these conditions. 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 Pt was informed the only way he can get the results is from [employer] or they can contact our medical records department to release his test results. Audiology will not be able to help because of HIPAA violation. If pt calls back please let him know the above info. Tierra Sanchez MBA Gas Generator Operator Tierra Sanchez [facility] 2024-05-11 15:13:01 Please refer patient to [facility] medical records to obtain the information they are seeking. Sarah Stevens, SAVANAH-Raymond, ABDI, CH-AP Board Certified [employer] Specialist AUTOMATION CLERK [facility] 2024-05-07 11:09:54 Please send to medical records to assist patient. Beatriz Salamanca, SAVANAH-A [employer] Specialist AUTOMATION CLERK [facility] 2024-05-06 11:29:00 [facility] Orthopedic D/C Summary REPORT #: [id number] REPORT STATUS: Signed DATE: 05/06/24 TIME: 112 PATIENT: BILLY RICHARDS UNIT #: [id number] ROOM #: [id number] BED: 1 : 62 AGE: 64 SEX: M ATTEND: Sue Thapa MD ADM AUTHOR: Pravin Magana APRN ATTENT ION *EDITS and/or ADDENDA must be made in Patient Keeper for this note. * * Edits and ammendments created in [employer] are not visible * * in Patient Keeper or the legal medical record (HPF). * -- PROBLEMS/PROCEDURES -- ADMISSION DATE: 04/30/24 ADMITTING DIAGNOSES: - Lumbar canal stenosis DISCHARGE DATE: 05/06/24 DISCHARGE DIAGNOSES: - Lumbar canal stenosis -- HOSPITAL COURSE -- HOSPITAL COURSE: Patient had severe lower back pain and failed outpatient therapy. He elected to undergo L4-5 fusion. Tolerated well. Had some pulmonary needs. Off 02. Mental status improved. Ready for dc home. -- DISCHARGE MEDICATIONS -- ALLERGIES: hydrocodone (Severe - Allergy) DISCHARGE MEDICATIONS: Please refer to Discharge Medication list for a complete list of discharge medications Atorvastatin Tab (Lipitor Tab) 20 MG PO DAILY Divalproex DR Tab (Depakote DR Tab) 1000 MG PO BEDTIME prazosin capsule 6 MG PO BEDTIME SEROquel tablet (quetiapine) 300 MG PO BEDTIME -- DISCHARGE INSTRUCTIONS -- PK DISCHARGE ORDERS: Discharge w/Instructions (No Lui) Details: Discharge to:: Home/Self Care Diet:: Regular Activity:: No Bending, No Lifting, No Twisting, Walk 3 times a day Wound/dressing care:: Keep wound clean and dry PCP follow up timeframe:: In 6 days Details: Details: DC Order - No eCQM 2019.2 DC Order - No eCQM 2019.2 ADDTIONAL DISCHARGE INSTRUCTIONS: Emergency Instructions: The patient was instructed to present to the nearest Emergency Department or call 911 should their symptoms return or worsen.; -- OBJECTIVE -- VITALS (05/05 11:29 - 05/06 11:29): Temperature C: 36.6 (36.4 - 36.9) Temperature source: Oral Pulse Rate 63 (61 - 75) Respiratory rate: 18 (16 - 19) Blood pressure: 126/79 (112/62 - 135/79) I/Os (05/05 07:00 - 05/06 07:00): Net 4,850 Intake 4,850 -EXAM- MUSCULOSKELETAL: L-spine: Post-op dressings over posterior and lateral aspects are secure, cdi. BLE: df/pf/ehl/fhl/ta intact. dp/sp/tib silt. 2+ dp/pt pulses. brisk cap refill < 2 sec. -- DATA -- LABS BASIC METABOLIC PANEL (05/06/24 09:25) SODIUM 141 POTASSIUM 3.4L L CHLORIDE 101 CARBON DIOXIDE 37H H ANION GAP 6.4 GLUCOSE 121H H BLOOD UREA NITROGEN 10 GLOMERULAR FILTRATION RATE >=60 max estimate CREATININE 0.8 BUN/CREATININE RATIO 12.5 CALCIUM 9.3 CBC W/AUTO DIFF (05/06/24 09:25) WHITE BLOOD CELL 5.1 RED BLOOD CELL 4.59 HEMOGLOBIN 14.4 HEMATOCRIT 42.4 MEAN CELL VOLUME 92 MEAN CELL HGB 31.4 MEAN CELL HGB CONCENTRATION 34.0 RED CELL DISTRIBUTION WIDTH 14.1 PLATELET COUNT 194 MEAN PLATELET VOLUME 10.7 NEUTROPHIL % 64.6 IMMATURE GRANULOCYTE % 0.8 LYMPHOCYTE % 17.7 MONOCYTE % 9.8 EOSINOPHIL % 6.7 BASOPHIL % 0.4 NUCLEATED RBC % 0.0 NEUTROPHIL # 3.28 IMMATURE GRANULOCYTE # 0.040 LYMPHOCYTE # 0.90 L MONOCYTE # 0.50 EOSINOPHIL # 0.34 BASOPHIL # 0.02 NUCLEATED RBC # 0.000 Signed in PatientKeeper by Pravin Magana APRN on 05/06/24 at 11:30 Cosigned by SUE THAPA MD on 05/16/24 at 15:11 at 1511 at 1511 ATTENT ION *EDITS and/or ADDENDA must be made in Patient Keeper for this note. * * Edits and ammendments created in [facility] are not visible * * in Patient Keeper or the legal medical record ([facility]). * RPT #: [id number] END OF REPORT [facility] 2024-05-06 11:29:00 [facility] Med Order Sheet REPORT #: [id number] REPORT STATUS: Signed DATE: 05/06/24 TIME: 1129 PATIENT: BILLY RICHARDS UNIT #: [id number] ROOM #: [id number] BED: 1 : 62 AGE: 64 SEX: M ATTEND: Sue Thapa MD ADM AUTHOR: Pravin Magana APRN ATTENT ION *EDITS and/or ADDENDA must be made in Patient Keeper for this note. * * Edits and ammendments created in [facility] are not visible * * in Patient Keeper or the legal medical record ([facility]). * Discharge Medication Reconciliation Discharge Meds Rec Completed. No Reconciled Orders. at 1129 ATTENT ION *EDITS and/or ADDENDA must be made in Patient Keeper for this note. * * Edits and ammendments created in [employer] are not visible * * in Patient Keeper or the legal medical record ([facility]). * RPT #: [id number] END OF REPORT [facility] 2024-05-06 11:13:00 [facility] Pulmonology Progress Note REPORT #: [id number] REPORT STATUS: Signed DATE: 05/06/24 TIME: 1113 PATIENT: BILLY RICHARDS UNIT #: [id number] ROOM #: [id number] BED: 1 : 62 AGE: 64 SEX: M ATTEND: Sue Thapa MD ADM AUTHOR: Ibeth Fontenot MD ATTENT ION *EDITS and/or ADDENDA must be made in Patient Keeper for this note. * * Edits and ammendments created in [employer] are not visible * * in Patient Keeper or the legal medical record ([facility]). * -- ASSESSMENT AND PLAN -- GENERAL ASSESSMENT: [facility] ---- Assessment: Chronic back pain Encounter for post-operative care S/P lumbar fusion HTN HFpEF DM History of gastric bypass Former smoker Plan: Post-operative pain control per surgery team Resume home meds Monitor H H, electrolytes Add bronchodilator nebs now PT/OT quevedo removed 05/03 PM episode of confusion CTH no acute abnl UA without signs of infection, Ammonia WNL Labs reviewed CXR 05/03 with mild vascular congestion Lasix 20 mg IV previously Now on room air Appears near baseline Having BMs Repeat labs reviewed, mild hypokalemia, potassium ordered OK for discharge planning SCDs for VTE prophylaxis Thank you for this consultation; Pulmonary will continue to follow. Please do not hesitate to call with questions or concerns. --------- Subjective Events reviewed VS reviewed Room air Awake, alert Feeling well Ate breakfast No complaints HPI: This is a 64-year-old male with a PMH as noted below, presenting to the hospital with back pain. He was seen in consultation by Dr. Ennis who advised surgical repair. He successfully underwent lumbar spinal surgery. He is seen in PACU recovering after prolonged anesthesia effect postoperatively. Patient does have a cough which does appear to be moderately productive. Pulmonary has been consulted to assist with postoperative medical management. Past medical history: Hypertension, diabetes, diastolic congestive heart failure PSurgHx: History of gastric bypass, appendectomy, knee surgery, tonsillectomy FamHx: Noncontributory SocHx: Former smoker Review of systems: 14 point review system negative unless listed above Physical Exam General: NAD, awake and alert Eyes: Anicteric sclerae. Mouth: MMM Neck: Supple. CV: Regular rate and rhythm. Normal S1 and S2. Pulm: Good effort, no wheezing or Rales appreciated. Abdomen: Soft, nontender.BS+ Extremities: No lower extremity edema. Skin: Warm, dry. Neuro: Awake and alert, no focal neurological deficit Psych: Appropriate mood -- OBJECTIVE -- VITALS (05/05 11:13 - 05/06 11:13): Temperature C: 36.6 (36.4 - 36.9) Temperature source: Oral Pulse Rate 63 (61 - 75) Respiratory rate: 18 (16 - 19) Blood pressure: 126/79 (112/62 - 135/79) I/Os (05/05 07:00 - 05/06 07:00): Net 4,850 Intake 4,850 -- DATA -- MEDICATIONS diazePAM 5 MG PO Q8H PRN ACETAMINOPHEN 650 MG PO Q6HR DIVALPROEX SODIUM 1000 MG PO BEDTIME QUEtiapine FUMARATE 300 MG PO BEDTIME ATORVASTATIN CALCIUM 20 MG PO DAILY PATIENT'S OWN MEDICATION PRAZOSIN 6 MG PO BEDTIME guaiFENesin 600 MG PO Q12HR RINGERS, LACTATED 1000 ML IV .SPECIAL INST ONDANSETRON HCL/PF 4 MG IV Q4H PRN IPRATROPIUM/ALBUTEROL SULFATE 3 ML NEB RTQ6H WA MAGNESIUM HYDROXIDE 30 ML PO DAILY PRN ACETAMINOPHEN 650 MG PO Q4H PRN LABS BASIC METABOLIC PANEL (05/06/24 09:25) SODIUM 141 POTASSIUM 3.4L L CHLORIDE 101 CARBON DIOXIDE 37H H ANION GAP 6.4 GLUCOSE 121H H BLOOD UREA NITROGEN 10 GLOMERULAR FILTRATION RATE >=60 max estimate CREATININE 0.8 BUN/CREATININE RATIO 12.5 CALCIUM 9.3 CBC W/AUTO DIFF (05/06/24 09:25) WHITE BLOOD CELL 5.1 RED BLOOD CELL 4.59 HEMOGLOBIN 14.4 HEMATOCRIT 42.4 MEAN CELL VOLUME 92 MEAN CELL HGB 31.4 MEAN CELL HGB CONCENTRATION 34.0 RED CELL DISTRIBUTION WIDTH 14.1 PLATELET COUNT 194 MEAN PLATELET VOLUME 10.7 NEUTROPHIL % 64.6 IMMATURE GRANULOCYTE % 0.8 LYMPHOCYTE % 17.7 MONOCYTE % 9.8 EOSINOPHIL % 6.7 BASOPHIL % 0.4 NUCLEATED RBC % 0.0 NEUTROPHIL # 3.28 IMMATURE GRANULOCYTE # 0.040 LYMPHOCYTE # 0.90 L MONOCYTE # 0.50 EOSINOPHIL # 0.34 BASOPHIL # 0.02 NUCLEATED RBC # 0.000 Signed in PatientKeeper by IBETH FONTENOT MD on 05/06/24 at 11:15 at 1115 ATTENT ION *EDITS and/or ADDENDA must be made in Patient Keeper for this note. * * Edits and ammendments created in [employer] are not visible * * in Patient Keeper or the legal medical record (HPF). * RPT #: [id number] END OF REPORT [facility] 2024-05-06 11:02:36 Billy Richards is a 64 year old male Patient spouse calling for audio results done Mar 2020, she requested medical records but does not have the results from audio, she is needing to get the information to court hearing gaurav Please advise [email or web address] 2024-05-05 10:51:00 [facility] Pulmonology Progress Note REPORT #: [id number] REPORT STATUS: Signed DATE: 05/05/24 TIME: 105 PATIENT: BILLY RICHARDS UNIT #: [id number] ROOM #: [id number] BED: 1 : 62 AGE: 64 SEX: M ATTEND: Sue Thapa MD ADM AUTHOR: Ibeth Fontenot MD ATTENT ION *EDITS and/or ADDENDA must be made in Patient Keeper for this note. * * Edits and ammendments created in [employer] are not visible * * in Patient Keeper or the legal medical record (HPF). * -- ASSESSMENT AND PLAN -- GENERAL ASSESSMENT: [facility] ---- Assessment: Chronic back pain Encounter for post-operative care S/P lumbar fusion HTN HFpEF DM History of gastric bypass Former smoker Plan: Post-operative pain control per surgery team Resume home meds Monitor H H, electrolytes Add bronchodilator nebs now PT/OT quevedo removed 05/03 PM episode of confusion CTH no acute abnl UA without signs of infection, Ammonia WNL Labs reviewed CXR 05/03 with mild vascular congestion Lasix 20 mg IV x 1 again Wean off oxygen Ambulate, monitor pulse ox, PT/OT Possible discharge today Discussed with ambulatory nurse Barrington for VTE prophylaxis Thank you for this consultation; Pulmonary will continue to follow. Please do not hesitate to call with questions or concerns. --------- Subjective Events reviewed VS reviewed NC O2 2 LPM Awake, alert Denies any SOB, chest pain Confusion improved per staff report No family member at bedside HPI: This is a 64-year-old male with a PMH as noted below, presenting to the hospital with back pain. He was seen in consultation by Dr. Ennis who advised surgical repair. He successfully underwent lumbar spinal surgery. He is seen in PACU recovering after prolonged anesthesia effect postoperatively. Patient does have a cough which does appear to be moderately productive. Pulmonary has been consulted to assist with postoperative medical management. Past medical history: Hypertension, diabetes, diastolic congestive heart failure PSurgHx: History of gastric bypass, appendectomy, knee surgery, tonsillectomy FamHx: Noncontributory SocHx: Former smoker Review of systems: 14 point review system negative unless listed above Physical Exam General: NAD, awake and alert Eyes: Anicteric sclerae. Mouth: MMM Neck: Supple. CV: Regular rate and rhythm. Normal S1 and S2. Pulm: Good effort, no wheezing or Rales appreciated. Abdomen: Soft, nontender.BS+ Extremities: No lower extremity edema. Skin: Warm, dry. Neuro: Awake and alert, no focal neurological deficit Psych: Appropriate mood -- OBJECTIVE -- VITALS (05/04 10:51 - 05/05 10:51): Temperature C: 36.7 (36.4 - 37.1) Temperature source: Oral Pulse Rate 80 (66 - 80) Respiratory rate: 18 (18 - 20) Blood pressure: 128/74 (111/69 - 134/83) I/Os (05/04 07:00 - 05/05 07:00): Net -2,100 Output 2,100 -- DATA -- MEDICATIONS diazePAM 5 MG PO Q8H PRN CODEINE PHOSPHATE/APAP 2 TAB PO Q4H PRN ACETAMINOPHEN 650 MG PO Q6HR DIVALPROEX SODIUM 1000 MG PO BEDTIME QUEtiapine FUMARATE 300 MG PO BEDTIME HYDROmorphone HCL 0.25 MG IV Q3H PRN ATORVASTATIN CALCIUM 20 MG PO DAILY PATIENT'S OWN MEDICATION PRAZOSIN 6 MG PO BEDTIME CODEINE PHOSPHATE/APAP 1 TAB PO Q4H PRN guaiFENesin 600 MG PO Q12HR RINGERS, LACTATED 1000 ML IV .SPECIAL INST ONDANSETRON HCL/PF 4 MG IV Q4H PRN IPRATROPIUM/ALBUTEROL SULFATE 3 ML NEB RTQ6H WA MAGNESIUM HYDROXIDE 30 ML PO DAILY PRN ACETAMINOPHEN 650 MG PO Q4H PRN Signed in PatientKeeper by IBETH FONTENOT MD on 05/05/24 at 10:52 at 1052 ATTENT ION *EDITS and/or ADDENDA must be made in Patient Keeper for this note. * * Edits and ammendments created in [facility] are not [facility] * * in Patient Keeper or the legal medical record (HPF). * RPT #: [id number] END OF REPORT [facility] 2024-05-05 10:41:00 [facility] Orthopedic Progress Note REPORT #: [id number] REPORT STATUS: Signed DATE: 05/05/24 TIME: 1041 PATIENT: BILLY RICHARDS UNIT #: [id number] ROOM #: [id number] BED: 1 : 62 AGE: 64 SEX: M ATTEND: Sue Thapa MD ADM AUTHOR: Pravin Magana APRN ATTENT ION *EDITS and/or ADDENDA must be made in Patient Keeper for this note. * * Edits and ammendments created in [employer] are not visible * * in Patient Keeper or the legal medical record (HPF). * -- ASSESSMENT AND PLAN -- PROBLEMS: 1: Lumbar canal stenosis A/P: S/p POD #5 L4-5 OLIF w/ L3-4 far lateral. Has voided. Passing gas, pending BM. Will add a supp. Needs to walk more with therapy. PT/OT: WBAT to BLE, walker, standby assist. No BLT. OOB to chair TID. incentive spirometer 8-10x/hr Keep post-op dressings secure, cdi. NV checks and VS per unit protocol SCDs and TEDs for DVT ppx Plan to d/c home tomorrow. Pending BM. Has to wean from O2. F/up op with Dr. Thapa in 1 wk. For any questions or concerns, please contact [facility] chain maker lo[employer] control or at [phone] Thank you. -- SUBJECTIVE -- CHIEF COMPLAINT: Low back pain HPI: No bm yet. Stable with decreased mental affect. -- OBJECTIVE -- VITALS (05/04 10:41 - 05/05 10:41): Temperature C: 36.7 (36.4 - 37.1) Temperature source: Oral Pulse Rate 80 (66 - 80) Respiratory rate: 18 (18 - 20) Blood pressure: 128/74 (111/69 - 134/83) I/Os (05/04 07:00 - 05/05 07:00): Net -2,100 Output 2,100 -EXAM- MUSCULOSKELETAL: L-spine: Post-op dressings over posterior and lateral aspects are secure, cdi. BLE: df/pf/ehl/fhl/ta intact. dp/sp/tib silt. 2+ dp/pt pulses. brisk cap refill < 2 sec. -- DATA -- MEDICATIONS diazePAM 5 MG PO Q8H PRN CODEINE PHOSPHATE/APAP 2 TAB PO Q4H PRN ACETAMINOPHEN 650 MG PO Q6HR DIVALPROEX SODIUM 1000 MG PO BEDTIME QUEtiapine FUMARATE 300 MG PO BEDTIME HYDROmorphone HCL 0.25 MG IV Q3H PRN ATORVASTATIN CALCIUM 20 MG PO DAILY PATIENT'S OWN MEDICATION PRAZOSIN 6 MG PO BEDTIME CODEINE PHOSPHATE/APAP 1 TAB PO Q4H PRN guaiFENesin 600 MG PO Q12HR RINGERS, LACTATED 1000 ML IV .SPECIAL INST ONDANSETRON HCL/PF 4 MG IV Q4H PRN IPRATROPIUM/ALBUTEROL SULFATE 3 ML NEB RTQ6H WA MAGNESIUM HYDROXIDE 30 ML PO DAILY PRN bisacodyL 10 MG RECTAL ONCE ACETAMINOPHEN 650 MG PO Q4H PRN Signed in PatientKeeper by Pravin Magana APRN on 05/05/24 at 10:42 Cosigned by SUE THAPA MD on 05/16/24 at 15:11 at 1511 at 1511 ATTENT ION *EDITS and/or ADDENDA must be made in Patient Keeper for this note. * * Edits and ammendments created in [facility] are not visible * * in Patient Keeper or the legal medical record ([facility]). * [facility] #: [id number] END OF REPORT [facility] 2024-05-04 14:28:00 [facility] Orthopedic Progress Note REPORT #: [id number] REPORT STATUS: Signed DATE: 05/04/24 TIME: 1428 PATIENT: BILLY RICHARDS UNIT #: [id number] ROOM #: [id number] BED: 1 : 62 AGE: 64 SEX: M ATTEND: Sue Thapa MD ADM AUTHOR: Chico Spencer ATTENT ION *EDITS and/or ADDENDA must be made in Patient Keeper for this note. * * Edits and ammendments created in [employer] are not visible * * in Patient Keeper or the legal medical record ([facility]PF). * -- ASSESSMENT AND PLAN -- PROBLEMS: 1: Lumbar canal stenosis A/P: S/p POD #4 L4-5 OLIF w/ L3-4 far lateral. Has voided. Passing gas, pending BM. Needs to walk more with therapy. PT/OT: WBAT to BLE, walker, standby assist. No BLT. OOB to chair TID. incentive spirometer 8-10x/hr Keep post-op dressings secure, cdi. NV checks and VS per unit protocol SCDs and TEDs for DVT ppx Plan to d/c home tomorrow. Pending BM. F/up op with Dr. Thapa in 1 wk. For any questions or concerns, please contact [facility] [employer] control or at [phone] Thank you. -- SUBJECTIVE -- PATIENT NARRATIVE: Patient sitting up in bed, complies with exam. S/p POD #4 L4-5 OLIF w/ L3-4 far lateral. Has voided. Passing gas, pending BM. Needs to walk more with therapy. Denies any fever, chills, sweats, chest pain, shortness of breath, bowel/bladder incontinence or saddle anesthesia. -- OBJECTIVE -- VITALS (05/03 14:28 - 05/04 14:28): Temperature C: 37.1 (36.6 - 37.1) Pulse Rate 80 (80 - 104) Respiratory rate: 18 (18 - 19) Blood pressure: 127/74 (127/64 - 156/80) I/Os (05/03 07:00 - 05/04 07:00): Net -2,600 Intake 50 Output 2,650 -EXAM- MUSCULOSKELETAL: L-spine: Post-op dressings over posterior and lateral aspects are secure, cdi. BLE: df/pf/ehl/fhl/ta intact. dp/sp/tib silt. 2+ dp/pt pulses. brisk cap refill < 2 sec. -- DATA -- MEDICATIONS diazePAM 5 MG PO Q8H PRN oxyCODONE HCL/ACETAMINOPHEN 2 TAB PO Q4H PRN CODEINE PHOSPHATE/APAP 2 TAB PO Q4H PRN ACETAMINOPHEN 650 MG PO Q6HR DIVALPROEX SODIUM 1000 MG PO BEDTIME QUEtiapine FUMARATE 300 MG PO BEDTIME HYDROmorphone HCL 0.25 MG IV Q3H PRN ATORVASTATIN CALCIUM 20 MG PO DAILY PATIENT'S OWN MEDICATION PRAZOSIN 6 MG PO BEDTIME CODEINE PHOSPHATE/APAP 1 TAB PO Q4H PRN guaiFENesin 600 MG PO Q12HR RINGERS, LACTATED 1000 ML IV .SPECIAL INST oxyCODONE HCL/ACETAMINOPHEN 1 TAB PO Q4H PRN ONDANSETRON HCL/PF 4 MG IV Q4H PRN IPRATROPIUM/ALBUTEROL SULFATE 3 ML NEB RTQ6H WA MAGNESIUM HYDROXIDE 30 ML PO DAILY PRN ACETAMINOPHEN 650 MG PO Q4H PRN LABS URINALYSIS COMPLETE (05/04/24 00:20) UA COLOR YELLOW UA APPEARANCE CLEAR UA GLUCOSE DIPSTICK NEGATIVE UA BILIRUBIN DIPSTICK NEGATIVE UA KETONE DIPSTICK 1+ H UA SPECIFIC GRAVITY 1.014 UA BLOOD DIPSTICK 1+ H UA PH DIPSTICK 6.0 UA PROTEIN DIPSTICK NEGATIVE UA UROBILINOGEN DIPSTICK NEGATIVE UA NITRITE DIPSTICK NEGATIVE UA LEUKOCYTE ESTERASE DIPSTICK NEGATIVE UA WBC 0-2 UA RBC NONE SEEN UA BACTERIA NONE SEEN UA SQUAMOUS CELLS None seen UA MUCUS OCCASIONAL AMM (05/03/24 16:54) AMMONIA 26 TSH REFX FT4 (05/03/24 16:54) TSH REFLEX TO FT4 1.47 Signed in PatientKeeper by Chico Spencer on 05/04/24 at 14:39 Cosigned by SUE THAPA MD on 05/16/24 at 15:11 at 1511 at 1511 ATTENT ION *EDITS and/or ADDENDA must be made in Patient Keeper for this note. * * Edits and ammendments created in [facility] are not visible * * in Patient Keeper or the legal medical record ([facility]PF). * [facility] #: [id number] END OF REPORT [facility] 2024-05-04 10:21:00 [facility] Pulmonology Progress Note REPORT #: [id number] REPORT STATUS: Signed DATE: 05/04/24 TIME: 1021 PATIENT: BILLY RICHARDS UNIT #: [id number] ROOM #: [id number] BED: 1 : 62 AGE: 64 SEX: M ATTEND: Sue Thapa MD ADM AUTHOR: Ibeth Fontenot MD ATTENT ION *EDITS and/or ADDENDA must be made in Patient Keeper for this note. * * Edits and ammendments created in [employer] are not visible * * in Patient Keeper or the legal medical record ([facility]PF). * -- ASSESSMENT AND PLAN -- GENERAL ASSESSMENT: [facility] ---- Assessment: Chronic back pain Encounter for post-operative care S/P lumbar fusion HTN HFpEF DM History of gastric bypass Former smoker Plan: Post-operative pain control per surgery team Resume home meds Monitor H H, electrolytes Add bronchodilator nebs now PT/OT conor removed 05/03 PM episode of confusion CTH no acute abnl UA without signs of infection, Ammonia WNL Labs reviewed CXR with mild vascular congestion Lasix 20 mg IV x 1 now Ambulate, monitor pulse ox, PT/OT Possible discharge soon Discussed with ambulatory nurse Barrington for VTE prophylaxis Thank you for this consultation; Pulmonary will continue to follow. Please do not hesitate to call with questions or concerns. --------- Subjective Events reviewed VS reviewed Episode of confusion yesterday evening Currently, awake and alert Feeling tired Eating breakfast No other complaints On phone HPI: This is a 64-year-old male with a PMH as noted below, presenting to the hospital with back pain. He was seen in consultation by Dr. Ennis who advised surgical repair. He successfully underwent lumbar spinal surgery. He is seen in PACU recovering after prolonged anesthesia effect postoperatively. Patient does have a cough which does appear to be moderately productive. Pulmonary has been consulted to assist with postoperative medical management. Past medical history: Hypertension, diabetes, diastolic congestive heart failure PSurgHx: History of gastric bypass, appendectomy, knee surgery, tonsillectomy FamHx: Noncontributory SocHx: Former smoker Review of systems: 14 point review system negative unless listed above Physical Exam General: NAD, awake and alert Eyes: Anicteric sclerae. Mouth: MMM Neck: Supple. CV: Regular rate and rhythm. Normal S1 and S2. Pulm: Good effort, no wheezing or Rales appreciated. Abdomen: Soft, nontender.BS+ Extremities: No lower extremity edema. Skin: Warm, dry. Neuro: Awake and alert, no focal neurological deficit Psych: Appropriate mood -- OBJECTIVE -- VITALS (05/03 10:21 - 05/04 10:21): Temperature C: 36.9 (36.6 - 36.9) Pulse Rate 99 (81 - 104) Respiratory rate: 18 (18 - 19) Blood pressure: 154/64 (118/64 - 156/80) I/Os (05/03 07:00 - 05/04 07:00): Net -2,600 Intake 50 Output 2,650 -- DATA -- MEDICATIONS diazePAM 5 MG PO Q8H PRN oxyCODONE HCL/ACETAMINOPHEN 2 TAB PO Q4H PRN CODEINE PHOSPHATE/APAP 2 TAB PO Q4H PRN ACETAMINOPHEN 650 MG PO Q6HR DIVALPROEX SODIUM 1000 MG PO BEDTIME QUEtiapine FUMARATE 300 MG PO BEDTIME HYDROmorphone HCL 0.25 MG IV Q3H PRN ATORVASTATIN CALCIUM 20 MG PO DAILY PATIENT'S OWN MEDICATION PRAZOSIN 6 MG PO BEDTIME CODEINE PHOSPHATE/APAP 1 TAB PO Q4H PRN guaiFENesin 600 MG PO Q12HR RINGERS, LACTATED 1000 ML IV .SPECIAL INST oxyCODONE HCL/ACETAMINOPHEN 1 TAB PO Q4H PRN ONDANSETRON HCL/PF 4 MG IV Q4H PRN IPRATROPIUM/ALBUTEROL SULFATE 3 ML NEB RTQ6H WA MAGNESIUM HYDROXIDE 30 ML PO DAILY PRN FUROSEMIDE 20 MG IV ONCE ACETAMINOPHEN 650 MG PO Q4H PRN LABS URINALYSIS COMPLETE (05/04/24 00:20) UA COLOR YELLOW UA APPEARANCE CLEAR UA GLUCOSE DIPSTICK NEGATIVE UA BILIRUBIN DIPSTICK NEGATIVE UA KETONE DIPSTICK 1+ H UA SPECIFIC GRAVITY 1.014 UA BLOOD DIPSTICK 1+ H UA PH DIPSTICK 6.0 UA PROTEIN DIPSTICK NEGATIVE UA UROBILINOGEN DIPSTICK NEGATIVE UA NITRITE DIPSTICK NEGATIVE UA LEUKOCYTE ESTERASE DIPSTICK NEGATIVE UA WBC 0-2 UA RBC NONE SEEN UA BACTERIA NONE SEEN UA SQUAMOUS CELLS None seen UA MUCUS OCCASIONAL AMM (05/03/24 16:54) AMMONIA 26 TSH REFX FT4 (05/03/24 16:54) TSH REFLEX TO FT4 1.47 ARTERIAL BLOOD GAS (05/03/24 12:35) ARTERIAL BLOOD GAS PH 7.354 ARTERIAL BLOOD GAS PCO2 45.6 H ARTERIAL BLOOD GAS PO2 78.3 L BICARBONATE TOTAL HCO3 24.8 BASE EXCESS -1.0 L ABG O2 SATURATION 95.6 ABG TYPE Arterial ARTERIAL FIO2 36.0 PaO2/FiO2 217.50 ABG L/M 4.0 ABG VENT MODE NC ABG SITE Right Radial ALLENS TEST Yes TOTAL HGB 14.6 OXYHEMOGLOBIN 93.2 CARBOXYHEMOGLOBIN 2.2 METHEMOGLOBIN <0.8 TCO2 ARTERIAL 26.2 H Signed in PatientKeeper by IBETH FONTENOT MD on 05/04/24 at 10:23 at 1023 ATTENT ION *EDITS and/or ADDENDA must be made in Patient Keeper for this note. * * Edits and ammendments created in [facility] are not visible * * in Patient Keeper or the legal medical record (HPF). * [facility] #: [id number] END OF REPORT [facility] 2024-05-03 10:43:00 [facility] Med Order Sheet REPORT #: [id number] REPORT STATUS: Signed DATE: 05/03/24 TIME: 1043 PATIENT: BILLY RICHARDS UNIT #: [id number] ROOM #: [place] [address] BED: 1 : 62 AGE: 64 SEX: M ATTEND: Sue Thapa MD ADM AUTHOR: Bernard Chaudhary ATTENT ION *EDITS and/or ADDENDA must be made in Patient Keeper for this note. * * Edits and ammendments created in [facility] [facility] are not [facility] * * in Patient Keeper or the legal medical record (HPF). * Discharge Medication Reconciliation DISCHARGE MEDICATION LIST Atorvastatin Tab (Lipitor Tab) Dose: 20 MG PO DAILY Divalproex DR Tab (Depakote DR Tab) Dose: 1000 MG PO BEDTIME prazosin capsule Dose: 6 MG PO BEDTIME SEROquel tablet (quetiapine) Dose: 300 MG PO BEDTIME STOPPED HOSPITAL MEDICATIONS Dc'd: Acetaminophen Tab (Tylenol Tab) 650MG PO Q4H PRN mild pain (score 1-3)Dc'd: Acetaminophen Tab (Tylenol Tab) 650MG PO Q6HRDc'd: Acetaminophen/Codeine #3 Tab (Tylenol #3 Tab) 1TAB PO Q4H PRN mild pain (score 1-3)Dc'd: Acetaminophen/Codeine #3 Tab (Tylenol #3 Tab) 2TAB PO Q4H PRN moderate pain (score 4-6)Dc'd: Albuterol/Ipratrop Neb Soln (Duoneb Neb Soln) 3ML NEB RTQ6H WADc'd: Diazepam Tab (Valium Tab) 5MG PO Q8H PRN muscle spasm or anxietyDc'd: guaiFENesin ER Tab (Mucinex Tab) 600MG PO A79TOBy'd: HYDROmorphone Inj (Dilaudid Inj) 0.25MG IV Q3H PRN pain scale 7-10 (use 1st)Dc'd: Lactated Ringers (LR) 1000ML 50 MLS/HR IV .SPECIAL INSTDc'd: Magnesium Hydroxide Oral Liq (Milk Of Magnesia Oral Liquid) 30ML PO DAILY PRN constipationDc'd: Ondansetron Inj (Zofran Inj) 4MG IV Q4H PRN nausea and vomitingDc'd: oxyCODONE/APAP 10/325 Tab (Percocet 10/325 Tab) 1TAB PO Q4H PRN pain scale 4-6 (use 1st)Dc'd: oxyCODONE/APAP 10/325 Tab (Percocet 10/325 Tab) 2TAB PO Q4H PRN pain scale 7-10 (use 1st)Dc'd: Patient's Own Medication (Patient's Own Medication) PRAZOSIN 6 MG PO BEDTIME at 1043 ATTENT ION *EDITS and/or ADDENDA must be made in Patient Keeper for this note. * * Edits and ammendments created in [facility] are not visible * * in Patient Keeper or the legal medical record ([facility]). * RPT #: [id number] END OF REPORT [facility] 2024-05-03 10:40:00 [facility] ([facility] Orthopedic Progress Note REPORT #: [id number] REPORT STATUS: Signed DATE: 05/03/24 TIME: 1040 PATIENT: BILLY RICHARDS UNIT #: [id number] ROOM #: [id number] BED: 1 : 62 AGE: 64 SEX: M ATTEND: Sue Thapa MD ADM AUTHOR: Bernard Chaudhary ATTENT ION *EDITS and/or ADDENDA must be made in Patient Keeper for this note. * * Edits and ammendments created in [employer] are not visible * * in Patient Keeper or the legal medical record (HPF). * -- ASSESSMENT AND PLAN -- HOSPITAL COURSE TO DATE: Postop day #2 L4-L5 OLIF Dressing change postop day #3 Continue oral medications for pain control today PT/OT eval and treat weightbearing as tolerated using a walker for support Once pain is well-controlled with oral medications ambulating well and has bowel movement patient may discharge home most likely today with parameters to have bowel movement prior to discharge Follow-up with surgeon 1 week postop -- SUBJECTIVE -- HPI: Status post L4-L5 OLIF with L3-L4 postop day #2 patient is doing well ambulating but complaining of coughing. Patient denies fever chills numbness tingling or incision drainage -REVIEW OF SYSTEMS- GENERAL: Negative for fever, malaise, fatigue. -- OBJECTIVE -- VITALS (05/02 10:40 - 05/03 10:40): Temperature C: 36.8 (36.3 - 36.8) Temperature source: Oral Pulse Rate 99 (78 - 101) Respiratory rate: 18 (14 - 18) Blood pressure: 129/78 (105/71 - 129/78) I/Os (05/02 07:00 - 05/03 07:00): Net 440 Intake 440 -EXAM- GENERAL: Well developed, well nourished, in no apparent distress. MUSCULOSKELETAL: Dressings intact clean and dry. BLE: Motor and sensory distributions EHL dorsiflexion plantarflexion intact with 2+ dorsalis pedis and posterior tibialis pulses -- DATA -- MEDICATIONS diazePAM 5 MG PO Q8H PRN oxyCODONE HCL/ACETAMINOPHEN 2 TAB PO Q4H PRN CODEINE PHOSPHATE/APAP 2 TAB PO Q4H PRN ACETAMINOPHEN 650 MG PO Q6HR DIVALPROEX SODIUM 1000 MG PO BEDTIME QUEtiapine FUMARATE 300 MG PO BEDTIME HYDROmorphone HCL 0.25 MG IV Q3H PRN ATORVASTATIN CALCIUM 20 MG PO DAILY PATIENT'S OWN MEDICATION PRAZOSIN 6 MG PO BEDTIME CODEINE PHOSPHATE/APAP 1 TAB PO Q4H PRN guaiFENesin 600 MG PO Q12HR RINGERS, LACTATED 1000 ML IV .SPECIAL INST oxyCODONE HCL/ACETAMINOPHEN 1 TAB PO Q4H PRN ONDANSETRON HCL/PF 4 MG IV Q4H PRN IPRATROPIUM/ALBUTEROL SULFATE 3 ML NEB RTQ6H WA MAGNESIUM HYDROXIDE 30 ML PO DAILY PRN ACETAMINOPHEN 650 MG PO Q4H PRN LABS BASIC METABOLIC PANEL (05/03/24 07:18) SODIUM 141 POTASSIUM 4.3 CHLORIDE 105 CARBON DIOXIDE 32H H ANION GAP 8.3 GLUCOSE 92 BLOOD UREA NITROGEN 9 GLOMERULAR FILTRATION RATE >=60 max estimate CREATININE 1.0 BUN/CREATININE RATIO 9.0 L CALCIUM 9.2 CBC W/AUTO DIFF (05/03/24 07:18) WHITE BLOOD CELL 10.5 RED BLOOD CELL 4.86 HEMOGLOBIN 14.8 HEMATOCRIT 46.0 MEAN CELL VOLUME 95 MEAN CELL HGB 30.5 MEAN CELL HGB CONCENTRATION 32.2 RED CELL DISTRIBUTION WIDTH 14.4 PLATELET COUNT 162 MEAN PLATELET VOLUME 12.0 NEUTROPHIL % 75.6 IMMATURE GRANULOCYTE % 2.0 H LYMPHOCYTE % 13.6 L MONOCYTE % 6.4 EOSINOPHIL % 2.2 BASOPHIL % 0.2 NUCLEATED RBC % 0.0 NEUTROPHIL # 7.98 H IMMATURE GRANULOCYTE # 0.210 H LYMPHOCYTE # 1.43 L MONOCYTE # 0.67 EOSINOPHIL # 0.23 BASOPHIL # 0.02 NUCLEATED RBC # 0.000 Signed in PatientKeeper by Bernard Chaudhary on 05/03/24 at 10:41 Cosigned by MARK WAN MD on 05/03/24 at 14:02 at 1402 at 1402 ATTENT ION *EDITS and/or ADDENDA must be made in Patient Keeper for this note. * * Edits and ammendments created in [employer] are not visible * * in Patient Keeper or the legal medical record (HPF). * RPT #: [id number] END OF REPORT [facility] 2024-05-03 08:02:00 [facility] Pulmonology Progress Note REPORT #: [id number] REPORT STATUS: Signed DATE: 05/03/24 TIME: 801 PATIENT: BILLY RICHARDS UNIT #: [id number] ROOM #: [id number] BED: 1 : 62 AGE: 64 SEX: M ATTEND: Sue Thapa MD ADM AUTHOR: Chikis Lim ATTENT ION *EDITS and/or ADDENDA must be made in Patient Keeper for this note. * * Edits and ammendments created in [employer] are not visible * * in Patient Keeper or the legal medical record (HPF). * -- CO-SIGNATURE -- COMMENTS: Documentation, labs, imaging, and medications reviewed. Patient seen and examined. Called by RN this afternoon for change in mentation, family at bedside during my evaluation at 445pm, awake, alert and oriented x 2. Speech mumbled, intermittently confusion remains, no obvious focal neurological deficits. He did have urinary retention requiring straight cath, possible confusion related to UTI vs medication related Will get CT head without contrast Check UA Check ammonia, no known hx of ETOH Hold off on additional narcotics and benzodiazepine Given new confusion, family not comfortable discharging, agree, will keep inpatient, complete above workup and monitor closely on floor. No indication at this time for higher level of care. Otherwise agree with Chikis Jaimes findings including physical exam, assessment and plan as listed below. Signed in PatientKeeper by IBIS TERAN MD on 05/03/24 at 16:52 -- ASSESSMENT AND PLAN -- GENERAL ASSESSMENT: [facility], [facility] ---- Assessment: Chronic back pain Encounter for post-operative care S/P lumbar fusion HTN HFpEF DM History of gastric bypass Former smoker Plan: Post-operative pain control per surgery team Resume home meds Monitor H H, electrolytes Add bronchodilator nebs now PT/OT quevedo removed SCDs for VTE prophylaxis Thank you for this consultation; Pulmonary will continue to follow. Please do not hesitate to call with questions or concerns. --------- Subjective On room air no acute overnight events likely DC today HPI: This is a 64-year-old male with a PMH as noted below, presenting to the hospital with back pain. He was seen in consultation by Dr. Ennis who advised surgical repair. He successfully underwent lumbar spinal surgery. He is seen in PACU recovering after prolonged anesthesia effect postoperatively. Patient does have a cough which does appear to be moderately productive. Pulmonary has been consulted to assist with postoperative medical management. Past medical history: Hypertension, diabetes, diastolic congestive heart failure PSurgHx: History of gastric bypass, appendectomy, knee surgery, tonsillectomy FamHx: Noncontributory SocHx: Former smoker Review of systems: 14 point review system negative unless listed above Physical Exam General: NAD, awake and alert Eyes: Anicteric sclerae. Mouth: MMM Neck: Supple. CV: Regular rate and rhythm. Normal S1 and S2. Pulm: Good effort, no wheezing or Rales appreciated. Abdomen: Soft, nontender.BS+ Extremities: No lower extremity edema. Skin: Warm, dry. Neuro: Awake and alert, no focal neurological deficit Psych: Appropriate mood -- OBJECTIVE -- VITALS (05/02 08:02 - 05/03 08:02): Temperature C: 36.8 (36.3 - 36.8) Temperature source: Oral Pulse Rate 99 (78 - 101) Respiratory rate: 18 (14 - 18) Blood pressure: 129/78 (105/71 - 129/78) I/Os (05/02 07:00 - 05/03 07:00): Net 440 Intake 440 -- DATA -- MEDICATIONS diazePAM 5 MG PO Q8H PRN oxyCODONE HCL/ACETAMINOPHEN 2 TAB PO Q4H PRN CODEINE PHOSPHATE/APAP 2 TAB PO Q4H PRN ACETAMINOPHEN 650 MG PO Q6HR DIVALPROEX SODIUM 1000 MG PO BEDTIME QUEtiapine FUMARATE 300 MG PO BEDTIME HYDROmorphone HCL 0.25 MG IV Q3H PRN ATORVASTATIN CALCIUM 20 MG PO DAILY PATIENT'S OWN MEDICATION PRAZOSIN 6 MG PO BEDTIME CODEINE PHOSPHATE/APAP 1 TAB PO Q4H PRN guaiFENesin 600 MG PO Q12HR RINGERS, LACTATED 1000 ML IV .SPECIAL INST oxyCODONE HCL/ACETAMINOPHEN 1 TAB PO Q4H PRN ONDANSETRON HCL/PF 4 MG IV Q4H PRN IPRATROPIUM/ALBUTEROL SULFATE 3 ML NEB RTQ6H WA MAGNESIUM HYDROXIDE 30 ML PO DAILY PRN ACETAMINOPHEN 650 MG PO Q4H PRN LABS CBC W/AUTO DIFF (05/03/24 07:18) WHITE BLOOD CELL 10.5 RED BLOOD CELL 4.86 HEMOGLOBIN 14.8 HEMATOCRIT 46.0 MEAN CELL VOLUME 95 MEAN CELL HGB 30.5 MEAN CELL HGB CONCENTRATION 32.2 RED CELL DISTRIBUTION WIDTH 14.4 PLATELET COUNT 162 MEAN PLATELET VOLUME 12.0 NEUTROPHIL % 75.6 IMMATURE GRANULOCYTE % 2.0 H LYMPHOCYTE % 13.6 L MONOCYTE % 6.4 EOSINOPHIL % 2.2 BASOPHIL % 0.2 NUCLEATED RBC % 0.0 NEUTROPHIL # 7.98 H IMMATURE GRANULOCYTE # 0.210 H LYMPHOCYTE # 1.43 L MONOCYTE # 0.67 EOSINOPHIL # 0.23 BASOPHIL # 0.02 NUCLEATED RBC # 0.000 Signed in PatientKeeper by Chikis Lim on 05/03/24 at 10:34 Cosigned by IBIS TERAN MD on 05/03/24 at 16:52 at 1652 at 1652 ATTENT ERIN *EDITS and/or ADDENDA must be made in Patient Keeper for this note. * * Edits and ammendments created in [facility] are not visible * * in Patient Keeper or the legal medical record (HPF). * [facility] #: [id number] END OF REPORT [facility] 2024-05-02 11:00:00 [facility] ([facility]) Orthopedic Progress Note REPORT #: [id number] REPORT STATUS: Signed DATE: 05/02/24 TIME: 1100 PATIENT: BILLY RICHARDS UNIT #: [id number] ROOM #: [id number] BED: 1 : 62 AGE: 64 SEX: M ATTEND: Sue Thapa MD ADM AUTHOR: Bernard Chaudhary ATTENT ION *EDITS and/or ADDENDA must be made in Patient Keeper for this note. * * Edits and ammendments created in [facility] * * in Patient Keeper or the legal medical record ([facility]). * -- ASSESSMENT AND PLAN -- HOSPITAL COURSE TO DATE: Postop day #1 L4-L5 OLIF Dressing change postop day #3 Discontinue ATM MANAGER today PT/OT eval and treat weightbearing as tolerated using a walker for support Once pain is well-controlled with oral medications ambulating well and has bowel movement patient may discharge home most likely tomorrow Saturday Follow-up with surgeon 1 week postop -- SUBJECTIVE -- HPI: Status post L4-L5 OLIF with L3-L4 postop day #1 patient is doing well ambulating but complaining of coughing. Patient denies fever chills numbness tingling or incision drainage -REVIEW OF SYSTEMS- GENERAL: Negative for fever, malaise, fatigue. -- OBJECTIVE -- VITALS (05/01 11:00 - 05/02 11:00): Temperature C: 36.9 (36.4 - 36.9) Temperature source: Oral Pulse Rate 85 (68 - 92) Respiratory rate: 18 Blood pressure: 110/73 (104/67 - 143/77) I/Os (05/01 07:00 - 05/02 07:00): Net -1,750 Intake 850 Output 2,600 -EXAM- GENERAL: Well developed, well nourished, in no apparent distress. MUSCULOSKELETAL: Lumbar spine: Dressings intact clean and dry. Motor and sensory distributions EHL dorsiflexion plantarflexion intact with 2+ dorsalis pedis and posterior tibialis pulses -- DATA -- MEDICATIONS diazePAM 5 MG PO Q8H PRN oxyCODONE HCL/ACETAMINOPHEN 2 TAB PO Q4H PRN CODEINE PHOSPHATE/APAP 2 TAB PO Q4H PRN ACETAMINOPHEN 650 MG PO Q6HR DIVALPROEX SODIUM 1000 MG PO BEDTIME QUEtiapine FUMARATE 300 MG PO BEDTIME HYDROmorphone HCL 0.25 MG IV Q3H PRN ATORVASTATIN CALCIUM 20 MG PO DAILY PATIENT'S OWN MEDICATION PRAZOSIN 6 MG PO BEDTIME CODEINE PHOSPHATE/APAP 1 TAB PO Q4H PRN guaiFENesin 600 MG PO Q12HR RINGERS, LACTATED 1000 ML IV .SPECIAL INST oxyCODONE HCL/ACETAMINOPHEN 1 TAB PO Q4H PRN ONDANSETRON HCL/PF 4 MG IV Q4H PRN IPRATROPIUM/ALBUTEROL SULFATE 3 ML NEB RTQ6H WA MAGNESIUM HYDROXIDE 30 ML PO DAILY PRN ACETAMINOPHEN 650 MG PO Q4H PRN LABS CBC W/AUTO DIFF (05/02/24 05:23) WHITE BLOOD CELL 8.9 RED BLOOD CELL 4.85 HEMOGLOBIN 14.9 HEMATOCRIT 46.8 MEAN CELL VOLUME 97 MEAN CELL HGB 30.7 MEAN CELL HGB CONCENTRATION 31.8 RED CELL DISTRIBUTION WIDTH 14.4 PLATELET COUNT 156 MEAN PLATELET VOLUME 11.7 NEUTROPHIL % 78.7 H IMMATURE GRANULOCYTE % 0.4 LYMPHOCYTE % 13.5 L MONOCYTE % 5.9 EOSINOPHIL % 1.3 BASOPHIL % 0.2 NUCLEATED RBC % 0.0 NEUTROPHIL # 7.01 H IMMATURE GRANULOCYTE # 0.040 LYMPHOCYTE # 1.21 L MONOCYTE # 0.53 EOSINOPHIL # 0.12 BASOPHIL # 0.02 NUCLEATED RBC # 0.000 BASIC METABOLIC PANEL (05/02/24 05:23) SODIUM 141 POTASSIUM 3.6 CHLORIDE 107 CARBON DIOXIDE 30 ANION GAP 7.6 GLUCOSE 107H H BLOOD UREA NITROGEN 6L L GLOMERULAR FILTRATION RATE >=60 max estimate CREATININE 0.9 BUN/CREATININE RATIO 6.7 L CALCIUM 8.7 Signed in PatientKeeper by Bernard Chaudhary on 05/02/24 at 11:01 Cosigned by MARK WAN MD on 05/03/24 at 14:01 at 1401 at 1401 ATTENT ION *EDITS and/or ADDENDA must be made in Patient Keeper for this note. * * Edits and ammendments created in [facility] are not visible * * in Patient Keeper or the legal medical record (HPF). * RPT #: [id number] END OF REPORT [facility] 2024-05-02 10:59:00 [facility] Pulmonology Progress Note REPORT #: [id number] REPORT STATUS: Signed DATE: 05/02/24 TIME: 1059 PATIENT: BILLY RICHARDS UNIT #: [id number] ROOM #: [id number] BED: 1 : 62 AGE: 64 SEX: M ATTEND: Sue Thapa MD ADM AUTHOR: Chikis Lim HETALT ERIN *EDITS and/or ADDENDA must be made in Patient Keeper for this note. * * Edits and ammendments created in [employer] are not visible * * in Patient Keeper or the legal medical record (HPF). * -- CO-SIGNATURE -- COMMENTS: Documentation, labs, imaging, and medications reviewed. Otherwise agree with Chikis Jaimes findings including physical exam, assessment and plan as listed below. Signed in PatientKeeper by IBIS TERAN MD on 05/02/24 at 18:59 -- ASSESSMENT AND PLAN -- GENERAL ASSESSMENT: [facility] ---- Assessment: Chronic back pain Encounter for post-operative care S/P lumbar fusion HTN HFpEF DM History of gastric bypass Former smoker Plan: Post-operative pain control per surgery team Resume home meds Monitor H H, electrolytes Add bronchodilator nebs now PT/OT conor removed SCDs for VTE prophylaxis Thank you for this consultation; Pulmonary will continue to follow. Please do not hesitate to call with questions or concerns. --------- Subjective On room air reports sleeping well no overnight events planned for DC tomorrow HPI: This is a 64-year-old male with a PMH as noted below, presenting to the hospital with back pain. He was seen in consultation by Dr. Ennis who advised surgical repair. He successfully underwent lumbar spinal surgery. He is seen in PACU recovering after prolonged anesthesia effect postoperatively. Patient does have a cough which does appear to be moderately productive. Pulmonary has been consulted to assist with postoperative medical management. Past medical history: Hypertension, diabetes, diastolic congestive heart failure PSurgHx: History of gastric bypass, appendectomy, knee surgery, tonsillectomy FamHx: Noncontributory SocHx: Former smoker Review of systems: 14 point review system negative unless listed above Physical Exam General: NAD, awake and alert Eyes: Anicteric sclerae. Mouth: MMM Neck: Supple. CV: Regular rate and rhythm. Normal S1 and S2. Pulm: Good effort, no wheezing or Rales appreciated. Abdomen: Soft, nontender.BS+ Extremities: No lower extremity edema. Skin: Warm, dry. Neuro: Awake and alert, no focal neurological deficit Psych: Appropriate mood -- OBJECTIVE -- VITALS (05/01 10:59 - 05/02 10:59): Temperature C: 36.9 (36.4 - 36.9) Temperature source: Oral Pulse Rate 85 (68 - 92) Respiratory rate: 18 Blood pressure: 110/73 (104/67 - 143/77) I/Os (05/01 07:00 - 05/02 07:00): Net -1,750 Intake 850 Output 2,600 -- DATA -- MEDICATIONS diazePAM 5 MG PO Q8H PRN oxyCODONE HCL/ACETAMINOPHEN 2 TAB PO Q4H PRN CODEINE PHOSPHATE/APAP 2 TAB PO Q4H PRN ACETAMINOPHEN 650 MG PO Q6HR DIVALPROEX SODIUM 1000 MG PO BEDTIME QUEtiapine FUMARATE 300 MG PO BEDTIME HYDROmorphone HCL 0.25 MG IV Q3H PRN ATORVASTATIN CALCIUM 20 MG PO DAILY PATIENT'S OWN MEDICATION PRAZOSIN 6 MG PO BEDTIME CODEINE PHOSPHATE/APAP 1 TAB PO Q4H PRN guaiFENesin 600 MG PO Q12HR RINGERS, LACTATED 1000 ML IV .SPECIAL INST oxyCODONE HCL/ACETAMINOPHEN 1 TAB PO Q4H PRN ONDANSETRON HCL/PF 4 MG IV Q4H PRN IPRATROPIUM/ALBUTEROL SULFATE 3 ML NEB RTQ6H WA MAGNESIUM HYDROXIDE 30 ML PO DAILY PRN ACETAMINOPHEN 650 MG PO Q4H PRN LABS CBC W/AUTO DIFF (05/02/24 05:23) WHITE BLOOD CELL 8.9 RED BLOOD CELL 4.85 HEMOGLOBIN 14.9 HEMATOCRIT 46.8 MEAN CELL VOLUME 97 MEAN CELL HGB 30.7 MEAN CELL HGB CONCENTRATION 31.8 RED CELL DISTRIBUTION WIDTH 14.4 PLATELET COUNT 156 MEAN PLATELET VOLUME 11.7 NEUTROPHIL % 78.7 H IMMATURE GRANULOCYTE % 0.4 LYMPHOCYTE % 13.5 L MONOCYTE % 5.9 EOSINOPHIL % 1.3 BASOPHIL % 0.2 NUCLEATED RBC % 0.0 NEUTROPHIL # 7.01 H IMMATURE GRANULOCYTE # 0.040 LYMPHOCYTE # 1.21 L MONOCYTE # 0.53 EOSINOPHIL # 0.12 BASOPHIL # 0.02 NUCLEATED RBC # 0.000 BASIC METABOLIC PANEL (05/02/24 05:23) SODIUM 141 POTASSIUM 3.6 CHLORIDE 107 CARBON DIOXIDE 30 ANION GAP 7.6 GLUCOSE 107H H BLOOD UREA NITROGEN 6L L GLOMERULAR FILTRATION RATE >=60 max estimate CREATININE 0.9 BUN/CREATININE RATIO 6.7 L CALCIUM 8.7 Signed in PatientKeeper by Chikis Lim on 05/02/24 at 12:18 Cosigned by IBIS TERAN MD on 05/02/24 at 18:59 at 1859 at 1859 ATTENT ION *EDITS and/or ADDENDA must be made in Patient Keeper for this note. * * Edits and ammendments created in [facility] are not [facility] * * in Patient Keeper or the legal medical record (HPF). * RPT #: [id number] END OF REPORT [facility] 2024-05-01 14:02:00 [facility] Orthopedic Progress Note REPORT #: [id number] REPORT STATUS: Signed DATE: 05/01/24 TIME: 1402 PATIENT: BILLY RICHARDS UNIT #: [id number] ROOM #: [id number] BED: 1 : 62 AGE: 64 SEX: M ATTEND: Sue Thapa MD ADM AUTHOR: Pravin Magana APRN ATTENT ION *EDITS and/or ADDENDA must be made in Patient Keeper for this note. * * Edits and ammendments created in [employer] are not visible * * in Patient Keeper or the legal medical record ([facility]). * -- ASSESSMENT AND PLAN -- PROBLEMS: 1: Lumbar canal stenosis A/P: S/p L4-5 OLIF/PSIF with right facetectomy and L3-4 far lateral discetomy POD #1 Tolerated well PT/OT consults DC quevedo Dc teleservices representative tomorrow, move to PO meds Im following Dispo: Home once medically stable, pain controlled, and had a BM. -- SUBJECTIVE -- CHIEF COMPLAINT: Low back pain HPI: no acute event over night. Having expected pain -- OBJECTIVE -- VITALS (04/30 14:02 - 05/01 14:02): Temperature C: 36.4 (36.4 - 36.7) Temperature source: Oral Pulse Rate 68 (49 - 79) Respiratory rate: 18 (16 - 18) Blood pressure: 104/67 (95/62 - 150/90) I/Os (04/30 07:00 - 05/01 07:00): Net -1,100.00 Intake 1,000.00 Output 2,100 -EXAM- GENERAL: Well developed, well nourished, in no apparent distress. ABDOMEN: soft tender, dressing c, d,i MUSCULOSKELETAL: no focal weakness PULSES: Pulses normal in all extremities. -- DATA -- MEDICATIONS diazePAM 5 MG PO Q8H PRN oxyCODONE HCL/ACETAMINOPHEN 2 TAB PO Q4H PRN HYDROMORPHONE HCL/0.9% NACL/PF 10 MG IV ASDIR CODEINE PHOSPHATE/APAP 2 TAB PO Q4H PRN ACETAMINOPHEN 650 MG PO Q6HR DIVALPROEX SODIUM 1000 MG PO BEDTIME QUEtiapine FUMARATE 300 MG PO BEDTIME HYDROmorphone HCL 0.25 MG IV Q3H PRN ATORVASTATIN CALCIUM 20 MG PO DAILY PATIENT'S OWN MEDICATION PRAZOSIN 6 MG PO BEDTIME CODEINE PHOSPHATE/APAP 1 TAB PO Q4H PRN RINGERS, LACTATED 1000 ML IV .SPECIAL INST oxyCODONE HCL/ACETAMINOPHEN 1 TAB PO Q4H PRN ONDANSETRON HCL/PF 4 MG IV Q4H PRN IPRATROPIUM/ALBUTEROL SULFATE 3 ML NEB RTQ6H WA MAGNESIUM HYDROXIDE 30 ML PO DAILY PRN ACETAMINOPHEN 650 MG PO Q4H PRN LABS CBC W/AUTO DIFF (05/01/24 05:58) WHITE BLOOD CELL 13.4H H RED BLOOD CELL 5.32 HEMOGLOBIN 16.1 HEMATOCRIT 50.5 MEAN CELL VOLUME 95 MEAN CELL HGB 30.3 MEAN CELL HGB CONCENTRATION 31.9 RED CELL DISTRIBUTION WIDTH 13.9 PLATELET COUNT 187 MEAN PLATELET VOLUME 11.8 NEUTROPHIL % 86.1 H IMMATURE GRANULOCYTE % 0.5 LYMPHOCYTE % 7.2 L MONOCYTE % 6.0 EOSINOPHIL % 0.1 BASOPHIL % 0.1 NUCLEATED RBC % 0.0 NEUTROPHIL # 11.56 H IMMATURE GRANULOCYTE # 0.070 LYMPHOCYTE # 0.97 L MONOCYTE # 0.80 EOSINOPHIL # 0.02 BASOPHIL # 0.01 NUCLEATED RBC # 0.000 BASIC METABOLIC PANEL (05/01/24 05:58) SODIUM 141 POTASSIUM 4.0 CHLORIDE 106 CARBON DIOXIDE 30 ANION GAP 9.0 GLUCOSE 91 BLOOD UREA NITROGEN 6L L GLOMERULAR FILTRATION RATE >=60 max estimate CREATININE 1.0 BUN/CREATININE RATIO 6.0 L CALCIUM 9.2 Signed in PatientKeeper by Pravin Magana APRN on 05/01/24 at 14:13 Cosigned by SUE THAPA MD on 05/01/24 at 19:19 at 1919 at 191 ATTENT ION *EDITS and/or ADDENDA must be made in Patient Keeper for this note. * * Edits and ammendments created in [employer] are not visible * * in Patient Keeper or the legal medical record (HPF). * [facility] #: [id number] END OF REPORT [facility] 2024-05-01 09:13:00 [facility] Pulmonology Progress Note REPORT #: [id number] REPORT STATUS: Signed DATE: 05/01/24 TIME: 912 PATIENT: BILLY RICHARDS UNIT #: [id number] ROOM #: [id number] BED: 1 : 62 AGE: 64 SEX: M ATTEND: Sue Thapa MD ADM AUTHOR: Ernesto Jones MD ATTENT ION *EDITS and/or ADDENDA must be made in Patient Keeper for this note. * * Edits and ammendments created in [employer] are not visible * * in Patient Keeper or the legal medical record ([facility]). * -- ASSESSMENT AND PLAN -- GENERAL ASSESSMENT: [facility] ---- Assessment: Chronic back pain Encounter for post-operative care S/P lumbar fusion HTN HFpEF DM History of gastric bypass Former smoker Plan: Post-operative pain control per surgery team Resume home meds Monitor H H, electrolytes Add bronchodilator nebs now PT/OT Quevedo in place for now, plan to remove SCDs for VTE prophylaxis Thank you for this consultation; Pulmonary will continue to follow. Please do not hesitate to call with questions or concerns. 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 He was seen in consultation by Dr. Ennis who advised surgical repair. He successfully underwent lumbar spinal surgery. He is seen in PACU recovering after prolonged anesthesia effect postoperatively. Patient does have a cough which does appear to be moderately productive. Pulmonary has been consulted to assist with postoperative medical management. Past medical history: Hypertension, diabetes, diastolic congestive heart failure PSurgHx: History of gastric bypass, appendectomy, knee surgery, tonsillectomy FamHx: Noncontributory SocHx: Former smoker Review of systems: 14 point review system negative unless listed above Physical Exam General: NAD, awake and alert Eyes: Anicteric sclerae. Mouth: MMM Neck: Supple. CV: Regular rate and rhythm. Normal S1 and S2. Pulm: Good effort, no wheezing or Rales appreciated. Abdomen: Soft, nontender.BS+ Extremities: No lower extremity edema. Skin: Warm, dry. Neuro: Awake and alert, no focal neurological deficit Psych: Appropriate mood -- OBJECTIVE -- VITALS (04/30 09:13 - 05/01 09:13): Temperature C: 36.7 (36.4 - 36.7) Temperature source: Oral Pulse Rate 79 (49 - 79) Respiratory rate: 18 (16 - 18) Blood pressure: 105/67 (95/62 - 150/90) I/Os (04/30 07:00 - 05/01 07:00): Net -1,100.00 Intake 1,000.00 Output 2,100 -- DATA -- MEDICATIONS diazePAM 5 MG PO Q8H PRN oxyCODONE HCL/ACETAMINOPHEN 2 TAB PO Q4H PRN CODEINE PHOSPHATE/APAP 2 TAB PO Q4H PRN ACETAMINOPHEN 650 MG PO Q6HR DIVALPROEX SODIUM 1000 MG PO BEDTIME QUEtiapine FUMARATE 300 MG PO BEDTIME HYDROmorphone HCL 0.25 MG IV Q3H PRN ATORVASTATIN CALCIUM 20 MG PO DAILY PATIENT'S OWN MEDICATION PRAZOSIN 6 MG PO BEDTIME CODEINE PHOSPHATE/APAP 1 TAB PO Q4H PRN oxyCODONE HCL/ACETAMINOPHEN 1 TAB PO Q4H PRN HYDROMORPHONE HCL/0.9% NACL/PF 10 MG IV ASDIR RINGERS, LACTATED 1000 ML IV .SPECIAL INST ONDANSETRON HCL/PF 4 MG IV Q4H PRN IPRATROPIUM/ALBUTEROL SULFATE 3 ML NEB RTQ6H WA MAGNESIUM HYDROXIDE 30 ML PO DAILY PRN ACETAMINOPHEN 650 MG PO Q4H PRN LABS CBC W/AUTO DIFF (05/01/24 05:58) WHITE BLOOD CELL 13.4H H RED BLOOD CELL 5.32 HEMOGLOBIN 16.1 HEMATOCRIT 50.5 MEAN CELL VOLUME 95 MEAN CELL HGB 30.3 MEAN CELL HGB CONCENTRATION 31.9 RED CELL DISTRIBUTION WIDTH 13.9 PLATELET COUNT 187 MEAN PLATELET VOLUME 11.8 NEUTROPHIL % 86.1 H IMMATURE GRANULOCYTE % 0.5 LYMPHOCYTE % 7.2 L MONOCYTE % 6.0 EOSINOPHIL % 0.1 BASOPHIL % 0.1 NUCLEATED RBC % 0.0 NEUTROPHIL # 11.56 H IMMATURE GRANULOCYTE # 0.070 LYMPHOCYTE # 0.97 L MONOCYTE # 0.80 EOSINOPHIL # 0.02 BASOPHIL # 0.01 NUCLEATED RBC # 0.000 BASIC METABOLIC PANEL (05/01/24 05:58) SODIUM 141 POTASSIUM 4.0 CHLORIDE 106 CARBON DIOXIDE 30 ANION GAP 9.0 GLUCOSE 91 BLOOD UREA NITROGEN 6L L GLOMERULAR FILTRATION RATE >=60 max estimate CREATININE 1.0 BUN/CREATININE RATIO 6.0 L CALCIUM 9.2 Signed in PatientKeeper by ERNESTO JONES MD on 05/01/24 at 10:53 at 1053 ATTENT ION *EDITS and/or ADDENDA must be made in Patient Keeper for this note. * * Edits and ammendments created in [facility] are not visible * * in Patient Keeper or the legal medical record (HPF). * [facility] #: [id number] END OF REPORT [facility] 2024-04-30 18:41:00 [id number] [facility] [address] [facility] [address] PATIENT NAME: BILLY RICHARDS ADMIT DATE: 04/30/24 ACCOUNT NO: [id number] ROOM NO: [id number] AGE: 64 REPORT TYPE: OPERATIVE REPORT SEX: M ADMITTING PHYSICIAN:Sue Thapa MD ATTENDING PHYSICIAN:Sue Thapa MD OPERATION DATE: 04/30/2024 PREOPERATIVE DIAGNOSIS: Degenerative disk disease at L4-L5, spondylosis at L4-L5. POSTOPERATIVE DIAGNOSIS: Degenerative disk disease at L4-L5, spondylosis at L4-L5. PROCEDURE PERFORMED: Anterior oblique lumbar interbody fusion at L4-L5. SURGEON: Dr. Jero Thapa. CO-SURGEON: Liss Mcghee MD ANESTHESIA: General. COMPLICATIONS: None. ESTIMATED BLOOD LOSS: Minimal. HEATING MECHANIC: Rocco Magana, nurse practitioner, assistant manager bilingual. Critical to the safe and efficacious completion of the operation, minimizing operative time, blood loss and improving overall safety, retraction, wound closure, assistance with hemostasis. PROCEDURE IN DETAIL: The patient was prepped and draped in sterile fashion. Left flank incision was placed after the patient was placed in left lateral decubitus position, taken down to the external oblique. The external oblique, internal oblique and transverse abdominis muscles were carefully along the length of their fibers and the retroperitoneum was entered and then the retroperitoneal structures were mobilized anteriorly, psoas muscle was mobilized posteriorly exposing the L4-L5 disk space and this was confirmed by fluoroscopy. Diskectomy and fusion with interbody cage placement was performed with Dr. Thpaa uneventfully at this level under fluoroscopic guidance. Hemostasis further reconfirmed. Retroperitoneal space was reduced. Of note, the biomechanical cage was placed under fluoroscopic guidance and then upon completion of all this, the internal oblique transverse abdominis muscles were closed with 0 Vicryl sutures and then the external oblique was closed with its fascia with a running #1 Stratafix suture and upon completion of all this, hemostasis further reconfirmed and then the patient was placed in prone position after the wound was closed with 2-0 Vicryl and 4-0 Monocryl for the remainder of the operation. The patient tolerated the procedure. PATIENT NAME: BILLY RICHARDS Dictated By: Liss Mcghee MD Date Dictated: 04/30/2024 18:41:46 Date Transcribed: 04/30/2024 19:42:25 /CLEMENTINA Receipt ID: [id number] Authenticated and Edited by Liss Mcghee MD On 05/20/24 9:27:25 AM at 0929 PATIENT NAME: BILLY RICHARDS [facility] 2024-04-30 13:43:00 [facility] Pulmonology Consultation REPORT #: [id number] REPORT STATUS: Signed DATE: 04/30/24 TIME: 1343 PATIENT: BILLY RICHARDS UNIT #: [id number] ROOM #: [id number].[id number] BED: 1 : 62 AGE: 64 SEX: M ATTEND: Sue Thapa MD ADM AUTHOR: Luis Felipe De Jesus MD ATTENT ION *EDITS and/or ADDENDA must be made in Patient Keeper for this note. * * Edits and ammendments created in [facility] are not visible * * in Patient Keeper or the legal medical record (HPF). * -- ASSESSMENT AND PLAN -- GENERAL ASSESSMENT: [facility] ---- Assessment: Chronic back pain Encounter for post-operative care S/P lumbar fusion HTN HFpEF DM History of gastric bypass Former smoker Plan: Post-operative pain control per surgery team Resume home meds Monitor H H, electrolytes Add bronchodilator nebs now PT/OT Quevedo in place for now SCDs for VTE prophylaxis Thank you for this consultation; Pulmonary will continue to follow. Please do not hesitate to call with questions or concerns. --------- HPI: This is a 64-year-old male with a PMH as noted below, presenting to the hospital with back pain. He was seen in consultation by Dr. Ennis who advised surgical repair. He successfully underwent lumbar spinal surgery. He is seen in PACU recovering after prolonged anesthesia effect postoperatively. Patient does have a cough which does appear to be moderately productive. Pulmonary has been consulted to assist with postoperative medical management. Past medical history: Hypertension, diabetes, diastolic congestive heart failure PSurgHx: History of gastric bypass, appendectomy, knee surgery, tonsillectomy FamHx: Noncontributory SocHx: Former smoker Review of systems: 14 point review system negative unless listed above Physical Exam General: NAD, awake and alert Eyes: Anicteric sclerae. Mouth: MMM Neck: Supple. CV: Regular rate and rhythm. Normal S1 and S2. Pulm: Good effort, no wheezing or Rales appreciated. Abdomen: Soft, nontender.BS+ Extremities: No lower extremity edema. Skin: Warm, dry. Neuro: Awake and alert, no focal neurological deficit Psych: Appropriate mood -- DATA -- MEDICATIONS TAMSULOSIN 0.4 MG PO PREOP ONCE ACETAMINOPHEN 650 MG PO Q6HR CODEINE PHOSPHATE/APAP 1 TAB PO Q4H PRN oxyCODONE HCL/ACETAMINOPHEN 1 TAB PO Q4H PRN ceFAZolin 2 GM IV PREOP ONCE MAGNESIUM HYDROXIDE 30 ML PO DAILY PRN diazePAM 5 MG PO Q8H PRN oxyCODONE HCL/ACETAMINOPHEN 2 TAB PO Q4H PRN CODEINE PHOSPHATE/APAP 2 TAB PO Q4H PRN DIVALPROEX SODIUM 1000 MG PO BEDTIME QUEtiapine FUMARATE 300 MG PO BEDTIME HYDROmorphone HCL 0.25 MG IV Q3H PRN ATORVASTATIN CALCIUM 20 MG PO DAILY PK CONTINUE FROM HOME 6 MG PO BEDTIME PREGABALIN 75 MG PO PREOP ONCE ceFAZolin with/in WATER FOR INJECTION,STERILE 1 GM IV Q8H HYDROMORPHONE HCL/0.9% NACL/PF 10 MG IV ASDIR SODIUM CHLORIDE 0.9% 1000 ML IV PREOP IV FLUID ACETAMINOPHEN 500 MG PO PREOP ONCE RINGERS, LACTATED 1000 ML IV .SPECIAL INST ONDANSETRON HCL/PF 4 MG IV Q4H PRN ACETAMINOPHEN 650 MG PO Q4H PRN Signed in PatientKeeper by LUIS FELIPE DE JESUS MD on 04/30/24 at 13:57 at 1357 ATTENT ION *EDITS and/or ADDENDA must be made in Patient Keeper for this note. * * Edits and ammendments created in [facility] are not visible * * in Patient Keeper or the legal medical record (HPF). * [facility] #: [id number] END OF REPORT [facility] 2024-04-30 13:26:00 [facility] Operative Report REPORT #: [id number] REPORT STATUS: Signed DATE: 04/30/24 TIME: 1326 PATIENT: BILLY RICHARDS UNIT #: [id number] ROOM #: [id number] BED: 1 : 62 AGE: 64 SEX: M ATTEND: Sue Thapa MD ADM AUTHOR: Sue Thapa MD ATTENT ION *EDITS and/or ADDENDA must be made in Patient Keeper for this note. * * Edits and ammendments created in [employer] are not visible * * in Patient Keeper or the legal medical record (HPF). * -- OPERATION -- SURGERY START DATE/TIME: 2024-04-30 13:26 PRE-OPERATIVE DIAGNOSIS: See description POST-OPERATIVE DIAGNOSIS: See description INDICATION(S): See description NAME OF PROCEDURE: See description SURGEON: Sue Thapa MD HEATING MECHANIC(S): See description ANESTHESIA: See description ESTIMATED BLOOD LOSS: 50 ml's FINDINGS: See description SPECIMEN(S) REMOVED AND/OR ALTERED: See description COMPLICATION(S): See description -- DESCRIPTION -- DESCRIPTION OF TECHNIQUE/PROCEDURE: PREOPERATIVE DIAGNOSES: 1. Lumbar spondylosis (ZFQ33-T33.816) 2. Herniation of lumbar intervertebral disc with sciatica (EHN16-Y24.16) 3. Lumbar radiculopathy (JUO49-O93.16 4. Lumbar herniated nucleus pulposus (ICD 10-M 51.56) L4-5 5. 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 Foot drop; right foot ICD-736.79 HMZ48-E58.371 POSTOPERATIVE DIAGNOSIS: 1. Lumbar spondylosis (PWN24-T56.816) 2. Herniation of lumbar intervertebral disc with sciatica (VWH42-D76.16) 3. Lumbar radiculopathy (JFW21-I20.16 4. Lumbar herniated nucleus pulposus (ICD 10-M 51.56) L4-5 5. 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 Foot drop; right foot ICD-736.79 YIY54-H24.371 PROCEDURES: Stage STAGE II 1. Posterior Lateral Fusion, L4-5 2. Bilateral Pedicle Screw and Omer Construct L4-5 3. Right far lateral decompression at L4-5 with complete facetectomy 4. Right far lateral decompression with partial discectomy L3-4 5. Microsurgical techniques requiring use of the surgical microscope 6. Allograft and local autograft. 7. Right Posterior iliac crest bone marrow aspirate from separate fascial incision 8. SCM: SentryNeuro: Necessary for the safe completion of this procedure. 9. Navigation in spine surgery: CPT code 14997 "This tool will enhance the accuracy of screw placement in posterior fusions. By using this type of tool, not only does it help with placement accuracy, it reduces the patient and the staff's exposure to radiation and reduces procedure time. Using computer assisted navigation also allows for real-time images." SURGEON: Jean-Paul Thapa MD. HEATING MECHANIC: Pravin Magana APRN (Critical to the safe and efficacious completion of the operation, minimizing operative time, blood loss, and improving overall safety). COMPLICATIONS: None. CONDITION: Stable to the postoperative care unit ESTIMATED BLOOD LOSS: Stage II 75 mL Cell Saver return 0 mL SPINAL CORD MONITORING: SSEPs, MEPs, and free run EMGs stable with monitoring of pedicle screw stimulation thresholds-stable and appropriate throughout the course of the case. IMPLANTS: Medtronic voyager, rods, and set screws, 6.5 mm. local autologous bone graft, left posterior iliac crest bone marrow aspirate, allograft bone Progenics PROCEDURE IN DETAIL: At the completion of stage I of the procedure the patient was felt to be stable to proceed to stage II. The patient was placed in prone position on Diogo table. All prominences and neurovascular structures were well accommodated. The patient was found to have pulses in this position. The patient was then prepped and draped in sterile fashion. Utilizing palpation the left posterior iliac crest was identified, a Jamshidi was placed to center meters between the inner and outer table and 20 cc of bone marrow aspirate was harvested. After harvesting BMA, a reference pain was inserted into the right posterior iliac crest to secure the inFreeDA spinal surgery assistance robot. At this point and o-arm spin was performed. Optimal Wiltsie incisions were marked out with the use of the robotic arm. Prior to incision they were infiltrated with quarter percent Marcaine with epinephrine. The incision was opened sharply fascia was split at the length of skin incision. Blunt dissection was carried out with manual palpation. The transverse processes of L5 and the sacral ala were identified. Spinal assisted robotic navigation allowed the drilling, tapping and placement of pedicle screws for bilateral pedicle screws placed at L4-5. Excellent purchase was obtained with all screws. Intraoperative neurologic monitoring was used to evaluate pedicle screw placement.Normal levels of resistance were achieved for each screw. Next AP and lateral fluoroscopic imaging demonstrated satisfactory positioning of pedicle screw construct. The left sided reference pin in the ilium was removed. Attention was now turned to performing a complete facetectomy of the right L4-5 level. Fluoroscopic imaging was used for placement of the retractor. Once confirmed a high-speed bur in combination with a bone collection device was utilized to resect the complete superior and inferior articular facet of L4-5. The surgical microscope allowed complete resection of the significantly hypertrophied superior articular facet of L5 as well as the inferior articular facet amputated at the pars. A massive amount of synovial cystic material as well as osseous hypertrophy was found within the foramen. This was meticulously dissected performing decompression. This created a generous decompression of the posterior lateral recess as well as the foramen at L4-5. Adequacy of decompression was confirmed with a ball tip probe. The thecal sac returned to its normal pulsatile position. Attention was now turned to decompression and partial discectomy at the right L3-4 level. Utilizing the same Wiltsie incision and fluoroscopic guidance a retractor was placed over the right L3-4 foramen. Once the retractor was in place the surgical microscope was delivered into the field. Using bipolar cautery the foramen was exposed from the transverse process of L3 to the transverse process of L4 on the right. Meticulous dissection of the overlying soft tissue and working within Antonio's triangle exposed the significant disc extrusion in the foramen. Carefully protecting the exiting L3 nerve root the disc material was removed. The disc space was entered and loose disc was debrided. Once the disc was felt to be stable the retractor was removed. Ball-tipped probe was utilized to confirm adequacy of decompression. Attention was now turned to the securing the titanium rods were contoured to match the significant lordosis at the L4-5 level. The patient had been placed on the pro-axis bed which allowed for positioning in extension. They were secured in the weed science research technician's recommended protocol. Set screws were torqued off. The collected bone shavings were utilized in the fusion material. The posterior lateral gutter was irrigated. Left L4-5 facet was stripped free of all soft tissue elements and decorticated to prepare an excellent interfacet and posterior lateral fusion bed. 20 cc of bone marrow aspirate was combined with the local bone, 10 cc of protogenex DBM as well as allograft. Excellent interfacet and posterior lateral fusion bed was obtained. Final x-rays taken at this point which revealed proper positioning of the instrumentation and excellent sikh of sagittal and coronal contours. Wounds were again inspected and hemostasis achieved. Wounds were then closed to a watertight seal in layered fashion. Steri-Strips and sterile dressing were placed. There were no intraoperative complications. All needle and sponge counts were correct. Neurologic monitoring was used and was normal. At the completion of the case all sponge needle and instrument counts were verified correct. The use of a highly skilled and trained assistant reading teacher was paramount for proper and safe completion of the case. Pravin Magana APRN assisted in all phases of the procedure including positioning, prepping, draping, approach, instrumentation, decompression and fusion, wound closure and delivering the patient in stable condition to the postoperative recovery unit. Operative time, blood loss, and safety of the case were all significantly improved with the use of a GRAIN COMBINER. Signed in PatientKeeper by Sue Thapa MD on 05/01/24 at 19:07 at 1907 ATTENT ION *EDITS and/or ADDENDA must be made in Patient Keeper for this note. * * Edits and ammendments created in [employer] are not visible * * in Patient Keeper or the legal medical record ([facility]). * RPT #: [id number] END OF REPORT [facility] 2024-04-30 13:24:00 [facility] Operative Report REPORT #: [id number] REPORT STATUS: Signed DATE: 04/30/24 TIME: 1324 PATIENT: BILLY RICHARDS UNIT #: [id number] ROOM #: [id number] BED: 1 : 62 AGE: 64 SEX: M ATTEND: Sue Thapa MD ADM AUTHOR: Sue Thapa MD ATTENT ION *EDITS and/or ADDENDA must be made in Patient Keeper for this note. * * Edits and ammendments created in [employer] are not visible * * in Patient Keeper or the legal medical record ([facility]). * -- OPERATION -- SURGERY START DATE/TIME: 2024-04-30 13:25 PRE-OPERATIVE DIAGNOSIS: See description POST-OPERATIVE DIAGNOSIS: See description INDICATION(S): See description NAME OF PROCEDURE: See description SURGEON: Sue Thapa MD HEATING MECHANIC(S): See description ANESTHESIA: See description ESTIMATED BLOOD LOSS: 25 ml's FINDINGS: See description SPECIMEN(S) REMOVED AND/OR ALTERED: See description COMPLICATION(S): See description -- DESCRIPTION -- DESCRIPTION OF TECHNIQUE/PROCEDURE: PREOPERATIVE DIAGNOSES: 1. Lumbar spondylosis (WPA27-T93.816) 2. Herniation of lumbar intervertebral disc with sciatica (GYF56-M35.16) 3. Lumbar radiculopathy (DNH14-C67.16 4. Lumbar herniated nucleus pulposus (ICD 10-M 51.56) L4-5 5. 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 Foot drop; right foot ICD-736.79 UWE75-D19.371 POSTOPERATIVE DIAGNOSIS: 1. Lumbar spondylosis (CFU77-V47.816) 2. Herniation of lumbar intervertebral disc with sciatica (TWZ01-W55.16) 3. Lumbar radiculopathy (TPA59-J12.16 4. Lumbar herniated nucleus pulposus (ICD 10-M 51.56) L4-5 5. 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 Foot drop; right foot ICD-736.79 TQQ35-G59.371 PROCEDURES: Stage I 1. Anterior lumbar interbody fusion, L4-5 2. Placement of intervertebral biomechanical cage L4-5 3. Allograft and local autograft 4. Left iliac crest bone marrow aspirate aspiration for bone marrow. 5. SCM-SentryNeuro: Necessary for the safe completion of this procedure SURGEON: Jean-Paul Thapa MD. HEATING MECHANIC: Pravin Magana APRN (Critical to the safe and efficacious completion of the operation, minimizing operative time, blood loss, and improving overall safety). CO-SURGEON FOR INTERBODY FUSION: Liss Mcghee MD. COMPLICATIONS: None apparent ESTIMATED BLOOD LOSS: Stage I 25 cc Cell Saver return: 0 mL, Packed Red Blood Cells 0 units IMPLANTS: Medtronic titanium cages: 12 X 12 lordotic 23 mm wide 60 mm long. Local bone shavings and bone resected from overlying lateral osteophyte and internal cage as well as overlying bone, VITOS 20 mL and bone marrow aspirate left iliac crest of 20 mL. INDICATIONS: Mr. Domonique Richards is a very pleasant 64-year-old gentleman well known to me. He has developed a right foot drop with profound discomfort. He has developed intractable low back and right greater than left lumbar radicular symptoms. He has a marked discomfort and decrease in overall quality of life and has been miserable. His advanced imaging demonstrates him to have significant central and foraminal stenosis at the L4-5 level with a trace spondylolisthesis at that level and a large disc herniation on the right at L3-4 causing displacement and impingement of the exiting L3 nerve root. The patient is reasonable, reliable and does and has not not demonstrate secondary gain behaviors. The patient understood the risks to include but not be limited to bleeding, nerve vessel damage, infection, failed fusion, adjacent segment degeneration, continued or worsening pain, and the potential need for further surgery. Despite these risks, the patient felt that the current symptoms were best managed operatively. After obtaining the appropriate medical clearances the patient was scheduled for surgery. SUMMARY OF PROCEDURE IN DETAIL: The patient was greeted the preoperative holding area. The patient and his family had all of their questions answered, the surgical site was marked and signed informed consent was freely given. Following appropriate administration of antibiotics, the patient was brought to the operative suite and general anesthetic was administered. The patient placed in right side down lateral decubitus position. All prominences and neurovascular structures were well accommodated. The patient was found to have pulses in this position. The patient was prepped and draped in sterile fashion. Left sided approach to the L4-5 interspace was completed with Dr Mcghee and verified with intraoperative x-ray. Following adequate exposure of the L4-5 interspace, substantial lateral osteophyte was resected with a large Leksell. This bone was cleansed of soft tissue and combined with allograft. A generous superficial discectomy was performed. The interspace was subsequently sequentially distracted to proper ligamentotaxis with interbody lordotic trial spacers. A substantial disc material posterior to the posterior longitudinal ligament was retrieved via the anterior approach. To ensure adequacy of the decompression a ball-tipped probe a ball-tipped probe was found to pass easily in the cephalad and caudad extent of the L4 and L5 vertebra as well as out each foramen. A Jamshidi was inserted into the left anterior superior iliac crest with approximately 2 cm between the inner and outer table. 20 mL of bone marrow was then aspirated and soaked over 100% vitos and local bone. Endplates were prepared down to punctate bleeding bone without violating the overall integrity of the endplate. The cage was measured for proper interference fit . Utilizing AP and lateral fluoroscopic imaging the cage was found to have excellent fit and fill of the interspace. Next the peek cage was packed with bone graft and local bone shavings from the endplate preparation. The cage was placed flush with the L4-5 lateral vertebra and achieving excellent interference fit. Cage was stable to pull out forces. The remaining bone graft material was then packed the around cage. Excellent well packed interbody fusion bed was obtained. AP and lateral fluoroscopic imaging demonstrated satisfactory hardware interbody construct. Now attention was drawn to wound closure. Wounds were copiously irrigated, inspected and closed by Dr Mcghee. This will be dictated separately. The patient tolerated the procedure without difficulty. All needle and sponge counts were correct. Intraoperative neurologic monitoring was used and was normal. The use of a highly skilled and trained assistant reading teacher was necessary for this complicated procedure. Pravin Magana, assisted in all aspects of this case from positioning, exposure, decompression, instrumentation and fusion, wound closure and repositioning of the patient. Surgical time blood loss and increased safety were improved by his expertise. Signed in PatientKeeper by Sue Thapa MD on 05/01/24 at 19:02 at 1902 ATTENT ION *EDITS and/or ADDENDA must be made in Patient Keeper for this note. * * Edits and ammendments created in [employer] are not visible * * in Patient Keeper or the legal medical record (HPF). * [facility] #: [id number] END OF REPORT [facility] 2024-04-30 11:08:00 [facility] ([facility]) Med Order Sheet REPORT #: [id number] REPORT STATUS: Signed DATE: 04/30/24 TIME: 110 PATIENT: BILLY RICHARDS UNIT #: [id number] ROOM #: NC.SH10 BED: 1 : 62 AGE: 64 SEX: M ATTEND: Sue Thapa MD ADM AUTHOR: Pravin Magana APRN ATTENT ION *EDITS and/or ADDENDA must be made in Patient Keeper for this note. * * Edits and ammendments created in [facility] are not visible * * in Patient Keeper or the legal medical record (HPF). * Admission Medication Reconciliation -- CONTINUED / CHANGED HOME MEDICATIONS -- Home: Atorvastatin Tab (Lipitor Tab) 20 MG PO DAILY Hosp: Atorvastatin Tab (Lipitor Tab) 20 MG PO DAILY Home: Divalproex DR Tab (Depakote DR Tab) 1000 MG PO BEDTIME Hosp: Divalproex DR Tab (Depakote DR Tab) 1000 MG PO BEDTIME Home: prazosin capsule 6 MG PO BEDTIME Hosp: prazosin capsule 6 MG PO BEDTIME Home: SEROquel tablet (quetiapine) 300 MG PO BEDTIME Hosp: QUEtiapine Tab (SEROquel Tab) 300 MG PO BEDTIME at 1108 ATTENT ION *EDITS and/or ADDENDA must be made in Patient Keeper for this note. * * Edits and ammendments created in [employer] are not visible * * in Patient Keeper or the legal medical record (HPF). * [facility] #: [id number] END OF REPORT [facility] 2024-04-16 16:51:22 Images from the original note were not included. Notified pt of physician review and recommendations from recent echo. Pt verbalized understanding and will reach out to Dr. Novoa tomorrow. Tommy Pham MD P Cardiology Nurse; Juan Manuel Novoa MD Reviewed with the patient immediately after the completion of the echocardiogram findings on the same day. Please also let him know that he has a liver cyst that is noted in the echocardiogram. Please ask him to follow-up with PCP for further detailed assessment for the liver cyst. CCed message to Dr Juan Manuel Novoa Melanie Luis RN [facility] 2024-04-14 10:45:00 Images from the original note were not included. Venipuncture collection performed by clean technique on the right anticubitus. Total of 1 attempts were made. Slight pressure and a bandage/dressing were applied to the site(s). The patient experienced no complications. The following specimens were processed according to instructions and sent to [facility] laboratories per lab order on 04/14/2024 : LT BLUE 1 SST 3 RED LAV 2 PPT DK GREEN (LiHep) DK GREEN (SodH) MUELLER DK BLUE (K2) DK BLUE (S) ACD Blood Culture NIPT/NTD Patient has been identified by and name and was provided with cup, antiseptic towelette, and clean catch instructions. 1 urine specimen(s) sent. Unpreserved 1 Urine Culture Aptima tube Other urine [facility] 2024-04-09 16:49:17 Received cardiac clearance, faxed back to [facility]. Thank you. Janice Paulino MA [facility] 2024-04-09 09:27:21 I can see him back after the echo is complete. Please move the appt from AM to PM slots. [facility] 2024-04-09 09:17:34 Echo has been approved I have added him to today schedule at 1PM patient aware Sheron Sánchez [facility] 2024-04-09 09:15:56 PSS is going to see if they can get echo approved today and will try to schedule today if patient is able. Huyen Graves RN [facility] 2024-04-09 08:34:41 Please see if echo can be done today since he is coming for preop clearance. It has been guera for 06/2024. [facility] 2024-04-08 08:47:57 Fax form received for orthopedic procedure. Placed in MDs inbox folder for review. Virgil Cortes MA [facility] 2024-03-30 09:03:25 Images from the original note were not included. Requested Renewals Name from pharmacy: tiZANidine HCl 6 MG Oral Capsule Will file in chart as: TIZANIDINE 6 mg capsule Sig: TAKE 1 CAPSULE BY MOUTH THREE TIMES DAILY NEEDED FOR MUSCLE SPASM Disp: 90 capsule Refills: 0 Start: 03/29/2024 Class: eRX Non-formulary For: Chronic bilateral low back pain without sciatica Last ordered: 4 months ago (11/19/2023) by Juan Manuel Novoa MD Last refill: 02/27/2024 Rx #: [id number] Provider Review Required Krzmof6903/29/2024 06:52 AM Protocol Details This refill cannot be delegated Valid encounter within last 12 months To be filled at: [facility] [address] [place] [address] Recent Visits Date Type Provider Dept 02/20/24 Office Visit Santo Valdivia MD [facility] 11/19/23 Office Visit Juan Manuel Novoa MD [facility] 09/30/23 Office Visit Juan Manuel Novoa MD [facility] 07/31/23 Office Visit Liss Chiang PA [facility] 05/22/23 Office Visit Juan Manuel Novoa MD [facility] 05/07/23 Office Visit Adenike Swartz MD [facility] 02/04/23 Office Visit Juan Manuel Novoa MD [facility] 11/22/22 Office Visit Juan Manuel Novoa MD [facility] Showing recent visits within past 540 days with a meds authorizing provider and meeting all other requirements Future Appointments No visits were found meeting these conditions. Showing future appointments within next 150 days with a meds authorizing provider and meeting all other requirements [facility] 2024-03-16 14:13:02 Patient was called to r/s 6 mo post op appointment. No answer, LM to call back. Letter sent to home address. June Braswell MA [facility] 2024-03-10 15:43:06 Patient was called to r/s 6 month post op appointment with Ms. Osei. He stated he needed to speak to his and he would call us back. June Braswell MA [facility] 2024-01-06 08:41:35 Last Refilled: potassium chloride 10 mEq CR tablet 30 tablet 2 09/30/2023 -- No Sig: Take 1 tablet by mouth in the morning. Sent to pharmacy as: potassium chloride 10 mEq CR tablet Class: eRX Route: Oral Order: [id number] Date/Time Signed: 09/30/2023 12:17 E-Prescribing Status: Receipt confirmed by pharmacy (09/30/2023 12:18 PM CDT) Recent Visits Date Type Provider Dept 11/19/23 Office Visit Juan Manuel Novoa MD [facility] 09/30/23 Office Visit Juan Manuel Novoa MD [facility] 07/31/23 Office Visit Liss Chiang PA [facility] 05/22/23 Office Visit Juan Manuel Novoa MD [facility] 05/07/23 Office Visit Adenike Swartz MD [facility] 02/04/23 Office Visit Juan Manuel Novoa MD [facility] 11/22/22 Office Visit Juan Manuel Novoa MD [facility] 08/09/22 Office Visit Juan Manuel Novoa MD [facility] Showing recent visits within past 540 days with a meds authorizing provider and meeting all other requirements Future Appointments No visits were found meeting these conditions. Showing future appointments within next 150 days with a meds authorizing provider and meeting all other requirements T [facility] 2023-12-31 15:51:34 [id number] Billy Richards Received medical/billing records release request from [employer] [employer] & [employer]MMANUEL Flores via mail. Fax sent to Medical records on 12/31/23. Thank you, Cori Weems. 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 And he would like this corrected. [facility] 2023-11-18 15:53:20 [place] [facility] 2023-11-11 15:25:12 OK [facility] 2023-11-11 14:48:08 Billy Richards is a 63 year old male Patient's sister has just moved to the area and is in need of a primary care provider. Advised the patient that per Dr. Valenzuela's scheduling instructions, he is not accepting new patients at this time. Asking if the provider will make an exception for his sister. Please advise. Peng Khanna [facility] 2023-11-04 07:08:18 Last Refilled: TIZANIDINE 6 mg [id number] eakjyik6510/04/2023--NoSig: TAKE 1 CAPSULE BY MOUTH THREE TIMES DAILY NEEDED FOR MUSCLE SPASMSent to pharmacy as: tiZANidine 6 mg capsule (ZANAFLEX)Class: eRXOrder: [id number]/Time Signed: 10/04/2023 11:19E-Prescribing Status: Receipt confirmed by pharmacy (10/04/2023 11:19 AM CDT) Recent Visits Date Type Provider Dept 09/30/23 Office Visit Juan Manuel Novoa MD [facility] 07/31/23 Office Visit Liss Chiang PA [facility] 05/22/23 Office Visit Juan Manuel Novoa MD [facility] 05/07/23 Office Visit Adenike Swartz MD [facility] 02/04/23 Office Visit Juan Manuel Novoa MD [facility] 11/22/22 Office Visit Juan Manuel Novoa MD [facility] 08/09/22 Office Visit Juan Manuel Novoa MD [facility] 06/04/22 Office Visit Juan Manuel Novoa MD [facility] 05/14/22 Office Visit Juan Manuel Novoa MD [facility] Showing recent visits within past 540 days with a meds authorizing provider and meeting all other requirements Future Appointments No visits were found meeting these conditions. Showing future appointments within next 150 days with a meds authorizing provider and meeting all other requirements [place]as [facility] 2023-10-30 08:02:54 Last Refilled: levothyroxine 75 mcg tablet 30 tablet 2 07/31/2023 -- No Sig: Take 1 tablet by mouth every morning. Sent to pharmacy as: levothyroxine 75 mcg tablet (SYNTHROID) Class: eRX Route: Oral Order: [id number] Date/Time Signed: 07/31/2023 17:20 E-Prescribing Status: Receipt confirmed by pharmacy (07/31/2023 5:20 PM INFORMATION SYSTEMS SPECIALIST) Recent Visits Date Type Provider Dept 09/30/23 Office Visit Juan Manuel Novoa MD [facility] 07/31/23 Office Visit Liss Chiang PA [facility] 05/22/23 Office Visit Juan Manuel Novoa MD [facility] 05/07/23 Office Visit Adenike Swartz MD [facility] 02/04/23 Office Visit Juan Manuel Novoa MD [facility] 11/22/22 Office Visit Juan Manuel Novoa MD [facility] 08/09/22 Office Visit Juan Manuel Novoa MD [facility] 06/04/22 Office Visit Juan Manuel Novoa MD [facility] 05/14/22 Office Visit Juan Manuel Novoa MD [facility] Showing recent visits within past 540 days with a meds authorizing provider and meeting all other requirements Future Appointments No visits were found meeting these conditions. Showing future appointments within next 150 days with a meds authorizing provider and meeting all other requirements [place] [facility] 2023-10-25 10:45:00 Images from the original note were not included. Venipuncture collection performed by clean technique on the left anticubitus. Total of 1 attempts were made. Slight pressure and a bandage/dressing were applied to the site(s). The patient experienced no complications. The following specimens were processed according to instructions and sent to [facility] laboratories per lab order on 10/25/2023 : LT BLUE SST 1 RED LAV PPT DK GREEN (LiHep) DK GREEN (SodH) MUELLER DK BLUE (K2) DK BLUE (S) ACD Blood Culture NIPT/NTD [facility] 2023-10-04 07:26:25 Images from the original note were not included. Requested Renewals Name from pharmacy: tiZANidine HCl 6 MG Oral Capsule Will file in chart as: TIZANIDINE 6 mg capsule Sig: TAKE 1 CAPSULE BY MOUTH THREE TIMES DAILY NEEDED FOR MUSCLE SPASM Disp: 90 capsule Refills: 0 Start: 10/04/2023 Class: eRX Non-formulary For: Chronic bilateral low back pain without sciatica Last ordered: 3 weeks ago (09/09/2023) by Juan Manuel Novoa MD Last refill: 09/09/2023 Rx #: [id number] Provider Review Required Pzicgx4910/04/2023 05:55 AM Protocol Details This refill cannot be delegated Valid encounter within last 12 months To be filled at: [facility] [address] [place] [address] Recent Visits Date Type Provider Dept 09/30/23 Office Visit Juan Manuel Novoa MD [facility] 07/31/23 Office Visit Liss Chiang PA [facility] 05/22/23 Office Visit Juan Manuel Novoa MD [facility] 05/07/23 Office Visit Adenike Swartz MD [facility] 02/04/23 Office Visit Juan Manuel Novoa MD [facility] 11/22/22 Office Visit Juan Manuel Novoa MD [facility] 08/09/22 Office Visit Juan Manuel Novoa MD [facility] 06/04/22 Office Visit Juan Manuel Novoa MD [facility] 05/14/22 Office Visit Juan Manuel Novoa MD [facility] Showing recent visits within past 540 days with a meds authorizing provider and meeting all other requirements Future Appointments No visits were found meeting these conditions. Showing future appointments within next 150 days with a meds authorizing provider and meeting all other requirements [facility] 2023-10-01 13:57:18 Images from the original note were not included. Juan Manuel Novoa MD 10/01/2023 6:12 AM CDT Mild elevation liver enzymes, vitamin d is borderline, good kidney, good protein and glucose, T is low but better than before. Recheck labs in 3 months. Contacted patient. Patient notified of results per provider. Verbalized understanding. Aruna Michael LVN 10/01/2023 1:57 PM [facility] 2023-10-01 13:47:43 Copied from [facility] #[id number]. Topic: Clinical - Order >> Oct 01, 2023 1:46 PM Patient Predatory Game Hunter wrote: Patient is returning call he missed from the clinic in regards to lab results Arsenio Mcclendon [facility] 2023-10-01 13:07:56 Images from the original note were not included. Juan Manuel Novoa MD 10/01/2023 6:12 AM CDT Mild elevation liver enzymes, vitamin d is borderline, good kidney, good protein and glucose, T is low but better than before. Recheck labs in 3 months. Patient notified of lab results via private, detailed voicemail. Aruna Michael LVN 10/01/2023 1:09 PM [facility] 2023-10-01 09:28:27 Copied from [facility] #[id number]. Topic: Clinical - Results >> Oct 01, 2023 9:27 AM Patient Predatory Game Hunter wrote: Pt returning clinic call in regards to results. Paola Sarmiento [facility] 2023-09-30 12:30:00 Images from the original note were not included. Venipuncture collection performed by clean technique on the right anticubitus. Total of 1 attempts were made. Slight pressure and a bandage/dressing were applied to the site(s). The patient experienced no complications. The following specimens were processed according to instructions and sent to [facility] laboratories per lab order on 09/30/2023 : LT BLUE SST 3 RED LAV 1 PPT DK GREEN (LiHep) DK GREEN (SodH) MUELLER DK BLUE (K2) DK BLUE (S) ACD Blood Culture NIPT/NTD [facility] 2023-09-12 10:47:13 Call placed to patient regarding missed appointment. Patient states he didn't know he had an appointment today. I did ask how the patient is doing and patient and patient stated he is having some pain on L side of abdomen as well as some drainage that is clear with a little blood. Patient did state he picked up both oxycodone and furosemide but requesting clarification on the furosemide. I let the patient know I would route message to provider and follow up with directions on medication. I let patient know he has an upcoming appointment on 09/19/2023 patient states he will keep that appointment. Patient was thankful and had no further questions. [facility] 2023-09-09 13:29:32 As per pharmacist, an IMPREGNATOR [employer]LECTR[employer] cannot prescribe C2 scheduled medications; requesting a doctor to order. RN notified [employer]ATOR [employer] who will speak with MD about ordering. IMPREGNATOR E[employer]ROLY[employer]ACIT[employer] provided verbal order for RN to refill flexeril for 30 days. RMATION SYSTEMS SPECIALIST [facility] 2023-09-09 13:11:33 Billy Richards is a 63 year old male [facility] is calling to request 5mg Oxycodone be sent by Dr. Jarrett b/c this is a controlled substance.. Please f/u Work Phone Not on file. SE Clinton [facility] 2023-09-09 11:06:15 Images from the original note were not included. Requested Renewals Name from pharmacy: Ammonium Lactate 12 % External Lotion Will file in chart as: AMMONIUM LACTATE 12 % lotion Sig: APPLY LOTION TOPICALLY TO AFFECTED AREA NEEDED FOR DRY SKIN Disp: 400 g Refills: 0 Start: 09/08/2023 Class: eRX For: Xeroderma Last ordered: 1 month ago (07/31/2023) by SADE Graff Last refill: 08/10/2023 Rx #: [id number] Off-Protocol Kpabfw9509/08/2023 12:09 PM Protocol Details Medication not assigned to a protocol, forward to provider. Valid encounter within last 12 months To be filled at: [facility] [address] [place] [address] Recent Visits Date Type Provider Dept 07/31/23 Office Visit Liss Chiang PA [facility] 05/22/23 Office Visit Juan Manuel Novoa MD [facility] 05/07/23 Office Visit Adenike Swartz MD [facility] 02/04/23 Office Visit Juan Manuel Novoa MD [facility] 11/22/22 Office Visit Juan Manuel Novoa MD [facility] 08/09/22 Office Visit Juan Manuel Novoa MD [facility] 06/04/22 Office Visit Juan Manuel Novoa MD [facility] 05/14/22 Office Visit Juan Manuel Novoa MD [facility] Showing recent visits within past 540 days with a meds authorizing provider and meeting all other requirements Future Appointments No visits were found meeting these conditions. Showing future appointments within next 150 days with a meds authorizing provider and meeting all other requirements [facility] 2023-09-09 08:48:04 Recent Visits Date Type Provider Dept 07/31/23 Office Visit Liss Chiang PA [facility] 05/22/23 Office Visit Juan Manuel Novoa MD [facility] 05/07/23 Office Visit Adenike Swartz MD [facility] 02/04/23 Office Visit Juan Manuel Novoa MD [facility] 11/22/22 Office Visit Juan Manuel Novoa MD [facility] 08/09/22 Office Visit Juan Manuel Novoa MD [facility] 06/04/22 Office Visit Juan Manuel Novoa MD [facility] 05/14/22 Office Visit Juan Manuel Novoa MD [facility] Showing recent visits within past 540 days with a meds authorizing provider and meeting all other requirements Future Appointments No visits were found meeting these conditions. Showing future appointments within next 150 days with a meds authorizing provider and meeting all other requirements Last refill was Disp Refills Start End FELIZ TIZANIDINE 6 mg capsule 90 capsule 0 08/01/2023 -- No Sig: TAKE 1 CAPSULE BY MOUTH THREE TIMES DAILY NEEDED FOR MUSCLE SPASM Sent to pharmacy as: tiZANidine 6 mg capsule (ZANAFLEX) RMATION SYSTEMS SPECIALIST Gabby Estrada MA [facility] 2023-09-07 10:19:18 Addended by: HUYEN CALABRESE on: 09/07/2023 10:19 AM Modules accepted: Orders RMATION SYSTEMS SPECIALIST [facility] 2023-09-06 16:59:31 Closing encounter. Patient called to schedule visit 09/09/23 at 11 AM. RMATION SYSTEMS SPECIALIST Iwona Romero RN [facility] 2023-09-06 16:56:47 Billy Richards is a 63 year old male identified via name/. RN scheduled incision review visit for 09/09/23 at 11 AM and reiterated need to pickup Bactrim script ordered as well as the s/s signifying need to go to ER. Patient encouraged to call back if more guidance or assistance is needed or symptoms change/worsen. Patient verbalized understanding and denied further questions/concerns. RMATION SYSTEMS SPECIALIST Iwona Romero RN [facility] 2023-09-06 16:38:46 Billy Richards is a 63 year old male Patient calling mention he will be there Saturday09.09.23 at 11am and if it keeps leaking he will go to the ER . Please advise SE Osei [facility] 2023-09-06 15:40:17 09/06/2023 3:40 PM Attempt # 1 to contact Billy Richards. No answer, left voicemail to call clinic back at earliest convenience to 1. schedule soonest available visit to be seen for incision, 2. to notify of bactrim script ordered, 3. s/s signifying need to go to ER. Will re-route to nurse pool to attempt call again at a later time. SE Romero RN [facility] 2023-09-06 12:49:25 TRANSITIONAL CARE MANAGEMENT ASSESSMENT 09/06/2023 Billy Richards [id number] Billy Richards is a 63 year old /White male was admitted on 09/02/23 to [facility]. He was discharged on 09/05/23 with discharge disposition of HR- Routine Discharge. Admitting Physician: Mohinder Jarertt Discharge Diagnosis: robotic gastric bypass PRINCIPAL PROCEDURE: Procedure(s): LAPAROSCOPIC ROBOTIC ASSISTED BARIATRIC GASTRIC BYPASS Linked Episodes Type: Episode: Status: Noted: Resolved: Last update: Updated by: TRANSITION OF CARE TCM Active 09/06/2023 09/06/2023 12:42 PM Celia Christian, CONRAD Comments: TCM Zam-rniw-oy-face outreach documentation: Discharge Assessment Chart Assessed: 09/06/23 TCM Outreach Completed: 09/06/23 Do you have a few minutes to speak with me about how you are doing at home?: Yes (Pt reports doing "Okay, just still sore". Reports incision opened yesterday and provider glued it again. Reports incision opened up again today, spoke with clinic staff and will go by clinic today to take care for it.) Discharge Instructions Do you understand your at-home instructions?: Yes (Denies any questions.) Medications Have you filled your prescriptions and do you have them in your home? : Yes (Reports having meds at home.) Do you know how to take your medications?: Yes Can you provide me with the names or descriptions of any cukq-byu-uneprbd or supplements you are currently taking?: Yes (none) Supplies Did you receive applicable home medical supplies/equipment?: N/A Follow Up Appointment Has a follow up appointment been scheduled?: Yes ([facility] appt on 09/12.) Do you have any questions about your follow up appointments?: No Are you able to get to your appointment? Who will be taking you?: Yes (spouse) Home Health Assistance Has the home health nurse contacted you since you've been home?: N/A Survey - Recognition Is there anything you would like to share about your recent hospitalization, or anyone you would like to recognize?: Yes (Reports everyone was "Wonderful".) Do you have any suggestions for improvement?: No Do you have any other questions or concerns at this time?: No Future Appointments: Future Appointments Provider Department Dept Phone 09/12/2023 10:00 AM Bennett Osei FNP [facility] Weight Management, [facility] [phone] 09/19/2023 10:00 AM Mohinder Jarrett MD [facility] General/Bariatric Surgery, [place] [phone] 10/14/2023 10:30 AM Bennett Osei FNP [facility] [phone] 10/25/2023 10:00 AM Michael Ruiz MD [facility] Endocrinology, [facility] [phone] 03/02/2024 10:00 AM Bennett Osei FNP [facility] [phone] 09/03/2024 10:00 AM Mohinder Jarrett MD [facility] General/Bariatric Surgery, [place] [phone] RMATION SYSTEMS SPECIALIST Celia Christian RN [facility] 2023-09-06 11:20:10 Billy Richards is a 63 year old male identified via name/. Outgoing call made to patient for follow up on Bariatric post operative condition: Surgery: Laparoscopic Robotic Assisted Bariatric Gastric Bypass Surgery date: 09/02/23 POD #: 4 Pain: 09/28 "not really, not right now unlike first couple days" -location: upper left -characteristic: ache -treatment: every 8 hours Teaching: RAFAEL/DS/SHIVAM-S: No NSAIDs lifelong. Take liquid/chewable Tylenol every 8 hours for the first 2 to 3 days after surgery. May taper off as tolerated. Take tramadol as needed for pain every 6 hours. Pain < 5: continue pain regimen as needed. ? ice packs, abd binder, walking or OTC chewable simethicone for gas discomfort. ? expected: cramping, sore, throbbing, burning, aching, pulling sensation at surgical sites ? unexpected: sharp/severe, not relieved by pain meds Meds: -Any questions r/t meds: no -taking omeprazole as prescribed: yes -knows when to start vitamins: yes has DM: taking meds, last BG reading at home: yes, last BG 111 Teaching: ? do not swallow anything bigger than a baby aspirin ? cut or crush all NON extended release (aka: XL) meds ? omeprazole 40 mg daily for 90 days for stomach tissue healing - open capsule, dump into mouth & swallow with sip of fluid ? vitamins are on pg. 10 in booklet if has DM: record readings, review endo recommendations, f/u with treating provider within 4 weeks of surgery. Outside range readings, notify & escalate to any provider Incision sites: wound adhesive -description: draining and bruising, drainage was re-glued by provider yest, PCP interns Teaching: ? do NOT remove dressing and allow to come off on own or will be removed at f/u appointment ? do NOT submerge sites under water until completely healed (no scabs) if redness, hot to touch, drainage or foul order: if bruising (normal): Continue to monitor & educate on bruising stages. Call back if spreading or increased pain. Diet stage (per their response): protein liquid -has Bariatric Surgery Booklet: yes -what is patient consuming: Appropriate -ounces drank yesterday: 64 oz -ounces drank today (reaching 64 oz goal?): 32 oz -verbalizes recommended goal for grams of PRO/day: yes -tolerating diet? yes -Nausea/Vomiting: no, once at hospital -aware of when to start next stage of diet: yes Teaching: ? If you become nauseous: use prescribed zofran ? Encourage patient on starting early in the day and constantly sipping on fluids throughout the day. Offer Baritastic darnell ? Educate on PRO goals and provide examples of sources for protein. (Pg. 5 & 13 of "Activity and Circulation Post-Surgery packed" discussed at pre-op teaching) ? Reinforce smaller portions and taking smaller sips at a time. No gulping, straws, carbonation ? Educate patient on diet stages from their current stage (pg. 14 in booklet) up to Stage 4 (pg. 16): Diet stages by timeframe Portion sizes Consistency Examples of food options (pops On POD #4, start protein shakes. Advised to start with small amount and advance as tolerated. May only be able to drink one protein shake the first day but should advance to goal of 60 gm of protein per day in addition to 64 oz of fluids per day. On POD # 7, add sugar-free sinhala yogurt or ricotta/cottage cheese to diet. Starting with 1 tbsp 1 time per day, taking small bites. Avoid fluids 30 min before and 30 min after eating food. May advance as tolerated up to 2 tbsp 2 times per day. At 4 weeks after surgery, start soft foods. These foods should be easy to chew down to a soft consistency. The diet should remain high in protein, low fat, low carbs, and minimal sugar. At 6 weeks can start to have fruit/raw veggies. Reinforced that while advancing diet, it is imperative to maintain drinking at least 64 oz of fluids per day first and then get 60 gm of protein from combined food sources and protein supplements. Start each stage with lowest recommended portion size and advance slowly as tolerated. Encouraged to use the book as a reference and guide. ? Send electronic copy of booklet via My Chart if needed Output: -urine color: clear Pale yellow urine: no intervention -BM since surgery: yes If loose/abnormal= color: "greenish" amount: medium consistency: loose frequency: x1 Teaching: ? Stools may be less often and a less amount after surgery (tend to be looser if DS or SHIVAM-s) Constipation: Ok to start OTC laxative, such as MiraLAX powder or chewable Dulcolax after 3-4 days no BM. If these are unsuccessful at producing a BM, may try Dulcolax suppository or fleets enema. Instruct patient to call back if unable to have BM after interventions. Physical activity: walking around house Teaching: reinforce walking at least every 30 min to 1 hour during the day and no lifting >10 lbs. or strenuous activity until after 4 weeks. Follow Up: -scheduled and aware of f/u appt w/bariatric surgeon & PCP: yes on 09/12/23 -scheduled w/ specialty providers (as indicated): no Teaching: ? f/u w/ specialties within 4 weeks of surgery Reasons to call clinic: ? Sharp/severe abd pain, or pain not improving with prescribed pain meds ? Not tolerating diet and unable to reach goals for clear liquids and protein ? N/V not relieved with prescribed medications ? S/S of dehydration ? S/S of infection at incision sites ? Temp >100.4 F ? Any questions or concerns Reminders: -bring vitamins to 2 week post op appt. -(if applicable) take pictures of ANY abnormal s/s and upload to [facility] -can call clinic after hours; mention surgery/surgeon/date of surgery -verified release of omeprazole from preferred pharmacy. Patient aware of OK to pickup. -patient refused RTC today for incision review/repair. MD Nguyen advised to keep incision clean and gauze fresh until patient can RTC. Patient encouraged to call the clinic if more guidance or assistance is needed or symptoms change/worsen. Patient verbalized understanding and denied further questions/concerns. Iwona Romero RN, BSN 09/06/23 12:19 PM SE Romero RN [facility] 2023-09-06 10:29:28 Billy Richards is a 63 year old male POSTOP, 09/02 Pt is calling to request the liquid form of omeprazole 40 mg Please f/u to clarify the medication, the pt was not too sure. Work Phone Not on file. SE Clinton [facility] 2023-09-05 11:01:13 Problem: Pain Goal: Control of pain at or below patient's documented comfort goal Outcome: Adequate for discharge Goal: Reduction in pain sensation Outcome: Adequate for discharge Problem: Falls, Risk of Goal: Absence of falls Outcome: Adequate for discharge SE Matthews RN [facility] 2023-09-04 11:13:56 Problem: Pain Goal: Control of pain at or below patient's documented comfort goal Outcome: Progressing as expected Goal: Reduction in pain sensation Outcome: Progressing as expected Problem: Falls, Risk of Goal: Absence of falls Outcome: Progressing as expected SE Arnold RN [facility] 2023-09-04 10:38:54 Patient sitting in chair in discomfort. Patient's identity confirmed. Billy Richards is a 63-year-old male s/p Laparoscopic Robotic Assisted Bariatric Gastric Bypass on 09/02/2023. POD #2. Patient reports pain generalized in the abdominal area. Advised patient once discharged home to take liquid tylenol every 8 hoursfor the next 3 days and tramadol as needed every 6 hours. May taper off as tolerated. (Avoid NSAIDs). May wear abdominal binder as desired for comfort and use ice packs or heating pad for discomfort. For gas discomfort, the best remedy is walking, but may take OTC chewable simethicone. Advised if pain worsens or not tolerable with prescribed medications to call the clinic. Patient verbalized understanding. Discussed medications. Patient advised to not start vitamin supplementation until 2 weeks post-op. Patient must not swallow pills larger than a baby ASA. Pills must be liquid, crushed, cut with pill cutter or capsules opened if not extended release. Explained that the patient will be prescribed omeprazole to take for 90 days to aid in tissue healing. This comes in a capsule form that will need to be opened, contents dumped in mouth, swallowed with sip of fluid, and capsule discarded for entire three months. Patient verbalized understanding. Incision care instructions given. Explained to patient that the Glue at incision sites must stay in place and allowed to come off on its own or removed at post op clinic appointment. He has bruising in the abdominal area. Avoid submerging sites under water until completely healed. May shower allowing soapy water to run over sites, rinse, and pat dry. Avoid scrubbing sites. Advised to monitor sites for redness, warmth, swelling, drainage, or foul odor and to call the clinic should these symptoms occur. Patient verbalized understanding. Advised patient to walk every 30 min to 1 hour while awake and to advance as tolerated by increasing steps every day. Avoid strenuous activity until after 4 weeks post-op. Then start slow when adding exercise routine and advance as tolerated. Advised to avoid lifting > 10 lbs until 4 weeks after surgery. Encouraged patient to continue IS for 10 breaths per hour while awake. Explained that the patient may drive when they feel comfortable doing so and no longer taking tramadol. Patient verbalized understanding. Patient reports tolerated CLD. Patient reports they have the bariatric surgery patient education booklet. Used copy of booklet to discuss advancing diet after surgery. Remain on clear liquids for 3 days after surgery. Patient verbalizes goal of 64 oz of liquids per day. May drink water, sugar-free Gatorade/Powerade/vitamin water, broth, sugar-free jello, sugar-free popsicles, caffeine-free tea/black coffee. On POD #4, start protein shakes. Advised to start with small amount and advance as tolerated. May only be able to drink one protein shake the first day but should advance to goal of 60 gm of protein per day in addition to 64 oz of fluids per day. On POD # 7, next Saturday, add sugar-free sinhala yogurt or ricotta/cottage cheese to diet. Starting with 1 tbsp 1 time per day, taking small bites. Avoid fluids 30 min before and 30 min after eating food. May advance as tolerated up to 2 tbsp 2 times per day. On POD #14, 2 weeks after surgery may start pureed consistency foods. Food should be a thick liquid or smooth paste consistency. Foods should be high protein, low fat, minimal carbs, and minimal sugar. Due to the limited space in the stomach, want to ensure foods eaten are of high nutritional value. Suggested starting with canned tuna, canned chicken, cooked vegetables, beans, scrambled eggs, hummus, tofu, and low-fat cream soups. At 4 weeks after surgery, start soft solid foods. These foods should be easy to chew down to a soft consistency. The diet should remain high in protein, low fat, low carbs, and minimal sugar. Reinforced that while advancing diet, it is imperative to maintain drinking at least 64 oz of fluids per day first and then get 60 gm of protein from combined food sources and protein supplements. Start each stage with lowest recommended portion size and advance slowly as tolerated. Encouraged to use the book as a reference and guide. Advised patient to monitor urine amount and color to assess hydration. If urine appears darker yellow, needs to increase fluid intake. Reviewed s/s of dehydration. Explained that constipation or more frequent loose stools can occur post operatively. Patient may take OTC Miralax powder or chewable Dulcolax for constipation. Patient advised to call the clinic if dehydration, large volume watery stools, or continued constipation after intervention occurs. Patient verbalizes understanding. Reviewed "when to call" page in booklet. Patient acknowledged post-op follow-up appointment with Dr. Jarrett. Patient and did not voice additional questions. Notified patient that she will receive a post op follow up call from the bariatric clinic to discuss postoperative recovery. Tyra Roberto APRN, ANP-C Metabolic and Bariatric Surgery RMATION SYSTEMS SPECIALIST IMPREGNATOR ELECTROLYTIC CAPACITORS-NURSE PRACTITIONER MIDLEVEL PROVIDER [facility] 2023-09-02 13:37:00 OPERATIVE NOTE Date of Surgery: 09/02/2023 Surgeon(s) and Role: * Mohinder Jarrett MD - Primary * Rachana Shaffer MD - Resident - Assisting Pre-Op Diagnosis: Morbid obesity with Body mass index is 46 kg/m?. Dyslipidemia, DM type II, [place], NAFLD Post-Op Diagnosis Codes: Same Procedures: Procedure(s) (LRB): LAPAROSCOPIC ROBOTIC ASSISTED BARIATRIC GASTRIC BYPASS (N/A) CPT: UTMBCODINGHE, Any Complications Encounters: none Estimated Blood Loss: 150 ml Specimens Removed: * No specimens in log * * No implants in log * Patient's Condition: Stable Findings: Thick adhesions in the upper abdomen Indications: Billy Richards is a 63 year old male with Morbid obesity with Body mass index is 46 kg/m?. He also has Dyslipidemia, DM type II, [place], and NAFLD. A detailed discussion was held with the patient and decision was made to perform a gastric bypass. Procedure: The patient was seen in the pre-operative holding area. The risks, benefits, complications, treatment options, and expected outcomes were discussed with the patient. The patient concurred with the proposed plan, with a signed informed consent. The site of surgery properly noted/marked. The patient was taken to the operating room and placed in supine position on the operating table, identified as Billy Richards and the procedure verified as lap robotic-assisted gastric bypass. Prior to the induction of general anesthesia, antibiotic prophylaxis was administered, bilateral sequential compression stockings were applied and the patient was given chemical venous thromboembolism prophylaxis. Following general endotracheal anesthesia the patient was positioned on the table on a foot board with ankles and knees secured. The abdomen was prepped and draped in the usual sterile fashion. A surgical time out was done confirming the correct patient, operation and that all the anticipated supplies and instruments were available in the room. She was then prepped and draped in a standard surgical fashion. A stab incision was made in the left subcostal region. A Veress needle was used and pneumoperitoneum was established and the abdomen was insufflated to 15 mm Hg. A 5 mm, 0 degree laparoscope with the Optiview trocar was used to enter the abdomen under direct visualization. There were thick omental adhesions in the upper abdomen. The remainder of the trocars were placed under direct visualization including a 8 mm trocar in the right mid abdomen, a 12 mm trocar in the left mid abdomen and a 8 mm trocar in the left lateral position. The robot was docked and lysis of adhesions was performed to release the left lobe of the liver and expose the stomach. Left lobe of the liver was retracted using 0 Vloc stitch. The diaphragm and the GE junction were easily visualized. We identified the left gastric vessel and used the 60 mm robotic blue load with reinforcement to transect the stomach horizontally. There was bleeding from a distal branch of left gastric. This was controlled using vessel sealer. A 40 Fr VisiG was placed to size the gastric pouch. We then used 60 mm blue load vertically, followed by white load all the way to angle of His to transect the fundus from the gastric pouch. Next, the omentum was elevated, identifying the mesocolon adjacent to the ligament of Treitz. The jejunum was run 75 cm from the ligament of Treitz and was brought up ante-colic, ante-gastric fashion. A gastrostomy and an enterotomy were made in the vianey limb. The robotic stapler with a white load was used to create a stapled gastrojejunostomy. The common enterotomy was closed using 3-0 absorbable V-lock in running fashion. Shelley's defect was closed with 2-0 Ehibond in running fashion. The biliary portion of the omega loop was stapled off using a 60 mm robotic stapler with white load. The Vianey limb was then measured 150 cm distally. The Vianey limb was placed next to the biliopancreatic limb and the bowel limbs were opened using robotic latonia. A 60 mm robotic stapler with white load was inserted into the lumen, held upward in an anti-mesenteric fashion and fired. The common enterotomy was closed using 60 mm white load on robotic sureform stapler. The mesenteric defect was closed using a running 2-0 non-absorbable v-lock. The Vianey limb was occluded with a bowel clamp. A leak test was performed by pushing ICG mixed with saline down the visiG. There was no evidence of a leak from the anastomosis. The gastrojejunal anastomosis was circumferentially covered with VistaSeal on the anterior and posterior surface. The cut end of the Vianey limb was covered as well with the vertical staple line. The glue was allowed to dry. The robot was undocked. A completion laparoscopic survey was performed showing no signs of bleeding, bowel injury, or other pathology. Pneumoperitoneum was completely reduced after viewing removal of the trocars under direct visualization. The skin was closed with subcuticular 4-0 Monocryl. The patient was extubated and taken to PACU in stable condition. Mohinder Jarrett MD [facility] 2023-08-07 13:35:57 Patient was called and was advised that we can get him rescheduled for his support group for 09/11/23 3 PM - 4 PM. He was worried that his surgery would get cancelled due to this but was assured that I have spoken to our surgery coordinator and stated his surgery date would not change. I confirmed email address with patient, advised to save email he will receive from us about support group meeting, he will get a reminder 1 week prior to meeting and another reminder from Teams 1 hour prior to support group meeting. Patient stated he understood and had no further questions. [facility] June Braswell MA [facility] 2023-08-07 12:19:35 Billy Richards is a 63 year old male pt calling stating he can't get into the support group stating he tried to get in and it is telling him they sent the code to another phone on his acct. No one is home so he was unable to access. Asking for help and wants to know what he can do [phone] (home) RMATION SYSTEMS SPECIALIST Lena Oconnor [facility] 2023-07-31 16:40:06 Images from the original note were not included. Last Refilled: Name from pharmacy: tiZANidine HCl 6 MG Oral Capsule Will file in chart as: TIZANIDINE 6 mg capsule Sig: TAKE 1 CAPSULE BY MOUTH THREE TIMES DAILY NEEDED FOR MUSCLE SPASM Disp: 90 capsule Refills: 0 Start: 07/31/2023 Class: eRX Non-formulary For: Chronic bilateral low back pain without sciatica Last ordered: 2 months ago (05/07/2023) by Adenike Swartz MD Last refill: 07/09/2023 Rx #: [id number] Provider Review Required [id number]/31/2023 04:34 PM Protocol Details This refill cannot be delegated Valid encounter within last 12 months To be filled at: [address] Notes: Recent Visits Date Type Provider Dept 05/22/23 Office Visit Juan Manuel Novoa MD [facility] 05/07/23 Office Visit Adenike Swartz MD [facility] 02/04/23 Office Visit Juan Manuel Novoa MD [facility] 11/22/22 Office Visit Juan Manuel Novoa MD [facility] 08/09/22 Office Visit Juan Manuel Novoa MD [facility] 06/04/22 Office Visit Juan Manuel Novoa MD [facility] 05/14/22 Office Visit Juan Manuel Novoa MD [facility] 03/12/22 Office Visit Juan Manuel Novoa MD [facility] Showing recent visits within past 540 days with a meds authorizing provider and meeting all other requirements Today's Visits Date Type Provider Dept 07/31/23 Office Visit Liss Chiang PA [facility] Showing today's visits with a meds authorizing provider and meeting all other requirements Future Appointments No visits were found meeting these conditions. Showing future appointments within next 150 days with a meds authorizing provider and meeting all other requirements [facility] 2023-07-31 13:15:00 Images from the original note were not included. Venipuncture collection performed by clean technique on the left anticubitus. Total of 1 attempts were made. Slight pressure and a bandage/dressing were applied to the site(s). The patient experienced no complications. The following specimens were processed according to instructions and sent to [facility] laboratories per lab order on 07/31/2023 : LT BLUE SST 1 RED LAV 1 PPT DK GREEN (LiHep) DK GREEN (SodH) MUELLER DK BLUE (K2) DK BLUE (S) ACD Blood Culture NIPT/NTD RM[employer] SYSTEMS SPECIALIST [facility] 2023-04-03 13:45:00 Addended by: HEATHER PTREMIGIO on: 04/05/2023 11:40 PM Modules accepted: Orders [facility] 2023-03-14 10:00:50 Medical Records received for Billy Richards is a 63 year old male from [facility]. Record: Initial Nutrition Assessment - Date 03.12.23 Uploaded to patient chart. Closing encounter. Blanca Mccarty [facility] 2023-03-08 14:59:14 Addended by: EMMA DIOP on: 03/08/2023 02:59 PM Modules accepted: Orders [facility] 2023-03-08 10:30:00 Images from the original note were not included. Venipuncture collection performed by clean technique on the left anticubitus. Total of 1 attempts were made. Slight pressure and a bandage/dressing were applied to the site(s). The patient experienced no complications. The following specimens were processed according to instructions and sent to [facility] laboratories per lab order on 03/08/23: LT BLUE SST 4 RED LAV 2 PPT DK GREEN (LiHep) 1 DK GREEN (SodH) MUELLER DK BLUE (K2) DK BLUE (S) ACD Blood Culture NIPT/NTD [facility] 2023-03-08 10:24:36 - Patient contract for weight loss signed.03/08/2023 - Enrolled to online support group for 04/2023 - Bariatric Tool And Die Repairer referral sent to Dilshad Wesley on 03/08/2023 -Psych Referral sent to Karen on 03/08/2023 All referrals faxed with confirmation and scanned to [facility]. Forms put in box for PSS to complete on 03/08/2023. Patient states they understand and have no further questions. [facility] 2023-03-04 14:45:00 Images from the original note were not included. Venipuncture collection performed by clean technique on the left anticubitus. Total of 1 attempts were made. Slight pressure and a bandage/dressing were applied to the site(s). The patient experienced no complications. The following specimens were processed according to instructions and sent to [facility] laboratories per lab order on 03/04/2023: LT BLUE SST 1 RED 1 LAV PPT DK GREEN (LiHep) DK GREEN (SodH) MUELLER DK BLUE (K2) DK BLUE (S) ACD Blood Culture NIPT/NTD [facility] 2023-02-12 15:29:35 Images from the original note were not included. Received findings report from [facility]. Placed in providers box. Roma Poole [facility] 2021-10-04 08:26:00 [facility] Med Order Sheet REPORT #: [id number] REPORT STATUS: Signed DATE: 10/04/21 TIME: 825 PATIENT: BILLY RICHARDS UNIT #: [id number] ROOM #: [place] [address] BED: 1 : 62 AGE: 61 SEX: M ATTEND: Sue Thapa MD ADM AUTHOR: Janice Vargas [employer]AV[employer] DIESEL MECHANIC ATTENT ION *EDITS and/or ADDENDA must be made in Patient Keeper for this note. * * Edits and ammendments created in [facility] are not visible * * in Patient Keeper or the legal medical record (HPF). * Discharge Medication Reconciliation DISCHARGE MEDICATION LIST Atorvastatin Tab (Lipitor Tab) Dose: 20 MG PO DAILY Divalproex DR Tab (Depakote DR Tab) Dose: 1000 MG PO BEDTIME Levothyroxine Tab (Synthroid Tab) Dose: 50 MCG PO DAILY Minipress capsule (prazosin) Dose: 6 MG PO BEDTIME SEROquel tablet (quetiapine) Dose: 300 MG PO BEDTIME STOPPED HOSPITAL MEDICATIONS Dc'd: Acetaminophen Tab (Tylenol Tab) 500MG PO PREOP ONCEDc'd: Acetaminophen Tab (Tylenol Tab) 650MG PO Q4H PRN mild pain (score 1-3)Dc'd: Acetaminophen Tab (Tylenol Tab) 650MG PO Q6H PRN temperature greater than 100.4Dc'd: Bisacodyl EC Tab (Dulcolax Tab) 5MG PO DAILYDc'd: Cyclobenzaprine Tab (Flexeril Tab) 10MG PO TIDDc'd: diphenhydrAMINE Inj (Benadryl Inj) 25MG IV Q4H PRN itchingDc'd: Docusate Sodium Cap (Colace Cap) 100MG PO BIDDc'd: HYDROmorphone Inj (Dilaudid Inj) 0.25MG IV Q4H PRN pain scale 7-10 (use 3rd)Dc'd: Lactated Ringers (LR) 1000ML 150 MLS/HR IV .[id number]'d: Ondansetron Inj (Zofran Inj) 4MG IV Q4H PRN nausea and vomitingDc'd: oxyCODONE/APAP 10/325 Tab (Percocet 10/325 Tab) 1TAB PO Q6H PRN pain scale 1-3 (use 1st)Dc'd: oxyCODONE/APAP 10/325 Tab (Percocet 10/325 Tab) 2TAB PO Q6H PRN pain scale 4-6 (use 2nd)Dc'd: Patient's Own Medication (Patient's Own Medication) Minipress capsule (prazosin) PO BEDTIMEDc'd: Phenol Oral [place] (Chloraseptic Oral [place]) 1SPRAY MM ASDIR PRN sore throatDc'd: Pregabalin Cap (Lyrica Cap) 75MG PO PREOP ONCEDc'd: Sodium Chloride 0.9% (NS) 1000ML KVO IV PREOP ONCE at 0826 ATTENT ION *EDITS and/or ADDENDA must be made in Patient Keeper for this note. * * Edits and ammendments created in [facility] are not visible * * in Patient Keeper or the legal medical record ([facility]). * RPT #: [id number] END OF REPORT [facility] 2021-10-04 08:11:00 [facility] Orthopedic D/C Summary REPORT #: [id number] REPORT STATUS: Signed DATE: 10/04/21 TIME: 810 PATIENT: BILLY RICHARDS UNIT #: [id number] ROOM #: [id number] BED: 1 : 62 AGE: 61 SEX: M ATTEND: Sue Thapa MD ADM AUTHOR: Janice Vargas ATTENT ION *EDITS and/or ADDENDA must be made in Patient Keeper for this note. * * Edits and ammendments created in [employer] are not visible * * in Patient Keeper or the legal medical record ([facility]). * -- PROBLEMS/PROCEDURES -- ADMISSION DATE: 10/03/21 DISCHARGE DATE: 10/04/21 DISCHARGE DIAGNOSES: - Cervical stenosis of spinal canal -- HOSPITAL COURSE -- HOSPITAL COURSE: This is a pleasant 61 year old male who failed conservative treatment with physical therapy and medication management and elected to undergo a posterior spinal decompression formainotomy right C3-4, C4-5, C7-T1 yesterday. Patient tolerated the surgery well with expected postop pain being tolerated with PO pain meds. The patient states he has regained sensation to his fingers that he previously was experiencing numbness and tingling. Patient to ambulate with PT/OT prior to DC today, and will follow up with our office in 1 week. -- DISCHARGE MEDICATIONS -- ALLERGIES: hydrocodone (Severe - Allergy) ADDTIONAL DETAIL: Colace, Flexeril, Percocet -- DISCHARGE INSTRUCTIONS -- ADDTIONAL DISCHARGE INSTRUCTIONS: Keep dressing dry for 1 week. Keep C-collar on. Follow up in our office in 1 week. Emergency Instructions: The patient was instructed to present to the nearest Emergency Department or call 911 should their symptoms return or worsen.; -- OBJECTIVE -- VITALS (10/03 08:11 - 10/04 08:11): Temperature C: 36.8 (36.5 - 36.8) Temperature source: Oral Pulse Rate 84 (60 - 88) Respiratory rate: 16 (16 - 18) BP: 131/68 (125/68 - 162/116) I/Os (10/03 07:00 - 10/04 07:00): Net 570.00 Intake 1,570.00 Output 1,000 -EXAM- GENERAL: Well developed, well nourished, in no apparent distress. NECK: No masses, no thyromegaly, no abnormal cervical nodes, trachea midline. C-collar in place. Dressing to posterior neck c,d,i. LUNGS: Normal respiratory effort. HEART: Regular rate and rhythm. MUSCULOSKELETAL: No deformity, no scoliosis noted of thoracic or lumbar spine, joint ROM grossly normal, normal gait and station. EXTREMITIES: No clubbing, no cyanosis, no edema. Moves all extremities anti gravity. SKIN: Intact without significant lesions, or rashes. PSYCHIATRIC: Alert and oriented to time, person, place. Normal mood and affect, intact judgment and insight. -- DATA -- LABS COMPREHENSIVE METABOLIC PANEL (10/04/21 06:20) SODIUM 139 POTASSIUM 4.1 CHLORIDE 106 CARBON DIOXIDE 28 ANION GAP 9.1 GLUCOSE 158H H BLOOD UREA NITROGEN 11 GLOMERULAR FILTRATION RATE 60 CREATININE 1.3 BUN/CREATININE RATIO 8.5 L TOTAL PROTEIN 6.7 ALBUMIN 3.2 L CALCIUM 8.9 BILIRUBIN TOTAL 0.2 SGOT/AST 14 L SGPT/ALT 17 ALKALINE PHOSPHATASE 54 CBC W/AUTO DIFF (10/04/21 06:20) WHITE BLOOD CELL 13.6H H RED BLOOD CELL 4.70 HEMOGLOBIN 13.7L L HEMATOCRIT 42.9 MEAN CELL VOLUME 91 MEAN CELL HGB 29.1 MEAN CELL HGB CONCENTRATION 31.9 RED CELL DISTRIBUTION WIDTH 13.3 PLATELET COUNT 193 MEAN PLATELET VOLUME 10.9 NEUTROPHIL % 82.0 H IMMATURE GRANULOCYTE % 0.3 LYMPHOCYTE % 8.8 L MONOCYTE % 8.7 EOSINOPHIL % 0.1 BASOPHIL % 0.1 NUCLEATED RBC % 0.0 NEUTROPHIL # 11.12 H IMMATURE GRANULOCYTE # 0.040 LYMPHOCYTE # 1.19 L MONOCYTE # 1.18 H EOSINOPHIL # 0.01 BASOPHIL # 0.02 VITALS Pulse Rate 10/04/21 07:00 84 10/04/21 05:15 68 10/03/21 23:30 88 10/03/21 19:37 87 10/03/21 15:01 83 10/03/21 11:54 60 SPO2 %: 10/04/21 07:00 95 10/04/21 05:15 96 10/03/21 23:30 94 10/03/21 19:37 95 10/03/21 15:01 98 10/03/21 11:54 97 Temperature C: 10/04/21 07:00 36.8 10/04/21 05:15 36.8 10/03/21 23:30 36.6 10/03/21 19:37 36.6 10/03/21 15:01 10/03/21 11:54 36.5 Respiratory rate: 10/04/21 07:00 16 10/04/21 05:15 18 10/03/21 23:30 18 10/03/21 19:37 18 10/03/21 15:01 17 10/03/21 11:54 18 Blood pressure: 10/04/21 07:00 131 / 68 10/04/21 05:15 125 / 74 10/03/21 23:30 126 / 73 10/03/21 19:37 145 / 78 10/03/21 15:01 162 / 116 10/03/21 11:54 137 / 85 Signed in PatientKeeper by Janice Vargas on 10/04/21 at 08:21 at 0821 ATTENT ION *EDITS and/or ADDENDA must be made in Patient Keeper for this note. * * Edits and ammendments created in [facility] are not visible * * in Patient Keeper or the legal medical record ([facility]). * RPT #: [id number] END OF REPORT [facility] 2021-10-03 13:25:00 [facility] Operative Report REPORT #: [id number] REPORT STATUS: Signed DATE: 10/03/21 TIME: 1325 PATIENT: BILLY RICHARDS UNIT #: [id number] ROOM #: [id number] BED: 1 : 62 AGE: 61 SEX: M ATTEND: Sue Thapa MD ADM AUTHOR: Sue Thapa MD ATTENT ION *EDITS and/or ADDENDA must be made in Patient Keeper for this note. * * Edits and ammendments created in [employer] are not visible * * in Patient Keeper or the legal medical record ([facility]). * -- OPERATION -- SURGERY START DATE/TIME: 2021-10-03 13:25 PRE-OPERATIVE DIAGNOSIS: See description POST-OPERATIVE DIAGNOSIS: See description INDICATION(S): See description NAME OF PROCEDURE: See description SURGEON: Sue Thapa MD HEATING MECHANIC(S): See description ANESTHESIA: See description ESTIMATED BLOOD LOSS: 15 ml's FINDINGS: See description SPECIMEN(S) REMOVED AND/OR ALTERED: See description COMPLICATION(S): See description -- DESCRIPTION -- DESCRIPTION OF TECHNIQUE/PROCEDURE: PREOP DIAGNOSIS: 1. Cervical foraminal stenosis (ICD10 M99.71) C3-4 C4-5 and C7-T1 levels right sided 2. Cervical radiculopathy right (HOZ93-I82.12) 3. Cervicalgia (TNV09-U70.2) 4. Postlaminectomy syndrome: Cervical (ICD10-M 96.1) POSTOP DIAGNOSIS: 1. Cervical foraminal stenosis (ICD10 M99.71) C3-4 C4-5 and C7-T1 levels right sided 2. Cervical radiculopathy right (KRJ35-X95.12) 3. Cervicalgia (JET13-L14.2) 4. Postlaminectomy syndrome: Cervical (ICD10-M 96.1) PROCEDURE: 1. Posterior Cervical Keyhole Foraminotomy right C3-4, C4-5, and C7-T1 posterior cervical lamina foraminotomies 2. Microsurgical techniques requiring use of the surgical microscope SURGEON: Jean-Paul Thapa MD HEATING MECHANIC: Pravin MOLINA ANESTHESIA: GETA EBL: 15 mL COMPLICATIONS: None apparent SPINAL CORD MONITORING: SSEPs, MEPs, and Free run EMGs. Stable throughout the course of the case. There was suggestion of improvement of the MEPs to the right upper extremity. CONDITION: Stable to the PACU IMPLANTS: None INDICATIONS: Mr. Billy Richards is a 61-year-old gentleman who has a complicated past cervical spinal history. He has a previous history of posterior spinal cervical instrumentation with interspinous wiring. He had a Worker's Compensation claim and has seen multiple spine surgeons. His workers compensation claim has been resolved. [place] complaints of intractable neck shoulder and arm pain. He has tried extensive nonoperative treatment including physical therapy and epidural steroid injections along with activity modification and inset. As he had completely isolated right upper extremity symptomatology despite bilateral foraminal impingement and having a very large diameter cervical soft tissue envelope and a short neck felt the safest most reasonable tact would be posterior spinal decompression without fusion. The patient his and I had extensive discussions with the patient regarding the risks, benefits, expected outcomes, and potential complications of this procedure. All of his questions were answered. They desired to proceed to surgery. After obtaining appropriate medical clearances, he was scheduled for surgery. On the date of operation the patient was greeted the preoperative holding area. The surgical site of the posterior neck was marked for identification. patient and son had all their questions answered. Signed informed consent was freely given. He received ALEXIS hose and SCDs for DVT prophylaxis. He was subsequently taken to the operative theater. General endotracheal anesthesia was administered by the anesthesia staff. The patient was supine positioned on the flattop Diogo operative table. All bony prominences were well-padded. The arms tucked to the side. Siddiqui head pin tongs were applied. Now the patient was rotated 180 into the prone position using the Diogo table. Great care and thorough attention to detail was necessary to complete this safely. Once the patient was safely positioned in the prone position a lateral radiographs demonstrated appropriate positioning of the of the cervical spine. The patient's posterior neck was prepared for surgery by removal of hair from the inion distally and the posterior neck was cleansed with alcohol and allowed to dry. Next the posterior spine was prepped and draped in the normal fashion for spine surgery. Prior to incision a formal WHO timeout was held A 20 mm incision was made through the skin simultaneous tissue to the level of the nuchal fascia. The nuchal fascia was divided in line with its fibers. Dissection was taken down to the left sided hemilamina of C6-7. Once exposure was completed and confirmed to be AP and lateral fluoroscopic imaging. The surgical microscope was delivered into the field. A high-speed bur was used to perform a hemilaminotomy on the left side. The ligamentum flavum was elevated. A combination of #1 and #2 Kerrisons were used to resect the ligamentum flavum and perform left foraminotomy. A ball-tipped probe demonstrated excellent decompression with easy passage cranially and caudally at the C3 and C4 pedicles and out into the right foramen of C3-4. Once this was completed the wound was generously irrigated. Excellent hemostasis was obtained and maintained. A Gelfoam cap was placed over the hemilaminotomy defect. Attention was now drawn to the C4-5 level. Through the same skin incision and separate fascial is incision and approach to the C4-5 level was made. Once the retractor was docked, AP and lateral fluoroscopic imaging confirmed appropriate placement of retractor. The surgical microscope was delivered into the field. A high-speed bur was used to perform a hemilaminotomy on theleft side. The ligamentum flavum was elevated. A combination of #1 and #2 Kerrisons were used to resect the ligamentum flavum and perform foraminotomies. A ball-tipped probe demonstrated excellent decompression with easy passage cranially and caudally at the C4 and C5 out occult and out into the right foramen of C4-5. Once this was completed the wound was generously irrigated. Excellent hemostasis was obtained and maintained. A Gelfoam cap was placed over the hemilaminotomy defect. Attention was now turned to the C7-T1 level. Through a separate skin incision and separate fascial is incision and approach to the C7-T1 level was made. Once the retractor was docked, AP and lateral fluoroscopic imaging confirmed appropriate placement of retractor. The surgical microscope was delivered into the field. A high-speed bur was used to perform a hemilaminotomy on the right side. There was substantial osseous foraminal overgrowth. This was by far and away the worst level of the 3. The ligamentum flavum was elevated. A combination of #1 and #2 Kerrisons were used to resect the ligamentum flavum and perform foraminotomies. A ball-tipped probe demonstrated excellent decompression with easy passage cranially and caudally at the C7 and T1 pedicle out into the foramen of right C7-T1. Once this was completed the wound was generously irrigated. Excellent hemostasis was obtained and maintained. A Gelfoam cap was placed over the hemilaminotomy defect. Once this was completed the wound was copiously irrigated with antibiotic irrigant. 1 g of vancomycin was distributed throughout the wounds. The wound was closed meticulously with 0 Vicryl in the muscle and fascial layer, 2-0 Vicryl the subcutaneous layer followed by a running 3-0 Monocryl in the skin. Steri-Strips, 4 x 4's, and a Metapore were used for dressing. At the completion of the case all sponge , needle and instrument counts were confirmed correct. There were no intraoperative complications noted. Once the wound was completely dressed the patient was carefully removed from the Siddiqui head pin tongs and transition to the postoperative table. Patient was placed in a hard cervical orthosis for their comfort and protection. The use of a highly trained assistant reading teacher, GEMMA Carreon was vital for the safe efficacious in expedient completion of this case. He was present from the positioning of the patient delivering the patient the postoperative period. He participated directly in all crucial portions of this case from positioning of the patient, surgical approach, decompression, wound closure and transferring the patient safely to the postoperative care unit. The surgical attendant described to this procedure was unable to assist in these delicate processes as she was assigned to pass instruments. Signed in PatientKeeper by Sue Thapa MD on 10/04/21 at 08:37 at 0837 ATTENT ION *EDITS and/or ADDENDA must be made in Patient Keeper for this note. * * Edits and ammendments created in [employer] are not visible * * in Patient Keeper or the legal medical record ([facility]). * [facility] #: [id number] END OF REPORT [facility] 2021-10-03 10:09:00 [facility] ([facility]) Med Order Sheet REPORT #: [id number] REPORT STATUS: Signed DATE: 10/03/21 TIME: 1009 PATIENT: BILLY RICHARDS UNIT #: [id number] ROOM #: BED: : 62 AGE: 61 SEX: M ATTEND: Sue Thapa MD ADM AUTHOR: Janice Vargas ATTENT ION *EDITS and/or ADDENDA must be made in Patient Keeper for this note. * * Edits and ammendments created in [employer] are not visible * * in Patient Keeper or the legal medical record ([facility]). * Admission Medication Reconciliation -- CONTINUED / CHANGED HOME MEDICATIONS -- Home: Atorvastatin Tab (Lipitor Tab) 20 MG PO DAILY Hosp: Atorvastatin Tab (Lipitor Tab) 20 MG PO DAILY Home: Divalproex DR Tab (Depakote DR Tab) 1000 MG PO BEDTIME Hosp: Divalproex DR Tab (Depakote DR Tab) 1000 MG PO BEDTIME Home: Levothyroxine Tab (Synthroid Tab) 50 MCG PO DAILY Hosp: Levothyroxine Tab (Synthroid Tab) 50 MCG PO DAILY Home: Minipress capsule (prazosin) 6 MG PO BEDTIME Hosp: Minipress capsule (prazosin) 6 MG PO BEDTIME Home: SEROquel tablet (quetiapine) 300 MG PO BEDTIME Hosp: QUEtiapine Tab (SEROquel Tab) 300 MG PO BEDTIME at 1009 ATTENT ION *EDITS and/or ADDENDA must be made in Patient Keeper for this note. * * Edits and ammendments created in [facility] are not visible * * in Patient Keeper or the legal medical record ([facility]). * [facility] #: [id number] END OF REPORT [facility]
[2025-04-06 18:40] LABS: Absolute Lymphocytes (CBC) 1.4 K/uL (0.7-4.9); Hematocrit 43.8 % (39.6-49.0); Hemoglobin 15.1 g/dL (13.6-17.9); MCH 32.8 pg (27.0-35.0); MCHC 34.4 g/dL (32.0-36.0); MCV 95.3 fL (80-100); MPV 9.4 fL (7.6-11.3); Nucleated RBC Absolute Count 0.0 (0-0); Nucleated Red Blood Cells % 0.0 % (0-0); RBC Red Blood Cell Count 4.60 M/uL (4.33-5.43); White Blood Count 8.50 thou/uL (4.3-10.9)
--- NOTE | 2025-04-06 18:44 | RAD REPORT ---
EXAM: Right upper quadrant ultrasound. CLINICAL HISTORY: ABD PAIN COMPARISON: None. FINDINGS: Gallbladder: Numerous gallstones. Gallbladder wall mildly thickened to 5 mm. Bile ducts: No intrahepatic or extrahepatic biliary dilatation. Common bile duct measures 10 mm. Th is is considered abnormally dilated. Limited imaging of the liver shows no concerning finding. IMPRESSION: Cholelithiasis with mild wall thickening of the gallbladder could indicate cholecystitis. Common bile duct is dilated to 10 mm likely indicating choledocholithiasis.
[2025-04-06 18:58] LABS: ALT/SGPT 15.0 U/L (16-61); AST/SGOT 16.0 U/L (15-37); Albumin 2.7 g/dL (3.4-5.0); Albumin/Globulin Ratio 0.7 (1.1-1.8); Alkaline Phosphatase 63.0 U/L (45-117); Anion Gap 10.0 mEq/L (5.0-15.0); BUN Blood Urea Nitrogen 4.0 mg/dL (7-18); Globulin 3.7 g/dL (2.3-3.5); Glucose Level 82.0 mg/dL (74-106); Lipase 12.0 U/L (13-75); Potassium 3.0 mEq/L (3.5-5.1)
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
[2025-04-06] MEDS ORDERED: FENTANYL CITR 100 MCG/2 ML ONE (19:11)
[2025-04-06] MEDS ORDERED: ONDANSETRON 4 MG/2 ML VIAL ONE (19:11)
[2025-04-06] MEDS ORDERED: NA CHLORIDE 0.9% 100 ML ONE (19:12)
[2025-04-06] MEDS ORDERED: NA CHLORIDE 0.9% 1,000 ML ONE (19:12)
[2025-04-06] MEDS ORDERED: PIPERACIL/TAZO 3.375 GM VIAL IV ONE (19:13)
--- NOTE | 2025-04-06 20:27 | P.HP ---
Certification for Inpatient Patient admitted to: Inpatient With expected LOS: >2 Midnights Patient will require the following post-hospital care: None Practitioner: I am a practitioner with admitting privileges, knowledge of patient current condition, hospital course, and medical plan of care. Services: Services provided to patient in accordance with Admission requirements found in Title 42 Section 412.3 of the Code of Federal Regulations Patient History Date of Service: 04/06/25 Reason for admission: Cholecystitis. History of Present Illness: Patient is a pleasant 65-year-old male with no significant past medical history except PTSD according to the patient, who presents to the ER complaining of worsening abdominal pain mostly right upper quadrant with positive rebound tenderness and guarding, nausea and vomiting nonbilious and nonbloody content, and diarrhea. Patient states he started having abdominal pain mostly right upper quadrant for the past 2 weeks, states the pain progressively worsened today and he went and saw Dr. Call, who recommended for him to go to the ER, and requested to order clear liquid diet for the patient until midnight, to start on antibiotic. Patient describes the pain as severe aching and sharp pain, with a pain scale of 9/10, denies of associated chest pain or shortness of breath. According to report received from the ER provider, states surgery Dr. Fay was consulted, and he wants MRCP to be done in the morning, and liver enzymes in AM. Patient will be kept n.p.o. after midnight. On admission as sessment, patient positive for rebound tenderness right upper quadrant. Course in ER. Impression: Cholelithiasis with mild wall thickening of the gallbladder could indicate cholecystitis. Common bile duct is dilated to 10 mm likely indicating choledocholithiasis. Allergies oxycodone Allergy (Verified 04/07/25 00:30) Hives/Rash Home Medications: Divalproex Sodium 2 mg PO BEDTIME 04/07/25 Prazosin HCl 3 cap PO BEDTIME 04/07/25 Quetiapine Fumarate [Seroquel] 600 mg PO BEDTIME 04/07/25 clonazePAM [Clonazepam] 1 tab PO TID PRN 04/07/25 - Past Medical/Surgical History Has patient received pneumonia vaccine in the past: No Diabetic: No -: PTSD. -: Denies of any previous surgical history. - Family History Family History: Reviewed- Non-Contributory - Social History Smoking Status: Current every day smoker Smoking therapy provided: Yes Patient receptive to therapy: Yes (Ordered nicotine patch.) Alcohol use: Yes CD- Drugs: No Caffeine use: No Place of Residence: Home Review of Systems 10-point ROS is otherwise unremarkable Gastrointestinal: Nausea, Vomiting, Abdominal Pain Physical Examination - Physical Exam General: Alert, In no apparent distress, Oriented x3, Cooperative HEENT: Atraumatic, Normocephalic, PERRLA, Mucous membr. moist/pink Neck: Supple, 2+ carotid pulse no bruit, No LAD, Without JVD or thyroid abnormality Respiratory: Clear to auscultation bilaterally, Normal air movement Cardiovascular: No edema, Normal pulses, Regular rate/rhythm, Normal S1 S2, No gallops, No rubs, No murmurs Capillary refill: <2 Seconds Gastrointestinal: Normal bowel sounds, Non-distended, W/out hepatomegaly, No ascites, Tenderness, Rebound, Guarding Musculoskeletal: No clubbing, No swelling, No contractures, No erythema, No tenderness, No warmth Integumentary: No rashes, No breakdown, No significant lesion, No tenderness/swelling, No erythema, No warmth, No cyanosis Neurological: Normal gait, Normal speech, Normal strength at 5/5 x4 extr, Normal tone, Sensation intact, Cranial nerves 3-12 intact, Normal reflexes 2+, Normal affect Lymphatics: No axilla or inguinal lymphadenopathy - Studies Laboratory Data (last 24 hrs) 04/06/25 04/06/25 18:28 18:28 WBC 8.50 Hgb 15.1 Hct 43.8 Plt Count 137 L Sodium 135 L Potassium 3.0 L BUN 4 L Creatinine 0.85 Glucose 82 Total Bilirubin 0.7 AST 16 ALT 15 L Alkaline Phosphatase 63 Lipase 12 L Female Exam - Breasts Breasts: Normal configuration, Normal contours, Symmetrical Assessment and Plan - Plan Patient is a 65-year-old male admitted with diagnosis of cholecystitis, on consult Dr. Call, Dr. Fay. (1) cholecystitis. - MRCP in AM. - on consult. -Dr. Call on consult. -Clear liquid diet until midnight, and n.p.o. after midnight. -Zosyn 3.375 g IV every 8 hours. -D5 half NS at 100 mL/ hr. -Zofran 4 mg IV as needed every 6 hours. -Morphine 4 mg IV as needed every 4 hours. (2) DVT prophylaxis. -SCD at this time. (3)Nicotine use disorder. After discussing with the patient, he agreed for nicotine patch. -Nicotine patch 21 mg daily (4)Explained the entire treatment plan to the patient, solicit questions answered and voiced understanding. Discharge Plan: Home Plan to discharge in: Greater than 2 days - Advance Directives Does patient have a Living Will: No Does patient have a Durable POA for Healthcare: No - Code Status/Comfort Care Code Status Assessed: Yes Code Status: Full Code Critical Care: No Time Spent Managing Pts Care (In Minutes): 55
[2025-04-06] MEDS: MORPHINE 4 MG/ML SYR IV PRN (22:42)
[2025-04-06] MEDS: D5 0.45 NS 1,000 ML IV SCH (22:43)
[2025-04-06] MEDS: POTASSIUM CL SA 10 MEQ TAB PO ONE (23:45)
[2025-04-07] MEDS: HYDROMORPHONE HCL 0.5 MG/0.5 ML INJ IV ONE (00:56)
[2025-04-07] MEDS: PIPER TAZO 3.375 GM in NA CHLORIDE 0.9% 100 ML IV SCH (01:09)
[2025-04-07 06:00] LABS: Absolute Lymphocytes (CBC) 0.9 K/uL (0.7-4.9); Hematocrit 41.2 % (39.6-49.0); Hemoglobin 14.2 g/dL (13.6-17.9); MCH 33.0 pg (27.0-35.0); MCHC 34.5 g/dL (32.0-36.0); MCV 95.6 fL (80-100); MPV 9.1 fL (7.6-11.3); Nucleated RBC Absolute Count 0.0 (0-0); Nucleated Red Blood Cells % 0.0 % (0-0); RBC Red Blood Cell Count 4.31 M/uL (4.33-5.43); White Blood Count 5.30 thou/uL (4.3-10.9)
[2025-04-07 06:20] LABS: ALT/SGPT 15.0 U/L (16-61); AST/SGOT 13.0 U/L (15-37); Albumin 2.1 g/dL (3.4-5.0); Albumin/Globulin Ratio 0.7 (1.1-1.8); Alkaline Phosphatase 47.0 U/L (45-117); Anion Gap 6.4 mEq/L (5.0-15.0); BUN Blood Urea Nitrogen 4.0 mg/dL (7-18); Globulin 3.0 g/dL (2.3-3.5); Glucose Level 104.0 mg/dL (74-106); Magnesium 1.8 mg/dL (1.6-2.4); Potassium 3.4 mEq/L (3.5-5.1)
[2025-04-07] MEDS: MAGNESIUM SULFATE 1 gm IVPB 1 GM/100 ML BAG IV ONE (07:12)
[2025-04-07] MEDS: KCL 20 MEQ/100 mL IVPB 20 MEQ/100 ML BAG IV SCH (08:51)
[2025-04-07] MEDS: NICOTINE 21 MG/PAT TD SCH (08:52)
--- NOTE | 2025-04-07 09:04 | CON ---
Date of Consultation: 04/07/2025 Reason For Consultation: The patient has abdominal pain. History Of Present Illness: The patient is a 65-year-old gentleman who presented to Dr. Call's off ice yesterday after being seen in the ER the night before with diffuse abdominal pain, mostly in the right side of the abdomen associated with nausea, vomiting, and diarrhea for the last 2 weeks. The p atient denies any sore throat, runny nose, cough, headaches, or dizziness. No chest pain. No fever or chills. The patient last had a bowel movement yesterday. He denies travel outside the country. Denies eating any unusual food recently. His pain is diffuse, but mostly on the right side. He stil l is nauseous. The patient was seen in Dr. Call's office, who felt patient had Mackey sign and was sent back to the emergency room. An ultrasound was done showing gallbladder wall thickening and dil ated common bile duct. The patient is being worked up for that, but he also had a significant coliti s with mesenteric edema on the CAT scan done prior. Review of Systems: Otherwise unremarkable. Past Medical History: PTSD. Past Surgical History: Gastric bypass surgery. Allergies: INCLUDE OXYCODONE. Social History: The patient does smoke and drink, has been counseled. Family History: Noncontributory. Physical Examination: Vital Signs: Stable. He is currently afebrile. General: He is awake and alert. Head and Neck: No masses. Chest: Clear. Heart: S1, S2. Abdomen: Soft with diffuse tenderness. Hypoactive bowel sounds. Tenderness in the right middle and right lower quadrant with minimal rebound. No rigidity or guarding. There is also tenderness in th e right upper quadrant. Extremities: Adequately perfused. Nontender. Neuro: Nonfocal. Laboratory Data: White count is normal at 5.3. There is no left shift. Platelets are 127. Director Print ry reviewed. LFTs are within normal limits. Lipase is within normal limits. Potassium is low and i s being replaced. His CT of the abdomen and pelvis reviewed and shows sequela of a gastric bypass, m ild diffuse wall thickening throughout the large bowel. No evidence of free air, significant intraab dominal free fluid, bowel obstruction or abscess. Mild diffuse edema throughout the mesentery. Plea se note, patient did have an appendectomy. No lymphadenopathy and this could be infectious or inflam matory process. There is prominence of the intrahepatic biliary radicles and there is also medial ri ght basilar lower lobe airspace opacities, meaning, he reflects focal pneumonitis. Assessment: A 65-year-old gentleman with abdominal pain, diarrhea, colitis, cholecystitis, cholelith iasis, and enlarged common bile duct. Recommendation: I believe the acute process is infectious or inflammatory in the colon is causing th e 2-week history of diarrhea, although the gallstones and cholecystitis are also a contributing facto r. Given that his common bile duct is significantly dilated as well as intrahepatic biliary tree dil atation, it would be prudent to wait until MRCP is done and see what it shows following which I will discuss the case with Dr. Call. I believe that we should treat infectious inflammatory process fir st and then consider removing the gallbladder. The patient may also need an ERCP based on the MRCP f indings and we will make that recommendation after that is completed. In the meantime, patient needs to be n.p.o., IV fluids, IV antibiotics. We will follow this patient closely while in the hospital. BHAVIN/MODL Voice ID: [id number] Report ID: [id number]
[2025-04-07] MEDS: LORazepam 2 MG/ML VIAL IV ONE (11:06)
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
--- NOTE | 2025-04-07 12:38 | RAD REPORT ---
EXAMINATION: MR CHOLANGIOGRAM CLINICAL INDICATION: Male, 65 years old. [facility] N Cholecystitis TECHNIQUE: Multiplanar, multisequence MR imaging of the abdomen without intravenous contrast, and wit h specific attention to the biliary system. Unless otherwise specified, incidental findings do not require dedicated imaging follow-up. 3D MIP reconstruction performed. COMPARISON: Abdomen ultrasound 04/06/2025. Abdomen CT 04/05/2025 FINDINGS: Motion degradation somewhat limits evaluation. Trace bilateral layering pleural effusions. GALLBLADDER: Moderate distention. Layering small gallstones. No wall thickening, or pericholecystic f luid. BILE DUCTS: Mildly prominent hepatic radicles. Mildly prominent proximal common bile duct measuring u p to 8 mm. No intraductal filling defects LIVER: Normal in size, contour, and signal without evidence of fatty infiltration or iron deposition. No focal lesion. PANCREAS: Normal signal. No mass, or jodi-pancreatic fluid. Prominent caliber of the distal main lamar creatic duct measuring up to 5 mm. SPLEEN: Normal size. No focal lesion. ADRENALS: Normal; no mass. KIDNEYS: Normal size and contour. No hydronephrosis. LYMPH NODES: No lymphadenopathy. ADDITIONAL FINDINGS: None. IMPRESSION: Cholelithiasis with moderate gallbladder distention. Mild prominence of the common bile duct up to 8 mm in caliber, and mild central intrahepatic biliary radical prominence. Minimal upper abdominal ascites and trace layering bilateral pleural effusions.
--- NOTE | 2025-04-07 13:52 | P.PN ---
Date of Service: 04/07/25 Subjective: Still with significant abdominal pain No acute events overnight ROS: 10 point ROS as noted above, otherwise negative Physical exam GEN: Alert, oriented, NAD HEENT: Normal conjunctiva, sclera anicteric CV: Regular rate and rhythm, no edema Pulm: Nonlabored respirations on room air ABD: Soft, moderate generalized abdominal tenderness, nondistended MSK: No joint tenderness Integumentary: No rashes Neuro: Normal speech, normal affect Vitals reviewed Assessment: Colitis Acute cholecystitis Biliary dilatation Hypokalemia Tobacco use disorder Plan: Colitis Acute cholecystitis Biliary dilatation Patient had CT on 04/05 of the abdomen pelvis which showed mild diffuse wall thickening throughout the large bowel, nonspecific and could reflect either infectious or inflammatory process. Mild diffuse edema throughout the mesentery. Abdominal ultrasound on 04/06 performed in ED showed cholelithiasis with mild wall thickening of the gallbladder which could indicate cholecystitis. CBD dilated to 10 mm likely indicating choledocholithiasis. MRCP performed 04/07 AM shows cholelithiasis with moderate gallbladder distention, mild prominence of the CBD up to 8 mm in caliber and mild central intrahepatic biliary radicles prominence. Minimal upper abdominal ascites and trace layering bilateral pleural effusions. Discussed plan with general surgery, clear liquids for now, IV antibiotics and pain medications as needed N.p.o. at midnight Evaluate tomorrow for improvement, may need laparoscopic cholecystectomy Hypokalemia Protocols in place Tobacco use disorder NicoDerm patch DVT PPX: SCD Code status: Full code Time Spent Managing Pts Care (In Minutes): 35
[2025-04-08 04:58] LABS: AST/SGOT 12 U/L (15-37); Albumin 2.1 g/dL (3.4-5.0); Albumin/Globulin Ratio 0.7 (1.1-1.8); Alkaline Phosphatase 47 U/L (45-117); Anion Gap 2.9 mEq/L (5.0-15.0); Globulin 2.9 g/dL (2.3-3.5); Glucose Level 85 mg/dL (74-106); Magnesium 1.9 mg/dL (1.6-2.4); Potassium 3.9 mEq/L (3.5-5.1)
[2025-04-08 05:12] LABS: ALT/SGPT < 14 U/L (16-61); BUN Blood Urea Nitrogen < 3 mg/dL (7-18)
--- NOTE | 2025-04-08 08:09 | PN ---
Date of Progress Note: 04/08/2025 Subjective: The patient is awake, alert, complaining of right-sided abdominal pain, but middle and r ight lower quadrant, not right upper quadrant. He is thirsty. Wants to drink. Objective: Vital Signs: Stable. He is afebrile. Abdomen: Tender in the right lower quadrant and right middle quadrant, but not in the right upper qu adrant as much. There is no rebound, rigidity, or guarding. Assessment: Colitis and cholecystitis and cholelithiasis. Recommendations: I believe that we should treat the colitis first and then we can do the gallbladder surgery as an outpatient if the patient clinically progresses. He appears to be a little better tohelen gottlieb. We will continue to monitor him with serial abdominal exam. We will check his labs tomorrow and make further recommendations based on his clinical response. He may need a cholecystectomy while in this admission, but at this time, given the fact that he has two different disease processes, I woul d like to try to treat the colitis first. The thickening of the gallbladder wall could be secondary to the ascites seen in the upper abdomen and could give a false positive indication of cholecystitis. The patient's MRCP was negative for any stones and the common bile duct was only borderline dilated . There is no stricture or mass. /MODL Voice ID: [id number] Report ID: [id number]
--- NOTE | 2025-04-08 12:40 | P.PN ---
Subjective Date of Service: 04/08/25 Chief Complaint: Cholecystitis, cholelithiasis, chg / BHs, diarrhea, hematochezia, colitis, Physical Examination - Vital Signs Temperature: 98.4 F Blood Pressure: 127/64 Pulse: 56 Respirations: 16 Pulse Ox (%): 95 Assessment And Plan - Current Problems (Diagnosis) (1) RUQ abdominal pain Current Visit: Yes Status: Acute (2) RLQ abdominal pain Current Visit: Yes Status: Acute (3) Nausea & vomiting Current Visit: Yes Status: Acute (4) Abnormal ultrasound of abdomen Current Visit: Yes Status: Acute (5) Cholecystitis Current Visit: Yes Status: Acute (6) Cholelithiasis Current Visit: Yes Status: Acute (7) Colitis Current Visit: Yes Status: Acute (8) Change in bowel habits Current Visit: Yes Status: Acute (9) Diarrhea Current Visit: Yes Status: Acute (10) Hematochezia Current Visit: Yes Status: Acute (11) Abnormal CT of the abdomen Current Visit: Yes Status: Acute - Plan REC: 1) continue IVFs & IV antibiotics 2) continue prn pain medications and anti-emetics 3) lap gemini as per surgery 4) consider HIDA scan 5) stool studies 6) IBD panel
--- NOTE | 2025-04-08 16:03 | P.PN ---
Date of Service: 04/08/25 Subjective: Sleeping comfortably Continue to monitor clinical improvement ROS: 10 point ROS as noted above, otherwise negative Physical exam GEN: AAO x3, NAD HEENT: Normal conjunctiva, sclera anicteric CV: RRR, S1 S2 present no edema Pulm: Clear BBS, on RA ABD: Soft on palpation, moderate generalized abdominal tenderness, nondistended MSK: No joint tenderness Integumentary: No rashes Neuro: Normal speech, normal affect Vitals reviewed Assessment: Colitis Acute cholecystitis Biliary dilatation Hypokalemia Tobacco use disorder Plan: Colitis Acute cholecystitis Biliary dilatation Patient had CT on 04/05 of the abdomen pelvis which showed mild diffuse wall thickening throughout the large bowel, nonspecific and could reflect either infectious or inflammatory process. Mild diffuse edema throughout the mesentery. Abdominal ultrasound on 04/06 performed in ED showed cholelithiasis with mild wall thickening of the gallbladder which could indicate cholecystitis. CBD dilated to 10 mm likely indicating choledocholithiasis. MRCP performed 04/07 AM shows cholelithiasis with moderate gallbladder distention, mild prominence of the CBD up to 8 mm in caliber and mild central intrahepatic biliary radicles prominence. Minimal upper abdominal ascites and trace layering bilateral pleural effusions. Discussed plan with general surgery, continue zosyn and pain medicaitons CLD now, N.p.o. at midnight for possible surgery HIDA scan ordered may need laparoscopic cholecystectomy this admission Stool cultures ordered Hypokalemia Protocols in place Tobacco use disorder Continue NicoDerm patch DVT PPX: SCD Code status: Full code Time Spent Managing Pts Care (In Minutes): 38
[2025-04-09 06:28] LABS: Absolute Lymphocytes (CBC) 1.3 K/uL (0.7-4.9); Hematocrit 44.6 % (39.6-49.0); Hemoglobin 15.3 g/dL (13.6-17.9); MCH 33.0 pg (27.0-35.0); MCHC 34.2 g/dL (32.0-36.0); MCV 96.4 fL (80-100); MPV 9.7 fL (7.6-11.3); Nucleated RBC Absolute Count 0.0 (0-0); Nucleated Red Blood Cells % 0.1 % (0-0); RBC Red Blood Cell Count 4.63 M/uL (4.33-5.43); White Blood Count 5.60 thou/uL (4.3-10.9)
[2025-04-09 06:46] LABS: Albumin 2.3 g/dL (3.4-5.0); Albumin/Globulin Ratio 0.7 (1.1-1.8); Alkaline Phosphatase 56 U/L (45-117); Anion Gap 4.0 mEq/L (5.0-15.0); BUN Blood Urea Nitrogen 3 mg/dL (7-18); Bilirubin Indirect, Calculated 0.2 mg/dL (0.2-0.8); Globulin 3.3 g/dL (2.3-3.5); Glucose Level 98 mg/dL (74-106); Lipase 15 U/L (13-75); Magnesium 2.0 mg/dL (1.6-2.4); Potassium 4.0 mEq/L (3.5-5.1)
[2025-04-09 06:53] LABS: ALT/SGPT < 14 U/L (16-61); AST/SGOT < 10 U/L (15-37)
--- NOTE | 2025-04-09 08:19 | PN ---
Subjective: The patient is still having lower and right-sided abdominal pain. He is tolerating ramya r liquids, however, without any difficulties. Vital signs are stable. He is afebrile. Laboratories: His white count is normal. Platelets are slightly low. His chemistry reviewed. LFTs are essentially within normal limits. Lipase is normal. Objective: Abdomen: Soft, nondistended. Positive bowel sounds. Positive right lower and right mid dle quadrant tenderness. There is much less tenderness in the right upper quadrant. Assessment: Colitis, cholecystitis, cholelithiasis. Recommendations: The patient has a HIDA scan scheduled for today. We will see what it shows. [place], we would like to treat the colitis first and then the gallbladder surgery. However, if the HIDA scan suggestive of acute cholecystitis, we would do a cholecystectomy on this admission. Plan of car e discussed in detail with the patient. Continue IV antibiotics. /MODL Voice ID: [id number] Report ID: [id number]
--- NOTE | 2025-04-09 13:57 | P.PN ---
Subjective Date of Service: 04/09/25 Chief Complaint: Cholecystitis, cholelithiasis, chg / BHs, diarrhea, hematochezia, colitis, Subjective: New changes (Back from HIDA scan; report not available yet. Patient still with RUQ>RLQ pain with Mackey's sign.) Review of Systems 10-point ROS is otherwise unremarkable General: Weakness, Malaise Gastrointestinal: Nausea, Abdominal Pain Physical Examination - Vital Signs Temperature: 97.6 F Blood Pressure: 140/74 Pulse: 56 Respirations: 16 Pulse Ox (%): 97 - Physical Exam General: Alert, Oriented x3, Mild distress (RUQ pain) HEENT: Atraumatic, Normocephalic, PERRLA, EOMI Neck: Supple Respiratory: Normal air movement Cardiovascular: Normal pulses Gastrointestinal: Tenderness (RUQ>RLQ ), Guarding Neurological: Normal speech, Normal strength at 5/5 x4 extr Assessment And Plan - Current Problems (Diagnosis) (1) RUQ abdominal pain Current Visit: Yes Status: Acute (2) RLQ abdominal pain Current Visit: Yes Status: Acute (3) Nausea & vomiting Current Visit: Yes Status: Acute (4) Abnormal ultrasound of abdomen Current Visit: Yes Status: Acute (5) Cholecystitis Current Visit: Yes Status: Acute (6) Cholelithiasis Current Visit: Yes Status: Acute (7) Colitis Current Visit: Yes Status: Acute (8) Change in bowel habits Current Visit: Yes Status: Acute (9) Diarrhea Current Visit: Yes Status: Acute (10) Hematochezia Current Visit: Yes Status: Acute (11) Abnormal CT of the abdomen Current Visit: Yes Status: Acute - Plan REC: 1) continue IVFs & IV antibiotics 2) continue prn pain medications and anti-emetics 3) lap gemini as per surgery 4) PPI therapy 5) await stool studies 6) await IBD panel
--- NOTE | 2025-04-09 14:03 | RAD REPORT ---
EXAMINATION: Hepatobiliary System W/ Ph CLINICAL INDICATION: Male, 65 years old. [facility] cholecystitis TECHNIQUE: Hepatobiliary imaging was acquired over the abdomen for 60 minutes following intravenous a dministration of radiotracer. Slow intravenous administration of CCK. Dose: 1.4ug. Additional imaging was acquired over the abdomen for 30 minutes. Gallbladder ejection fraction was then calculat ed. RADIOPHARMACEUTICAL: 6.2 mCi Technetium 99m Mebrofenin. COMPARISON: 04/06/2025 ultrasound FINDINGS: There is prompt accumulation of the radiopharmaceutical in the liver and excretion into the biliary d uctal system, gallbladder, and small bowel. Gallbladder ejection fraction was calculated at 86% (normal range >35%). Additional symptoms were not duplicated. IMPRESSION: Normal hepatobiliary scan with normal gallbladder ejection fraction.
[2025-04-09] MEDS: MAGNESIUM CITRATE 300 ML BOT PO ONE (15:00)
[2025-04-09] MEDS: METOCLOPRAMIDE 10 MG/2mL INJ IV SCH (15:08)
[2025-04-09] MEDS: BISACODYL E.C. 5 MG TAB PO ONE (15:09)
[2025-04-09] MEDS: GOLYTELY 4000 ML PO ONE (18:09)
--- NOTE | 2025-04-09 19:19 | P.PN ---
Date of Service: 04/09/25 Subjective: Continues to feel bad, abdominal pain continues HIDA scan today, Dr. Call and Dr. Fay consulted ROS: 10 point ROS as noted above, otherwise negative Physical exam GEN: AAO x3, NAD HEENT: Normal conjunctiva, sclera anicteric CV: RRR, S1 S2 present no edema Pulm: Clear BBS, on RA ABD: Soft on palpation, moderate generalized abdominal tenderness, nondistended MSK: No joint tenderness Integumentary: No rashes Neuro: Normal speech, normal affect Vitals reviewed Assessment: Colitis Acute cholecystitis Biliary dilatation Hypokalemia Tobacco use disorder Plan: Colitis Acute cholecystitis Biliary dilatation Patient had CT on 04/05 of the abdomen pelvis which showed mild diffuse wall thickening throughout the large bowel, nonspecific and could reflect either infectious or inflammatory process. Mild diffuse edema throughout the mesentery . Abdominal ultrasound on 04/06 performed in ED showed cholelithiasis with mild wall thickening of the gallbladder which could indicate cholecystitis. CBD dilated to 10 mm likely indicating choledocholithiasis. MRCP performed 04/07 AM shows cholelithiasis with moderate gallbladder distention, mild prominence of the CBD up to 8 mm in caliber and mild central intrahepatic biliary radicles prominence. Minimal upper abdominal ascites and trace layering bilateral pleural effusions. Discussed plan with general surgery, continue zosyn and pain medicaitons restarted CLD HIDA scan today may need laparoscopic cholecystectomy this admission Stool cultures ordered Dr Call plans for an EGD in the AM Hypokalemia Protocols in place Tobacco use disorder Continue NicoDerm patch DVT PPX: SCD Code status: Full code Time Spent Managing Pts Care (In Minutes): 40
--- NOTE | 2025-04-10 07:23 | P.PN ---
Date of Service: 04/10/25 Subjective: Reports not getting much sleep last night as PTSD was causing claustrophobia. Continues to feel ill with right lower abdominal pain. Planning for scope today. ROS: 10 point ROS as noted above, otherwise negative Physical exam GEN: Oriented x3, uncomfortable, ill-appearing, afebrile HEENT: Normal conjunctiva CV: Regular rate and rhythm, S1 S2 present Pulm: Clear BBS, on RA ABD: moderate generalized abdominal tenderness, nondistended MSK: No joint tenderness Integumentary: No rashes Neuro: Normal speech, normal affect Vitals reviewed Assessment: Colitis Acute cholecystitis Biliary dilatation Hypokalemia Tobacco use disorder Plan: Colitis Acute cholecystitis Biliary dilatation Patient had CT on 04/05 of the abdomen pelvis which showed mild diffuse wall thickening throughout the large bowel, nonspecific and could reflect either infectious or inflammatory process. Mild diffuse edema throughout the mesentery. Abdominal ultrasound on 04/06 performed in ED showed cholelithiasis with mild wall thickening of the gallbladder which could indicate cholecystitis. CBD dilated to 10 mm likely indicating choledocholithiasis. MRCP performed 04/07 AM shows cholelithiasis with moderate gallbladder distention, mild prominence of the CBD up to 8 mm in caliber and mild central intrahepatic biliary radicles prominence. Minimal upper abdominal ascites and trace layering bilateral pleural effusions. Collaborating with Dr. Fay and Dr. Call continue zosyn and pain medications CLD HIDA scan reports "There is prompt accumulation of the radiopharmaceutical in the liver and excretion into the biliary ductal system, gallbladder, and small bowel. Gallbladder ejection fraction was calculated at 86% (normal range >35%). Additional symptoms were not duplicated." May need laparoscopic cholecystectomy this admission Stool cultures ordered Dr Call plans to scope this morning Continue IV fluids Hypokalemia Protocols in place Tobacco use disorder Continue NicoDerm patch DVT PPX: SCD Code status: Full code Time Spent Managing Pts Care (In Minutes): 38
--- NOTE | 2025-04-10 08:15 | PN ---
Date of Progress Note: 04/10/2025 Subjective: The patient is awake, alert. Still with right-sided lower abdominal pain. The patient had a HIDA scan yesterday, ejection fraction was 86% and his symptoms were not duplicated. Objective: Vital Signs: Stable. He is afebrile. Abdomen: Soft, nondistended. Positive bowel sounds. Positive right middle and lower quadrant tende rness. No peritonitis at this time. Laboratory Data: Pending. Assessment: Abdominal pain, etiology likely enterocolitis. Recommendations: The patient is to have a colonoscopy by Dr. Call today. We will see what the fin dings he has following which we may consider removing his gallbladder prior to discharge as that is a secondary cause of his ongoing abdominal pain. I will discuss the case with Dr. Call after he shields s a colonoscopy and we will make appropriate recommendation based on the findings. BHAVIN/CORINNE Voice ID: [id number] Report ID: [id number]
[2025-04-10] MEDS: MAGNESIUM CITRATE 300 ML BOT PO ONE (09:16)
[2025-04-10] MEDS: Ringers Lactate 1,000 ML IV ONE (14:49)
[2025-04-10] MEDS ORDERED: LIDOCAINE 1% MPF 5 ML VIAL ONE ×2 (14:55→14:56)
[2025-04-10] MEDS ORDERED: EPHEDRINE SULF 50 MG/ML VIAL ONE (15:45)
[2025-04-10] MEDS: POLYETHYL GLY 3350 17 GM/DOSE PO SCH (17:24)
[2025-04-10] MEDS: CHOLESTYRAMINE/ASP 4 GM/PKT PO SCH (17:24)
[2025-04-10 20:07] VITALS: BMI 23.9
[2025-04-11 05:51] LABS: Absolute Lymphocytes (CBC) 1.4 K/uL (0.7-4.9); Hematocrit 39.7 % (39.6-49.0); Hemoglobin 13.5 g/dL (13.6-17.9); MCH 32.9 pg (27.0-35.0); MCHC 34.0 g/dL (32.0-36.0); MCV 96.6 fL (80-100); MPV 10.3 fL (7.6-11.3); Nucleated RBC Absolute Count 0.0 (0-0); Nucleated Red Blood Cells % 0.0 % (0-0); RBC Red Blood Cell Count 4.11 M/uL (4.33-5.43); White Blood Count 5.20 thou/uL (4.3-10.9)
[2025-04-11 06:08] LABS: Anion Gap 4.2 mEq/L (5.0-15.0); BUN Blood Urea Nitrogen 4.0 mg/dL (7-18); Glucose Level 115.0 mg/dL (74-106); Magnesium 2.2 mg/dL (1.6-2.4); Potassium 3.2 mEq/L (3.5-5.1)
--- NOTE | 2025-04-11 11:09 | PN ---
Date of Progress Note: 04/11/2025 Subjective: The patient is awake, alert, feels a little better. He is still complaining of some rig ht-sided abdominal pain. Objective: Vital Signs: Stable. He is afebrile. Abdomen: Soft, nondistended. Positive bowel sounds. There is still some tenderness on the right si de of the abdomen, but there is no peritonitis. I spoke with Dr. Call about his colonoscopy yesterday. He does have a lot of inflammation and biop sies were taken. The etiology of his inflammation is unknown. Assessment: Abdominal pain; enterocolitis; cholelithiasis, perhaps symptomatic. Recommendations: I will discuss the case further with Dr. Call as patient would prefer to have his gallbladder out during this admission as he has had some chronic right-sided abdominal pain, postpra ndial in nature in the past and he said it would be one less thing to worry about, but I am going to double check with Dr. Call, see what his feelings are regarding these issues are after he sees the patient and I will make further recommendation based on our discussion. Currently, the patient is st able and doing okay. We will continue him on IV antibiotics and diet as tolerated. /MODL Voice ID: [id number] Report ID: [id number]
--- NOTE | 2025-04-11 11:51 | P.PN ---
Date of Service: 04/11/25 Subjective: Sleeping but awakens to voice, reports ambulating independently Continues RLQ abdominal pain, nausea with diet advancement but was not nauseous when drinking the GoLytely. ROS: 10 point ROS as noted above, otherwise negative Physical exam GEN: sleeping and awakens to voice, Oriented x3, uncomfortable, ill-appearing, afebrile HEENT: Normocephalic, atraumatic CV: Regular rate and rhythm, S1 S2 present, no murmur noted Pulm: Nonlabored breathing, continues on room air ABD: Right lower quadrant pain on palpation, nondistended MSK: No joint tenderness Integumentary: No rashes Neuro: Normal speech, normal affect Vitals reviewed Assessment: Colitis Acute cholecystitis Biliary dilatation Hypokalemia Tobacco use disorder Plan: Colitis Acute cholecystitis Biliary dilatation Patient had CT on 04/05 of the abdomen pelvis which showed mild diffuse wall thickening throughout the large bowel, nonspecific and could reflect either infectious or inflammatory process. Mild diffuse edema throughout the mesentery. Abdominal ultrasound on 04/06 performed in ED showed cholelithiasis with mild wall thickening of the gallbladder which could indicate cholecystitis. CBD dilated to 10 mm likely indicating choledocholithiasis. MRCP performed 04/07 AM shows cholelithiasis with moderate gallbladder distention, mild prominence of the CBD up to 8 mm in caliber and mild central intrahepatic biliary radicles prominence. Minimal upper abdominal ascites and trace layering bilateral pleural effusions. Advance diet as tolerated, currently getting nauseous with small bite-size HIDA scan reports "There is prompt accumulation of the radiopharmaceutical in the liver and excretion into the biliary ductal system, gallbladder, and small bowel. Gallbladder ejection fraction was calculated at 86% (normal range >35%). Additional symptoms were not duplicated." May need laparoscopic cholecystectomy this admission Stool cultures ordered Dr Call reports inflammation, procured several biopsies. Started evy Fay will discuss further with Dr. Clark and determine if now is a good time for cholecystectomy Continue IV fluids and Zosyn Hypokalemia Protocols in place Thrombocytopenia -Platelets trend 137/127/ -No antiplatelets or anticoagulants being given at this time -Continue to monitor closely Tobacco use disorder Continue NicoDerm patch DVT PPX: Continue SCD, now with thrombocytopenia Code status: Full code Time Spent Managing Pts Care (In Minutes): 35
--- NOTE | 2025-04-11 12:18 | P.PN ---
Subjective Date of Service: 04/11/25 Chief Complaint: Cholecystitis, cholelithiasis, chg / BHs, diarrhea, hematochezia, colitis, Subjective: New changes (Still with RUQ/RLQ pain, only slightly improved he reports. Minimal po intake due to post-prandial pain. Decreasing platelets (not on heparin). Reports drinking 1-2 liters of Diet Coke per day and eating mainly fast food.), Other (Food intake results in immediate post-prandial right sided abdominal pain and he cannot eat any more solid food. He was able to drink apple juice without problem.) Review of Systems 10-point ROS is otherwise unremarkable General: Weakness, Malaise Gastrointestinal: Abdominal Pain Physical Examination - Vital Signs Temperature: 97.6 F Blood Pressure: 106/56 Pulse: 54 Respirations: 18 Pulse Ox (%): 95 - Physical Exam General: Alert, In no apparent distress, Oriented x3, Cooperative HEENT: Atraumatic, Normocephalic, PERRLA, EOMI Neck: Supple Cardiovascular: Normal pulses Gastrointestinal: Tenderness (right mid abdomen) Neurological: Normal speech, Normal strength at 5/5 x4 extr Assessment And Plan - Current Problems (Diagnosis) (1) RUQ abdominal pain Current Visit: Yes Status: Acute (2) RLQ abdominal pain Current Visit: Yes Status: Acute (3) Nausea & vomiting Current Visit: Yes Status: Acute (4) Abnormal ultrasound of abdomen Current Visit: Yes Status: Acute (5) Cholecystitis Current Visit: Yes Status: Acute (6) Cholelithiasis Current Visit: Yes Status: Acute (7) Colitis Current Visit: Yes Status: Acute (8) Change in bowel habits Current Visit: Yes Status: Acute (9) Diarrhea Current Visit: Yes Status: Acute (10) Hematochezia Current Visit: Yes Status: Acute (11) Abnormal CT of the abdomen Current Visit: Yes Status: Acute - Plan REC: 1) continue IVFs & IV antibiotics 2) continue prn pain medications and anti-emetics 3) lap gemini as per surgery 4) PPI therapy 5) await stool studies 6) await IBD panel 7) check haptoglobin, LDH, D-dimer, lactate, CBC with smear 8) CT angiogram now due to possible mesenteric ischemia as well
[2025-04-11] MEDS: ONDANSETRON 4 MG/2 ML VIAL IV PRN (12:29)
[2025-04-11] MEDS: POTASSIUM CL SA 10 MEQ TAB PO ONE ×2 (12:36→12:38)
--- NOTE | 2025-04-11 16:04 | RAD REPORT ---
EXAMINATION: Abdomen Angio CLINICAL INDICATION: Male, 65 years old.RUQ/RLQ pain, possible mesenteric ischemia TECHNIQUE: CTA abdomen and pelvis was performed, after the administration of IV contrast, as per [facility] protocol. MIPS were created. Axial, sagittal and coronal reconstructions were obtained. One or more of the following dose reduction techniques were used: Automated exposure control, adjustment of the mA and/or kV according to patient size, and/or iterative reconstruction. Unless otherwise specified, incidental findings do not require dedicated imaging follow-up. [id number]. COMPARISON: MRCP 04/07/2025, CT 04/05/2025 FINDINGS: LOWER CHEST: Secretions and/or mucoid impacted right lower lobe bronchus.Dependent atelectasis. Moder ate circumferential thickening of the distal esophagus which could reflect esophagitis. Endoscopy could better evaluate. Mild cardiomegaly. UPPER GI: Keaton-en-Y gastric bypass. LIVER: No significant focal abnormality. GALLBLADDER/BILE DUCTS: Cholelithiasis. Intra and extrahepatic biliary duct dilatation is present.? PANCREAS: Prominent pancreatic duct. No mass identified. SPLEEN: Unremarkable. ADRENALS: No adrenal masses. KIDNEYS AND URETERS: No hydronephrosis.No suspicious renal mass.No renal calculi. ABDOMINAL AORTA AND OTHER VESSELS: Moderate atherosclerotic changes without aortic aneurysm. Common o rigin of the SMA and celiac trunk. No arterial occlusion identified. The major venous structures within the mesentery are patent. PERITONEUM: No abnormal free fluid. No free air. LYMPH NODES: No pathologic lymphadenopathy. ABDOMINAL WALL: Unremarkable SMALL BOWEL/COLON: Small bowel has normal course and caliber. No colonic wall thickening or pericolon ic inflammatory changes.Nonvisualized appendix but no secondary signs of acute appendicitis. URINARY BLADDER: Underdistended but grossly unremarkable. REPRODUCTIVE ORGANS: No pathologic process. MUSCULOSKELETAL: L4-5 fusion. ADDITIONAL FINDINGS: None. IMPRESSION: No CT findings that would suggest mesenteric ischemia. The major arterial branches of the abdominal a barb are patent. In addition, the major venous structures within the mesentery are also patent. Incidental findings which include cholelithiasis without CT evidence of acute cholecystitis, similar biliary duct dilatation, and moderate thickening of the distal esophagus which could reflect esophagitis
--- NOTE | 2025-04-11 16:05 | RAD REPORT ---
EXAMINATION: Pelvis Angio CLINICAL INDICATION: Male, 65 years old.RUQ/RLQ pain, possible mesenteric ischemia TECHNIQUE: CTA abdomen and pelvis was performed, after the administration of IV contrast, as per [facility] protocol. MIPS were created. Axial, sagittal and coronal reconstructions were obtained. One or more of the following dose reduction techniques were used: Automated exposure control, adjustment of the mA and/or kV according to patient size, and/or iterative reconstruction. Unless otherwise specified, incidental findings do not require dedicated imaging follow-up. [id number]. COMPARISON: MRCP 04/07/2025, CT 04/05/2025 FINDINGS: LOWER CHEST: Secretions and/or mucoid impacted right lower lobe bronchus.Dependent atelectasis. Moder ate circumferential thickening of the distal esophagus which could reflect esophagitis. Endoscopy could better evaluate. Mild cardiomegaly. UPPER GI: Keaton-en-Y gastric bypass. LIVER: No significant focal abnormality. GALLBLADDER/BILE DUCTS: Cholelithiasis. Intra and extrahepatic biliary duct dilatation is present.? PANCREAS: Prominent pancreatic duct. No mass identified. SPLEEN: Unremarkable. ADRENALS: No adrenal masses. KIDNEYS AND URETERS: No hydronephrosis.No suspicious renal mass.No renal calculi. ABDOMINAL AORTA AND OTHER VESSELS: Moderate atherosclerotic changes without aortic aneurysm. Common o rigin of the SMA and celiac trunk. No arterial occlusion identified. The major venous structures within the mesentery are patent. PERITONEUM: No abnormal free fluid. No free air. LYMPH NODES: No pathologic lymphadenopathy. ABDOMINAL WALL: Unremarkable SMALL BOWEL/COLON: Small bowel has normal course and caliber. No colonic wall thickening or pericolon ic inflammatory changes.Nonvisualized appendix but no secondary signs of acute appendicitis. URINARY BLADDER: Underdistended but grossly unremarkable. REPRODUCTIVE ORGANS: No pathologic process. MUSCULOSKELETAL: L4-5 fusion. ADDITIONAL FINDINGS: None. IMPRESSION: No CT findings that would suggest mesenteric ischemia. The major arterial branches of the abdominal a barb are patent. In addition, the major venous structures within the mesentery are also patent. Incidental findings which include cholelithiasis without CT evidence of acute cholecystitis, similar biliary duct dilatation, and moderate thickening of the distal esophagus which could reflect esophagitis
[2025-04-11 21:45] LABS: D-Dimer 1.007 FEUug/mL (0-0.500); PT Prothrombin Time 16.2 SECONDS (10-13.0); PTT, Activated Partial Thromb 31.7 SECONDS (27.2-37.4); Protime INR 1.45
[2025-04-12 04:25] LABS: Absolute Lymphocytes (CBC) 1.4 K/uL (0.7-4.9); Hematocrit 40.8 % (39.6-49.0); Hemoglobin 13.9 g/dL (13.6-17.9); MCH 32.7 pg (27.0-35.0); MCHC 34.0 g/dL (32.0-36.0); MCV 96.1 fL (80-100); MPV 9.4 fL (7.6-11.3); Nucleated RBC Absolute Count 0.0 (0-0); Nucleated Red Blood Cells % 0.2 % (0-0); RBC Red Blood Cell Count 4.24 M/uL (4.33-5.43); White Blood Count 4.80 thou/uL (4.3-10.9)
[2025-04-12 04:38] LABS: Anion Gap 5.2 mEq/L (5.0-15.0); BUN Blood Urea Nitrogen 4.0 mg/dL (7-18); Glucose Level 84.0 mg/dL (74-106); Magnesium 2.4 mg/dL (1.6-2.4); Potassium 4.2 mEq/L (3.5-5.1)
[2025-04-12] MEDS: Ringers Lactate 1,000 ML IV ONE (07:57)
[2025-04-12] MEDS ORDERED: ONDANSETRON 4 MG/2 ML VIAL ONE (08:07)
[2025-04-12] MEDS ORDERED: ROCURONIUM 50 MG/5 ML VIAL IV ONE (08:07)
[2025-04-12] MEDS ORDERED: NEOSTIGMINE 1 MG/ML -10 ML VIAL ONE (08:07)
[2025-04-12] MEDS ORDERED: LIDOCAINE 2% MPF 5 ML VIAL ONE (08:07)
[2025-04-12] MEDS ORDERED: GLYCOPYRROLATE 0.2 MG/ML SYR ONE (08:07)
[2025-04-12] MEDS ORDERED: FENTANYL CITR 100 MCG/2 ML ONE ×2 (08:08→09:23)
[2025-04-12] MEDS ORDERED: MIDAZOLAM HCL 2 MG/2 ML INJ ONE (08:08)
[2025-04-12] MEDS ORDERED: EPHEDRINE SULF 50 MG/ML VIAL ONE (08:39)
--- NOTE | 2025-04-12 09:57 | P.OP ---
Date of Service: 04/12/25 Preop diagnosis: Abdominal pain, chronic cholecystitis and cholelithiasis Postop diagnosis: Same, adhesions Procedure performed: Laparoscopic cholecystectomy, lysis of adhesions Surgeon: Isreal Fay MD Diver Pumper: None Estimated blood loss: Minimal Specimen: Gallbladder Findings: As above Anesthesia: General Complications: None Drains: None Fluids and blood products: Nonapplicable Disposition: Recovery room Operative note: Patient brought to the OR and placed in supine position. General anesthesia began. Patient prepped and draped in usual sterile fashion. Marcaine 0.5% infiltrated locally. 15 blade used to make a 1 cm supraumbilical midline incision. Subcutaneous tissue divided and bleeding controlled with ca utery. Fascia identified and divided. #1 Vicryl stay suture placed. Peritoneal cavity entered with sharp and blunt dissection. 12 mm trocar placed into the peritoneal cavity under direct vision. Pneumoperitoneum established. Then three 5 mm trocar placed under direct vision. 1 trocar placed in the epigastric region just to the right of midline. 2 trocars placed in the right subcostal region. Laparoscopy revealed normal liver, adhesions in the epigastric region from previous surgery, adhesions in the right lower quadrant from previous surgery, normal colon and small intestine. The gallbladder had some adhesions noted. LigaSure was used to take down all of these adhesions. Fundus of the gallbladder was retracted superiorly. Infundibulum identified and retracted inferolaterally. Blunt dissection utilized to identify the cystic duct and the cystic artery. Clips placed in both structures divided. Gallbladder removed from the liver using cautery. Bleeding on the liver contro lled with cautery. Gallbladder retrieved to the umbilicus via Endo Catch bag. Right upper quadrant irrigated. Effluent clear and no evidence of bleeding or bile leakage noted. All trocars removed under direct vision. Stay sutures tied to each other to reapproximate the fascial defect. Subcutaneous wound irrigated and bleeding controlled cautery. 3-0 chromic used to reapproximate subcutaneous tissue and close skin. Sterile dressing applied. Patient awakened and taken to recovery room in good general condition. CC:
[2025-04-12] MEDS ORDERED: HYDROCODONE/APAP 7.5/325 MG TAB PO PRN (10:23)
[2025-04-12] MEDS: HYDROMORPHONE HCL 0.5 MG/0.5 ML INJ ONE (11:20)
[2025-04-12] MEDS: HYDROMORPHONE HCL 1 MG/ML INJ IV PRN (14:17)
--- NOTE | 2025-04-12 14:50 | P.PN ---
Subjective Date of Service: 04/12/25 Chief Complaint: Cholecystitis, cholelithiasis, chg / BHs, diarrhea, hematochezia, colitis, Status post lap cholecystectomy today. No issues overnight. No recorded fever. Physical Examination - Vital Signs Temperature: 97 F Blood Pressure: 139/73 Pulse: 50 Respirations: 14 Pulse Ox (%): 93 Assessment And Plan - Plan Physical exam GEN: Oriented x3, NAD CV: Regular rate and rhythm, S1 S2 present, no murmur noted Pulm: Nonlabored breathing, continues on room air ABD: Soft, nondistended, no tenderness MSK: No joint tenderness Integumentary: No rashes Neuro: Normal speech, normal affect Vitals reviewed Assessment: Colitis Acute cholecystitis Biliary dilatation Hypokalemia Tobacco use disorder Plan: Colitis Acute cholecystitis Biliary dilatation Patient had CT on 04/05 of the abdomen pelvis which showed mild diffuse wall thickening throughout the large bowel, nonspecific and could reflect either infectious or inflammatory process. Mild diffuse edema throughout the mese ntery. Abdominal ultrasound on 04/06 performed in ED showed cholelithiasis with mild wall thickening of the gallbladder which could indicate cholecystitis. CBD dilated to 10 mm likely indicating choledocholithiasis. MRCP performed 04/07 AM shows cholelithiasis with moderate gallbladder distention, mild prominence of the CBD up to 8 mm in caliber and mild central intrahepatic biliary radicles prominence. Minimal upper abdominal ascites and trace layering bilateral pleural effusions. HIDA scan reports "There is prompt accumulation of the radiopharmaceutical in the liver and excretion into the biliary ductal system, gallbladder, and small bowel. Gallbladder ejection fraction was calculated at 86% (normal range >35%). Additional symptoms were not duplicated." Dr. Call evaluated patient and performed colonoscopy Dr Call reports inflammation, procured several biopsies. Started questran Colonic biopsy results are pending. Stool for C. difficile not done yet. Continue IV fluids and Zosyn Anticipating discharge in a.m. pending GI clearance. Hypokalemia Replace potassium as needed Thrombocytopenia Continue to monitor closely Tobacco use disorder Continue NicoDerm patch DVT PPX: CSCD Code status: Full code T
--- NOTE | 2025-04-12 18:56 | PN ---
Addendum: The patient underwent discussion with Dr. Call and I spoke with Dr. Call also, and we all agreed that the patient would benefit from a cholecystectomy. Risks, benefits, and alternatives were discussed with the patient prior to surgery in detail. The patient understood and agreed to pro cedure. /MODBritt Voice ID: [id number] Report ID: [id number]
[2025-04-12 22:30] VITALS: O2SAT 96
[2025-04-13 04:37] LABS: Hematocrit 42.5 % (39.6-49.0); Hemoglobin 14.5 g/dL (13.6-17.9); White Blood Count 8.40 thou/uL (4.3-10.9)
[2025-04-13 04:44] LABS: Absolute Lymphocytes (CBC) 1.0 K/uL (0.7-4.9); MCH 32.9 pg (27.0-35.0); MCHC 34.2 g/dL (32.0-36.0); MCV 96.2 fL (80-100); MPV 9.5 fL (7.6-11.3); Nucleated RBC Absolute Count 0.0 (0-0); Nucleated Red Blood Cells % 0.1 % (0-0); RBC Red Blood Cell Count 4.42 M/uL (4.33-5.43)
[2025-04-13 04:54] LABS: Anion Gap 5.1 mEq/L (5.0-15.0); BUN Blood Urea Nitrogen 5.0 mg/dL (7-18); Glucose Level 115.0 mg/dL (74-106); Magnesium 1.9 mg/dL (1.6-2.4); Potassium 4.1 mEq/L (3.5-5.1)
--- NOTE | 2025-04-13 12:20 | P.PN ---
Date of Service: 04/13/25 Subjective: improving, still having some pain issues reports allergy to hydrocodone, but tolerated oxycontin in the past recently Physical Exam: Gen: Alert, Oriented, NAD CV: Regular rate and rhythm, no edema Pulm: Nonlabored respirations on room air, clear bilaterally Abdomen: Soft, dressing in place Neuro: Normal strength, normal affect Problem List: Acute colitis Acute cholecystitis s/p lap gemini with lysis of adhesions (04/12) Gastritis, reflux esophagitis Hypokalemia Tobacco use disorder on admission, presented with worsening RUQ abdominal pain associated with nausea and vomiting. Patient had CT on 04/05 of the abdomen pelvis which showed mild diffuse wall thickening throughout the large bowel, nonspecific and could reflect either infectious or inflammatory process. Mild diffuse edema throughout the mesentery. Abdominal ultrasound on admission noted cholelithiasis with mild gallbladder wall thickening in addition to dilated common bile duct 10mm. MRCP (04/07):cholelithiasis with moderate gallbladder distention, mild prominence of the CBD up to 8 mm in caliber and mild central intrahepatic biliary radicles prominence. Minimal upper abdominal ascites and trace layering bilateral pleural effusions. HIDA scan (04/09): normal HIDA scan with 86% gallbladder EF. CTA abdomen/pelvis (04/12): was negative for mesenteric ischemia. GI and General surgery were consulted on admission. Dr. Clark performed EGD/Colonoscopy on 04/10. EGD noted grade A reflux esophagitis, mild diffuse chronic gastritis, smalll hiatal hernia Colonoscopy noted moderate diffuse colitis, several colonic polyps, multiple unomplicated internal hemorrhoids without active bleeding. Multiple biopsies obtained; pending report Dr. Call recommending repeat colonoscopy once colitis resolves given poor prep and toremove remaining colon polyps s/p lap gemini with lysis of adhesions with Dr. Fay on 04/12 Dr. Call had recommended starting questran. Continue IV Zosyn (04/07-) pain control, IVF Tolerating regular diet VTE: SCD Code: Full Dispo: Home
--- NOTE | 2025-04-13 13:59 | P.PN ---
Subjective Date of Service: 04/13/25 Chief Complaint: Cholecystitis, cholelithiasis, chg / BHs, diarrhea, hematochezia, colitis, Subjective: Improving (S/p lap gemini yesterday. Less pain, no N/V. Trying to eat solids now. CTA for mesenteric ischemia negative. Platelets increasing now.) Review of Systems 10-point ROS is otherwise unremarkable General: Weakness (Improved.) Gastrointestinal: Abdominal Pain (post-op mainly) Physical Examination - Vital Signs Temperature: 97.8 F Blood Pressure: 110/63 Pulse: 74 Respirations: 12 Pulse Ox (%): 95 - Physical Exam General: Alert, In no apparent distress, Oriented x3, Cooperative HEENT: Atraumatic, Normocephalic, PERRLA, EOMI Neck: Supple Respiratory: Normal air movement Cardiovascular: Normal pulses Neurological: Normal speech Assessment And Plan - Current Problems (Diagnosis) (1) RUQ abdominal pain Current Visit: Yes Status: Acute (2) RLQ abdominal pain Current Visit: Yes Status: Acute (3) Nausea & vomiting Current Visit: Yes Status: Acute (4) Abnormal ultrasound of abdomen Current Visit: Yes Status: Acute (5) Cholecystitis Current Visit: Yes Status: Acute (6) Cholelithiasis Current Visit: Yes Status: Acute (7) Colitis Current Visit: Yes Status: Acute (8) Change in bowel habits Current Visit: Yes Status: Acute (9) Diarrhea Current Visit: Yes Status: Acute (10) Hematochezia Current Visit: Yes Status: Acute (11) Abnormal CT of the abdomen Current Visit: Yes Status: Acute - Plan REC: 1) continue IVFs & IV antibiotics 2) continue prn pain medications and anti-emetics 3) PPI therapy 4) await stool studies 5) await IBD panel 6) GI clinic f/u
[2025-04-13] MEDS: ENSURE MAX PROTEIN 330 ML LIQUID PO SCH (15:00)
[2025-04-13] MEDS: OXYCODONE HCL 5 MG TAB PO PRN (20:34)
[2025-04-13] MEDS: DIVALPROEX DR 500MG TAB PO SCH (21:00)
[2025-04-13] MEDS: HYDROMORPHONE HCL 1 MG/ML INJ IV PRN (23:27)
[2025-04-14 04:41] LABS: Hematocrit 40.8 % (39.6-49.0); Hemoglobin 14.2 g/dL (13.6-17.9); MCH 33.4 pg (27.0-35.0); MCHC 34.8 g/dL (32.0-36.0); MCV 96.0 fL (80-100); MPV 9.8 fL (7.6-11.3); RBC Red Blood Cell Count 4.25 M/uL (4.33-5.43); White Blood Count 7.50 thou/uL (4.3-10.9)
[2025-04-14 04:46] LABS: Anion Gap 6.0 mEq/L (5.0-15.0); BUN Blood Urea Nitrogen 8.0 mg/dL (7-18); Glucose Level 117.0 mg/dL (74-106); Magnesium 1.8 mg/dL (1.6-2.4); Potassium 4.0 mEq/L (3.5-5.1)
[2025-04-14] MEDS: MAGNESIUM SULFATE 1 gm IVPB 1 GM/100 ML BAG IV ONE (06:15)
--- NOTE | 2025-04-14 07:26 | P.DS ---
Admission Date: 04/06/25 Discharge Date: 04/14/25 Disposition: ROUTINE DISCHARGE Discharge Condition: GOOD Reason for Admission: Cholecystitis, cholelithiasis, chg / BHs, diarrhea, hematochezia, colitis, Consultations: General surgery - Dr. Fay GI - Dr. Call Brief History of Present Illness: 65yo M, PMH: PTSD Patient presents to the ER complaining of worsening abdominal pain mostly right upper quadrant with positive rebound tenderness and guarding, nausea and vomiting nonbilious and nonbloody content, and diarrhea. Patient states he started having abdominal pain mostly right upper quadrant for the past 2 weeks, states the pain progressively worsened today and he went and saw Dr. Call, who recommended for him to go to the ER, and requested to order clear liquid diet for the patient until midnight, to start on antibiotic. Patient describes the pain as severe aching and sharp pain, with a pain scale of 9/10, denies of associated chest pain or shortness of breath. According to report received from the ER provider, states surgery Dr. Fay was consulted, and he wants MRCP to be done in the morning, and liver enzymes in AM. Patient will be kept n.p.o. after midnight. On admission assessment, patient positive for rebound tenderness right upper quadrant. Course in ER. Impression: Cholelithiasis with mild wall thickening of the gallbladder could indicate cholecystitis. Common bile duct is dilated to 10 mm likely indicating choledocholithiasis. Hospital Course: Problem List: Acute colitis Acute cholecystitis s/p lap gemini with lysis of adhesions (04/12) Gastritis, reflux esophagitis Hypokalemia Tobacco use disorder Physician discharge instructions: Patient presented with worsening RUQ abdominal pain associated with nausea and vomiting secondary to combination of acute colitis and cholecystitis with cholelithiasis, esophagitis. Patient had CT on 04/05 of the abdomen pelvis which showed mild diffuse wall thickening throughout the large bowel, nonspecific and could reflect either infectious or inflammatory process. Mild diffuse edema throughout the mesentery. Abdominal ultrasound on admission noted cholelithiasis with mild gallbladder wall thickening in addition to dilated common bile duct 10mm. MRCP performed 04/07 AM shows cholelithiasis with moderate gallbladder distention, mild prominence of the CBD up to 8 mm in caliber and mild central intrahepatic biliary radicles prominence. Minimal upper abdominal ascites and trace layering bilateral pleural effusions. Patient had normal HIDA scan on 04/09 with 86% gallbladder EF. CTA abdomen/pelvis was negative for mesenteric ischemia. GI and General surgery were consulted on admission. Dr. Clark performed EGD/Colonoscopy on 04/10 which noted grade A reflux esophagitis, mild diffuse chronic gastritis, smalll hiatal hernia, moderate diffuse colitis, several colonic polyps with biopsies. Dr. Fay performed lap gemini with lysis of adhesions on 04/12. Patient received ~1 week of IV zosyn while hospitalized. Dr. Call had recommended starting questran. Patient's was feeling better, abdominal pain improving, nausea/vomiting resolved and was deemed stable for discharge. Patient was tolerating regular diet on day of discharge without issues. Follow up with Dr. Fay in his office in 1 week for further management. Follow up with APOLONIA Jones in 2-4 weeks for further management and to discuss biopsy results. Dr. Call had recommended repeat colonoscopy once colitis resolves given poor prep and to remove remaining colon polyps. Call to schedule and confirm appointment. Medications: Questran light - 4gm twice daily with meals for loose stool Protonix daily 40mg for acid reflux Augmentin x 6 more days - to complete 2 weeks total Antibiotics Follow up: PCP 3-[address] Fay in 1 week in office APOLON[facility] Jones in 2-4 weeks Please call to schedule / confirm appointments Physical Exam: Gen: Alert, Oriented, NAD CV: Regular rate and rhythm, no edema Pulm: Nonlabored respirations on room air, clear bilaterally Abdomen: Soft, dressing in place Neuro: Normal strength, normal affect Vital Signs/Physical Exam: Temp Pulse Resp BP Pulse Ox 98.2 F 58 14 104/59 L 95 04/14/25 04:00 04/14/25 06:21 04/14/25 06:21 04/14/25 06:21 04/14/25 06:21 Laboratory Data at Discharge: WBC 7.50 thou/uL (4.3-10.9) 04/14/25 04:01 Hgb 14.2 g/dL (13.6-17.9) 04/14/25 04:01 Hct 40.8 % (39.6-49.0) 04/14/25 04:01 Plt Count 137 thou/uL (152-406) L 04/14/25 04:01 PT 16.2 SECONDS (10-13.0) H 04/11/25 21:17 INR 1.45 04/11/25 21:17 APTT 31.7 SECONDS (27.2-37.4) 04/11/25 21:17 Sodium 143 mEq/L (136-145) D 04/14/25 04:01 Potassium 4.0 mEq/L (3.5-5.1) 04/14/25 04:01 BUN 8 mg/dL (7-18) 04/14/25 04:01 Creatinine 0.97 mg/dL (0.70-1.30) 04/14/25 04:01 Glucose 117 mg/dL (74-106) H 04/14/25 04:01 Phosphorus 2.6 mg/dL (2.5-4.9) 04/14/25 04:01 Magnesium 1.8 mg/dL (1.6-2.4) 04/14/25 04:01 Total Bilirubin 0.4 mg/dL (0.2-1.0) 04/09/25 05:55 AST < 10 U/L (15-37) L 04/09/25 05:55 ALT < 14 U/L (16-61) L 04/09/25 05:55 Alkaline Phosphatase 56 U/L (45-117) 04/09/25 05:55 Lipase 15 U/L (13-75) 04/09/25 05:55 Home Medications: Divalproex Sodium 1,000 mg PO BEDTIME 04/07/25 Prazosin HCl 3 cap PO BEDTIME 04/07/25 Quetiapine Fumarate [Seroquel] 600 mg PO BEDTIME 04/07/25 clonazePAM [Clonazepam] 1 tab PO TID PRN 04/07/25 Amox/Clavulanate [Augmentin 875-125 Tab] 1 each PO BID 6 Days #12 tab 04/14/25 Cholestyramine/Asp [Questran Light*] 4 gm PO BIDWM 30 Days #60 packet 04/14/25 Oxycodone HCl [Oxyir (Oxycodone HCl Imr)*] 5 mg PO Q6H PRN #15 tab 04/14/25 Pantoprazole [Protonix Tab*] 40 mg PO DAILY 30 Days #30 tab 04/14/25 New Medications: Amox/Clavulanate [Augmentin 875-125 Tab] 1 each PO BID 6 Days #12 tab Oxycodone HCl [Oxyir (Oxycodone HCl Imr)*] 5 mg PO Q6H PRN #15 tab PRN Reason: Pain Scale 5-7 (Moderate) Pantoprazole [Protonix Tab*] 40 mg PO DAILY 30 Days #30 tab Cholestyramine/Asp [Questran Light*] 4 gm PO BIDWM 30 Days #60 packet Physician Discharge Instructions: Physician discharge instructions: Patient presented with worsening RUQ abdominal pain associated with nausea and vomiting secondary to combination of acute colitis and cholecystitis with cholelithiasis, esophagitis. Patient had CT on 04/05 of the abdomen pelvis which showed mild diffuse wall thickening throughout the large bowel, nonspecific and could reflect either infectious or inflammatory process. Mild diffuse edema throughout the mesentery. Abdominal ultrasound on admission noted cholelithiasis with mild gallbladder wall thickening in addition to dilated common bile duct 10mm. MRCP performed 04/07 AM shows cholelithiasis with moderate gallbladder distention, mild prominence of the CBD up to 8 mm in caliber and mild central intrahepatic biliary radicles prominence. Minimal upper abdominal ascites and trace layering bilateral pleural effusions. Patient had normal HIDA scan on 04/09 with 86% gallbladder EF. CTA abdomen/pelvis was negative for mesenteric ischemia. GI and General surgery were consulted on admission. Dr. Clark performed EGD/Colonoscopy on 04/10 which noted grade A reflux esophagitis, mild diffuse chronic gastritis, smalll hiatal hernia, moderate diffuse colitis, several colonic polyps with biopsies. Dr. Fay performed lap gemini with lysis of adhesions on 04/12. Patient received ~1 week of IV zosyn while hospitalized. Dr. Call had recommended starting questran. Patient's was feeling better, abdominal pain improving, nausea/vomiting resolved and was deemed stable for discharge. Patient was tolerating regular diet on day of discharge without issues. Follow up with Dr. Fay in his office in 1 week for further management. Follow up with Dr. Call, GI in 2-4 weeks for further management and to discuss biopsy results. Dr. Call had recommended repeat colonoscopy once colitis resolves given poor prep and to remove remaining colon polyps. Call to schedule and confirm appointment. Medications: Questran light - 4gm twice daily with meals for loose stool Protonix daily 40mg for acid reflux Augmentin x 6 more days - to complete 2 weeks total Antibiotics Follow up: PCP 3-[address] Fay in 1 week in office APOLONIA Jones in 2-4 weeks Please call to schedule / confirm appointments Post- op: Instructions per Dr. Fay Patient may shower in a.m. Remove outer dressing in a.m. Keep Steri-Strips on at all times Incentive spirometry as instructed Resume home meds and diet Activity as tolerated, no heavy lifting Follow-up my office 1 week, call for appointment Activity: No lifting more than 10 lbs Followup: Marcus Novoa MD [Primary Care Provider] - 1-2 Weeks Isreal Fay MD [ACTIVE - CAN ADMIT] - 1 Week Paramjit Call MD [ASSOCIATE-ACTIVE - CAN ADMIT] - 1-2 Weeks Time spent managing pt's care (in minutes): 45
[2025-04-14 08:15] VITALS: BP 98/56; TEMP 97.9
[2025-04-14] MEDS ORDERED: AMOX/K CLAV 875 MG TAB PO SCH (09:00)
--- NOTE | 2025-04-14 10:31 | PN ---
Date of Progress Note: 04/14/2025 Subjective: The patient is awake, alert. No complaint. Objective: Vital Signs: Stable. Afebrile. Abdomen: Benign. Assessment: Status post laparoscopic cholecystectomy and lysis of adhesions, and patient with entero colitis. Recommendations: The patient cleared from Surgery for discharge to home. The patient needs to follo w up with the GI doctor, Dr. Call. The patient will follow up with me in a week. Discharge instru ctions given in detail. /MODL Voice ID: [id number] Report ID: [id number]
== END 2025-04-14 09:52 | disposition home or self-care (01) | DRG 356 ==
LOC: ER 17:45 → ERHOLD 20:12 → 2ND 21:01
PROVIDERS: ADMIT Internal Medicine; ATTEND Hospitalist
PROC: 0DBK8ZX Excision of Ascending Colon, Via Natural or Artificial Opening Endoscopic, Diagnostic (ICD-10-PCS; 2025-04-10)
PROC: 0DBL8ZX Excision of Transverse Colon, Via Natural or Artificial Opening Endoscopic, Diagnostic (ICD-10-PCS; 2025-04-10)
PROC: 0DBA8ZX Excision of Jejunum, Via Natural or Artificial Opening Endoscopic, Diagnostic (ICD-10-PCS; 2025-04-10)
PROC: 0DBK8ZX Excision of Ascending Colon, Via Natural or Artificial Opening Endoscopic, Diagnostic (ICD-10-PCS; principal; 2025-04-10 08:00)
PROC: 0FT44ZZ Resection of Gallbladder, Percutaneous Endoscopic Approach (ICD-10-PCS; 2025-04-12)
DX: K52.9 Noninfective gastroenteritis and colitis, unspecified (principal); K21.01 Gastro-esophageal reflux disease with esophagitis, with bleeding; K80.00 Calculus of gallbladder with acute cholecystitis without obstruction; R18.8 Other ascites; K29.50 Unspecified chronic gastritis without bleeding; E87.6 Hypokalemia; K63.5 Polyp of colon; K64.8 Other hemorrhoids; D69.6 Thrombocytopenia, unspecified; K82.8 Other specified diseases of gallbladder; F43.10 Post-traumatic stress disorder, unspecified; K44.9 Diaphragmatic hernia without obstruction or gangrene; F17.210 Nicotine dependence, cigarettes, uncomplicated; Z88.5 Allergy status to narcotic agent; Z98.84 Bariatric surgery status; Z79.899 Other long term (current) drug therapy
CPT/HCPCS: 36415; 72191; 74175; 74177; 74181; 76705; 78227; 80048; 80053; 82248; 83010; 83605; 83615; 83690; 83735; 84100; 84132; 85025; 85027; 85379; 85610; 85730; 88304; 88305; 88312; 94010; 96361; 96365; 96374; 96375; 99284; 99285; A9537; J1100; J1171; J2003; J2250; J2405; J2543; J2704; J2710; J2765; J3010; J3475; J3480; J7030; J7120; J7799; Q9967